=== PATIENT | female | born 1940 | race Caucasian/White ===

== ENCOUNTER 2018-04-19 17:09 | Inpatient (IN) ==
[2018-04-19] MEDS ORDERED: Bisacodyl 10 MG Supp RECTAL PRN (17:31)
[2018-04-19] MEDS ORDERED: Morphine Sulfate Inj 2 MG/ML Vial IV.PUSH PRN (17:31)
--- NOTE | 2018-04-19 17:39 | P.HPCC ---
History of Present Illness Service: Critical care medicine Primary Care Physician: Drew Sinclair III, MD Chief Complaint: Left lower extremity gangrene History of Present Illness: This is a 77-year-old female. Date of admission 04/19/2018. 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 Patient presents to [facility] as a direct transfer [facility] from [place] with the following history. Patient was originally seen at [facility] 04/16 at which time she underwent a left lower extremity Oanh José Miguel. This revealed superior femoral artery occlusion stent with jailing profunda. The anterior tibial and posterior tubular arteries were occluded. The plan was for left groin reconstruction with a femoral below the knee popliteal surgery on Friday 04/[address] Hansen. Patient was admitted to [facility] with confusion after going confusion post procedure. She is admitted with a diagnosis of acute cerebrovascular accident and underwent an MRI of the brain, carotid Dopplers. According to this was negative. Thought the acutely was secondary to sepsis source foot?. She subsequently transferred to [facility] for further evaluation treatment. 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 This includes certification that hospital inpatient services are reasonable and necessary and in the case of services not specified as inpatient-only under 42 CFR 419.22(n), that they are appropriately provided as inpatient services in accordance to with the 2-midnight benchmark under 43 CFR 412.3(e) Estimated Total Length of Stay (Days): 5 Plans for Post Hospital Care: Not yet determined Review of Systems Constitutional: Reports body ache(s), Reports weakness, Reports weight loss, Denies anorexia, Denies chills, Denies headache(s), Denies weight gain Eyes: Denies blind spots, Denies blurry vision Ears, Nose, Mouth, and Throat: Reports poor balance, Denies sinus pressure Cardiovascular: Denies chest pain, Denies shortness of breath, Denies shortness of breath with activity Respiratory: Denies cough, Denies pain on inspiration Gastrointestinal: Denies abdominal pain, Denies incontinent of stools Genitourinary: Reports urinary incontinence, Reports urinary urgency Musculoskeletal: Reports abnormal walking, Reports body aches, Denies back pain Skin/Breast: Reports dry skin, Reports skin ulcer Neurologic: Denies abnormal hearing, Denies abnormal movements, Denies restless legs, Denies sensory deficit Psychiatric: Reports anxiety, Reports confusion, Denies depression Endocrine: Denies cold intolerance, Denies excessive sweating Hematologic/Lymphatic: Denies easy bleeding, Denies easy bruising Allergic/Immunologic: Denies GI upset with certain foods PMFSH - History History Provided By: Patient - Medical History Medical History: Medical History (Last Updated 04/19/18 @ 17:49 by Sharath Tovar MD) Gangrene Hypercholesterolemia Obesity Peripheral arterial disease Unsteady gait Urinary incontinence COPD (chronic obstructive pulmonary disease) Carotid stenosis HTN (hypertension) PVD (peripheral vascular disease) - Surgical History Surgical History: Surgical History (Last Updated 04/19/18 @ 17:49 by Sharath Tovar MD) Amputated toe of left foot History of cholecystectomy History of total left knee replacement Status post arterial stent - Family History Family History: Family History (Last Updated 04/19/18 @ 17:50 by Sharath Tovar MD) Mother Family history of Alzheimer's disease Father Family history of OK (myocardial infarction) Other Family history of hypertension - Social History I have reviewed the patient's Social History: Yes - Tobacco History Second Hand Smoke Exposure: No Tobacco Use In Past 30 Days: No Smoking Status: Former smoker Tobacco Type: Cigarettes - Alcohol History How Often Do You Have a Drink Containing Alcohol: 2 to 3 times a week - Substance Use History Substance History: No History of Abuse - Travel History History of Recent Travel: No Recent Travel in the [place] Within the Last 8 Weeks: No Recent Travel Out of the Country Within the Last 8 Weeks: No Medications and Allergies Active Medications: Active Medications Acetaminophen (Tylenol) 650 mg PO Q6H PRN PRN Reason: Fever >101f Hydrocodone Bitart/Acetaminophen ([place] 5/325) 1 tab PO Q4H PRN PRN Reason: PAIN SCALE 1 TO 5 Al Hydroxide/Mg Hydroxide (Milk Of Magnesia Liq) 30 ml PO Q12H PRN PRN Reason: Mild Constipation Albuterol (Albuterol Neb (Tatiana)) 2.5 mg NEB Q2HR NEB PRN PRN Reason: SHORTNESS OF BREATH/WHEEZING Albuterol (Duoneb Neb (Prn)) 1 ampul NEB Q6HR NEB [facility] Atorvastatin Calcium (Lipitor) 40 mg PO DAILY [facility] Bisacodyl (Dulcolax Supp) 10 mg RECTAL DAILY PRN PRN Reason: SEVERE CONSITIPATION Chlorhexidine Gluconate (Chlorhexidine 2% Cloth) 3 pack TOPICAL DAILY@0400 TATIANA Stop: 04/25/18 03:59 Chlorhexidine Gluconate (Chlorhexidine 2% Cloth) 3 pack TOPICAL DAILY@0400 PRN PRN Reason: Extra cloth needed Stop: 04/25/18 03:59 Famotidine (Pepcid) 20 mg PO BID [facility] Fluticasone/Vilanterol (Breo Ellipta 200/25 Mcg Inh) puff INH DAILY [facility] Heparin Sodium (Porcine) (Heparin Inj) 5,000 units SQ Q12H [facility] Sodium Chloride (Ns Inj) 1,000 mls @ 84 mls/hr IV.CONT .[id number] [facility] Stop: 04/20/18 05:39 Lactulose (Lactulose Liq) 30 ml PO DAILY PRN PRN Reason: SEVERE CONSITIPATION Morphine Sulfate (Morphine Inj) 2 mg IV.PUSH Q2H PRN PRN Reason: PAIN SCALE 6 TO 10 Ondansetron HCl (Zofran Inj) 4 mg IV.PUSH Q6H PRN PRN Reason: NAUSEA OR VOMITING Oxybutynin Chloride (Ditropan) 5 mg PO TID [facility] Senna/Docusate Sodium (Airam-Colace) 1 tab PO BID [facility] Sennosides (Senokot) 17.2 mg PO Q12H PRN PRN Reason: Moderate Constipation Sodium Chloride (Ns Flush) 2 ml IV.FLUSH BID [facility] Sodium Chloride (Ns Flush) 2 ml IV.FLUSH PRN PRN PRN Reason: FLUSH AFTER USING IV ACCESS Allergies Allergy/AdvReac Type Severity Reaction Status Date / Time ciprofloxacin Allergy Rash Verified 04/16/18 07:47 levofloxacin Allergy Rash Verified 04/16/18 07:47 Sulfa (Sulfonamide Allergy Rash Verified 04/16/18 06:55 Antibiotics) tramadol AdvReac Hallucinati Verified 04/16/18 07:47 ons Home Medications Medication Instructions Recorded Confirmed Type albuterol sulfate [ProAir HFA] 1 puff INHALATION Q6H PRN 04/16/18 04/16/18 History atorvastatin 40 mg PO DAILY 04/16/18 04/16/18 History clopidogrel 300 mg PO DAILY 04/16/18 04/16/18 History fluticasone-vilanterol [Breo 1 inh INHALATION DAILY PRN 04/16/18 04/16/18 History Ellipta] oxybutynin chloride 5 mg PO TID 04/16/18 04/16/18 History Results - Labs CBC & Chem 7: 04/19/18 17:55 04/19/18 17:55 Exam Vital signs: Intake & Output 04/18/18 04/19/18 04/19/18 18:59 06:59 18:59 Weight 156 kg Other: Weight On Admission 156 kg - Constitutional no acute distress - Routine HEENT Exam Head: Present: normocephalic, atraumatic Eye: Present: EOMI, PERRL, normal accommodation ENT: Present: mucous membranes moist - Routine Neck Exam Present: supple, full ROM, carotid bruit. Absent: JVD - Routine Chest/Breast/Axilla Exam Chest wall: Absent: tenderness Breast: Absent: tenderness Axillae: Absent: lymphadenopathy - Routine Respiratory Exam Present: CTA bilaterally. Absent: accessory muscle use, wheezes - Routine Cardiovascular Exam Present: S1, S2, tachycardia. Absent: murmur - Routine Abdominal Exam Present: soft, normoactive bowel sounds - Routine Extremities Exam Present: amputation. Absent: cyanosis, clubbing - Routine Skin Exam Present: intact, gangrene Comments: Left lower extreme - Routine Neurological Exam Present: alert, oriented X3, CN II-XII intact. Absent: sensory deficit, motor deficit Septic Shock Reassessment Septic shock perfusion: reassessment completed Caprini VTE Risk Assessment Caprini VTE Risk Assessment: Moderate/High Risk (score >= 2) VTE Mechanical Exception: LE ischemia Caprini Risk Assessment Model: Point Value = 1 Point Value = 2 Point Value = 3 Point Value = 5 Age 41-60 Minor surgery BMI > 25 kg/m2 Swollen legs Varicose veins or History of unexplained or recurrent spontaneous Oral contraceptives or hormone replacement Sepsis (< 1 month) Serious lung disease, including pneumonia (< 1 month) Abnormal pulmonary function Acute myocardial infarction Congestive heart failure (< 1 month) History of inflammatory bowel disease Medical patient at bed rest Age 61-74 Arthroscopic surgery Major open surgery (> 45 min) Laparoscopic surgery (> 45 min) Malignancy Confined to bed (> 72 hours) Immobilizing plaster cast Central venous access Age >= 75 History of VTE Family history of VTE Factor V Leiden Prothrombin [id number] Lupus anticoagulant Anticardiolipin antibodies Elevated serum homocysteine Heparin-induced thrombocytopenia Other congenital or acquired thrombophilia Stroke (< 1 month) Elective arthroplasty Hip, pelvis, or leg fracture Acute spinal cord injury (< 1 month) Prophylaxis Regimen: Total Risk Factor Score Risk Level Prophylaxis Regimen 0-1 Low Early ambulation 2 Moderate Order ONE of the following: *Sequential Compression Device (SCD) *Heparin 5000 units SQ BID 3-4 Higher Order ONE of the following medications: *Heparin 5000 units SQ TID *Enoxaparin/Lovenox 40 mg SQ daily (WT < 150 kg, CrCl > 30 mL/min) *Enoxaparin/Lovenox 30 mg SQ daily (WT < 150 kg, CrCl > 10-29 mL/min) *Enoxaparin/Lovenox 30 mg SQ BID (WT < 150 kg, CrCl > 30 mL/min) AND/OR *Sequential Compression Device (SCD) 5 or more Highest Order ONE of the following medications: *Heparin 5000 units SQ TID (Preferred with Epidurals) *Enoxaparin/Lovenox 40 mg SQ daily (WT < 150 kg, CrCl > 30 mL/min) *Enoxaparin/Lovenox 30 mg SQ daily (WT < 150 kg, CrCl > 10-29 mL/min) *Enoxaparin/Lovenox 30 mg SQ BID (WT < 150 kg, CrCl > 30 mL/min) AND *Sequential Compression Device (SCD) 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 Code(s): I96 - Gangrene, not elsewhere classified; I70.202 - Unspecified atherosclerosis of [place] arteries of extremities, left leg Status: Acute (2) Urinary incontinence Code(s): R32 - Unspecified urinary incontinence Status: Chronic (3) COPD (chronic obstructive pulmonary disease) Code(s): J44.9 - Chronic obstructive pulmonary disease, unspecified Status: Chronic (4) Peripheral vascular disease Code(s): I73.9 - Peripheral vascular disease, unspecified Status: Suspected (5) Unstable gait Code(s): R26.81 - Unsteadiness on feet Status: Chronic (6) Obesity Code(s): E66.9 - Obesity, unspecified Status: Chronic (7) Hyperlipidemia Code(s): E78.5 - Hyperlipidemia, unspecified Status: Chronic (8) Essential hypertension Code(s): I10 - Essential (primary) hypertension Status: Chronic (9) Chronic pain Code(s): G89.29 - Other chronic pain Status: Chronic (10) Carotid artery stenosis Code(s): I65.29 - Occlusion and stenosis of unspecified carotid artery Status : Chronic (11) Superficial femoral artery occlusion Code(s): I70.209 - Unspecified atherosclerosis of [place] arteries of extremities , unspecified extremity Status: Acute (12) PAD (peripheral artery disease) Code(s): I73.9 - Peripheral vascular disease, unspecified Status: Chronic - Assessment and Plan Plan: Neuro/Psych: Gait and balance disorder NOS Chronic foot and low back pain Acetaminophen 650 mg p.o. every 6 hours as needed fever Hydrocodone/acetaminophen 5/325 1 tablet every 4 hours as needed pain 1 through 5. Patient has been seen she has been on this in the past Morphine sulfate 2 mg IV every 2 hours as needed pain 6 or 10 CV: Left lower extremity with SFA occlusion stent, AT/PT occluded Planned right groin reconstruction with femoral BK pop on Saturday Peripheral arterial disease Peripheral vascular disease Essential hypertension Hyperlipidemia Carotid artery disease History of left great and second toe amputation 04/16 -level 4 extremity runoff revealed occlusion of the SFA stent with jailing profunda, AT/PT occlusion. Continue clopidogrel 75 mg daily Continue atorvastatin 40 mg daily for hyperlipidemia Vascular surgery consultation As needed labetalol and hydralazine and Nitropaste for elevated blood pressure Check EKG, CPK, CRP and ESR Resp: COPD Nasal cannula to maintain saturations greater than equal to 92% Incentive spirometry while awake Continue fluticasone/Vilanterol 100/25 1 inhalation daily As needed albuterol aerosols every 2 hours as needed dyspnea Follow-up on chest x-ray GI: Advance diet as tolerated/cardiac diet Famotidine for GI prophylaxis Docusate sodium/senna 1 tablet twice daily for bowel regimen : History of urinary incontinence/spasm Continue home medication of oxybutynin 5 mg twice daily for bladder spasm Endo: Sliding scale insulin if indicated to maintain euglycemia Renal: Check BMP. No history of renal failure Heme: Ordered CBC and coags now. Type and screen ID: Blood cultures x2, UA ordered. Noted will initiate on on vancomycin, clindamycin and aztreonam FEN: Replace electrolytes as clinically indicated per ICU electrolyte protocol Currently on 0.9% NaCl at 84 cc an hour times 1 L MSK: PT evaluate and treat Access -Utilize peripheral IV. Central line if indicated Prophylaxis -GI -famotidine -DVT -SCD/heparin subcu Level 3 admission Code Status: Full code Discussed Condition With: . [facility] RN. CARE plan discussed and all questions answered. (2) Urinary incontinence Qualifiers: Urinary Incontinence type: unspecified incontinence Qualified Code(s): R32 - Unspecified urinary incontinence (3) COPD (chronic obstructive pulmonary disease) Qualifiers: COPD type: unspecified COPD Qualified Code(s): J44.9 - Chronic obstructive pulmonary disease, unspecified (6) Obesity Qualifiers: Obesity type: unspecified obesity type Obesity classification: unspecified obesity classification Serious obesity comorbidity presence: unspecified whether serious comorbidity present Qualified Code(s): E66.9 - Obesity, unspecified (7) Hyperlipidemia Qualifiers: Hyperlipidemia type: unspecified Qualified Code(s): E78.5 - Hyperlipidemia, unspecified (9) Chronic pain Qualifiers: Chronic pain type: other chronic pain Qualified Code(s): G89.29 - Other chronic pain
[2018-04-19] MEDS ORDERED: Sod Chloride 0.9% Inj 1,000 ML IV.CONT SCH (17:45)
[2018-04-19] MEDS ORDERED: Labetalol HCl Inj 100 MG/20 ML Vial IV.PUSH PRN (17:59)
[2018-04-19 18:03] LABS: Baso # (Auto) 0.1 th/mm3 (0.0-0.2); Baso % (Auto) 0.5 % (0.0-2.0); Eos # (Auto) 0.2 th/mm3 (0.0-0.4); Eos % (Auto) 1.6 % (0.0-4.0); Hematocrit 34.7 % (35.0-46.0); Hemoglobin 11.8 gm/dL (11.6-15.3); Lymph # (Auto) 1.4 th/mm3 (1.0-4.8); Lymph % (Auto) 13.3 % (9.0-44.0); Mean Corpuscular HGB Conc 34.1 % (32.0-36.0); Mean Corpuscular Hemoglobin 28.4 pg (27.0-34.0); Mean Corpuscular Volume 83.3 fL (80.0-100.0); Mean Platelet Volume 6.7 fL (7.0-11.0); Mono # (Auto) 1.3 th/mm3 (0.0-0.9); Mono % (Auto) 11.9 % (0.0-8.0); Neut # (Auto) 7.9 th/mm3 (1.8-7.7); Neut % (Auto) 72.7 % (16.0-70.0); Platelet Count 453 th/mm3 (150-450); Red Blood Count 4.17 mil/mm3 (4.00-5.30); Red Cell Distribution Width 15.5 % (11.6-17.2); White Blood Count 10.8 th/mm3 (4.0-11.0)
[2018-04-19] MEDS ORDERED: Vancomycin Consult Pharmacy OTHER PRN (18:04)
--- NOTE | 2018-04-19 18:06 | XR ---
EXAM DATE: 04/19/2018 6:02 PM EST AGE/SEX: 77 years / Female INDICATIONS: COPD. CLINICAL DATA: This is the patient's initial encounter. Patient reports that signs and symptoms have been present for 1 day and indicates a pain score of 0/10. MEDICAL/SURGICAL HISTORY: None. None. COMPARISON: No prior exams available for comparison. FINDINGS: A single AP view of the chest demonstrates the lungs to be symmetrically aerated without evidence of mass, infiltrate or effusion. The cardiomediastinal contours are unremarkable. Osseous structures a re intact. CONCLUSION: No acute cardiopulmonary disease Electronically signed by: Mason Varela MD Board Certified Radiologist 04/19/2018 6:05 PM EST
[2018-04-19 18:14] LABS: Activated Partial Thrombo Time 29.1 sec (23.4-31.7); Prothrombin Time 10.5 sec (9.8-11.6)
[2018-04-19] MEDS: Heparin - SQ 10,000 UNITS/ML Vial SQ SCH (18:19)
[2018-04-19 18:28] LABS: Calcium 8.7 mg/dL (8.5-10.1); Carbon Dioxide 29.7 meq/L (21.0-32.0); Potassium 3.9 meq/L (3.5-5.1)
[2018-04-19 18:50] LABS: CKMB Percent 1.8 % (0.0-4.0); Creatine Kinase MB 3.5 ng/mL (0.5-3.6)
[2018-04-19] MEDS: Aztreonam Inj 2 GM in Sodium Chloride 0.9% Inj 100 ML IV.SIG SCH (20:51)
[2018-04-19] MEDS ORDERED: Vancomycin Inj 1,500 MG in Sodium Chlor 0.9% Inj 500 ML IV.SIG ONE (21:00)
--- NOTE | 2018-04-19 21:29 | ECG ---
Date Performed: 04/19/2018 Time Performed: 18:09:29 PTAGE: 77 years EKG: Baseline artifact present Sinus rhythm INFERIOR MYOCARDIAL INFARCTION Abnormal R wave progression which may well be due to errors in lead p lacement. Clinical correlation suggested. ABNORMAL ECG NO PREVIOUS TRACING DOCTOR: Fer Daugherty Interpretating Date/Time 04/19/2018 21:28:14
[2018-04-19] MEDS: Famotidine 20 MG Tablet PO SCH (22:19)
[2018-04-19] MEDS: Senna/Docusate Sodium 8.6/50 MG Tablet PO SCH (22:19)
[2018-04-20] MEDS: Aztreonam Inj 2 GM in Sodium Chloride 0.9% Inj 100 ML IV.SIG SCH ×3 (03:25→20:21)
[2018-04-20 03:52] LABS: Baso # (Auto) 0.1 th/mm3 (0.0-0.2); Baso % (Auto) 0.5 % (0.0-2.0); Eos # (Auto) 0.2 th/mm3 (0.0-0.4); Eos % (Auto) 1.6 % (0.0-4.0); Hematocrit 33.3 % (35.0-46.0); Hemoglobin 10.9 gm/dL (11.6-15.3); Lymph # (Auto) 1.1 th/mm3 (1.0-4.8); Lymph % (Auto) 9.9 % (9.0-44.0); Mean Corpuscular HGB Conc 32.6 % (32.0-36.0); Mean Corpuscular Hemoglobin 27.8 pg (27.0-34.0); Mean Corpuscular Volume 85.1 fL (80.0-100.0); Mean Platelet Volume 6.6 fL (7.0-11.0); Mono # (Auto) 1.1 th/mm3 (0.0-0.9); Mono % (Auto) 10.1 % (0.0-8.0); Neut # (Auto) 8.6 th/mm3 (1.8-7.7); Neut % (Auto) 77.9 % (16.0-70.0); Platelet Count 460 th/mm3 (150-450); Red Blood Count 3.92 mil/mm3 (4.00-5.30); Red Cell Distribution Width 15.7 % (11.6-17.2)
[2018-04-20] MEDS ORDERED: Chlorhexidine Gluconate 2% 1 Pack (2 Cloths) TOPICAL PRN (04:00)
[2018-04-20 04:01] LABS: Activated Partial Thrombo Time 29.8 sec (23.4-31.7); INR 1.1 Ratio; Prothrombin Time 10.7 sec (9.8-11.6)
[2018-04-20 04:21] LABS: Alanine Aminotransferase 17 U/L (10-53); Albumin 2.6 g/dL (3.4-5.0); Anion Gap 7 meq/L (5-15); Aspartate Aminotransferase 21 U/L (15-37); Calcium 8.2 mg/dL (8.5-10.1); Carbon Dioxide 27.9 meq/L (21.0-32.0); Chloride 104 meq/L (98-107); Glomerular Filtration Rate 78 mL/min (>89); Glucose,Random 116 mg/dL (74-106); Magnesium 1.8 mg/dL (1.5-2.5); Potassium 3.8 meq/L (3.5-5.1); Sodium 139 meq/L (136-145)
[2018-04-20 04:23] LABS: Alkaline Phosphatase 140 U/L (45-117); Blood Urea Nitrogen 9 mg/dL (7-18); Total Protein 7.1 g/dL (6.4-8.2)
[2018-04-20] MEDS: Chlorhexidine Gluconate 2% 1 Pack (2 Cloths) TOPICAL SCH (05:32)
[2018-04-20] MEDS: Heparin - SQ 10,000 UNITS/ML Vial SQ SCH ×2 (05:33→17:07)
--- NOTE | 2018-04-20 08:55 | P.PNCC ---
Subjective Subjective Remarks/Hospital Course: This is a 77-year-old female. Date of admission 04/19/2018. 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 Patient presents to [facility] as a direct transfer from [facility] from [place] with the following history. Patient was originally seen at [facility] 04/16 at which time she underwent a left lower extremity Oanh José Miguel. This revealed superior femoral artery occlusion stent with jailing profunda. The anterior tibial and posterior tubular arteries were occluded. The plan was for left groin reconstruction with a femoral below the knee popliteal surgery on Friday 04/[address] Hansen. Patient was admitted to [facility] with confusion after going confusion post procedure. She is admitted with a diagnosis of acute cerebrovascular accident and underwent an MRI of the brain, carotid Dopplers. According to this was negative. Thought the acutely was secondary to sepsis source foot?. She subsequently transferred to [facility] for further evaluation treatment. Subjective 04/20: Resting comfortably in bed in no acute distress. Received hydrocodone/ acetaminophen overnight for pain relief. Laboratories essentially stable. Denies complaint of severe pain in her left leg. Objective Vital Signs / I&O: Vital Signs 04/19/18 18:00 04/19/18 20:00 04/19/18 22:00 Temperature 98 F 98 F Pulse Rate 100 H 102 H 93 H Respiratory Rate 17 23 Blood Pressure 188/83 H 167/70 H Pulse Oximetry 96 100 04/20/18 00:00 04/20/18 02:00 04/20/18 04:00 Temperature Pulse Rate 92 H 92 H 95 H Respiratory Rate Blood Pressure Pulse Oximetry 04/20/18 04:39 04/20/18 05:00 04/20/18 05:01 Temperature 98.0 F Pulse Rate 93 H 95 H 94 H Respiratory Rate 26 H 34 H 35 H Blood Pressure 132/82 146/65 H Pulse Oximetry 96 83 L 88 L 04/20/18 05:31 04/20/18 06:00 Temperature Pulse Rate 93 H 92 H Respiratory Rate 29 H 23 Blood Pressure 165/72 H 140/64 Pulse Oximetry 95 96 Intake & Output 04/19/18 04/20/18 04/20/18 18:59 06:59 18:59 Intake Total 708 / 708 815 / 815 Output Total 2500 / 2500 2500 / 2500 Balance -1792 / -1792 -1685 / -1685 Weight 70.9 kg 69 kg Intake: IV 408 / 408 515 / 515 Azactam Inj 2 GM In NS Inj 100 200 / 200 ML @ 200 mls/hr IV.SIG Q8H [place] Rx#:[id number] Cleocin Inj 600 MG In NS Inj 208 / 208 100 ML @ 208 mls/hr IV.SIG Q8H [place] Rx#:[id number] Vancomycin Inj 1,500 MG In NS 515 / 515 Inj 500 ML @ 250 mls/hr IV.SIG ONCE ONE Rx#:[id number] Oral 300 / 300 300 / 300 Output: Urine 2500 / 2500 2500 / 2500 Stool 0 / 0 0 / 0 Urine/Stool Mix 0 / 0 0 / 0 Other: # Voids 2 # Bowel Movements 0 0 # Incontinent Bowel Movements 0 0 Weight On Admission 156 kg Result Diagrams: 04/20/18 03:39 04/20/18 03:39 Imaging: Chest X-Ray 04/19/18 17:36 CONCLUSION: No acute cardiopulmonary disease Objective Remarks: GENERAL: 77-year-old female resting in bed in no acute distress SKIN: Warm and dry. HEAD: Atraumatic. Normocephalic. EYES: Pupils equal and round. No scleral icterus. No injection or drainage. ENT: No nasal bleeding or discharge. Mucous membranes pink and moist. NECK: Trachea midline. No JVD. CARDIOVASCULAR: Regular rate and rhythm. S1, S2. No S4. RESPIRATORY: No accessory muscle use. Clear to auscultation. Breath sounds equal bilaterally. GASTROINTESTINAL: Abdomen soft, non-tender, nondistended. Hepatic and splenic margins not palpable. MUSCULOSKELETAL: Left lower extremity with dry gangrene involving the fourth and fifth digits toes. Status post removal of first and second toes.. No palpable pulses posterior tibial/posterior tibialis. Right lower extremity intact NEUROLOGICAL: Awake and alert. No obvious cranial nerve deficits. Motor grossly within normal limits. Five out of 5 muscle strength in the arms and legs. Normal speech. PSYCHIATRIC: Appropriate mood and affect; insight and judgment normal. 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 Code(s): I96 - Gangrene, not elsewhere classified; I70.202 - Unspecified atherosclerosis of [place] arteries of extremities, left leg Status: Acute (2) Urinary incontinence Code(s): R32 - Unspecified urinary incontinence Status: Chronic (3) COPD (chronic obstructive pulmonary disease) Code(s): J44.9 - Chronic obstructive pulmonary disease, unspecified Status: Chronic (4) Peripheral vascular disease Code(s): I73.9 - Peripheral vascular disease, unspecified Status: Suspected (5) Unstable gait Code(s): R26.81 - Unsteadiness on feet Status: Chronic (6) Obesity Code(s): E66.9 - Obesity, unspecified Status: Chronic (7) Hyperlipidemia Code(s): E78.5 - Hyperlipidemia, unspecified Status: Chronic (8) Essential hypertension Code(s): I10 - Essential (primary) hypertension Status: Chronic (9) Chronic pain Code(s): G89.29 - Other chronic pain Status: Chronic (10) Carotid artery stenosis Code(s): I65.29 - Occlusion and stenosis of unspecified carotid artery Status : Chronic (11) Superficial femoral artery occlusion Code(s): I70.209 - Unspecified atherosclerosis of [place] arteries of extremities , unspecified extremity Status: Acute (12) PAD (peripheral artery disease) Code(s): I73.9 - Peripheral vascular disease, unspecified Status: Chronic - Assessment and Plan Plan: Neuro/Psych: Gait and balance disorder NOS Chronic foot and low back pain Acetaminophen 650 mg p.o. every 6 hours as needed fever Hydrocodone/acetaminophen 5/325 1 tablet every 4 hours as needed pain 1 through 5. Patient has been seen she has been on this in the past Morphine sulfate 2 mg IV every 2 hours as needed pain 6 or 10 CV: Left lower extremity with SFA occlusion stent, AT/PT occluded Planned right groin reconstruction with femoral BK pop on Saturday Peripheral arterial disease Peripheral vascular disease Essential hypertension Hyperlipidemia Carotid artery disease History of left great and second toe amputation 04/16 -level 4 extremity runoff revealed occlusion of the SFA stent with jailing profunda, AT/PT occlusion. Continue clopidogrel 75 mg daily Continue atorvastatin 40 mg daily for hyperlipidemia Vascular surgery consultation As needed labetalol and hydralazine and Nitropaste for elevated blood pressure EKG with abnormal placement of leads. Elevated CRP and ESR noted. Resp: COPD Nasal cannula to maintain saturations greater than equal to 92% Incentive spirometry while awake Continue fluticasone/Vilanterol 100/25 1 inhalation daily As needed albuterol aerosols every 2 hours as needed dyspnea Follow-up on chest x-ray GI: Hypoalbuminemia Elevated alkaline phosphatase Advance diet as tolerated/cardiac diet Famotidine for GI prophylaxis Docusate sodium/senna 1 tablet twice daily for bowel regimen : History of urinary incontinence/spasm Continue home medication of oxybutynin 5 mg twice daily for bladder spasm Endo: Sliding scale insulin if indicated to maintain euglycemia Renal: Accurate I's and O's Monitor urine output creatinine currently within normal limits Heme: Normocytic anemia Thrombocytosis Ordered CBC and coags now. Type and screen ID: Blood cultures x2, UA ordered. Noted will initiate on on vancomycin, clindamycin and aztreonam day #2 FEN: Replace electrolytes as clinically indicated per ICU electrolyte protocol Currently on 0.9% NaCl at 84 cc an hour times 1 L completed today 04/20 MSK: PT evaluate and treat Access -Utilize peripheral IV. Central line if indicated Prophylaxis -GI -famotidine -DVT -SCD/heparin subcu Level 2 follow-up (2) Urinary incontinence Qualifiers: Urinary Incontinence type: unspecified incontinence Qualified Code(s): R32 - Unspecified urinary incontinence (3) COPD (chronic obstructive pulmonary disease) Qualifiers: COPD type: unspecified COPD Qualified Code(s): J44.9 - Chronic obstructive pulmonary disease, unspecified (6) Obesity Qualifiers: Obesity type: unspecified obesity type Obesity classification: unspecified obesity classification Serious obesity comorbidity presence: unspecified whether serious comorbidity present Qualified Code(s): E66.9 - Obesity, unspecified (7) Hyperlipidemia Qualifiers: Hyperlipidemia type: unspecified Qualified Code(s): E78.5 - Hyperlipidemia, unspecified (9) Chronic pain Qualifiers: Chronic pain type: other chronic pain Qualified Code(s): G89.29 - Other chronic pain
[2018-04-20] MEDS ORDERED: Vancomycin Inj 750 MG in Sodium Chlor 0.9% Inj 250 ML IV.SIG SCH (09:00)
[2018-04-20] MEDS: Senna/Docusate Sodium 8.6/50 MG Tablet PO SCH ×2 (09:01→20:21)
[2018-04-20] MEDS: Famotidine 20 MG Tablet PO SCH ×2 (09:01→20:21)
--- NOTE | 2018-04-20 11:03 | P.CONVS ---
History of Present Illness Service: Vascular surgery Consult date: 04/20/18 Primary Care Provider: Drew Sinclair III, MD Chief Complaint: Left lower extremity gangrene History of Present Illness: 77-year-old female with a past medical history peripheral vascular disease status post diagnostic angiography that was done Saturday of last week. Patient developed new onset of mental status changes and he was admitted to an outlying facility for stroke workup. The patient was transferred to [facility] per family request. Medical record were not transferred to our hospital with the patient. According to the family, the MRI of the head was negative for acute stroke. He also has a carotid duplex that was normal. Currently, she returns to her baseline. She reports left foot pain. She denies any chest pain or shortness of breath. Review of Systems All other systems reviewed negative except as stated in HPI PMFSH - History History Provided By: Patient - Medical History Medical History: Medical History (Last Reviewed 04/20/18 @ 09:41 by Carlos Mckoy) Gangrene Hypercholesterolemia Obesity Peripheral arterial disease Unsteady gait Urinary incontinence COPD (chronic obstructive pulmonary disease) Carotid stenosis HTN (hypertension) PVD (peripheral vascular disease) - Surgical History Surgical History: Surgical History (Last Reviewed 04/20/18 @ 09:41 by Carlos Mckoy) Amputated toe of left foot History of cholecystectomy History of total left knee replacement Status post arterial stent - Family History Family History: Family History (Last Updated 04/19/18 @ 17:50 by Sharath Tovar MD) Mother Family history of Alzheimer's disease Father Family history of VA (myocardial infarction) Other Family history of hypertension - Tobacco History Second Hand Smoke Exposure: No Tobacco Use In Past 30 Days: No Smoking Status: Former smoker Tobacco Type: Cigarettes - Alcohol History How Often Do You Have a Drink Containing Alcohol: 2 to 3 times a week - Substance Use History Substance History: No History of Abuse - Travel History History of Recent Travel: No Recent Travel in the [place] Within the Last 8 Weeks: No Recent Travel Out of the Country Within the Last 8 Weeks: No - Immunization History Tetanus Immunization: <5 Years Tetanus Immunization Year if Known: 2017 Hx Influenza Vaccine This Season: Yes Medications and Allergies Active Medications: Active Medications Acetaminophen (Tylenol) 650 mg PO Q6H PRN PRN Reason: Fever >101f Hydrocodone Bitart/Acetaminophen ([place] 5/325) 1 tab PO Q4H PRN PRN Reason: PAIN SCALE 1 TO 5 Al Hydroxide/Mg Hydroxide (Milk Of [place] Liq) 30 ml PO Q12H PRN PRN Reason: Mild Constipation Albuterol (Albuterol Neb (Prn)) 2.5 mg NEB Q2HR NEB PRN PRN Reason: SHORTNESS OF BREATH/WHEEZING Atorvastatin Calcium (Lipitor) 40 mg PO DAILY [facility] Last Admin: 04/20/18 09:01 Dose: 40 mg Bisacodyl (Dulcolax Supp) 10 mg RECTAL DAILY PRN PRN Reason: SEVERE CONSITIPATION Chlorhexidine Gluconate (Chlorhexidine 2% Cloth) 3 pack TOPICAL DAILY@0400 [facility] Stop: 04/25/18 03:59 Last Admin: 04/20/18 05:32 Dose: 3 pack Chlorhexidine Gluconate (Chlorhexidine 2% Cloth) 3 pack TOPICAL DAILY@0400 PRN PRN Reason: Extra cloth needed Stop: 04/25/18 03:59 Clopidogrel Bisulfate (Plavix) 75 mg PO DAILY [facility] Last Admin: 04/20/18 09:01 Dose: 75 mg Famotidine (Pepcid) 20 mg PO BID [facility] Last Admin: 04/20/18 09:01 Dose: 20 mg Fluticasone/Vilanterol (Breo Ellipta 200/25 Mcg Inh) 1 puff INH DAILY [facility] Last Admin: 04/20/18 09:02 Dose: 1 puff Heparin Sodium (Porcine) (Heparin Inj) 5,000 units SQ Q12H [facility] Last Admin: 04/20/18 05:33 Dose: 5,000 units Hydralazine HCl (Apresoline Inj) 10 mg IV.PUSH Q1H PRN PRN Reason: SBP>160, DBP>90 Aztreonam 2 gm/ Sodium (Chloride) 100 mls @ 200 mls/hr IV.SIG Q8H [facility] Last Infusion: 04/20/18 04:05 Dose: Infused Clindamycin Phosphate 600 mg/ (Sodium Chloride) 104 mls @ 208 mls/hr IV.SIG Q8H [facility] Last Infusion: 04/20/18 05:33 Dose: Infused Vancomycin HCl 750 mg/ Sodium (Chloride) 257.5 mls @ 250 mls/hr IV.SIG Q12H [facility] Last Admin: 04/20/18 09:02 Dose: 250 mls/hr Labetalol HCl (Trandate Inj) 10 mg IV.PUSH Q1H PRN PRN Reason: SBP > 160 DBP > 90 HR > 65 Lactulose (Lactulose Liq) 30 ml PO DAILY PRN PRN Reason: SEVERE CONSITIPATION Miscellaneous Information ([facility] Ordered Lab Info) 1 each OTHER ONCE [facility] Morphine Sulfate (Morphine Inj) 2 mg IV.PUSH Q2H PRN PRN Reason: PAIN SCALE 6 TO 10 Nitroglycerin (Nitro-Bid 2% Oint) 2 inch TOPICAL Q6HR PRN PRN Reason: Sbp>165, Dbp>90 Ondansetron HCl (Zofran Inj) 4 mg IV.PUSH Q6H PRN PRN Reason: NAUSEA OR VOMITING Oxybutynin Chloride (Ditropan) 5 mg PO BID [facility] Last Admin: 04/20/18 09:02 Dose: 5 mg Pharmacy Profile Note (Vancomycin Consult Pharmacy) 1 each OTHER UNSCH PRN PRN Reason: Pharmacy to dose Senna/Docusate Sodium (Airam-Colace) 1 tab PO BID [facility] Last Admin: 04/20/18 09:01 Dose: 1 tab Sennosides (Senokot) 17.2 mg PO Q12H PRN PRN Reason: Moderate Constipation Sodium Chloride (Ns Flush) 2 ml IV.FLUSH BID [facility] Last Admin: 04/20/18 09:02 Dose: 2 ml Sodium Chloride (Ns Flush) 2 ml IV.FLUSH PRN PRN PRN Reason: FLUSH AFTER USING IV ACCESS Allergies Allergy/AdvReac Type Severity Reaction Status Date / Time ciprofloxacin Allergy Rash Verified 04/16/18 07:47 levofloxacin Allergy Rash Verified 04/16/18 07:47 Sulfa (Sulfonamide Allergy Rash Verified 04/16/18 06:55 Antibiotics) tramadol AdvReac Hallucinati Verified 04/16/18 07:47 ons Home Medications Medication Instructions Recorded Confirmed Type albuterol sulfate [ProAir HFA] 1 puff INHALATION Q6H PRN 04/16/18 04/16/18 History atorvastatin 40 mg PO DAILY 04/16/18 04/16/18 History clopidogrel 300 mg PO DAILY 04/16/18 04/16/18 History fluticasone-vilanterol [Breo 1 inh INHALATION DAILY PRN 02/13/19 02/13/19 History Ellipta] oxybutynin chloride 5 mg PO TID 04/16/18 04/16/18 History Physical Exam Vital Signs / I&O: Vital Signs 04/19/18 18:00 04/19/18 20:00 04/19/18 22:00 Temperature 98 F 98 F Pulse Rate 100 H 102 H 93 H Respiratory Rate 17 23 Blood Pressure 188/83 H 167/70 H Pulse Oximetry 96 100 04/20/18 00:00 04/20/18 02:00 04/20/18 04:00 Temperature Pulse Rate 92 H 92 H 95 H Respiratory Rate Blood Pressure Pulse Oximetry 04/20/18 04:39 04/20/18 05:00 04/20/18 05:01 Temperature 98.0 F Pulse Rate 93 H 95 H 94 H Respiratory Rate 26 H 34 H 35 H Blood Pressure 132/82 146/65 H Pulse Oximetry 96 83 L 88 L 04/20/18 05:31 04/20/18 06:00 04/20/18 06:30 Temperature Pulse Rate 93 H 92 H 94 H Respiratory Rate 29 H 23 31 H Blood Pressure 165/72 H 140/64 155/69 H Pulse Oximetry 95 96 95 04/20/18 07:00 04/20/18 07:31 04/20/18 08:00 Temperature Pulse Rate 92 H 99 H 97 H Respiratory Rate 24 31 H 21 Blood Pressure 150/65 H 170/70 H 173/72 H Pulse Oximetry 93 L 95 96 04/20/18 08:30 04/20/18 09:00 04/20/18 09:01 Temperature 98.6 F Pulse Rate 94 H 90 90 Respiratory Rate 25 H 23 26 H Blood Pressure 174/74 H 176/72 H Pulse Oximetry 95 96 97 04/20/18 09:31 Temperature Pulse Rate 94 H Respiratory Rate 25 H Blood Pressure 150/69 H Pulse Oximetry 96 Intake & Output 04/19/18 04/20/18 04/20/18 18:59 06:59 18:59 Intake Total 708 / 708 815 / 815 Output Total 2500 / 2500 2500 / 2500 Balance -1792 / -1792 -1685 / -1685 Weight 70.9 kg 69 kg Intake: IV 408 / 408 515 / 515 Azactam Inj 2 GM In NS Inj 100 200 / 200 ML @ 200 mls/hr IV.SIG Q8H [place] Rx#:[id number] Cleocin Inj 600 MG In NS Inj 208 / 208 100 ML @ 208 mls/hr IV.SIG Q8H [facility] Rx#:[id number] Vancomycin Inj 1,500 MG In NS 515 / 515 Inj 500 ML @ 250 mls/hr IV.SIG ONCE ONE Rx#:[id number] Oral 300 / 300 300 / 300 Output: Urine 2500 / 2500 2500 / 2500 Stool 0 / 0 0 / 0 Urine/Stool Mix 0 / 0 0 / 0 Other: # Voids 2 # Bowel Movements 0 0 # Incontinent Bowel Movements 0 0 Weight On Admission 156 kg Neuro: Alert awake oriented x2 HEENT: Normocephalic atraumatic Neck: Supple Heart: S1-S2 Lungs: Clear to auscultation bilateral Abdomen: Soft nontender nondistended Vascular: Palpable femoral pulse Left lower extremity is well perfused Left foot with dry gangrene, no evidence of purulent discharge Laboratory Results - last 24 hr 04/19/18 04/19/18 04/19/18 17:00 17:55 17:55 WBC 10.8 RBC 4.17 Hgb 11.8 Hct 34.7 L MCV 83.3 MCH 28.4 MCHC 34.1 RDW 15.5 Plt Count 453 H MPV 6.7 L Neut % (Auto) 72.7 H Lymph % (Auto) 13.3 Heard % (Auto) 11.9 H Eos % (Auto) 1.6 Baso % (Auto) 0.5 Neut # (Auto) 7.9 H Lymph # (Auto) 1.4 Heard # (Auto) 1.3 H Eos # (Auto) 0.2 Baso # (Auto) 0.1 WBC Differential . Differential Comment Auto diff final ESR PT INR APTT Sodium Potassium Chloride Carbon Dioxide Anion Gap BUN Creatinine Estimated GFR POC Glucose Random Glucose Lactic Acid Calcium Phosphorus Magnesium Total Bilirubin AST ALT Alkaline Phosphatase Ammonia 21 Total Creatine Kinase CK-MB (CK-2) CK-MB (CK-2) % C-Reactive Protein Total Protein Albumin Nasal Screen MRSA (PCR) Not detected 04/19/18 04/19/18 04/19/18 17:55 17:55 17:55 WBC RBC Hgb Hct MCV MCH MCHC RDW Plt Count MPV Neut % (Auto) Lymph % (Auto) Heard % (Auto) Eos % (Auto) Baso % (Auto) Neut # (Auto) Lymph # (Auto) Heard # (Auto) Eos # (Auto) Baso # (Auto) WBC Differential Differential Comment ESR 81 H PT 10.5 INR 1.0 APTT 29.1 Sodium 138 Potassium 3.9 Chloride 103 Carbon Dioxide 29.7 Anion Gap 5 BUN 10 Creatinine 0.68 Estimated GFR 84 L POC Glucose Random Glucose 106 Lactic Acid Calcium 8.7 Phosphorus Magnesium Total Bilirubin AST ALT Alkaline Phosphatase Ammonia Total Creatine Kinase 195 H CK-MB (CK-2) 3.5 CK-MB (CK-2) % 1.8 C-Reactive Protein Total Protein Albumin Nasal Screen MRSA (PCR) 04/19/18 04/20/18 04/20/18 17:55 03:39 03:39 WBC 11.0 RBC 3.92 L Hgb 10.9 L Hct 33.3 L MCV 85.1 MCH 27.8 MCHC 32.6 RDW 15.7 Plt Count 460 H MPV 6.6 L Neut % (Auto) 77.9 H Lymph % (Auto) 9.9 Heard % (Auto) 10.1 H Eos % (Auto) 1.6 Baso % (Auto) 0.5 Neut # (Auto) 8.6 H Lymph # (Auto) 1.1 Heard # (Auto) 1.1 H Eos # (Auto) 0.2 Baso # (Auto) 0.1 WBC Differential . Differential Comment Auto diff final ESR PT 10.7 INR 1.1 APTT 29.8 Sodium Potassium Chloride Carbon Dioxide Anion Gap BUN Creatinine Estimated GFR POC Glucose Random Glucose Lactic Acid Calcium Phosphorus Magnesium Total Bilirubin AST ALT Alkaline Phosphatase Ammonia Total Creatine Kinase CK-MB (CK-2) CK-MB (CK-2) % C-Reactive Protein 10.50 H Total Protein Albumin Nasal Screen MRSA (PCR) 04/20/18 04/20/18 04/20/18 03:39 03:39 06:31 WBC RBC Hgb Hct MCV MCH MCHC RDW Plt Count MPV Neut % (Auto) Lymph % (Auto) Heard % (Auto) Eos % (Auto) Baso % (Auto) Neut # (Auto) Lymph # (Auto) Heard # (Auto) Eos # (Auto) Baso # (Auto) WBC Differential Differential Comment ESR PT INR APTT Sodium 139 Potassium 3.8 Chloride 104 Carbon Dioxide 27.9 Anion Gap 7 BUN 9 Creatinine 0.73 Estimated GFR 78 L POC Glucose 158 H Random Glucose 116 H Lactic Acid 1.1 Calcium 8.2 L Phosphorus 3.0 Magnesium 1.8 Total Bilirubin 0.5 AST 21 ALT 17 Alkaline Phosphatase 140 H Ammonia Total Creatine Kinase CK-MB (CK-2) CK-MB (CK-2) % C-Reactive Protein Total Protein 7.1 Albumin 2.6 L Nasal Screen MRSA (PCR) Impressions Chest X-Ray 04/19/18 17:36 CONCLUSION: No acute cardiopulmonary disease Assessment and Plan - Plan Left lower extremity critical limb ischemia tissue loss Schedule for left groin reconstruction, left femoral to below-knee popliteal bypass. Acute mental status changes due to ?sepsis. She is clinically improved and returned to baseline. 1. Will obtain the records from the outlying facility to confirm the MRI findings. 2. Discussed with Dr. Tovar, she is cleared from critical care standpoint for surgery tomorrow. The case was discussed with the patient's who was present at the bedside. Magnus Siu MD [phone]
[2018-04-20 14:40] LABS: Bacteria,Urine Rare /hpf; Bilirubin,Urine Negative (Negative); Clarity,Urine Hazy (Clear); Color,Urine Yellow (Yellw/Straw); Glucose,Urine (UA) Negative (Negative); Leukocyte Esterase,Urine Negative (Negative); Mucus,Urine Few /lpf (Occasional); Nitrite,Urine Negative (Negative); Specific Gravity,Urine 1.015 (1.002-1.035); Squamous Epithelial Cell,Urine 4 /hpf (0-5)
[2018-04-20] MEDS: Vancomycin Inj 1,000 MG in Sodium Chlor 0.9% Inj 250 ML IV.SIG SCH (21:41)
[2018-04-21] MEDS: Aztreonam Inj 2 GM in Sodium Chloride 0.9% Inj 100 ML IV.SIG SCH ×4 (03:21→20:38)
[2018-04-21] MEDS: Chlorhexidine Gluconate 2% 1 Pack (2 Cloths) TOPICAL SCH (04:06)
[2018-04-21] MEDS: Heparin - SQ 10,000 UNITS/ML Vial SQ SCH ×2 (06:10→20:46)
[2018-04-21] MEDS ORDERED: Pharmacy Ordered Lab Info OTHER SCH (08:45)
[2018-04-21] MEDS: Famotidine 20 MG Tablet PO SCH ×2 (09:41→20:38)
[2018-04-21] MEDS: Senna/Docusate Sodium 8.6/50 MG Tablet PO SCH ×2 (09:41→20:39)
[2018-04-21] MEDS: Vancomycin Inj 1,000 MG in Sodium Chlor 0.9% Inj 250 ML IV.SIG SCH (09:46)
[2018-04-21] MEDS ORDERED: Heparin 10,000 UNITS/10 ML Vial (for IV use) ONE ×2 (10:26→10:42)
[2018-04-21] MEDS ORDERED: Heparin/NS PF Inj 500 ML ONE (10:26)
[2018-04-21] MEDS ORDERED: Thrombin Topical Soln 20,000 UNIT Vial TOPICAL ONE (10:26)
[2018-04-21] MEDS ORDERED: Protamine Sulfate Inj 50 MG/5 ML Vial ONE (10:26)
[2018-04-21] MEDS ORDERED: ceFAZolin 2 GM Premix Inj 0 GM/0 ML PIGGYBACK IV.SIG ONE (10:26)
[2018-04-21] MEDS ORDERED: Bupivacaine/Epinephrine 0.5% Inj 50 ML Vial ONE (10:43)
[2018-04-21] MEDS: hydrALAZINE HCl Inj 20 MG/ML Vial IV.PUSH PRN (11:07)
[2018-04-21] MEDS ORDERED: Normosol-R pH 7.4 Inj 1,000 ML IV.CONT ONE (12:04)
[2018-04-21] MEDS ORDERED: Lidocaine PF 1% Inj 5 ML Syringe OTHER ONE (12:04)
[2018-04-21] MEDS ORDERED: Glycopyrrolate Inj 1 MG/5 ML Syringe IV.PUSH ONE (12:04)
[2018-04-21] MEDS ORDERED: Phenylephrine/NS 1000 MCG/10ML Syringe IV.PUSH ONE (12:04)
[2018-04-21] MEDS ORDERED: Neostigmine Inj 5 MG/5 ML Syringe IV.PUSH ONE (12:04)
[2018-04-21] MEDS ORDERED: Bupivacaine 0.5% Inj 50 ML MDV Vial ONE (12:29)
--- NOTE | 2018-04-21 15:25 | P.OP ---
- Preoperative Diagnosis (1) PAD (peripheral artery disease) - Postoperative Diagnosis (1) PAD (peripheral artery disease) Date of procedure: 04/21/18 Procedure: 1. LEFT PFA TEA with patch angioplasty 2. L fem-BK pop (Cryo) Implants: 1. bovine pericardial patch in L [employer]ICAL DOCUMENTATION SPECIALIST 2. cryo vein Anesthesia: GETA Surgeon: Wesley Hansen MD Human Resources Compensation Analyst: Wesley Riddle Estimated blood loss (mL): 150 IV fluids (mL): 1,800 Urine output (mL): 150 Operation and Findings: 1. L PFA jailed, stent excised and endarterectomy/patch 2. very diseased infrapopliteal artery, not able to clamp 3. Peroneal signal at end of case
[2018-04-21] MEDS ORDERED: fentaNYL Citrate Inj 100 MCG/2 ML Ampul ONE (15:48)
--- NOTE | 2018-04-21 16:37 | MP ---
cc: Wesley Hansen MD DATE OF OPERATION: 04/21/2018 PREOPERATIVE DIAGNOSES: Left lower extremity dry gangrene, peripheral arterial occlusive disease. POSTOPERATIVE DIAGNOSES: Left lower extremity dry gangrene, peripheral arterial occlusive disease. PROCEDURE PERFORMED: 1. Left profunda endarterectomy with bovine pericardial patch angioplasty. 2. Left femoral to below-knee popliteal artery bypass with a cryopreserved vein. ATTENDING SURGEON: Wesley Hansen MD ANESTHESIA: General. INDICATIONS: Mrs. King is an elderly 77-year-old lady who has left lower extremity dry gangrene. She has failed endovascular therapy elsewhere and is taken to the operating room for surgical revascularization. Intraoperatively, it was confirmed that she had a jailing of her profunda with a stent and this was endarterectomized and treated with a patch angioplasty. DESCRIPTION OF PROCEDURE: Informed consent was obtained from the patient. She was taken to the operating room and placed supine on the operating table. An appropriate timeout was taken to ensure the patient's identity, operative site and planned procedure. Administration of vancomycin and aztreonam was initiated prior to OR date and will be continued postoperatively for ongoing therapy. Everyone in the room agreed with the timeout and we proceeded. She was prepped from her nipples to the toes. A vertical incision made in the patient's left groin and carried down through subcutaneous tissue with electrocautery. The common femoral artery was identified and dissected free, as well as both branches of the profunda and the SFA. A separate incision was made in the proximal medial calf and carried down through subcutaneous tissue with electrocautery. The below-knee popliteal artery was identified. It was noted to be intensely calcified, almost lead pipe like. There was one particular one modestly clampable spot proximally, but nothing distally. It was dissected down to the tibioperoneal trunk and the same calcific appearance was noted. A tunnel was then created between these two and a cryopreserved vein had been brought up onto the field, thawed, flushed and prepared in the standard fashion. It was distended and passed through the tunnel, taking caution not to twist it. The patient was systemically heparinized and throughout the remainder of the case, the ACT was kept greater than 250. Proximal control of the proximal common femoral artery and distal control of both profunda branches and the SFA were obtained profunda clamps and a longitudinal arteriotomy was made with an 11 blade, extended with Laura scissors down on the SFA at the proximal aspect of the stent, which was jailing. The profunda was endarterectomized as well. Reasonable back bleeding was encountered. Bovine pericardial patch was brought up on the field and sewn on as a running 5-0 Prolene patch. The longitudinal patchotomy was made with an 11 blade, extended with Gregory scissors. The cryopreserved graft was spatulated and sewn end-to-side to the fascia with running 5-0 Prolene suture. At completion, it was flushed and noted to be hemostatic. The Ildefonso Softjaw was placed on the graft and the below-knee popliteal artery was clamped with a profunda clamp. The longitudinal arteriotomy was made below blade, extended with Gregory scissors. A #3 Ildefonso embolectomy catheter was passed down the tibioperoneal trunk and inflated, providing intraluminal distal control. The vein graft was cut to an appropriate length, spatulated, and sewn end-to-side with running 6-0 Prolene suture. At the completion, it was flushed and noted to be hemostatic. The clamps were released. All the anastomoses were hemostatic. There was a Doppler signal in the peroneal artery distally, which was her dominant runoff. The heparin was reversed with protamine. The wounds were infiltrated with Marcaine and closed with 2-0 Polysorb, 3-0 Polysorb and 4-0 Monocryl. Sponge and needle counts were correct at the end of the case. I was present and scrubbed and performed the entire procedure. MD MEGAN Fontaine/es , 03:36 PM , 03:47 PM
--- NOTE | 2018-04-21 21:34 | P.PNIM ---
Subjective Interval history: Patient seen after surgery today around 5:30PM. Follow up for PAD. Post surgery, patient is still somewhat drowsy. at bedside. No acute concerns. He would like to get podiatry to see patient regarding her left foot gangrenous toes. Physical Exam Vital signs: Vital Signs 04/20/18 22:00 04/20/18 23:00 04/20/18 23:01 Temperature Pulse Rate 96 H 94 H 97 H Respiratory Rate 25 H 28 H 30 H Blood Pressure 161/72 H 162/69 H Pulse Oximetry 93 L 97 97 04/21/18 00:00 04/21/18 01:00 04/21/18 02:00 Temperature 98.3 F Pulse Rate 86 82 90 Respiratory Rate 19 21 31 H Blood Pressure 138/78 136/63 Pulse Oximetry 97 97 97 04/21/18 02:01 04/21/18 03:00 04/21/18 03:20 Temperature Pulse Rate 83 78 78 Respiratory Rate 21 17 17 Blood Pressure 141/86 H 163/70 H Pulse Oximetry 97 97 97 04/21/18 04:00 04/21/18 04:02 04/21/18 06:00 Temperature 98.4 F Pulse Rate 94 H 95 H 93 H Respiratory Rate 21 30 H Blood Pressure 143/90 H 124/76 Pulse Oximetry 92 L 92 L 04/21/18 08:00 04/21/18 08:01 04/21/18 08:21 Temperature 98.1 F Pulse Rate 98 H 98 H Respiratory Rate 24 24 Blood Pressure 203/80 H Pulse Oximetry 95 95 95 04/21/18 09:00 04/21/18 10:00 04/21/18 11:47 Temperature Pulse Rate 89 96 H Respiratory Rate 22 20 Blood Pressure 162/109 H Pulse Oximetry 96 04/21/18 15:59 04/21/18 16:22 04/21/18 16:51 Temperature 96.4 F L Pulse Rate 91 H Respiratory Rate 16 16 Blood Pressure 114/39 L Pulse Oximetry 95 99 04/21/18 17:39 04/21/18 21:11 Temperature Pulse Rate Respiratory Rate 16 Blood Pressure Pulse Oximetry 99 Intake & Output 04/21/18 04/21/18 04/22/18 06:59 18:59 06:59 Intake Total 604 / 604 2500 / 2500 Output Total 400 / 400 490 / 490 Balance 204 / 204 2009 Weight 68.3 kg Intake: IV 454 / 454 700 / 700 Heparin/NS PF Inj 500 ML @ 0 500 / 500 mls/hr .ROUTE .STK-MED ONE Rx#: [id number] Ofirmev Inj 1,000 mg In 100 ml 100 / 100 @ 0 mls/hr IV.SIG .STK-MED ONE Rx#:[id number] Azactam Inj 2 GM In NS Inj 100 100 / 100 100 / 100 ML @ 200 mls/hr IV.SIG Q8H [facility] Rx#:[id number] Cleocin Inj 600 MG In NS Inj 104 / 104 100 ML @ 208 mls/hr IV.SIG Q8H [facility] Rx#:[id number] Vancomycin Inj 1,000 MG In NS 250 / 250 Inj 250 ML @ 250 mls/hr IV.SIG Q12H [facility] Rx#:[id number] Oral 150 / 150 Anesthesia Amount 1800 / 1800 Output: Urine 400 / 400 Stool 0 / 0 Urine/Stool Mix 0 / 0 Estimated Blood Loss 150 / 150 Urine Amount (Catheter) 340 / 340 Indwelling Urethral Catheter 340 / 340 Other: Date of Last Bowel Movement 04/20/18 04/20/18 # Bowel Movements 0 # Incontinent Bowel Movements 0 Narrative: GENERAL: Sleeping post surgery, likely due to anesthesia. NAD. SKIN: Warm and dry. HEAD: Normocephalic. EYES: No scleral icterus. No injection or drainage. NECK: Supple, trachea midline. No JVD or lymphadenopathy. CARDIOVASCULAR: Regular rate and rhythm without murmurs, gallops, or rubs. RESPIRATORY: Breath sounds equal bilaterally. No accessory muscle use. GASTROINTESTINAL: Abdomen soft, non-tender, nondistended. MUSCULOSKELETAL: No cyanosis, or edema. Surgical changes noted on left lower ext , gangrenous toes noted on left side. BACK: Nontender without obvious deformity. No CVA tenderness. Urinary Catheter Management Indwelling Urethral Catheter: Cath placed during this visit: yes Reason for continuing: Hourly intake/output Insertion date: 04/21/18 Insertion time: 12:20 Results Labs CBC & Chem 7: 04/20/18 03:39 04/20/18 03:39 Labs: Microbiology 04/19/18 17:55 Blood - Peripheral Aerobic Blood Culture - Preliminary No growth in 2 days 04/19/18 17:55 Blood - Peripheral Anaerobic Blood Culture - Preliminary No growth in 2 days 04/19/18 17:50 Blood - Peripheral Aerobic Blood Culture - Preliminary No growth in 2 days 04/19/18 17:50 Blood - Peripheral Anaerobic Blood Culture - Preliminary No growth in 2 days 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: Code(s): I96 - Gangrene, not elsewhere classified; I70.202 - Unspecified atherosclerosis of [place] arteries of extremities, left leg Status: Acute (2) Urinary incontinence: Code(s): R32 - Unspecified urinary incontinence Status: Chronic (3) COPD (chronic obstructive pulmonary disease): Code(s): J44.9 - Chronic obstructive pulmonary disease, unspecified Status: Chronic (4) Peripheral vascular disease: Code(s): I73.9 - Peripheral vascular disease, unspecified Status: Suspected (5) Unstable gait: Code(s): R26.81 - Unsteadiness on feet Status: Chronic (6) Obesity: Code(s): E66.9 - Obesity, unspecified Status: Chronic (7) Hyperlipidemia: Code(s): E78.5 - Hyperlipidemia, unspecified Status: Chronic (8) Essential hypertension: Code(s): I10 - Essential (primary) hypertension Status: Chronic (9) Chronic pain: Code(s): G89.29 - Other chronic pain Status: Chronic (10) Carotid artery stenosis: Code(s): I65.29 - Occlusion and stenosis of unspecified carotid artery Status: Chronic (11) Superficial femoral artery occlusion: Code(s): I70.209 - Unspecified atherosclerosis of [place] arteries of extremities, unspecified extremity Status: Acute (12) PAD (peripheral artery disease): Code(s): I73.9 - Peripheral vascular disease, unspecified Status: Chronic Plan Ms. King is a 77 year old female with a history of peripheral vascular arterial disease, history of left great toe and second toe amputation who was admitted to [facility] on 04/19/2018 as a direct transfer from [facility] due to further vascular surgery intervention. Patient has additional history of COPD, HTN, HLD, CAD. Patient was evaluated by Vascular surgery on with an angiogram. The plan was to perform left groin reconstruction with a femoral below the knee popliteal surgery. Patient was admitted to [facility] due to suspected CVA. However, work up did not reveal any evidence of CVA. She was transferred to [facility] and patient underwent surgical interventions on 04/21/2018. Left lower extremity critical limb ischemia -Left profunda endarterectomy and left femoral to below-knee popliteal bypass () -Continue Lipitor and Plavix as well as Aspirin. -Patient is on Aztreonam, clindamycin and Vancomycin. Blood cx negative. No leukocytosis, No fever. -Very high risk for C. Diff colitis. Without any evidence of infectious etiology , we should probably de-escalate or discontinue soon. -Will ask ID for an evaluation. Left foot gangrenous toes -Podiatry consult pending. Probably will need amputation. COPD -Continue breathing treatments PRN. -Supplemental O2 as needed. Full code. Heparin SQ. Progress Note: Quality VTE Deep Vein Thrombosis/Pulmonary Embolism Present on Admission: No _ (1) Urinary incontinence Qualifiers: Urinary Incontinence type: unspecified incontinence Qualified Code(s): R32 - Unspecified urinary incontinence (2) COPD (chronic obstructive pulmonary disease) Qualifiers: COPD type: unspecified COPD Chronic bronchitis type: Emphysema type: Qualified Code(s): J44.9 - Chronic obstructive pulmonary disease, unspecified (3) Obesity Qualifiers: Obesity type: unspecified obesity type Obesity classification: unspecified obesity classification Serious obesity comorbidity presence: unspecified whether serious comorbidity present Body mass index: Qualified Code(s): E66.9 - Obesity, unspecified (4) Hyperlipidemia Qualifiers: Hyperlipidemia type: unspecified Qualified Code(s): E78.5 - Hyperlipidemia, unspecified (5) Chronic pain Qualifiers: Chronic pain type: other chronic pain Qualified Code(s): G89.29 - Other chronic pain (6) Carotid artery stenosis Qualifiers: Laterality:
[2018-04-22] MEDS: hydrALAZINE HCl Inj 20 MG/ML Vial IV.PUSH PRN (02:30)
[2018-04-22 04:51] LABS: Hematocrit 27.8 % (35.0-46.0); Hemoglobin 9.1 gm/dL (11.6-15.3); Mean Corpuscular HGB Conc 32.8 % (32.0-36.0); Mean Corpuscular Hemoglobin 27.9 pg (27.0-34.0); Mean Platelet Volume 6.9 fL (7.0-11.0); Platelet Count 372 th/mm3 (150-450); Red Blood Count 3.27 mil/mm3 (4.00-5.30); Red Cell Distribution Width 15.3 % (11.6-17.2); White Blood Count 13.3 th/mm3 (4.0-11.0)
[2018-04-22] MEDS: Labetalol HCl Inj 20 MG/4 ML Vial IV.PUSH PRN ×2 (05:07→13:31)
[2018-04-22] MEDS: Aztreonam Inj 2 GM in Sodium Chloride 0.9% Inj 100 ML IV.SIG SCH (05:08)
[2018-04-22] MEDS: Chlorhexidine Gluconate 2% 1 Pack (2 Cloths) TOPICAL SCH (05:08)
[2018-04-22 05:21] LABS: Anion Gap 7 meq/L (5-15); Blood Urea Nitrogen 15 mg/dL (7-18); Calcium 7.8 mg/dL (8.5-10.1); Chloride 108 meq/L (98-107); Glomerular Filtration Rate Greater Than 89 mL/min (>89); Glucose,Random 125 mg/dL (74-106); Potassium 4.5 meq/L (3.5-5.1); Sodium 139 meq/L (136-145)
[2018-04-22 05:23] LABS: Vancomycin,Random 23.3 Comment
[2018-04-22] MEDS: Heparin - SQ 10,000 UNITS/ML Vial SQ SCH ×2 (06:38→19:34)
--- NOTE | 2018-04-22 07:41 | P.PNVS ---
Subjective Post Op Day #: 1 Procedure: L groin reconstruction, fem-BK pop Subjective/Hospital Course: somnolent but responsive doesn't endorse much pain Objective Vital Signs / I&O: Vital Signs 04/21/18 08:00 04/21/18 08:01 04/21/18 08:21 Temperature 98.1 F Pulse Rate 98 H 98 H Respiratory Rate 24 24 Blood Pressure 203/80 H Pulse Oximetry 95 95 95 04/21/18 09:00 04/21/18 10:00 04/21/18 11:47 Temperature Pulse Rate 89 96 H Respiratory Rate 22 20 Blood Pressure 162/109 H Pulse Oximetry 96 04/21/18 15:59 04/21/18 16:22 04/21/18 16:51 Temperature 96.4 F L Pulse Rate 91 H Respiratory Rate 16 16 Blood Pressure 114/39 L Pulse Oximetry 95 99 04/21/18 17:39 04/21/18 19:00 04/21/18 20:00 Temperature 97.6 F Pulse Rate 78 78 Respiratory Rate 16 20 20 Blood Pressure 144/80 H Pulse Oximetry 100 04/21/18 21:11 04/22/18 00:00 04/22/18 03:00 Temperature 98 F 97.9 F Pulse Rate 67 84 Respiratory Rate 20 20 Blood Pressure 141/67 H 152/69 H Pulse Oximetry 99 100 100 04/22/18 04:00 Temperature Pulse Rate Respiratory Rate 20 Blood Pressure Pulse Oximetry Intake & Output 04/21/18 04/22/18 04/22/18 18:59 06:59 18:59 Intake Total 2500 / 2500 304 / 304 104 / 104 Output Total 490 / 490 365 / 365 Balance 2009 -61 / -61 104 / 104 Weight 69 kg Intake: IV 700 / 700 304 / 304 104 / 104 Heparin/NS PF Inj 500 ML @ 0 500 / 500 mls/hr .ROUTE .STK-[facility] ONE Rx#: [id number] Ofirmev Inj 1,000 mg In 100 ml 100 / 100 @ 0 mls/hr IV.SIG .STK-[facility] Rx#:[id number] Azactam Inj 2 GM In NS Inj 100 100 / 100 200 / 200 ML @ 200 mls/hr IV.SIG Q8H [facility] Rx#:[id number] Cleocin Inj 600 MG In NS Inj 104 / 104 104 / 104 100 ML @ 208 mls/hr IV.SIG Q8H [facility] Rx#:[id number] Anesthesia Amount 1800 / 1800 Output: Estimated Blood Loss 150 / 150 Urine Amount (Catheter) 340 / 340 365 / 365 Indwelling Urethral Catheter 340 / 340 365 / 365 Other: Date of Last Bowel Movement 04/20/18 Exam: resting in bed, + NRB L groin soft, L calf soft + DP/PT signals Laboratory Results - last 24 hr 04/21/18 04/21/18 04/22/18 10:03 18:34 04:20 WBC 13.3 H RBC 3.27 L Hgb 9.1 L Hct 27.8 L MCV 85.0 MCH 27.9 MCHC 32.8 RDW 15.3 Plt Count 372 MPV 6.9 L Sodium Potassium Chloride Carbon Dioxide Anion Gap BUN Creatinine Estimated GFR POC Glucose 108 Random Glucose Calcium Vancomycin Trough 24.7 H Random Vancomycin 04/22/18 04:20 WBC RBC Hgb Hct MCV MCH MCHC RDW Plt Count MPV Sodium 139 Potassium 4.5 Chloride 108 H Carbon Dioxide 24.0 Anion Gap 7 BUN 15 Creatinine 0.49 L Estimated GFR Greater than 89 POC Glucose Random Glucose 125 H Calcium 7.8 L Vancomycin Trough Random Vancomycin 23.3 Microbiology 04/19/18 17:55 Aerobic Blood Culture - Preliminary Blood - Peripheral No growth in 2 days Anaerobic Blood Culture - Preliminary No growth in 2 days 04/19/18 17:50 Aerobic Blood Culture - Preliminary Blood - Peripheral No growth in 2 days Anaerobic Blood Culture - Preliminary No growth in 2 days Assessment and Plan - Plan POD#1 s/p L groin reconstruction, fem-BK pop; bypass patent by exam 1. Toe amputations vs observation per podiatry; appreciate assistance 2. OOB TC and PT 3. Dixon out if alert enough 4. needs ASA, statin, plavix Discharge Planning: clear to transition to MICU from my standpoint likely 2-3 days from a vascular perspective and will need rehab
[2018-04-22] MEDS: Famotidine 20 MG Tablet PO SCH ×2 (09:00→20:52)
[2018-04-22] MEDS: Senna/Docusate Sodium 8.6/50 MG Tablet PO SCH ×2 (09:00→20:52)
[2018-04-22] MEDS: Aspirin 325 MG Tablet PO SCH (09:00)
--- NOTE | 2018-04-22 11:26 | MB ---
cc: Jose Mason MD DATE: 04/22/2018 REQUESTING PHYSICIAN: Dr. Aranda. REASON FOR CONSULTATION: Patient on aztreonam, clindamycin, and vancomycin. The patient underwent vascular surgery intervention due PAD. No lab or clinical evidence of infection. Can we discontinue antibiotics and observe, question; or de-escalate antibiotics, question. HISTORY OF PRESENT ILLNESS: This is a 77-year-old white female who has peripheral arterial disease. The patient was evaluated and she underwent surgery consisting of left profunda endarterectomy with bovine pericardial patch angioplasty and left femoral to [id number] popliteal artery bypass. The patient initially had amputation of the left great toe 18 months ago; and approximately 8 weeks ago, she had amputation of left 2nd toe. About a week or so of surgery, she started developing some erythema and then dry gangrenous changes involving the remaining toes of the left foot. The patient had a left lower extremity angiogram, which showed the femoral arterial occlusion on 04/16 and the plan was to admit her for surgery on 04/21. However, on 04/19, she developed confusion and she was transferred from [facility] to [facility] where the bypass surgical procedure was performed on her left leg. The patient has also mentioned that she received a course of amoxicillin, which she finished a couple weeks ago. Besides that, she had not been on other antibiotics. After admission at [place], she had been started on aztreonam, clindamycin, and vancomycin. The patient has had no fever. She is awake and alert. She notes that she desires to sleep, but she is awakened by her caregivers. She is in no acute distress. She notes pain in her left foot. Otherwise, she has no other complaints. Information is obtained from the patient and her , who is at bedside. PAST MEDICAL/SURGICAL HISTORY: COPD, hypertension, hypercholesteremia, peripheral arterial disease, peripheral vascular disease, urinary incontinence, carotid stenosis, history of left 1st and 2nd toe amputation, history of cholecystectomy, history of left knee total replacement. ALLERGIES: CIPROFLOXACIN, LEVAQUIN, SULFA, TRAMADOL. MEDICATIONS: Clindamycin, aztreonam, vancomycin, [place] 5, Lipitor, Breo Ellipta. SOCIAL HISTORY: The patient is . No tobacco use. She is a former smoker. Patient drinks alcohol approximately 2-3 times a week. No illicit drugs. FAMILY HISTORY: Noncontributory. REVIEW OF SYSTEMS: All systems have been reviewed and negative except for pain in the left foot. PHYSICAL EXAMINATION: GENERAL: She is a pleasant well-developed female who is in no acute distress. VITAL SIGNS: Temperature is 98 degrees, blood pressure is 112/47, heart rate 90, respirations 16. HEENT: Extraocular movements grossly intact. Pupils reactive to light. No icterus. Oropharynx with dry mucosa. No lesions. NECK: Supple without adenopathy. LUNGS: Clear breath sounds. HEART: Regular S1 and S2. No murmurs. No rubs. No gallops. ABDOMEN: Bowel sounds diminished, soft, no tenderness appreciated. RECTAL: Not performed. EXTREMITIES: The left foot is very minimal erythema at the plantar aspect beyond the base of the toes 3, 4, and 5. There is dry gangrene changes of the 3rd, 4th, and 5th toes. The patient has tenderness on palpation of the dorsum of the foot and plantar aspect of the foot on the left side. Pulses are palpable. The right lower extremity has no clubbing, cyanosis, or edema. There is ecchymotic changes of the hands. SKIN: No diffuse rash. NEUROLOGIC: Nonfocal. The patient is calm and cooperative. LABORATORY DATA: WBC 13.3, platelets 372, hemoglobin 9.1. Creatinine 0.49, BUN 16, sodium 139. Blood culture from 04/19 has no growth in 2 days. ASSESSMENT: 1. Dry gangrene of the left toes number 3, 4, and 5. 2. Status post femoral to popliteal artery bypass on the left. 3. There does not appear to be any clear evidence of infection involving the foot at this time. RECOMMENDATIONS: 1. Discontinue aztreonam. 2. Discontinue vancomycin. 3. Discontinue clindamycin. 4. Monitor the foot for development of infection. Given the appearance of the foot, it appears that the toes which are gangrenous should auto-amputate. Thank you for this consultation. Please call if further information or input is needed. MD BUCK Knight/leonel , 10:51 AM , 11:07 AM
--- NOTE | 2018-04-22 13:02 | P.PNIM ---
Subjective Interval history: Follow up for PAD s/p bypass surgery. Patient is more alert, pleasant today. No acute concerns. No fever, chills. Physical Exam Vital signs: Vital Signs 04/21/18 15:59 04/21/18 16:22 04/21/18 16:51 Temperature 96.4 F L Pulse Rate 91 H Respiratory Rate 16 16 Blood Pressure 114/39 L Pulse Oximetry 95 99 04/21/18 17:39 04/21/18 19:00 04/21/18 20:00 Temperature 97.6 F Pulse Rate 78 78 Respiratory Rate 16 20 20 Blood Pressure 144/80 H Pulse Oximetry 100 04/21/18 21:11 04/22/18 00:00 04/22/18 03:00 Temperature 98 F 97.9 F Pulse Rate 67 84 Respiratory Rate 20 20 Blood Pressure 141/67 H 152/69 H Pulse Oximetry 99 100 100 04/22/18 04:00 04/22/18 07:00 04/22/18 08:18 Temperature 98.0 F Pulse Rate 71 Respiratory Rate 20 Blood Pressure 152/70 H Pulse Oximetry 99 100 Intake & Output 04/21/18 04/22/18 04/22/18 18:59 06:59 18:59 Intake Total 2500 / 2500 304 / 304 104 / 104 Output Total 490 / 490 365 / 365 Balance 2009 -61 / -61 104 / 104 Weight 69 kg Intake: IV 700 / 700 304 / 304 104 / 104 Heparin/NS PF Inj 500 ML @ 0 500 / 500 mls/hr .ROUTE .STK-MED ONE Rx#: [id number] Ofirmev Inj 1,000 mg In 100 ml 100 / 100 @ 0 mls/hr IV.SIG .STK-MED ONE Rx#:[id number] Azactam Inj 2 GM In NS Inj 100 100 / 100 200 / 200 ML @ 200 mls/hr IV.SIG Q8H [facility] Rx#:[id number] Cleocin Inj 600 MG In NS Inj 104 / 104 104 / 104 100 ML @ 208 mls/hr IV.SIG Q8H [facility] Rx#:[id number] Anesthesia Amount 1800 / 1800 Output: Estimated Blood Loss 150 / 150 Urine Amount (Catheter) 340 / 340 365 / 365 Indwelling Urethral Catheter 340 / 340 365 / 365 Other: Date of Last Bowel Movement 04/20/18 Narrative: GENERAL: Alert, NAD. SKIN: Warm and dry. HEAD: Normocephalic. EYES: No scleral icterus. No injection or drainage. NECK: Supple, trachea midline. No JVD or lymphadenopathy. CARDIOVASCULAR: Regular rate and rhythm without murmurs, gallops, or rubs. RESPIRATORY: Breath sounds equal bilaterally. No accessory muscle use. GASTROINTESTINAL: Abdomen soft, non-tender, nondistended. MUSCULOSKELETAL: No cyanosis, or edema. Surgical changes noted on left lower ext , gangrenous toes noted on left side. BACK: Nontender without obvious deformity. No CVA tenderness. Urinary Catheter Management Indwelling Urethral Catheter: Cath placed during this visit: yes, but has since been removed by the nurse Reason for continuing: Decision to DC catheter Insertion date: 04/21/18 Insertion time: 12:20 Removal date: 04/22/18 Removal time: 06:00 Results Labs CBC & Chem 7: 04/22/18 04:20 04/22/18 04:20 Labs: Microbiology 04/19/18 17:55 Blood - Peripheral Aerobic Blood Culture - Preliminary No growth in 3 days 04/19/18 17:55 Blood - Peripheral Anaerobic Blood Culture - Preliminary No growth in 3 days 04/19/18 17:50 Blood - Peripheral Aerobic Blood Culture - Preliminary No growth in 3 days 04/19/18 17:50 Blood - Peripheral Anaerobic Blood Culture - Preliminary No growth in 3 days 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: Code(s): I96 - Gangrene, not elsewhere classified; I70.202 - Unspecified atherosclerosis of [place] arteries of extremities, left leg Status: Acute (2) Urinary incontinence: Code(s): R32 - Unspecified urinary incontinence Status: Chronic (3) COPD (chronic obstructive pulmonary disease): Code(s): J44.9 - Chronic obstructive pulmonary disease, unspecified Status: Chronic (4) Peripheral vascular disease: Code(s): I73.9 - Peripheral vascular disease, unspecified Status: Suspected (5) Unstable gait: Code(s): R26.81 - Unsteadiness on feet Status: Chronic (6) Obesity: Code(s): E66.9 - Obesity, unspecified Status: Chronic (7) Hyperlipidemia: Code(s): E78.5 - Hyperlipidemia, unspecified Status: Chronic (8) Essential hypertension: Code(s): I10 - Essential (primary) hypertension Status: Chronic (9) Chronic pain: Code(s): G89.29 - Other chronic pain Status: Chronic (10) Carotid artery stenosis: Code(s): I65.29 - Occlusion and stenosis of unspecified carotid artery Status: Chronic (11) Superficial femoral artery occlusion: Code(s): I70.209 - Unspecified atherosclerosis of [place] arteries of extremities, unspecified extremity Status: Acute (12) PAD (peripheral artery disease): Code(s): I73.9 - Peripheral vascular disease, unspecified Status: Chronic Plan Ms. 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 due to further vascular surgery intervention. Patient has additional history of COPD, HTN, HLD, CAD. Patient was evaluated by Vascular surgery on with an angiogram. The plan was to perform left groin reconstruction with a femoral below the knee popliteal surgery. Patient was admitted to [facility] due to suspected CVA. However, work up did not reveal any evidence of CVA. She was transferred to [place] and patient underwent surgical interventions on 04/21/2018. Left lower extremity critical limb ischemia -Left profunda endarterectomy and left femoral to below-knee popliteal bypass () -Continue aspirin, Plavix, Lipitor. -Patient was on Aztreonam, clindamycin and Vancomycin. Blood cx negative. No leukocytosis, No fever. -Appreciate ID input. ID recommended discontinuation of all abx. -consult PT, OT. Left foot gangrenous toes -Podiatry consulted - probably no surgical intervention. Probably will auto- amputate. COPD -Continue breathing treatments PRN. -Supplemental O2 as needed. Full code. Heparin SQ. Probable discharge in the next 2-3 days. Progress Note: Quality VTE Deep Vein Thrombosis/Pulmonary Embolism Present on Admission: No _ (1) Urinary incontinence Qualifiers: Urinary Incontinence type: unspecified incontinence Qualified Code(s): R32 - Unspecified urinary incontinence (2) COPD (chronic obstructive pulmonary disease) Qualifiers: COPD type: unspecified COPD Chronic bronchitis type: Emphysema type: Qualified Code(s): J44.9 - Chronic obstructive pulmonary disease, unspecified (3) Obesity Qualifiers: Obesity type: unspecified obesity type Obesity classification: unspecified obesity classification Serious obesity comorbidity presence: unspecified whether serious comorbidity present Body mass index: Qualified Code(s): E66.9 - Obesity, unspecified (4) Hyperlipidemia Qualifiers: Hyperlipidemia type: unspecified Qualified Code(s): E78.5 - Hyperlipidemia, unspecified (5) Chronic pain Qualifiers: Chronic pain type: other chronic pain Qualified Code(s): G89.29 - Other chronic pain (6) Carotid artery stenosis Qualifiers: Laterality:
--- NOTE | 2018-04-22 13:15 | P.CON ---
History of Present Illness Service: Podiatry/foot and ankle Consult date: 04/21/18 Reason for Consult: Left foot gangrene Primary Care Provider: Drew Sinclair III, MD Chief Complaint: Left lower extremity gangrene History of Present Illness: Delayed entry. 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 Patient's is bedside. Patient did not answer any questions. Review of Systems All other systems reviewed negative except as stated in HPI, unobtainable due to mental status PMFSH - History History Provided By: Patient - Medical History Medical History: Medical History (Last Reviewed 04/21/18 @ 09:01 by Yen Esparza) Gangrene Hypercholesterolemia Obesity Peripheral arterial disease Unsteady gait Urinary incontinence COPD (chronic obstructive pulmonary disease) Carotid stenosis HTN (hypertension) PVD (peripheral vascular disease) - Surgical History Surgical History: Surgical History (Last Reviewed 04/21/18 @ 09:01 by Yen Esparza) Amputated toe of left foot History of cholecystectomy History of total left knee replacement Status post arterial stent - Family History Family History: Family History (Last Updated 04/19/18 @ 17:50 by Sharath Tovar MD) Mother Family history of Alzheimer's disease Father Family history of ID (myocardial infarction) Other Family history of hypertension - Tobacco History Second Hand Smoke Exposure: No Tobacco Use In Past 30 Days: No Smoking Status: Former smoker Tobacco Type: Cigarettes - Alcohol History How Often Do You Have a Drink Containing Alcohol: 2 to 3 times a week - Substance Use History Substance History: No History of Abuse - Travel History History of Recent Travel: No Recent Travel in the [place] Within the Last 8 Weeks: No Recent Travel Out of the Country Within the Last 8 Weeks: No - Immunization History Tetanus Immunization: <5 Years Tetanus Immunization Year if Known: 2017 Hx Influenza Vaccine This Season: Yes Medications and Allergies Active Medications: Active Medications Acetaminophen (Tylenol) 650 mg PO Q6H PRN PRN Reason: Fever >101f Hydrocodone Bitart/Acetaminophen ([facility] 5/325) 1 tab PO Q4H PRN PRN Reason: PAIN SCALE 1 TO 5 Last Admin: 04/21/18 11:09 Dose: 1 tab Al Hydroxide/Mg Hydroxide (Milk Of Magnesia Liq) 30 ml PO Q12H PRN PRN Reason: Mild Constipation Albuterol (Albuterol Neb (Prn)) 2.5 mg NEB Q2HR NEB PRN PRN Reason: SHORTNESS OF BREATH/WHEEZING Aspirin (Aspirin) 325 mg PO DAILY [facility] Atorvastatin Calcium (Lipitor) 40 mg PO DAILY [facility] Last Admin: 04/21/18 09:42 Dose: 40 mg Bisacodyl (Dulcolax Supp) 10 mg RECTAL DAILY PRN PRN Reason: SEVERE CONSITIPATION Chlorhexidine Gluconate (Chlorhexidine 2% Cloth) 3 pack TOPICAL DAILY@0400 [facility] Stop: 04/25/18 03:59 Last Admin: 04/22/18 05:08 Dose: 3 pack Chlorhexidine Gluconate (Chlorhexidine 2% Cloth) 3 pack TOPICAL DAILY@0400 PRN PRN Reason: Extra cloth needed Stop: 04/25/18 03:59 Clopidogrel Bisulfate (Plavix) 75 mg PO DAILY [facility] Last Admin: 04/21/18 09:41 Dose: 75 mg Famotidine (Pepcid) 20 mg PO BID [facility] Last Admin: 04/21/18 20:38 Dose: Not Given Fluticasone/Vilanterol (Breo Ellipta 200/25 Mcg Inh) 1 puff INH DAILY [facility] Last Admin: 04/21/18 09:39 Dose: 1 puff Heparin Sodium (Porcine) (Heparin Inj) 5,000 units SQ Q12H [facility] Last Admin: 04/22/18 06:38 Dose: 5,000 units Hydralazine HCl (Apresoline Inj) 10 mg IV.PUSH Q1H PRN PRN Reason: SBP>160, DBP>90 Last Admin: 04/22/18 02:30 Dose: 10 mg Labetalol HCl (Trandate Inj) 10 mg IV.PUSH Q1H PRN PRN Reason: SBP > 160 DBP > 90 HR > 65 Last Admin: 04/22/18 05:07 Dose: 10 mg Lactulose (Lactulose Liq) 30 ml PO DAILY PRN PRN Reason: SEVERE CONSITIPATION Miscellaneous Information ([facility] Ordered Lab Info) 1 each OTHER ONCE [facility] Morphine Sulfate (Morphine Inj) 2 mg IV.PUSH Q2H PRN PRN Reason: PAIN SCALE 6 TO 10 Nitroglycerin (Nitro-Bid 2% Oint) 2 inch TOPICAL Q6HR PRN PRN Reason: Sbp>165, Dbp>90 Ondansetron HCl (Zofran Inj) 4 mg IV.PUSH Q6H PRN PRN Reason: NAUSEA OR VOMITING Oxybutynin Chloride (Ditropan) 5 mg PO BID [facility] Last Admin: 04/21/18 20:38 Dose: Not Given Senna/Docusate Sodium (Airam-Colace) 1 tab PO BID [facility] Last Admin: 04/21/18 20:39 Dose: Not Given Sennosides (Senokot) 17.2 mg PO Q12H PRN PRN Reason: Moderate Constipation Sodium Chloride (Ns Flush) 2 ml IV.FLUSH BID [facility] Last Admin: 04/21/18 20:39 Dose: 2 ml Sodium Chloride (Ns Flush) 2 ml IV.FLUSH PRN PRN PRN Reason: FLUSH AFTER USING IV ACCESS Allergies Allergy/AdvReac Type Severity Reaction Status Date / Time ciprofloxacin Allergy Rash Verified 04/16/18 07:47 levofloxacin Allergy Rash Verified 04/16/18 07:47 Sulfa (Sulfonamide Allergy Rash Verified 04/16/18 06:55 Antibiotics) tramadol AdvReac Hallucinati Verified 04/16/18 07:47 ons Home Medications Medication Instructions Recorded Confirmed Type albuterol sulfate [ProAir HFA] 1 puff INHALATION Q6H PRN 04/16/18 04/16/18 History atorvastatin 40 mg PO DAILY 04/16/18 04/16/18 History clopidogrel 300 mg PO DAILY 04/16/18 04/16/18 History fluticasone-vilanterol [Breo 1 inh INHALATION DAILY PRN 04/16/18 04/16/18 History Ellipta] oxybutynin chloride 5 mg PO TID 04/16/18 04/16/18 History Physical Exam Vital signs: Vital Signs 04/21/18 15:59 04/21/18 16:22 04/21/18 16:51 Temperature 96.4 F L Pulse Rate 91 H Respiratory Rate 16 16 Blood Pressure 114/39 L Pulse Oximetry 95 99 04/21/18 17:39 04/21/18 19:00 04/21/18 20:00 Temperature 97.6 F Pulse Rate 78 78 Respiratory Rate 16 20 20 Blood Pressure 144/80 H Pulse Oximetry 100 04/21/18 21:11 04/22/18 00:00 04/22/18 03:00 Temperature 98 F 97.9 F Pulse Rate 67 84 Respiratory Rate 20 20 Blood Pressure 141/67 H 152/69 H Pulse Oximetry 99 100 100 04/22/18 04:00 04/22/18 07:00 04/22/18 08:18 Temperature 98.0 F Pulse Rate 71 Respiratory Rate 20 Blood Pressure 152/70 H Pulse Oximetry 99 100 Intake & Output 04/21/18 04/22/18 04/22/18 18:59 06:59 18:59 Intake Total 2500 / 2500 304 / 304 104 / 104 Output Total 490 / 490 365 / 365 Balance 2009 -61 / -61 104 / 104 Weight 69 kg Intake: IV 700 / 700 304 / 304 104 / 104 Heparin/NS PF Inj 500 ML @ 0 500 / 500 mls/hr .ROUTE .STK-MED ONE Rx#: [id number] Ofirmev Inj 1,000 mg In 100 ml 100 / 100 @ 0 mls/hr IV.SIG .STK-MED ONE Rx#:[id number] Azactam Inj 2 GM In NS Inj 100 100 / 100 200 / 200 ML @ 200 mls/hr IV.SIG Q8H [facility] Rx#:[id number] Cleocin Inj 600 MG In NS Inj 104 / 104 104 / 104 100 ML @ 208 mls/hr IV.SIG Q8H [facility] Rx#:[id number] Anesthesia Amount 1800 / 1800 Output: Estimated Blood Loss 150 / 150 Urine Amount (Catheter) 340 / 340 365 / 365 Indwelling Urethral Catheter 340 / 340 365 / 365 Other: Date of Last Bowel Movement 04/20/18 Narrative: Lower extremity physical exam: Vascular: Dorsalis pedis nonpalpable, posterior tibial nonpalpable. Capillary refill time within normal limits to digits left foot digits 2, 3, 4,. Neuro: Pinpoint sensation unable to determine, however there is tenderness and sensitivity to gangrenous area. No hyperalgesia noted to bilateral lower extremity Dermatology: Hallux amputation noted, second digit amputation noted with gangrene to remaining digit. Gangrene/ischemia noted to digits 3 and 4. Ischemia extends into metatarsal phalangeal joints. There is an area of cyanosis noted plantar metatarsal phalangeal joint with questionable fluid collection, mild fluctuance noted appears to be ischemic in nature versus infectious will obtain MRI to differentiate. Musculoskeletal: Tender to palpation to left foot. - Urinary Catheter Management Indwelling Urethral Catheter Cath placed during this visit: yes, but has since been removed by the nurse Reason for continuing: Decision to DC catheter Insertion date: 04/21/18 Insertion time: 12:20 Removal date: 04/22/18 Removal time: 06:00 Results - Labs CBC & Chem 7: 04/22/18 04:20 04/22/18 04:20 Labs: Laboratory Results - last 24 hr 04/21/18 04/22/18 04/22/18 18:34 04:20 04:20 WBC 13.3 H RBC 3.27 L Hgb 9.1 L Hct 27.8 L MCV 85.0 MCH 27.9 MCHC 32.8 RDW 15.3 Plt Count 372 MPV 6.9 L Sodium 139 Potassium 4.5 Chloride 108 H Carbon Dioxide 24.0 Anion Gap 7 BUN 15 Creatinine 0.49 L Estimated GFR Greater than 89 POC Glucose 108 Random Glucose 125 H Calcium 7.8 L Random Vancomycin 23.3 04/22/18 12:26 WBC RBC Hgb Hct MCV MCH MCHC RDW Plt Count MPV Sodium Potassium Chloride Carbon Dioxide Anion Gap BUN Creatinine Estimated GFR POC Glucose 103 Random Glucose Calcium Random Vancomycin Assessment and Plan - Plan 77-year-old female with left foot gangrene noted status post vascular intervention Patient examined and evaluated all questions answered with present bedside Discussed with surgical intervention versus conservative care Ideally as patient is reperfused TMA is most viable option however if TMA fails unfortunately patient would potentially face below the knee amputation which has been says he does not want Will discuss with once again today We will order MRI to differentiate left foot plantar metatarsal ischemia/ cyanosis versus abscess/infectious Left foot does not appear to be acutely infected
[2018-04-22] MEDS ORDERED: Sod Chloride 0.9% Inj 1,000 ML IV.SIG SCH (17:00)
--- NOTE | 2018-04-22 17:29 | P.PNPOD ---
Subjective Interval history: Patient seen bedside with present. Physical Exam Vital signs: Vital Signs 04/21/18 17:39 04/21/18 19:00 04/21/18 20:00 Temperature 97.6 F Pulse Rate 78 78 Respiratory Rate 16 20 20 Blood Pressure 144/80 H Pulse Oximetry 100 04/21/18 21:11 04/22/18 00:00 04/22/18 03:00 Temperature 98 F 97.9 F Pulse Rate 67 84 Respiratory Rate 20 20 Blood Pressure 141/67 H 152/69 H Pulse Oximetry 99 100 100 04/22/18 04:00 04/22/18 07:00 04/22/18 08:18 Temperature 98.0 F Pulse Rate 71 Respiratory Rate 20 Blood Pressure 152/70 H Pulse Oximetry 99 100 04/22/18 11:00 Temperature 98.3 F Pulse Rate 90 Respiratory Rate Blood Pressure 138/69 Pulse Oximetry 99 Intake & Output 04/21/18 04/22/18 04/22/18 18:59 06:59 18:59 Intake Total 2500 / 2500 304 / 304 104 / 104 Output Total 490 / 490 365 / 365 Balance 2009 -61 / -61 104 / 104 Weight 69 kg Intake: IV 700 / 700 304 / 304 104 / 104 Heparin/NS PF Inj 500 ML @ 0 500 / 500 mls/hr .ROUTE .STK-MED ONE Rx#: [id number] Ofirmev Inj 1,000 mg In 100 ml 100 / 100 @ 0 mls/hr IV.SIG .STK-MED ONE Rx#:[id number] Azactam Inj 2 GM In NS Inj 100 100 / 100 200 / 200 ML @ 200 mls/hr IV.SIG Q8H [facility] Rx#:[id number] Cleocin Inj 600 MG In NS Inj 104 / 104 104 / 104 100 ML @ 208 mls/hr IV.SIG Q8H [facility] Rx#:[id number] Anesthesia Amount 1800 / 1800 Output: Estimated Blood Loss 150 / 150 Urine Amount (Catheter) 340 / 340 365 / 365 Indwelling Urethral Catheter 340 / 340 365 / 365 Other: Date of Last Bowel Movement 04/20/18 Narrative: No interval change to left foot exam, since last examined 04/21. Medications and Allergies Active Medications: Active Medications Acetaminophen (Tylenol) 650 mg PO Q6H PRN PRN Reason: Fever >101f Hydrocodone Bitart/Acetaminophen ([place] 5/325) 1 tab PO Q4H PRN PRN Reason: PAIN SCALE 1 TO 5 Last Admin: 04/22/18 16:33 Dose: 1 tab Al Hydroxide/Mg Hydroxide (Milk Of Jonathan Petersen) 30 ml PO Q12H PRN PRN Reason: Mild Constipation Albuterol (Albuterol Neb (Prn)) 2.5 mg NEB Q2HR NEB PRN PRN Reason: SHORTNESS OF BREATH/WHEEZING Aspirin (Aspirin) 325 mg PO DAILY [facility] Last Admin: 04/22/18 09:00 Dose: 325 mg Atorvastatin Calcium (Lipitor) 40 mg PO DAILY [facility] Last Admin: 04/22/18 09:00 Dose: 40 mg Bisacodyl (Dulcolax Supp) 10 mg RECTAL DAILY PRN PRN Reason: SEVERE CONSITIPATION Chlorhexidine Gluconate (Chlorhexidine 2% Cloth) 3 pack TOPICAL DAILY@0400 [facility] Stop: 04/25/18 03:59 Last Admin: 04/22/18 05:08 Dose: 3 pack Chlorhexidine Gluconate (Chlorhexidine 2% Cloth) 3 pack TOPICAL DAILY@0400 PRN PRN Reason: Extra cloth needed Stop: 04/25/18 03:59 Clopidogrel Bisulfate (Plavix) 75 mg PO DAILY [facility] Last Admin: 04/22/18 09:00 Dose: 75 mg Famotidine (Pepcid) 20 mg PO BID [facility] Last Admin: 04/22/18 09:00 Dose: 20 mg Fluticasone/Vilanterol (Breo Ellipta 200/25 Mcg Inh) 1 puff INH DAILY [facility] Last Admin: 04/22/18 09:00 Dose: 1 puff Heparin Sodium (Porcine) (Heparin Inj) 5,000 units SQ Q12H [facility] Last Admin: 04/22/18 06:38 Dose: 5,000 units Hydralazine HCl (Apresoline Inj) 10 mg IV.PUSH Q1H PRN PRN Reason: SBP>160, DBP>90 Last Admin: 04/22/18 02:30 Dose: 10 mg Sodium Chloride (Ns Inj) 1,000 mls @ 100 mls/hr IV.SIG .Q10H [facility] Stop: 04/23/18 02:59 Labetalol HCl (Trandate Inj) 10 mg IV.PUSH Q1H PRN PRN Reason: SBP > 160 DBP > 90 HR > 65 Last Admin: 04/22/18 13:31 Dose: 10 mg Lactulose (Lactulose Liq) 30 ml PO DAILY PRN PRN Reason: SEVERE CONSITIPATION Morphine Sulfate (Morphine Inj) 2 mg IV.PUSH Q2H PRN PRN Reason: PAIN SCALE 6 TO 10 Nitroglycerin (Nitro-Bid 2% Oint) 2 inch TOPICAL Q6HR PRN PRN Reason: Sbp>165, Dbp>90 Ondansetron HCl (Zofran Inj) 4 mg IV.PUSH Q6H PRN PRN Reason: NAUSEA OR VOMITING Oxybutynin Chloride (Ditropan) 5 mg PO BID [facility] Last Admin: 04/22/18 09:00 Dose: 5 mg Senna/Docusate Sodium (Airam-Colace) 1 tab PO BID [facility] Last Admin: 04/22/18 09:00 Dose: 1 tab Sennosides (Senokot) 17.2 mg PO Q12H PRN PRN Reason: Moderate Constipation Sodium Chloride (Ns Flush) 2 ml IV.FLUSH BID [facility] Last Admin: 04/22/18 09:00 Dose: 2 ml Sodium Chloride (Ns Flush) 2 ml IV.FLUSH PRN PRN PRN Reason: FLUSH AFTER USING IV ACCESS Allergies Allergy/AdvReac Type Severity Reaction Status Date / Time ciprofloxacin Allergy Rash Verified 04/16/18 07:47 levofloxacin Allergy Rash Verified 04/16/18 07:47 Sulfa (Sulfonamide Allergy Rash Verified 04/16/18 06:55 Antibiotics) tramadol AdvReac Hallucinati Verified 04/16/18 07:47 ons Home Medications Medication Instructions Recorded Confirmed Type albuterol sulfate [ProAir HFA] 1 puff INHALATION Q6H PRN 04/16/18 04/16/18 History atorvastatin 40 mg PO DAILY 04/16/18 04/16/18 History clopidogrel 300 mg PO DAILY 04/16/18 04/16/18 History fluticasone-vilanterol [Breo 1 inh INHALATION DAILY PRN 04/16/18 04/16/18 History Ellipta] oxybutynin chloride 5 mg PO TID 04/16/18 04/16/18 History Results - Labs CBC & Chem 7: 04/22/18 04:20 04/22/18 04:20 Laboratory Results - last 24 hr 04/21/18 04/22/18 04/22/18 18:34 04:20 04:20 WBC 13.3 H RBC 3.27 L Hgb 9.1 L Hct 27.8 L MCV 85.0 MCH 27.9 MCHC 32.8 RDW 15.3 Plt Count 372 MPV 6.9 L Sodium 139 Potassium 4.5 Chloride 108 H Carbon Dioxide 24.0 Anion Gap 7 BUN 15 Creatinine 0.49 L Estimated GFR Greater than 89 POC Glucose 108 Random Glucose 125 H Calcium 7.8 L Random Vancomycin 23.3 04/22/18 12:26 WBC RBC Hgb Hct MCV MCH MCHC RDW Plt Count MPV Sodium Potassium Chloride Carbon Dioxide Anion Gap BUN Creatinine Estimated GFR POC Glucose 103 Random Glucose Calcium Random Vancomycin Microbiology 04/19/18 17:55 Blood - Peripheral Aerobic Blood Culture - Preliminary No growth in 3 days 04/19/18 17:55 Blood - Peripheral Anaerobic Blood Culture - Preliminary No growth in 3 days 04/19/18 17:50 Blood - Peripheral Aerobic Blood Culture - Preliminary No growth in 3 days 04/19/18 17:50 Blood - Peripheral Anaerobic Blood Culture - Preliminary No growth in 3 days Assessment and Plan - Plan 77-year-old female with left foot gangrene Will await MRI prior to further discussing surgical intervention Patient is confused at this time Patient's states she is confused and fragile and he does not want plan of care discussed with patient Will discuss MRI with patient tomorrow and put together a plan of care Discussed surgical intervention with patient versus conservative Patient states she does not want to have her foot missing
[2018-04-22] MEDS ORDERED: Gadobutrol PF 7.5 MMOL/7.5 ML Vial (for RAD) IV.SIG ONE (17:46)
--- NOTE | 2018-04-22 19:08 | MR ---
EXAM DATE: 04/22/2018 6:06 PM EST AGE/SEX: 77 years / Female INDICATIONS: Abscess. Remaining toes on foot are black. CLINICAL DATA: This is the patient's subsequent encounter. Patient reports that signs and symptoms h ave been present for 1 week and indicates a pain score of 7/10. MEDICAL/SURGICAL HISTORY: Chronic obstructive pulmonary disease. Hypertension. Cardiovascular disease. . Toe amputations. Left groin reconstruction. Left fem-pop. COMPARISON: No prior exams available for comparison. TECHNIQUE: Multiplanar, multisequence MRI examination was performed without contrast and after th e intravenous administration of 7 ml Gadavist (gadobutrol) single exam dose. FINDINGS: Bones: The patient is status post amputation of the first and second digits. There is dorsal dislocat ion at the third MTP joint with the third proximal phalanx being displaced dorsally and proximally. T here is some increased signal seen at the distal medial aspect of first metatarsal head. This area ap pears grossly normal on the T1-weighted images. There is mild increased signal seen in the dome of th e talus and some minimal subchondral edema seen at the distal tibia. These changes are likely related to degenerative change. The signal within the bony structures otherwise appears normal. Tendons: The flexor tendons are intact. Soft Tissues: There is edema seen in the plantar aspect of the forefoot adjacent to the first metatar abdi head. A drainable fluid collection is not seen. Other: The plantar fascia is intact. No signal abnormalities are seen in the plantar musculature. Post Contrast: There is some enhancement seen at the distal medial aspect of first metatarsal head. H owever this area does appear normal on the precontrast T1-weighted images. There is also some enhance ment in the plantar soft tissues CONCLUSION: 1. Status post amputation at the first and second digits. 2. No areas of suspected osteomyelitis are seen. There some mild edema seen in the distal first meta tarsal. This area appears normal on the precontrast T1-weighted images. There does appear to be surro unding inflammatory change in the soft tissues around the first distal metatarsal without a focal flu id collection. 3. Suspected degenerative edema/granulation at the ankle at the distal tibia and proximal tibia. Electronically signed by: Shaun Ceron MD Board Certified Radiologist 04/22/2018 7:07 PM EST
[2018-04-22] MEDS: Acetaminophen 325 MG Tablet PO PRN (23:22)
[2018-04-23] MEDS: Acetaminophen 325 MG Tablet PO PRN (04:55)
[2018-04-23] MEDS: Heparin - SQ 10,000 UNITS/ML Vial SQ SCH ×2 (04:56→16:49)
[2018-04-23] MEDS: Chlorhexidine Gluconate 2% 1 Pack (2 Cloths) TOPICAL SCH (07:27)
--- NOTE | 2018-04-23 07:52 | P.PNVS ---
Subjective Post Op Day #: 2 Procedure: L groin reconstruction, fem-BK pop Subjective/Hospital Course: more alert, but remains confused doesn't endorse pain Objective Vital Signs / I&O: Vital Signs 04/22/18 08:18 04/22/18 11:00 04/22/18 15:00 Temperature 98.3 F 98.4 F Pulse Rate 90 105 H Respiratory Rate 18 Blood Pressure 138/69 Pulse Oximetry 100 99 94 L 04/22/18 19:00 04/22/18 20:53 04/22/18 23:00 Temperature 97.8 F 98.6 F Pulse Rate 92 H 100 H Respiratory Rate 18 18 Blood Pressure 148/68 H 134/62 Pulse Oximetry 99 98 99 04/23/18 03:00 04/23/18 07:00 Temperature 97.6 F 98.5 F Pulse Rate 98 H 92 H Respiratory Rate 18 16 Blood Pressure 134/62 119/62 Pulse Oximetry 99 95 Intake & Output 04/22/18 04/23/18 04/23/18 18:59 06:59 18:59 Intake Total 584 / 584 240 / 240 250 / 250 Output Total 700 / 700 Balance 584 / 584 -460 / -460 250 / 250 Weight 67 kg Intake: IV 104 / 104 250 / 250 Cleocin Inj 600 MG In NS Inj 104 / 104 100 ML @ 208 mls/hr IV.SIG Q8H [place] Rx#:[id number] Oral 480 / 480 240 / 240 Output: Urine 700 / 700 Other: # Voids 1 # Bowel Movements 0 0 Exam: no focal neuro deficits L groin soft, Prevena intact + DP/PT signals and strong peroneal signal L calf incision c/d/i Laboratory Results - last 24 hr 04/22/18 04/22/18 04/23/18 12:26 19:32 01:18 POC Glucose 103 120 H 108 04/23/18 06:36 POC Glucose 105 Microbiology 04/19/18 17:55 Aerobic Blood Culture - Preliminary Blood - Peripheral No growth in 3 days Anaerobic Blood Culture - Preliminary No growth in 3 days 04/19/18 17:50 Aerobic Blood Culture - Preliminary Blood - Peripheral No growth in 3 days Anaerobic Blood Culture - Preliminary No growth in 3 days Assessment and Plan - Plan POD#2 s/p L groin reconstruction, fem-BK pop; bypass patent by exam 1. Appreciate podiatry input; may get toe amputations 2. clear to transition from ICU from vascular surgery standpoint 3. Re-orient as necessary and limit narcotics 4. ok to d/c accuchecks Discharge Plannin-3 days
[2018-04-23] MEDS: Senna/Docusate Sodium 8.6/50 MG Tablet PO SCH ×2 (08:29→21:18)
[2018-04-23] MEDS: Aspirin 325 MG Tablet PO SCH (08:29)
[2018-04-23] MEDS: Famotidine 20 MG Tablet PO SCH ×2 (08:30→21:18)
--- NOTE | 2018-04-23 12:55 | P.PNIM ---
Subjective Interval history: Follow up for PAD s/p bypass surgery, gangrenous toes on the left foot. Patient is currently resting in bed. She appears to be alert and oriented to self, place, month. Denies any chest pain, shortness of breath, fever or chills. Physical Exam Vital signs: Vital Signs 04/22/18 15:00 04/22/18 19:00 04/22/18 20:53 Temperature 98.4 F 97.8 F Pulse Rate 105 H 92 H Respiratory Rate 18 18 Blood Pressure 148/68 H Pulse Oximetry 94 L 99 98 04/22/18 23:00 04/23/18 03:00 04/23/18 07:00 Temperature 98.6 F 97.6 F 98.5 F Pulse Rate 100 H 98 H 88 Respiratory Rate 18 18 16 Blood Pressure 134/62 134/62 119/62 Pulse Oximetry 99 99 95 04/23/18 07:56 04/23/18 10:25 04/23/18 10:41 Temperature Pulse Rate Respiratory Rate Blood Pressure Pulse Oximetry 95 97 97 Intake & Output 04/22/18 04/23/18 04/23/18 18:59 06:59 18:59 Intake Total 584 / 584 240 / 240 490 / 490 Output Total 700 / 700 800 / 800 Balance 584 / 584 -460 / -460 -310 / -310 Weight 67 kg Intake: IV 104 / 104 250 / 250 Cleocin Inj 600 MG In NS Inj 104 / 104 100 ML @ 208 mls/hr IV.SIG Q8H [place] Rx#:[id number] Oral 480 / 480 240 / 240 240 / 240 Output: Urine 700 / 700 800 / 800 Other: # Voids 1 # Bowel Movements 0 0 Narrative: GENERAL: Alert to self, place, month. Knows the name of the president. NAD. SKIN: Warm and dry. HEAD: Normocephalic. EYES: No scleral icterus. No injection or drainage. NECK: Supple, trachea midline. No JVD or lymphadenopathy. CARDIOVASCULAR: Regular rate and rhythm without murmurs, gallops, or rubs. RESPIRATORY: Breath sounds equal bilaterally. No accessory muscle use. GASTROINTESTINAL: Abdomen soft, non-tender, nondistended. MUSCULOSKELETAL: No cyanosis, or edema. Surgical changes noted on left lower ext , gangrenous toes noted on left side. BACK: Nontender without obvious deformity. No CVA tenderness. Urinary Catheter Management Indwelling Urethral Catheter: Cath placed during this visit: yes, but has since been removed by the nurse Reason for continuing: Not indwelling catheter Insertion date: 04/21/18 Insertion time: 12:20 Removal date: 04/22/18 Removal time: 06:00 Results Labs CBC & Chem 7: 04/22/18 04:20 04/22/18 04:20 Labs: Microbiology 04/19/18 17:55 Blood - Peripheral Aerobic Blood Culture - Preliminary No growth in 4 days 04/19/18 17:55 Blood - Peripheral Anaerobic Blood Culture - Preliminary No growth in 4 days 04/19/18 17:50 Blood - Peripheral Aerobic Blood Culture - Preliminary No growth in 4 days 04/19/18 17:50 Blood - Peripheral Anaerobic Blood Culture - Preliminary No growth in 4 days Imaging Imaging: Impressions Foot MRI 04/22/18 00:00 CONCLUSION: 1. Status post amputation at the first and second digits. 2. No areas of suspected osteomyelitis are seen. There some mild edema seen in the distal first metatarsal. This area appears normal on the precontrast T1- weighted images. There does appear to be surrounding inflammatory change in the soft tissues around the first distal metatarsal without a focal fluid collection. 3. Suspected degenerative edema/granulation at the ankle at the distal tibia and proximal tibia. 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: Code(s): I96 - Gangrene, not elsewhere classified; I70.202 - Unspecified atherosclerosis of [place] arteries of extremities, left leg Status: Acute (2) Urinary incontinence: Code(s): R32 - Unspecified urinary incontinence Status: Chronic (3) COPD (chronic obstructive pulmonary disease): Code(s): J44.9 - Chronic obstructive pulmonary disease, unspecified Status: Chronic (4) Peripheral vascular disease: Code(s): I73.9 - Peripheral vascular disease, unspecified Status: Suspected (5) Unstable gait: Code(s): R26.81 - Unsteadiness on feet Status: Chronic (6) Obesity: Code(s): E66.9 - Obesity, unspecified Status: Chronic (7) Hyperlipidemia: Code(s): E78.5 - Hyperlipidemia, unspecified Status: Chronic (8) Essential hypertension: Code(s): I10 - Essential (primary) hypertension Status: Chronic (9) Chronic pain: Code(s): G89.29 - Other chronic pain Status: Chronic (10) Carotid artery stenosis: Code(s): I65.29 - Occlusion and stenosis of unspecified carotid artery Status: Chronic (11) Superficial femoral artery occlusion: Code(s): I70.209 - Unspecified atherosclerosis of [place] arteries of extremities, unspecified extremity Status: Acute (12) PAD (peripheral artery disease): Code(s): I73.9 - Peripheral vascular disease, unspecified Status: Chronic Plan Ms. King is a 77 year old female with a history of peripheral vascular arterial disease, history of left great toe and second toe amputation who was admitted to [facility] on 04/19/2018 as a direct transfer from [facility] due to further vascular surgery intervention. Patient has additional history of COPD, HTN, HLD, CAD. Patient was evaluated by Vascular surgery on with an angiogram. The plan was to perform left groin reconstruction with a femoral below the knee popliteal surgery. Patient was admitted to [facility] due to suspected CVA. However, work up did not reveal any evidence of CVA. She was transferred to [facility] and patient underwent surgical interventions on 04/21/2018. Left lower extremity critical limb ischemia -Left profunda endarterectomy and left femoral to below-knee popliteal bypass () -Continue aspirin, Plavix, Lipitor. -Patient was on Aztreonam, clindamycin and Vancomycin. Blood cx negative. No leukocytosis, No fever. -Appreciate ID input. ID recommended discontinuation of all abx. -consult PT, OT. Left foot gangrenous toes -Podiatry consulted - probably no surgical intervention. MRI shows no osteomyelitis. COPD -Continue breathing treatments PRN. -Supplemental O2 as needed. Full code. Heparin SQ. Discharge plan: Discharge when okay with vascular surgery. PT recommends rehab. Progress Note: Quality VTE Deep Vein Thrombosis/Pulmonary Embolism Present on Admission: No _ (1) Carotid artery stenosis Qualifiers: Laterality: (2) Urinary incontinence Qualifiers: Urinary Incontinence type: unspecified incontinence Qualified Code(s): R32 - Unspecified urinary incontinence (3) Chronic pain Qualifiers: Chronic pain type: other chronic pain Qualified Code(s): G89.29 - Other chronic pain (4) Hyperlipidemia Qualifiers: Hyperlipidemia type: unspecified Qualified Code(s): E78.5 - Hyperlipidemia, unspecified (5) COPD (chronic obstructive pulmonary disease) Qualifiers: COPD type: unspecified COPD Chronic bronchitis type: Emphysema type: Qualified Code(s): J44.9 - Chronic obstructive pulmonary disease, unspecified (6) Obesity Qualifiers: Body mass index: Obesity classification: unspecified obesity classification Obesity type: unspecified obesity type Serious obesity comorbidity presence: unspecified whether serious comorbidity present Qualified Code(s): E66.9 - Obesity, unspecified
--- NOTE | 2018-04-23 20:51 | P.PNPOD ---
Subjective Interval history: Attempted to see patient however not present bedside to assist in decision making. Will review MRI with present bedside tomorrow. Physical Exam Vital signs: Vital Signs 04/22/18 20:53 04/22/18 23:00 04/23/18 03:00 Temperature 98.6 F 97.6 F Pulse Rate 100 H 98 H Respiratory Rate 18 18 Blood Pressure 134/62 134/62 Pulse Oximetry 98 99 99 04/23/18 07:00 04/23/18 07:56 04/23/18 10:25 Temperature 98.5 F Pulse Rate 88 Respiratory Rate 16 Blood Pressure 119/62 Pulse Oximetry 95 95 97 04/23/18 10:41 04/23/18 13:00 04/23/18 15:00 Temperature Pulse Rate 98 H 99 H Respiratory Rate Blood Pressure Pulse Oximetry 97 04/23/18 16:44 Temperature 97.9 F Pulse Rate 94 H Respiratory Rate 18 Blood Pressure 149/73 H Pulse Oximetry Intake & Output 04/23/18 04/23/18 04/24/18 06:59 18:59 06:59 Intake Total 240 / 240 950 / 950 Output Total 700 / 700 1350 / 1350 Balance -460 / -460 -400 / -400 Weight 67 kg Intake: IV 250 / 250 Oral 240 / 240 700 / 700 Output: Urine 700 / 700 1350 / 1350 Other: Date of Last Bowel Movement 04/20/18 # Bowel Movements 0 Medications and Allergies Active Medications: Active Medications Acetaminophen (Tylenol) 650 mg PO Q6H PRN PRN Reason: Fever >101f Last Admin: 04/23/18 04:55 Dose: 650 mg Hydrocodone Bitart/Acetaminophen ([place] 5/325) 1 tab PO Q4H PRN PRN Reason: PAIN SCALE 1 TO 5 Last Admin: 04/22/18 16:33 Dose: 1 tab Al Hydroxide/Mg Hydroxide (Milk Of Magnesia Liq) 30 ml PO Q12H PRN PRN Reason: Mild Constipation Albuterol (Albuterol Neb (Prn)) 2.5 mg NEB Q2HR NEB PRN PRN Reason: SHORTNESS OF BREATH/WHEEZING Aspirin (Aspirin) 325 mg PO DAILY [facility] Last Admin: 04/23/18 08:29 Dose: 325 mg Atorvastatin Calcium (Lipitor) 40 mg PO DAILY [facility] Last Admin: 04/23/18 08:29 Dose: 40 mg Bisacodyl (Dulcolax Supp) 10 mg RECTAL DAILY PRN PRN Reason: SEVERE CONSITIPATION Chlorhexidine Gluconate (Chlorhexidine 2% Cloth) 3 pack TOPICAL DAILY@0400 [facility] Stop: 04/25/18 03:59 Last Admin: 04/23/18 07:27 Dose: Not Given Chlorhexidine Gluconate (Chlorhexidine 2% Cloth) 3 pack TOPICAL DAILY@0400 PRN PRN Reason: Extra cloth needed Stop: 04/25/18 03:59 Clopidogrel Bisulfate (Plavix) 75 mg PO DAILY [facility] Last Admin: 04/23/18 08:30 Dose: 75 mg Famotidine (Pepcid) 20 mg PO BID [facility] Last Admin: 04/23/18 08:30 Dose: 20 mg Fluticasone/Vilanterol (Breo Ellipta 200/25 Mcg Inh) 1 puff INH DAILY [facility] Last Admin: 04/23/18 08:30 Dose: 1 puff Heparin Sodium (Porcine) (Heparin Inj) 5,000 units SQ Q12H [facility] Last Admin: 04/23/18 16:49 Dose: 5,000 units Hydralazine HCl (Apresoline Inj) 10 mg IV.PUSH Q1H PRN PRN Reason: SBP>160, DBP>90 Last Admin: 04/22/18 02:30 Dose: 10 mg Labetalol HCl (Trandate Inj) 10 mg IV.PUSH Q1H PRN PRN Reason: SBP > 160 DBP > 90 HR > 65 Last Admin: 04/22/18 13:31 Dose: 10 mg Lactulose (Lactulose Liq) 30 ml PO DAILY PRN PRN Reason: SEVERE CONSITIPATION Morphine Sulfate (Morphine Inj) 2 mg IV.PUSH Q2H PRN PRN Reason: PAIN SCALE 6 TO 10 Nitroglycerin (Nitro-Bid 2% Oint) 2 inch TOPICAL Q6HR PRN PRN Reason: Sbp>165, Dbp>90 Ondansetron HCl (Zofran Inj) 4 mg IV.PUSH Q6H PRN PRN Reason: NAUSEA OR VOMITING Oxybutynin Chloride (Ditropan) 5 mg PO BID [facility] Last Admin: 04/23/18 08:29 Dose: 5 mg Senna/Docusate Sodium (Airam-Colace) 1 tab PO BID [facility] Last Admin: 04/23/18 08:29 Dose: 1 tab Sennosides (Senokot) 17.2 mg PO Q12H PRN PRN Reason: Moderate Constipation Sodium Chloride (Ns Flush) 2 ml IV.FLUSH BID [place] Last Admin: 04/23/18 08:30 Dose: Not Given Sodium Chloride (Ns Flush) 2 ml IV.FLUSH PRN PRN PRN Reason: FLUSH AFTER USING IV ACCESS Allergies Allergy/AdvReac Type Severity Reaction Status Date / Time ciprofloxacin Allergy Rash Verified 04/16/18 07:47 levofloxacin Allergy Rash Verified 04/16/18 07:47 Sulfa (Sulfonamide Allergy Rash Verified 04/16/18 06:55 Antibiotics) tramadol AdvReac Hallucinati Verified 04/16/18 07:47 ons Home Medications Medication Instructions Recorded Confirmed Type albuterol sulfate [ProAir HFA] 1 puff INHALATION Q6H PRN 04/16/18 04/23/18 History atorvastatin 40 mg PO DAILY 04/16/18 04/23/18 History clopidogrel 300 mg PO DAILY 04/16/18 04/23/18 History fluticasone-vilanterol [Breo 1 inh INHALATION DAILY PRN 04/16/18 04/23/18 History Ellipta] oxybutynin chloride 5 mg PO TID 04/16/18 04/23/18 History Results - Labs CBC & Chem 7: 04/22/18 04:20 04/22/18 04:20 Laboratory Results - last 24 hr 04/23/18 04/23/18 01:18 06:36 POC Glucose 108 105 Microbiology 04/19/18 17:55 Blood - Peripheral Aerobic Blood Culture - Preliminary No growth in 4 days 04/19/18 17:55 Blood - Peripheral Anaerobic Blood Culture - Preliminary No growth in 4 days 04/19/18 17:50 Blood - Peripheral Aerobic Blood Culture - Preliminary No growth in 4 days 04/19/18 17:50 Blood - Peripheral Anaerobic Blood Culture - Preliminary No growth in 4 days
[2018-04-24] MEDS: Chlorhexidine Gluconate 2% 1 Pack (2 Cloths) TOPICAL SCH (03:28)
[2018-04-24] MEDS: Heparin - SQ 10,000 UNITS/ML Vial SQ SCH ×2 (04:57→16:57)
[2018-04-24] MEDS: Senna/Docusate Sodium 8.6/50 MG Tablet PO SCH ×2 (08:17→20:59)
[2018-04-24] MEDS: Aspirin 325 MG Tablet PO SCH (08:17)
[2018-04-24] MEDS: Famotidine 20 MG Tablet PO SCH ×2 (08:17→21:00)
--- NOTE | 2018-04-24 13:45 | P.PNIM ---
Subjective Interval history: Follow up for PAD s/p bypass surgery, gangrenous toes on the left foot. Patient appears to be somewhat more alert today. However, states that earlier today she was having visual hallucinations. Patient denies any chest pain, shortness of breath, fever or chills. Physical Exam Vital signs: Vital Signs 04/23/18 15:00 04/23/18 16:44 04/23/18 19:00 Temperature 97.9 F 98.9 F Pulse Rate 99 H 94 H 67 Respiratory Rate 18 18 Blood Pressure 149/73 H 129/66 Pulse Oximetry 93 L 04/23/18 20:00 04/23/18 21:00 04/23/18 21:30 Temperature Pulse Rate 106 H 106 H Respiratory Rate Blood Pressure Pulse Oximetry 95 04/23/18 22:00 04/23/18 23:00 04/24/18 00:00 Temperature 98.6 F Pulse Rate 102 H 100 H 88 Respiratory Rate 20 18 Blood Pressure 139/82 Pulse Oximetry 97 04/24/18 01:00 04/24/18 02:00 04/24/18 03:00 Temperature 98 F Pulse Rate 88 96 H 94 H Respiratory Rate 18 Blood Pressure 138/67 Pulse Oximetry 97 04/24/18 04:00 04/24/18 05:00 04/24/18 06:00 Temperature Pulse Rate 98 H 86 87 Respiratory Rate Blood Pressure Pulse Oximetry 04/24/18 07:00 04/24/18 08:00 04/24/18 09:00 Temperature 98.1 F Pulse Rate 89 66 64 Respiratory Rate 20 20 Blood Pressure 141/66 H Pulse Oximetry 98 98 04/24/18 10:00 04/24/18 11:00 04/24/18 11:11 Temperature 97.6 F Pulse Rate 64 90 Respiratory Rate 20 20 Blood Pressure 146/67 H Pulse Oximetry 97 04/24/18 12:00 04/24/18 13:00 Temperature Pulse Rate 93 H 78 Respiratory Rate Blood Pressure Pulse Oximetry Intake & Output 04/23/18 04/24/18 04/24/18 18:59 06:59 18:59 Intake Total 950 / 950 240 / 240 Output Total 1350 / 1350 550 / 550 Balance -400 / -400 -310 / -310 Intake: IV 250 / 250 Oral 700 / 700 240 / 240 Output: Urine 1350 / 1350 550 / 550 Other: Date of Last Bowel Movement 04/20/18 04/20/18 04/23/18 Narrative: GENERAL: Alert, NAD. SKIN: Warm and dry. HEAD: Normocephalic. EYES: No scleral icterus. No injection or drainage. NECK: Supple, trachea midline. No JVD or lymphadenopathy. CARDIOVASCULAR: Regular rate and rhythm without murmurs, gallops, or rubs. RESPIRATORY: Breath sounds equal bilaterally. No accessory muscle use. GASTROINTESTINAL: Abdomen soft, non-tender, nondistended. MUSCULOSKELETAL: No cyanosis, or edema. Surgical changes noted on left lower ext , gangrenous toes noted on left side. BACK: Nontender without obvious deformity. No CVA tenderness. Urinary Catheter Management Indwelling Urethral Catheter: Cath placed during this visit: yes, but has since been removed by the nurse Reason for continuing: Not indwelling catheter Insertion date: 04/21/18 Insertion time: 12:20 Removal date: 04/22/18 Removal time: 06:00 Results Labs CBC & Chem 7: 04/22/18 04:20 04/22/18 04:20 Labs: Microbiology 04/19/18 17:55 Blood - Peripheral Aerobic Blood Culture - Final No growth in 5 days 04/19/18 17:55 Blood - Peripheral Anaerobic Blood Culture - Final No growth in 5 days 04/19/18 17:50 Blood - Peripheral Aerobic Blood Culture - Final No growth in 5 days 04/19/18 17:50 Blood - Peripheral Anaerobic Blood Culture - Final No growth in 5 days 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: Code(s): I96 - Gangrene, not elsewhere classified; I70.202 - Unspecified atherosclerosis of [place] arteries of extremities, left leg Status: Acute (2) Urinary incontinence: Code(s): R32 - Unspecified urinary incontinence Status: Chronic (3) COPD (chronic obstructive pulmonary disease): Code(s): J44.9 - Chronic obstructive pulmonary disease, unspecified Status: Chronic (4) Peripheral vascular disease: Code(s): I73.9 - Peripheral vascular disease, unspecified Status: Suspected (5) Unstable gait: Code(s): R26.81 - Unsteadiness on feet Status: Chronic (6) Obesity: Code(s): E66.9 - Obesity, unspecified Status: Chronic (7) Hyperlipidemia: Code(s): E78.5 - Hyperlipidemia, unspecified Status: Chronic (8) Essential hypertension: Code(s): I10 - Essential (primary) hypertension Status: Chronic (9) Chronic pain: Code(s): G89.29 - Other chronic pain Status: Chronic (10) Carotid artery stenosis: Code(s): I65.29 - Occlusion and stenosis of unspecified carotid artery Status: Chronic (11) Superficial femoral artery occlusion: Code(s): I70.209 - Unspecified atherosclerosis of [place] arteries of extremities, unspecified extremity Status: Acute (12) PAD (peripheral artery disease): Code(s): I73.9 - Peripheral vascular disease, unspecified Status: Chronic Plan Ms. King is a 77 year old female with a history of peripheral vascular arterial disease, history of left great toe and second toe amputation who was admitted to [facility] on 04/19/2018 as a direct transfer from [facility] due to further vascular surgery intervention. Patient has additional history of COPD, HTN, HLD, CAD. Patient was evaluated by Vascular surgery on with an angiogram. The plan was to perform left groin reconstruction with a femoral below the knee popliteal surgery. Patient was admitted to [facility] due to suspected CVA. However, work up did not reveal any evidence of CVA. She was transferred to [facility] and patient underwent surgical interventions on 04/21/2018. Left lower extremity critical limb ischemia -Left profunda endarterectomy and left femoral to below-knee popliteal bypass () -Continue aspirin, Plavix, Lipitor. -Patient was on Aztreonam, clindamycin and Vancomycin. Blood cx negative. No leukocytosis, No fever. -Appreciate ID input. ID recommended discontinuation of all abx. -consult PT, OT ==> recommends rehab. I discussed with patient's who prefers an SNF in [place]. Case management is aware of this preference. Left foot gangrenous toes -Podiatry consulted - probably no surgical intervention. MRI shows no osteomyelitis. Discussed with vascular surgery as well as patient's . Per patient's 's request, he would like to take her to SNF and continue to observe her closely. If it becomes necessary to do toe amputation, he will work with Dr. Hansen. Dr. Hansen is okay with this plan as well. Acute delirium Patient is having visual hallucinations. This is likely due to acute illness as well as a component of ICU delirium. I believe patient would be better off in a different environment, ideally home environment. COPD -Continue breathing treatments PRN. -Supplemental O2 as needed. Full code. Heparin SQ. Discharge plan: CM will start working on SNF placement in [place]. Progress Note: Quality VTE Deep Vein Thrombosis/Pulmonary Embolism Present on Admission: No _ (1) Urinary incontinence Qualifiers: Urinary Incontinence type: unspecified incontinence Qualified Code(s): R32 - Unspecified urinary incontinence (2) COPD (chronic obstructive pulmonary disease) Qualifiers: COPD type: unspecified COPD Chronic bronchitis type: Emphysema type: Qualified Code(s): J44.9 - Chronic obstructive pulmonary disease, unspecified (3) Obesity Qualifiers: Obesity type: unspecified obesity type Obesity classification: unspecified obesity classification Serious obesity comorbidity presence: unspecified whether serious comorbidity present Body mass index: Qualified Code(s): E66.9 - Obesity, unspecified (4) Hyperlipidemia Qualifiers: Hyperlipidemia type: unspecified Qualified Code(s): E78.5 - Hyperlipidemia, unspecified (5) Chronic pain Qualifiers: Chronic pain type: other chronic pain Qualified Code(s): G89.29 - Other chronic pain (6) Carotid artery stenosis Qualifiers: Laterality:
--- NOTE | 2018-04-24 14:20 | P.PNVS ---
Subjective Post Op Day #: 3 Procedure: L groin reconstruction, fem-BK pop Subjective/Hospital Course: more alert, knows her and situation able to sit on side of bed getting PT Objective Vital Signs / I&O: Vital Signs 04/23/18 15:00 04/23/18 16:44 04/23/18 19:00 Temperature 97.9 F 98.9 F Pulse Rate 99 H 94 H 67 Respiratory Rate 18 18 Blood Pressure 149/73 H 129/66 Pulse Oximetry 93 L 04/23/18 20:00 04/23/18 21:00 04/23/18 21:30 Temperature Pulse Rate 106 H 106 H Respiratory Rate Blood Pressure Pulse Oximetry 95 04/23/18 22:00 04/23/18 23:00 04/24/18 00:00 Temperature 98.6 F Pulse Rate 102 H 100 H 88 Respiratory Rate 20 18 Blood Pressure 139/82 Pulse Oximetry 97 04/24/18 01:00 04/24/18 02:00 04/24/18 03:00 Temperature 98 F Pulse Rate 88 96 H 94 H Respiratory Rate 18 Blood Pressure 138/67 Pulse Oximetry 97 04/24/18 04:00 04/24/18 05:00 04/24/18 06:00 Temperature Pulse Rate 98 H 86 87 Respiratory Rate Blood Pressure Pulse Oximetry 04/24/18 07:00 04/24/18 08:00 04/24/18 09:00 Temperature 98.1 F Pulse Rate 89 66 64 Respiratory Rate 20 20 Blood Pressure 141/66 H Pulse Oximetry 98 98 04/24/18 10:00 04/24/18 11:00 04/24/18 11:11 Temperature 97.6 F Pulse Rate 64 90 Respiratory Rate 20 20 Blood Pressure 146/67 H Pulse Oximetry 97 04/24/18 12:00 04/24/18 13:00 Temperature Pulse Rate 93 H 78 Respiratory Rate Blood Pressure Pulse Oximetry Intake & Output 04/23/18 04/24/18 04/24/18 18:59 06:59 18:59 Intake Total 950 / 950 240 / 240 Output Total 1350 / 1350 550 / 550 Balance -400 / -400 -310 / -310 Intake: IV 250 / 250 Oral 700 / 700 240 / 240 Output: Urine 1350 / 1350 550 / 550 Other: Date of Last Bowel Movement 04/20/18 04/20/18 04/23/18 Exam: looks great L calf ok toes stable, no erythema Pulses: strong Doppler signals L foot Microbiology 04/19/18 17:55 Aerobic Blood Culture - Final Blood - Peripheral No growth in 5 days Anaerobic Blood Culture - Final No growth in 5 days 04/19/18 17:50 Aerobic Blood Culture - Final Blood - Peripheral No growth in 5 days Anaerobic Blood Culture - Final No growth in 5 days Assessment and Plan - Plan POD#3 s/p L groin reconstruction, fem-BK pop; bypass patent by exam 1. Appreciate podiatry input; may get toe amputations but as I discussed with , I think we can do this as outpatient plus, I think the patient would benefit from intensive rehab 2. aggressive PT 3. Re-orient as necessary and limit narcotics 4. ok to d/c to rehab anytime from a vascular standpoint agrees with plan. Discharge Plannin-3 days
--- NOTE | 2018-04-24 18:30 | P.PNPOD ---
Subjective Interval history: Patient seen bedside with present. Physical Exam Vital signs: Vital Signs 04/23/18 19:00 04/23/18 20:00 04/23/18 21:00 Temperature 98.9 F Pulse Rate 67 106 H 106 H Respiratory Rate 18 Blood Pressure 129/66 Pulse Oximetry 93 L 04/23/18 21:30 04/23/18 22:00 04/23/18 23:00 Temperature 98.6 F Pulse Rate 102 H 100 H Respiratory Rate 20 Blood Pressure 139/82 Pulse Oximetry 95 97 04/24/18 00:00 04/24/18 01:00 04/24/18 02:00 Temperature Pulse Rate 88 88 96 H Respiratory Rate 18 Blood Pressure Pulse Oximetry 04/24/18 03:00 04/24/18 04:00 04/24/18 05:00 Temperature 98 F Pulse Rate 94 H 98 H 86 Respiratory Rate 18 Blood Pressure 138/67 Pulse Oximetry 97 04/24/18 06:00 04/24/18 07:00 04/24/18 08:00 Temperature 98.1 F Pulse Rate 87 89 66 Respiratory Rate 20 20 Blood Pressure 141/66 H Pulse Oximetry 98 98 04/24/18 09:00 04/24/18 10:00 04/24/18 11:00 Temperature 97.6 F Pulse Rate 64 64 90 Respiratory Rate 20 Blood Pressure 146/67 H Pulse Oximetry 97 04/24/18 11:11 04/24/18 12:00 04/24/18 13:00 Temperature Pulse Rate 93 H 78 Respiratory Rate 20 Blood Pressure Pulse Oximetry 04/24/18 14:00 04/24/18 15:00 04/24/18 15:27 Temperature 98 F Pulse Rate 82 86 Respiratory Rate 20 20 Blood Pressure 137/79 Pulse Oximetry 96 04/24/18 16:00 04/24/18 17:00 04/24/18 18:00 Temperature Pulse Rate 92 H 92 H 96 H Respiratory Rate Blood Pressure Pulse Oximetry Intake & Output 04/23/18 04/24/18 04/24/18 18:59 06:59 18:59 Intake Total 950 / 950 240 / 240 480 / 480 Output Total 1350 / 1350 550 / 550 200 / 200 Balance -400 / -400 -310 / -310 280 / 280 Intake: IV 250 / 250 Oral 700 / 700 240 / 240 480 / 480 Output: Urine 1350 / 1350 550 / 550 Urine Amount (Catheter) 200 / 200 Female External 200 / 200 Other: Date of Last Bowel Movement 04/20/18 04/20/18 04/20/18 # Bowel Movements 0 Narrative: No interval change to left foot. Medications and Allergies Active Medications: Active Medications Acetaminophen (Tylenol) 650 mg PO Q6H PRN PRN Reason: Fever >101f Last Admin: 04/23/18 04:55 Dose: 650 mg Hydrocodone Bitart/Acetaminophen ([place] 5/325) 1 tab PO Q4H PRN PRN Reason: PAIN SCALE 1 TO 5 Last Admin: 04/24/18 16:57 Dose: 1 tab Al Hydroxide/Mg Hydroxide (Milk Of [place]) 30 ml PO Q12H PRN PRN Reason: Mild Constipation Albuterol (Albuterol Neb (Prn)) 2.5 mg NEB Q2HR NEB PRN PRN Reason: SHORTNESS OF BREATH/WHEEZING Aspirin (Aspirin) 325 mg PO DAILY [facility] Last Admin: 04/24/18 08:17 Dose: 325 mg Atorvastatin Calcium (Lipitor) 40 mg PO DAILY [facility] Last Admin: 04/24/18 08:17 Dose: 40 mg Bisacodyl (Dulcolax Supp) 10 mg RECTAL DAILY PRN PRN Reason: SEVERE CONSITIPATION Chlorhexidine Gluconate (Chlorhexidine 2% Cloth) 3 pack TOPICAL DAILY@0400 [facility] Stop: 04/25/18 03:59 Last Admin: 04/24/18 03:28 Dose: Not Given Chlorhexidine Gluconate (Chlorhexidine 2% Cloth) 3 pack TOPICAL DAILY@0400 PRN PRN Reason: Extra cloth needed Stop: 04/25/18 03:59 Clopidogrel Bisulfate (Plavix) 75 mg PO DAILY [facility] Last Admin: 04/24/18 08:17 Dose: 75 mg Famotidine (Pepcid) 20 mg PO BID [facility] Last Admin: 04/24/18 08:17 Dose: 20 mg Fluticasone/Vilanterol (Breo Ellipta 200/25 Mcg Inh) 1 puff INH DAILY [facility] Last Admin: 04/24/18 08:25 Dose: 1 puff Heparin Sodium (Porcine) (Heparin Inj) 5,000 units SQ Q12H [facility] Last Admin: 04/24/18 16:57 Dose: 5,000 units Hydralazine HCl (Apresoline Inj) 10 mg IV.PUSH Q1H PRN PRN Reason: SBP>160, DBP>90 Last Admin: 04/22/18 02:30 Dose: 10 mg Labetalol HCl (Trandate Inj) 10 mg IV.PUSH Q1H PRN PRN Reason: SBP > 160 DBP > 90 HR > 65 Last Admin: 04/22/18 13:31 Dose: 10 mg Lactulose (Lactulose Liq) 30 ml PO DAILY PRN PRN Reason: SEVERE CONSITIPATION Last Admin: 04/24/18 18:11 Dose: 30 ml Morphine Sulfate (Morphine Inj) 2 mg IV.PUSH Q2H PRN PRN Reason: PAIN SCALE 6 TO 10 Nitroglycerin (Nitro-Bid 2% Oint) 2 inch TOPICAL Q6HR PRN PRN Reason: Sbp>165, Dbp>90 Ondansetron HCl (Zofran Inj) 4 mg IV.PUSH Q6H PRN PRN Reason: NAUSEA OR VOMITING Oxybutynin Chloride (Ditropan) 5 mg PO BID [facility] Last Admin: 04/24/18 08:17 Dose: 5 mg Senna/Docusate Sodium (Airam-Colace) 1 tab PO BID [facility] Last Admin: 04/24/18 08:17 Dose: 1 tab Sennosides (Senokot) 17.2 mg PO Q12H PRN PRN Reason: Moderate Constipation Sodium Chloride (Ns Flush) 2 ml IV.FLUSH BID [facility] Last Admin: 04/24/18 08:18 Dose: 2 ml Sodium Chloride (Ns Flush) 2 ml IV.FLUSH PRN PRN PRN Reason: FLUSH AFTER USING IV ACCESS Allergies Allergy/AdvReac Type Severity Reaction Status Date / Time ciprofloxacin Allergy Rash Verified 04/16/18 07:47 levofloxacin Allergy Rash Verified 04/16/18 07:47 Sulfa (Sulfonamide Allergy Rash Verified 04/16/18 06:55 Antibiotics) tramadol AdvReac Hallucinati Verified 04/16/18 07:47 ons Home Medications Medication Instructions Recorded Confirmed Type albuterol sulfate [ProAir HFA] 1 puff INHALATION Q6H PRN 04/16/18 04/23/18 History atorvastatin 40 mg PO DAILY 04/16/18 04/23/18 History clopidogrel 300 mg PO DAILY 04/16/18 04/23/18 History fluticasone-vilanterol [Breo 1 inh INHALATION DAILY PRN 04/16/18 04/23/18 History Ellipta] oxybutynin chloride 5 mg PO TID 04/16/18 04/23/18 History Results - Labs CBC & Chem 7: 04/22/18 04:20 04/22/18 04:20 Microbiology 04/19/18 17:55 Blood - Peripheral Aerobic Blood Culture - Final No growth in 5 days 04/19/18 17:55 Blood - Peripheral Anaerobic Blood Culture - Final No growth in 5 days 04/19/18 17:50 Blood - Peripheral Aerobic Blood Culture - Final No growth in 5 days 04/19/18 17:50 Blood - Peripheral Anaerobic Blood Culture - Final No growth in 5 days Assessment and Plan - Plan 77-year-old female with left foot gangrene MRI reviewed with patient and Per patient Dr. Hansen to assume care of left foot gangrene Patient's does not want any physician from [facility] to operate on her foot Strongly encouraged follow-up with wound care center Strongly encouraged close follow-up with Dr. Hansen Please reconsult if needed
[2018-04-24] MEDS: hydrALAZINE HCl Inj 20 MG/ML Vial IV.PUSH PRN (21:00)
[2018-04-25] MEDS: Heparin - SQ 10,000 UNITS/ML Vial SQ SCH ×2 (04:59→17:21)
[2018-04-25] MEDS: Aspirin 325 MG Tablet PO SCH (08:43)
[2018-04-25] MEDS: Senna/Docusate Sodium 8.6/50 MG Tablet PO SCH ×2 (08:43→21:29)
[2018-04-25] MEDS: Famotidine 20 MG Tablet PO SCH ×2 (08:43→23:26)
--- NOTE | 2018-04-25 10:07 | P.PNIM ---
Subjective Interval history: Patient says she is feeling all right. Denies any chest pain or shortness of breath. Had a large bowel movement this morning. Denies abdominal pain. Has been eating today. Physical Exam Vital signs: Vital Signs 04/24/18 11:00 04/24/18 11:11 04/24/18 12:00 Temperature 97.6 F Pulse Rate 90 93 H Respiratory Rate 20 20 Blood Pressure 146/67 H Pulse Oximetry 97 04/24/18 13:00 04/24/18 14:00 04/24/18 15:00 Temperature 98 F Pulse Rate 78 82 86 Respiratory Rate 20 Blood Pressure 137/79 Pulse Oximetry 96 04/24/18 15:27 04/24/18 16:00 04/24/18 17:00 Temperature Pulse Rate 92 H 92 H Respiratory Rate 20 Blood Pressure Pulse Oximetry 04/24/18 18:00 04/24/18 19:00 04/24/18 20:00 Temperature 98 F Pulse Rate 96 H 86 84 Respiratory Rate 22 Blood Pressure 165/68 H Pulse Oximetry 96 96 04/24/18 21:00 04/24/18 21:27 04/24/18 22:00 Temperature Pulse Rate 92 H 94 H 104 H Respiratory Rate 17 Blood Pressure Pulse Oximetry 98 04/24/18 23:00 04/25/18 00:00 04/25/18 01:00 Temperature 98.1 F Pulse Rate 103 H 95 H 97 H Respiratory Rate 20 Blood Pressure 153/66 H Pulse Oximetry 96 04/25/18 02:00 04/25/18 03:00 04/25/18 04:00 Temperature 97.7 F Pulse Rate 97 H 100 H 101 H Respiratory Rate 18 Blood Pressure 149/60 H Pulse Oximetry 99 04/25/18 05:00 04/25/18 06:00 04/25/18 07:00 Temperature Pulse Rate 90 102 H 101 H Respiratory Rate Blood Pressure Pulse Oximetry 04/25/18 08:00 04/25/18 09:00 Temperature 98.8 F Pulse Rate 96 H 102 H Respiratory Rate 18 Blood Pressure 142/66 H Pulse Oximetry 96 97 Intake & Output 04/24/18 04/25/18 04/25/18 18:59 06:59 18:59 Intake Total 480 / 480 240 / 240 Output Total 200 / 200 350 / 350 Balance 280 / 280 -110 / -110 Intake: Oral 480 / 480 240 / 240 Output: Urine 350 / 350 Urine Amount (Catheter) 200 / 200 Female External 200 / 200 Other: Date of Last Bowel Movement 04/20/18 04/25/18 04/25/18 # Bowel Movements 0 # Incontinent Bowel Movements 2 Narrative: GENERAL: Alert, NAD. Sitting up in bed. Appears comfortable. SKIN: Warm and dry. HEAD: Normocephalic. EYES: No scleral icterus. No injection or drainage. NECK: Supple, trachea midline. No JVD. CARDIOVASCULAR: Regular rate and rhythm without murmurs, gallops, or rubs. RESPIRATORY: Breath sounds equal bilaterally. No accessory muscle use. GASTROINTESTINAL: Abdomen soft, non-tender, nondistended. MUSCULOSKELETAL: No cyanosis, or edema. Surgical changes noted on left lower ext , gangrenous toes noted on left side. BACK: Nontender without obvious deformity. No CVA tenderness. Urinary Catheter Management Indwelling Urethral Catheter: Cath placed during this visit: yes, but has since been removed by the nurse Reason for continuing: Not indwelling catheter Insertion date: 04/21/18 Insertion time: 12:20 Removal date: 04/22/18 Removal time: 06:00 Female External: Cath placed during this visit: no Results Labs CBC & Chem 7: 04/22/18 04:20 04/22/18 04:20 Labs: Microbiology 04/19/18 17:55 Blood - Peripheral Aerobic Blood Culture - Final No growth in 5 days 04/19/18 17:55 Blood - Peripheral Anaerobic Blood Culture - Final No growth in 5 days 04/19/18 17:50 Blood - Peripheral Aerobic Blood Culture - Final No growth in 5 days 04/19/18 17:50 Blood - Peripheral Anaerobic Blood Culture - Final No growth in 5 days 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: Code(s): I96 - Gangrene, not elsewhere classified; I70.202 - Unspecified atherosclerosis of [place] arteries of extremities, left leg Status: Acute (2) Urinary incontinence: Code(s): R32 - Unspecified urinary incontinence Status: Chronic (3) COPD (chronic obstructive pulmonary disease): Code(s): J44.9 - Chronic obstructive pulmonary disease, unspecified Status: Chronic (4) Peripheral vascular disease: Code(s): I73.9 - Peripheral vascular disease, unspecified Status: Suspected (5) Unstable gait: Code(s): R26.81 - Unsteadiness on feet Status: Chronic (6) Obesity: Code(s): E66.9 - Obesity, unspecified Status: Chronic (7) Hyperlipidemia: Code(s): E78.5 - Hyperlipidemia, unspecified Status: Chronic (8) Essential hypertension: Code(s): I10 - Essential (primary) hypertension Status: Chronic (9) Chronic pain: Code(s): G89.29 - Other chronic pain Status: Chronic (10) Carotid artery stenosis: Code(s): I65.29 - Occlusion and stenosis of unspecified carotid artery Status: Chronic (11) Superficial femoral artery occlusion: Code(s): I70.209 - Unspecified atherosclerosis of [place] arteries of extremities, unspecified extremity Status: Acute (12) PAD (peripheral artery disease): Code(s): I73.9 - Peripheral vascular disease, unspecified Status: Chronic Plan Ms. 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 Patient has additional history of COPD, HTN, HLD, CAD. Patient was evaluated by Vascular surgery on with an angiogram. The plan was to perform left groin reconstruction with a femoral below the knee popliteal surgery. Patient was admitted to [facility] due to suspected CVA. However, work up did not reveal any evidence of CVA. She was transferred to [facility] and patient underwent surgical interventions on 04/21/2018. Left lower extremity critical limb ischemia -Left profunda endarterectomy and left femoral to below-knee popliteal bypass () -Continue aspirin, Plavix, Lipitor. -Patient was on Aztreonam, clindamycin and Vancomycin. Blood cx negative. No leukocytosis, No fever. -Appreciate ID input. ID recommended discontinuation of all abx. -consult PT, OT ==> recommends rehab. I discussed with patient's who prefers an SNF in [place]. Case management is aware of this preference. = Discharge to [facility]. Left foot gangrenous toes -Podiatry consulted - probably no surgical intervention. MRI shows no osteomyelitis. Discussed with vascular surgery as well as patient's . Per patient's 's request, he would like to take her to SNF and continue to observe her closely. If it becomes necessary to do toe amputation, he will work with Dr. Hansen. Dr. Hansen is okay with this plan as well. = Discharge to SNF today. Follow-up with Dr. Hansen as outpatient. Acute delirium Patient is having visual hallucinations. This is likely due to acute illness as well as a component of ICU delirium. I believe patient would be better off in a different environment, ideally home environment. = Appears to be stable this morning. Agree that home would be ideal situation. Discharge to SNF. COPD -Continue breathing treatments PRN. -Supplemental O2 as needed. Full code. Heparin SQ. Discharge plan: CM will start working on SNF placement in [place]. Progress Note: Quality VTE Deep Vein Thrombosis/Pulmonary Embolism Present on Admission: No _ (1) Urinary incontinence Qualifiers: Urinary Incontinence type: unspecified incontinence Qualified Code(s): R32 - Unspecified urinary incontinence (2) COPD (chronic obstructive pulmonary disease) Qualifiers: COPD type: unspecified COPD Chronic bronchitis type: Emphysema type: Qualified Code(s): J44.9 - Chronic obstructive pulmonary disease, unspecified (3) Obesity Qualifiers: Obesity type: unspecified obesity type Obesity classification: unspecified obesity classification Serious obesity comorbidity presence: unspecified whether serious comorbidity present Body mass index: Qualified Code(s): E66.9 - Obesity, unspecified (4) Hyperlipidemia Qualifiers: Hyperlipidemia type: unspecified Qualified Code(s): E78.5 - Hyperlipidemia, unspecified (5) Chronic pain Qualifiers: Chronic pain type: other chronic pain Qualified Code(s): G89.29 - Other chronic pain (6) Carotid artery stenosis Qualifiers: Laterality:
--- NOTE | 2018-04-25 10:09 | P.DS ---
DS: Providers Date of admission: 04/19/18 17:09 Primary care physician: Drew Sinclair III, MD Consults: 04/19/18 17:39 Consult to Vascular Surgery Routine Consulting Provider: Magnus Siu Laundry Worker:: Wesley Hansen Patient known to:: Wesley Hansen Reason for Consultation: Patient accepted by Dr. Siu for Dr. Hansen. Plan left groin reconstruction with femoral below the knee pop on Saturday. Notified:: Physician Spoke with:: Dr Siu Date Notified:: 04/19/18 Time Notified:: 17:42 Ordering Provider: ARTURO 04/20/18 09:54 HUB Only Consult Order Routine Consulting Provider: Sandra Flores 04/20/18 17:14 Consult to Hospitalist Routine Consulting Provider: Edmar Cedillo Reason for Consultation: Mcdonald of care in a.m. 04/21. Admission with gangrene left foot. Dr. Hansen to the OR in a.m. 04/21 Notified:: Service Spoke with:: NATALIE Date Notified:: 04/20/18 Time Notified:: 17:22 Ordering Provider: ARTURO 04/21/18 15:30 Consult to Podiatry Routine Consulting Provider: Silke Suazo Reason for Consultation: dry gangrene L toes, now s/p L LE surgical revascularization Notified:: Office Spoke with:: Jagdish Date Notified:: 04/21/18 Time Notified:: 15:37 Ordering Provider: DUSTIN 04/21/18 21:48 Consult to Infectious Diseases Routine Consulting Provider: Jose Mason Reason for Consultation: Critical care started patient on Aztreonam, Clinda and Vancomycin. Patient underwent vascular surgery intervention due to PAD. No lab or clinical evidence of infection. Can we discontinue abx and observe? or at least de -escalate ? Thank you. Notified:: Service Spoke with:: NGUYEN Date Notified:: 04/21/18 Time Notified:: 22:42 Ordering Provider: DONN Brief History from admission: This is a 77-year-old female. Date of admission 04/19/2018. 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 Patient presents to [facility] as a direct transfer from [facility] from [place] with the following history. Patient was originally seen at [facility] 04/16 at which time she underwent a left lower extremity Oanh José Miguel. This revealed superior femoral artery occlusion stent with jailing profunda. The anterior tibial and posterior tubular arteries were occluded. The plan was for left groin reconstruction with a femoral below the knee popliteal surgery on Friday 04/[address] Hansen. Patient was admitted to [facility] with confusion after going confusion post procedure. She is admitted with a diagnosis of acute cerebrovascular accident and underwent an MRI of the brain, carotid Dopplers. According to this was negative. Thought the acutely was secondary to sepsis source foot?. She subsequently transferred to [facility] for further evaluation treatment. DS: Diagnosis Discharge Diagnosis (1) 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: Status: Acute (2) Urinary incontinence: Status: Chronic (3) COPD (chronic obstructive pulmonary disease): Status: Chronic (4) Peripheral vascular disease: Status: Suspected (5) Unstable gait: Status: Chronic (6) Obesity: Status: Chronic (7) Hyperlipidemia: Status: Chronic (8) Essential hypertension: Status: Chronic (9) Chronic pain: Status: Chronic (10) Carotid artery stenosis: Status: Chronic (11) Superficial femoral artery occlusion: Status: Acute (12) PAD (peripheral artery disease): Status: Chronic DS: Summary Ms. 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 Patient has additional history of COPD, HTN, HLD, CAD. Patient was evaluated by Vascular surgery on with an angiogram. The plan was to perform left groin reconstruction with a femoral below the knee popliteal surgery. Patient was admitted to [facility] due to suspected CVA. However, work up did not reveal any evidence of CVA. She was transferred to [place] and patient underwent surgical interventions on 04/21/2018. Left lower extremity critical limb ischemia -Left profunda endarterectomy and left femoral to below-knee popliteal bypass () -Continue aspirin, Plavix, Lipitor. -Patient was on Aztreonam, clindamycin and Vancomycin. Blood cx negative. No leukocytosis, No fever. -Appreciate ID input. ID recommended discontinuation of all abx. -consult PT, OT ==> recommends rehab. I discussed with patient's who prefers an SNF in [place]. Case management is aware of this preference. = Discharge to SNF. Left foot gangrenous toes -Podiatry consulted - probably no surgical intervention. MRI shows no osteomyelitis. Discussed with vascular surgery as well as patient's . Per patient's 's request, he would like to take her to SNF and continue to observe her closely. If it becomes necessary to do toe amputation, he will work with Dr. Hansen. Dr. Hansen is okay with this plan as well. = Discharge to SNF today. Follow-up with Dr. Hansen as outpatient. Acute delirium Patient is having visual hallucinations. This is likely due to acute illness as well as a component of ICU delirium. I believe patient would be better off in a different environment, ideally home environment. = Appears to be stable this morning. Agree that home would be ideal situation. Discharge to SNF. COPD -Continue breathing treatments PRN. -Supplemental O2 as needed. Full code. Heparin SQ. Discharge plan: CM will start working on SNF placement in [place]. Time Spent with Patient Total time spent providing and/or coordinating discharge services: Greater than 30 minutes Quality: VTE Deep Vein Thrombosis/Pulmonary Embolism Present on Admission: No Results Impressions ITS Impressions Chest X-Ray 04/19/18 17:36 CONCLUSION: No acute cardiopulmonary disease Foot MRI 04/22/18 00:00 CONCLUSION: 1. Status post amputation at the first and second digits. 2. No areas of suspected osteomyelitis are seen. There some mild edema seen in the distal first metatarsal. This area appears normal on the precontrast T1- weighted images. There does appear to be surrounding inflammatory change in the soft tissues around the first distal metatarsal without a focal fluid collection. 3. Suspected degenerative edema/granulation at the ankle at the distal tibia and proximal tibia. Discharge Plan Discharge Disposition Patient Disposition: 03 Discharge to SNF Discharge Condition Condition: Good Discharge Order Discharge Orders: Discharge Order (Routine); Ordered 04/25/18 Ordered By: Nestor Lazo Vascular Surgery Clear for Discharge (Routine); Ordered 04/24/18 Ordered By: Wesley Hansen Discharge Details Anticipated Discharge Date: 04/25/18 Physicians Team Primary Care Provider: Drew Sinclair III Attending Provider: Nestor Lazo Other Providers: Magnus Siu ; Sandra Flores ; Silke Suazo ; Jose Mason Rxs /Orders / Referrals /Forms Prescriptions: New hydrocodone-acetaminophen 5-325 mg Tablet 1 tab PO Q4H PRN (Reason: Acute Pain Exception) Qty: 18 RF: 0 clopidogrel [Plavix] 75 mg Tablet 75 mg PO DAILY Qty: 30 RF: 0 aspirin 325 mg Tablet 325 mg PO DAILY 30 Days Qty: 30 RF: 0 Continue atorvastatin 40 mg Tablet 40 mg PO DAILY RF: 0 albuterol sulfate [ProAir HFA] 90 mcg/actuation Hfa Aerosol Inhaler 1 puff INHALATION Q6H PRN (Reason: Shortness Of Breath Or Wheezing) RF: 0 fluticasone-vilanterol [Breo Ellipta] 200-25 mcg/dose Blister With Device 1 inh INHALATION DAILY PRN (Reason: Shortness Of Breath) RF: 0 Discontinued oxybutynin chloride 5 mg Tablet 5 mg PO TID RF: 0 clopidogrel 300 mg Tablet 300 mg PO DAILY RF: 0 Referrals: Wesley Hansen MD [Physician] - See Instructions (Your wound vac removal is scheduled on SATURDAY (post op day 7) 04/28/18 at 1:15) Drew Sinclair III, MD [Primary Care Provider] - See Instructions
[2018-04-25] MEDS: hydrALAZINE HCl Inj 20 MG/ML Vial IV.PUSH PRN (16:11)
[2018-04-26] MEDS: Heparin - SQ 10,000 UNITS/ML Vial SQ SCH ×2 (05:57→17:15)
--- NOTE | 2018-04-26 08:54 | P.PNVS ---
Subjective Subjective/Hospital Course: laying comfortable in bed no complaints Objective Vital Signs / I&O: Vital Signs 04/25/18 09:00 04/25/18 10:00 04/25/18 11:00 Temperature Pulse Rate 102 H 98 H 93 H Respiratory Rate Blood Pressure Pulse Oximetry 97 04/25/18 12:00 04/25/18 13:00 04/25/18 14:00 Temperature 98.7 F Pulse Rate 91 H 88 92 H Respiratory Rate 18 Blood Pressure 153/70 H Pulse Oximetry 97 04/25/18 15:00 04/25/18 16:00 04/25/18 16:57 Temperature 98.1 F Pulse Rate 91 H 90 Respiratory Rate 16 Blood Pressure 192/82 H 153/70 H Pulse Oximetry 94 L 04/25/18 17:00 04/25/18 18:00 04/25/18 19:00 Temperature 98.2 F Pulse Rate 94 H 96 H 88 Respiratory Rate 20 Blood Pressure 131/61 Pulse Oximetry 94 L 04/25/18 20:00 04/25/18 21:00 04/25/18 22:00 Temperature Pulse Rate 68 64 62 Respiratory Rate Blood Pressure Pulse Oximetry 94 L 04/25/18 23:00 04/26/18 00:00 04/26/18 01:00 Temperature Pulse Rate 95 H 86 76 Respiratory Rate 18 Blood Pressure 114/57 L Pulse Oximetry 98 04/26/18 02:00 04/26/18 03:00 04/26/18 04:00 Temperature Pulse Rate 78 100 H 86 Respiratory Rate 18 Blood Pressure 140/67 Pulse Oximetry 97 04/26/18 05:00 04/26/18 06:00 04/26/18 07:00 Temperature Pulse Rate 92 H 102 H 90 Respiratory Rate Blood Pressure Pulse Oximetry Intake & Output 04/25/18 04/26/18 04/26/18 18:59 06:59 18:59 Intake Total 150 / 150 Output Total 450 / 450 Balance -300 / -300 Intake: Oral 150 / 150 Output: Urine Amount (Catheter) 450 / 450 Female External 450 / 450 Other: Date of Last Bowel Movement 04/25/18 04/25/18 Physical Exam: Biphasic left DP signal. Left foot wound stable with no signs of infection Assessment and Plan - Plan POD#4 s/p L groin reconstruction, fem-BK pop; bypass patent by exam 1. Awaiting transfer to rehab 2. Stable for discharge from vascular surgery standpoint This plan was discussed with the patient's who was present at the bedside Magnus Siu MD [phone] Discharge Plannin-3 days
[2018-04-26] MEDS: Famotidine 20 MG Tablet PO SCH ×2 (09:10→20:56)
[2018-04-26] MEDS: Aspirin 325 MG Tablet PO SCH (09:11)
[2018-04-26] MEDS: Senna/Docusate Sodium 8.6/50 MG Tablet PO SCH ×2 (09:34→20:56)
--- NOTE | 2018-04-26 15:28 | P.PNIM ---
Subjective Interval history: In bed appears in not acute distress. at bedside. Patient would like to do more physical therapy. Case management is working for discharge plan to rehab. Patient has no pain at this time. No nausea or vomiting she is eating well. No chest pain or palpitations. Physical Exam Vital signs: Vital Signs 04/25/18 16:00 04/25/18 16:57 04/25/18 17:00 Temperature 98.1 F Pulse Rate 90 94 H Respiratory Rate 16 Blood Pressure 192/82 H 153/70 H Pulse Oximetry 94 L 04/25/18 18:00 04/25/18 19:00 04/25/18 20:00 Temperature 98.2 F Pulse Rate 96 H 88 68 Respiratory Rate 20 Blood Pressure 131/61 Pulse Oximetry 94 L 94 L 04/25/18 21:00 04/25/18 22:00 04/25/18 23:00 Temperature Pulse Rate 64 62 95 H Respiratory Rate 18 Blood Pressure 114/57 L Pulse Oximetry 98 04/26/18 00:00 04/26/18 01:00 04/26/18 02:00 Temperature Pulse Rate 86 76 78 Respiratory Rate Blood Pressure Pulse Oximetry 04/26/18 03:00 04/26/18 04:00 04/26/18 05:00 Temperature Pulse Rate 100 H 86 92 H Respiratory Rate 18 Blood Pressure 140/67 Pulse Oximetry 97 04/26/18 06:00 04/26/18 07:00 04/26/18 08:00 Temperature 97.5 F L Pulse Rate 102 H 97 H 102 H Respiratory Rate 16 Blood Pressure 142/65 H Pulse Oximetry 97 97 04/26/18 09:00 04/26/18 10:00 04/26/18 11:00 Temperature 98.1 F Pulse Rate 90 98 H 94 H Respiratory Rate 16 Blood Pressure 130/56 L Pulse Oximetry 97 04/26/18 12:00 04/26/18 13:00 04/26/18 14:00 Temperature Pulse Rate 98 H 100 H 92 H Respiratory Rate Blood Pressure Pulse Oximetry 04/26/18 15:00 Temperature 98.1 F Pulse Rate 91 H Respiratory Rate 16 Blood Pressure 126/62 Pulse Oximetry 98 Intake & Output 04/25/18 04/26/18 04/26/18 18:59 06:59 18:59 Intake Total 150 / 150 Output Total 450 / 450 Balance -300 / -300 Intake: Oral 150 / 150 Output: Urine Amount (Catheter) 450 / 450 Female External 450 / 450 Other: Date of Last Bowel Movement 04/25/18 04/25/18 04/25/18 Narrative: GENERAL: Pleasant elderly female, in bed, well-nourished well- developed appears in not acute distress. CARDIOVASCULAR: Regular rate and rhythm without murmurs, gallops, or rubs. RESPIRATORY: Breath sounds equal bilaterally. No accessory muscle use. GASTROINTESTINAL: Abdomen soft, non-tender, nondistended. MUSCULOSKELETAL: No cyanosis, or edema. Surgical wound healing well left lower ext, gangrenous toes noted on left side. BACK: Nontender without obvious deformity. No CVA tenderness. 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: Code(s): I96 - Gangrene, not elsewhere classified; I70.202 - Unspecified atherosclerosis of [place] arteries of extremities, left leg Status: Acute (2) Urinary incontinence: Code(s): R32 - Unspecified urinary incontinence Status: Chronic (3) COPD (chronic obstructive pulmonary disease): Code(s): J44.9 - Chronic obstructive pulmonary disease, unspecified Status: Chronic (4) Peripheral vascular disease: Code(s): I73.9 - Peripheral vascular disease, unspecified Status: Suspected (5) Unstable gait: Code(s): R26.81 - Unsteadiness on feet Status: Chronic (6) Obesity: Code(s): E66.9 - Obesity, unspecified Status: Chronic (7) Hyperlipidemia: Code(s): E78.5 - Hyperlipidemia, unspecified Status: Chronic (8) Essential hypertension: Code(s): I10 - Essential (primary) hypertension Status: Chronic (9) Chronic pain: Code(s): G89.29 - Other chronic pain Status: Chronic (10) Carotid artery stenosis: Code(s): I65.29 - Occlusion and stenosis of unspecified carotid artery Status: Chronic (11) Superficial femoral artery occlusion: Code(s): I70.209 - Unspecified atherosclerosis of [place] arteries of extremities, unspecified extremity Status: Acute (12) PAD (peripheral artery disease): Code(s): I73.9 - Peripheral vascular disease, unspecified Status: Chronic Plan Ms. 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 Patient has additional history of COPD, HTN, HLD, CAD. Patient was evaluated by Vascular surgery on with an angiogram. The plan was to perform left groin reconstruction with a femoral below the knee popliteal surgery. Patient was admitted to [facility] due to suspected CVA. However, work up did not reveal any evidence of CVA. She was transferred to [place] and patient underwent surgical interventions on 04/21/2018. Left lower extremity critical limb ischemia -Left profunda endarterectomy and left femoral to below-knee popliteal bypass () -Continue aspirin, Plavix, Lipitor. -Patient was on Aztreonam, clindamycin and Vancomycin. Blood cx negative. No leukocytosis, No fever. -Appreciate ID input. ID recommended discontinuation of all abx. -consult PT, OT ==> recommends rehab. I discussed with patient's who prefers an SNF in [place]. Case management is aware of this preference. = Discharge to SNF. Left foot gangrenous toes -Podiatry consulted - probably no surgical intervention. MRI shows no osteomyelitis. Discussed with vascular surgery as well as patient's . Per patient's 's request, he would like to take her to SNF and continue to observe her closely. If it becomes necessary to do toe amputation, he will work with Dr. Hansen. Dr. Hansen is okay with this plan as well. = Discharge to SNF today. Follow-up with Dr. Hansen as outpatient. Acute delirium Patient is having visual hallucinations. This is likely due to acute illness as well as a component of ICU delirium. I believe patient would be better off in a different environment, ideally home environment. = Appears to be stable this morning. Agree that home would be ideal situation. Discharge to SNF. COPD -Continue breathing treatments PRN. -Supplemental O2 as needed. Full code. Heparin SQ. Discharge plan: CM is ff, working on SNF placement in [place]. Progress Note: Quality VTE Deep Vein Thrombosis/Pulmonary Embolism Present on Admission: No _ (1) Urinary incontinence Qualifiers: Urinary Incontinence type: unspecified incontinence Qualified Code(s): R32 - Unspecified urinary incontinence (2) COPD (chronic obstructive pulmonary disease) Qualifiers: COPD type: unspecified COPD Chronic bronchitis type: Emphysema type: Qualified Code(s): J44.9 - Chronic obstructive pulmonary disease, unspecified (3) Obesity Qualifiers: Obesity type: unspecified obesity type Obesity classification: unspecified obesity classification Serious obesity comorbidity presence: unspecified whether serious comorbidity present Body mass index: Qualified Code(s): E66.9 - Obesity, unspecified (4) Hyperlipidemia Qualifiers: Hyperlipidemia type: unspecified Qualified Code(s): E78.5 - Hyperlipidemia, unspecified (5) Chronic pain Qualifiers: Chronic pain type: other chronic pain Qualified Code(s): G89.29 - Other chronic pain (6) Carotid artery stenosis Qualifiers: Laterality:
[2018-04-27] MEDS: Heparin - SQ 10,000 UNITS/ML Vial SQ SCH ×2 (05:46→17:56)
[2018-04-27] MEDS: Famotidine 20 MG Tablet PO SCH ×2 (09:05→21:13)
[2018-04-27] MEDS: Senna/Docusate Sodium 8.6/50 MG Tablet PO SCH ×2 (09:06→21:14)
[2018-04-27] MEDS: Aspirin 325 MG Tablet PO SCH (09:07)
--- NOTE | 2018-04-27 13:26 | P.PNIM ---
Subjective Interval history: In nad. No fever or chills./ No nausea, vomiting. Had some pain in her leg at the surgical site after PT today. No fever or chills. Physical Exam Vital signs: Vital Signs 04/26/18 14:00 04/26/18 15:00 04/26/18 15:36 Temperature 98.1 F Pulse Rate 92 H 91 H Respiratory Rate 16 Blood Pressure 126/62 Pulse Oximetry 98 96 04/26/18 16:00 04/26/18 17:00 04/26/18 18:00 Temperature Pulse Rate 94 H 100 H 94 H Respiratory Rate Blood Pressure Pulse Oximetry 04/26/18 19:00 04/26/18 20:00 04/26/18 21:00 Temperature 98.3 F Pulse Rate 100 H 90 92 H Respiratory Rate 16 Blood Pressure 150/75 H Pulse Oximetry 95 95 04/26/18 22:00 04/26/18 23:00 04/27/18 00:00 Temperature Pulse Rate 92 H 93 H 92 H Respiratory Rate 18 Blood Pressure 151/80 H Pulse Oximetry 98 04/27/18 01:00 04/27/18 02:00 04/27/18 03:00 Temperature Pulse Rate 88 92 H 96 H Respiratory Rate 20 Blood Pressure 149/76 H Pulse Oximetry 98 04/27/18 04:00 04/27/18 05:00 04/27/18 06:00 Temperature Pulse Rate 92 H 96 H 90 Respiratory Rate Blood Pressure Pulse Oximetry 04/27/18 07:00 04/27/18 08:00 04/27/18 09:00 Temperature 98.1 F Pulse Rate 88 96 H 114 H Respiratory Rate 18 Blood Pressure 151/72 H Pulse Oximetry 99 04/27/18 09:50 04/27/18 10:00 04/27/18 10:55 Temperature Pulse Rate 96 H Respiratory Rate 18 18 Blood Pressure Pulse Oximetry 04/27/18 11:00 04/27/18 12:00 Temperature 98.1 F Pulse Rate 99 H 96 H Respiratory Rate 18 Blood Pressure 132/69 Pulse Oximetry 97 Intake & Output 04/26/18 04/27/18 04/27/18 18:59 06:59 18:59 Intake Total 720 / 720 100 / 100 Output Total 700 / 700 300 / 300 Balance -200 / -200 Intake: Oral 720 / 720 100 / 100 Output: Urine Amount (Catheter) 700 / 700 300 / 300 Female External 700 / 700 300 / 300 Other: Date of Last Bowel Movement 04/25/18 04/25/18 04/25/18 Narrative: GENERAL: Pleasant elderly female, in bed, well-nourished well- developed appears in not acute distress. CARDIOVASCULAR: Regular rate and rhythm without murmurs, gallops, or rubs. RESPIRATORY: Breath sounds equal bilaterally. No accessory muscle use. GASTROINTESTINAL: Abdomen soft, non-tender, nondistended. MUSCULOSKELETAL: No cyanosis, or edema. Surgical wound healing well left lower ext, gangrenous toes noted on left side. BACK: Nontender without obvious deformity. No CVA tenderness. 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: Code(s): I96 - Gangrene, not elsewhere classified; I70.202 - Unspecified atherosclerosis of [place] arteries of extremities, left leg Status: Acute (2) Urinary incontinence: Code(s): R32 - Unspecified urinary incontinence Status: Chronic (3) COPD (chronic obstructive pulmonary disease): Code(s): J44.9 - Chronic obstructive pulmonary disease, unspecified Status: Chronic (4) Peripheral vascular disease: Code(s): I73.9 - Peripheral vascular disease, unspecified Status: Suspected (5) Unstable gait: Code(s): R26.81 - Unsteadiness on feet Status: Chronic (6) Obesity: Code(s): E66.9 - Obesity, unspecified Status: Chronic (7) Hyperlipidemia: Code(s): E78.5 - Hyperlipidemia, unspecified Status: Chronic (8) Essential hypertension: Code(s): I10 - Essential (primary) hypertension Status: Chronic (9) Chronic pain: Code(s): G89.29 - Other chronic pain Status: Chronic (10) Carotid artery stenosis: Code(s): I65.29 - Occlusion and stenosis of unspecified carotid artery Status: Chronic (11) Superficial femoral artery occlusion: Code(s): I70.209 - Unspecified atherosclerosis of [place] arteries of extremities, unspecified extremity Status: Acute (12) PAD (peripheral artery disease): Code(s): I73.9 - Peripheral vascular disease, unspecified Status: Chronic Plan Ms. 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 Patient has additional history of COPD, HTN, HLD, CAD. Patient was evaluated by Vascular surgery on with an angiogram. The plan was to perform left groin reconstruction with a femoral below the knee popliteal surgery. Patient was admitted to [facility] due to suspected CVA. However, work up did not reveal any evidence of CVA. She was transferred to [place] and patient underwent surgical interventions on 04/21/2018. Left lower extremity critical limb ischemia -Left profunda endarterectomy and left femoral to below-knee popliteal bypass () -Continue aspirin, Plavix, Lipitor. -Patient was on Aztreonam, clindamycin and Vancomycin. Blood cx negative. No leukocytosis, No fever. -Appreciate ID input. ID recommended discontinuation of all abx. -consult PT, OT ==> recommends rehab. I discussed with patient's who prefers an SNF in [place]. Case management is aware of this preference. = Discharge to SNF. Left foot gangrenous toes -Podiatry consulted - probably no surgical intervention. MRI shows no osteomyelitis. Discussed with vascular surgery as well as patient's . Per patient's 's request, he would like to take her to SNF and continue to observe her closely. If it becomes necessary to do toe amputation, he will work with Dr. Hansen. Dr. Hansen is okay with this plan as well. = Discharge to SNF today. Follow-up with Dr. Hansen as outpatient. Acute delirium Patient is having visual hallucinations. This is likely due to acute illness as well as a component of ICU delirium. I believe patient would be better off in a different environment, ideally home environment. = Appears to be stable this morning. Agree that home would be ideal situation. Discharge to SNF. COPD -Continue breathing treatments PRN. -Supplemental O2 as needed. Full code. Heparin SQ. Discharge plan: CM is ff, working on SNF placement in [place]. Progress Note: Quality VTE Deep Vein Thrombosis/Pulmonary Embolism Present on Admission: No _ (1) Carotid artery stenosis Qualifiers: Laterality: (2) Urinary incontinence Qualifiers: Urinary Incontinence type: unspecified incontinence Qualified Code(s): R32 - Unspecified urinary incontinence (3) Chronic pain Qualifiers: Chronic pain type: other chronic pain Qualified Code(s): G89.29 - Other chronic pain (4) Hyperlipidemia Qualifiers: Hyperlipidemia type: unspecified Qualified Code(s): E78.5 - Hyperlipidemia, unspecified (5) COPD (chronic obstructive pulmonary disease) Qualifiers: COPD type: unspecified COPD Chronic bronchitis type: Emphysema type: Qualified Code(s): J44.9 - Chronic obstructive pulmonary disease, unspecified (6) Obesity Qualifiers: Body mass index: Obesity classification: unspecified obesity classification Obesity type: unspecified obesity type Serious obesity comorbidity presence: unspecified whether serious comorbidity present Qualified Code(s): E66.9 - Obesity, unspecified
[2018-04-27] MEDS ORDERED: Morphine Sulfate Inj 2 MG/ML Vial IV.PUSH PRN (17:08)
[2018-04-27] MEDS: hydrALAZINE HCl Inj 20 MG/ML Vial IV.PUSH PRN (20:48)
[2018-04-28] MEDS ORDERED: Acetaminophen 650 MG Supp RECTAL ONE (01:53)
[2018-04-28 02:41] LABS: Baso # (Auto) 0.1 th/mm3 (0.0-0.2); Baso % (Auto) 0.4 % (0.0-2.0); Eos # (Auto) 0.2 th/mm3 (0.0-0.4); Eos % (Auto) 1.8 % (0.0-4.0); Hematocrit 26.8 % (35.0-46.0); Hemoglobin 8.9 gm/dL (11.6-15.3); Lymph # (Auto) 1.7 th/mm3 (1.0-4.8); Lymph % (Auto) 13.2 % (9.0-44.0); Mean Corpuscular HGB Conc 33.3 % (32.0-36.0); Mean Corpuscular Hemoglobin 27.3 pg (27.0-34.0); Mean Platelet Volume 6.5 fL (7.0-11.0); Mono # (Auto) 1.3 th/mm3 (0.0-0.9); Mono % (Auto) 10.3 % (0.0-8.0); Neut # (Auto) 9.4 th/mm3 (1.8-7.7); Neut % (Auto) 74.3 % (16.0-70.0); Platelet Count 553 th/mm3 (150-450); Red Blood Count 3.27 mil/mm3 (4.00-5.30); Red Cell Distribution Width 15.7 % (11.6-17.2); White Blood Count 12.6 th/mm3 (4.0-11.0)
[2018-04-28 02:56] LABS: Albumin 2.2 g/dL (3.4-5.0); Anion Gap 8 meq/L (5-15); Aspartate Aminotransferase 26 U/L (15-37); Blood Urea Nitrogen 11 mg/dL (7-18); Calcium 8.3 mg/dL (8.5-10.1); Carbon Dioxide 26.4 meq/L (21.0-32.0); Chloride 106 meq/L (98-107); Glucose,Random 113 mg/dL (74-106); Potassium 3.9 meq/L (3.5-5.1); Sodium 140 meq/L (136-145)
[2018-04-28 03:00] LABS: Alanine Aminotransferase 25 U/L (10-53); Alkaline Phosphatase 174 U/L (45-117); Glomerular Filtration Rate 84 mL/min (>89); Total Protein 6.5 g/dL (6.4-8.2)
--- NOTE | 2018-04-28 07:03 | P.PNVS ---
Subjective Post Op Day #: 7 Procedure: L groin reconstruction, fem-BK pop Subjective/Hospital Course: somnolent which the attributes to morphine responsive and answers questions doesn't endorse pain at present Objective Vital Signs / I&O: Vital Signs 04/27/18 08:00 04/27/18 09:00 04/27/18 09:50 Temperature 98.1 F Pulse Rate 96 H 114 H Respiratory Rate 18 18 Blood Pressure 151/72 H Pulse Oximetry 99 04/27/18 10:00 04/27/18 10:55 04/27/18 11:00 Temperature Pulse Rate 96 H 99 H Respiratory Rate 18 Blood Pressure Pulse Oximetry 04/27/18 12:00 04/27/18 13:00 04/27/18 14:00 Temperature 98.1 F Pulse Rate 96 H 102 H 94 H Respiratory Rate 18 Blood Pressure 132/69 Pulse Oximetry 97 04/27/18 15:00 04/27/18 16:00 04/27/18 17:00 Temperature 99.1 F Pulse Rate 92 H 90 100 H Respiratory Rate 18 Blood Pressure 147/84 H Pulse Oximetry 94 L 04/27/18 18:00 04/27/18 19:00 04/27/18 20:00 Temperature 98.6 F Pulse Rate 104 H 112 H 110 H Respiratory Rate 20 Blood Pressure 188/84 H Pulse Oximetry 94 L 04/27/18 21:00 04/27/18 22:00 04/27/18 23:00 Temperature Pulse Rate 112 H 110 H 112 H Respiratory Rate 20 Blood Pressure 154/70 H Pulse Oximetry 94 L 04/28/18 00:00 04/28/18 01:00 04/28/18 01:35 Temperature 100.5 F H Pulse Rate 120 H 120 H 115 H Respiratory Rate Blood Pressure Pulse Oximetry 04/28/18 02:00 04/28/18 03:00 04/28/18 04:00 Temperature 99.2 F Pulse Rate 110 H 114 H 98 H Respiratory Rate 20 Blood Pressure 150/66 H Pulse Oximetry 95 04/28/18 05:00 04/28/18 06:00 Temperature Pulse Rate 98 H 104 H Respiratory Rate Blood Pressure Pulse Oximetry Intake & Output 04/27/18 04/28/18 04/28/18 18:59 06:59 18:59 Intake Total 240 / 240 100 / 100 Output Total 200 / 200 300 / 300 Balance 40 / 40 -200 / -200 Intake: Oral 240 / 240 100 / 100 Output: Urine 200 / 200 Urine Amount (Catheter) 300 / 300 Female External 300 / 300 Other: # Incontinent Voids 1 Date of Last Bowel Movement 04/25/18 04/25/18 Exam: L groin Prevena removed - mild ecchymosis around incision caudally but otherwise looks great L BK incision c/d/i foot warm toe dry gangrene demarcating Laboratory Results - last 24 hr 04/27/18 04/28/18 04/28/18 16:32 02:30 02:30 WBC 12.6 H RBC 3.27 L Hgb 8.9 L Hct 26.8 L MCV 82.0 MCH 27.3 MCHC 33.3 RDW 15.7 Plt Count 553 H D MPV 6.5 L Neut % (Auto) 74.3 H Lymph % (Auto) 13.2 [place] % (Auto) 10.3 H Eos % (Auto) 1.8 Baso % (Auto) 0.4 Neut # (Auto) 9.4 H Lymph # (Auto) 1.7 [place] # (Auto) 1.3 H Eos # (Auto) 0.2 Baso # (Auto) 0.1 WBC Differential . Differential Comment Auto diff final Sodium 140 Potassium 3.9 Chloride 106 Carbon Dioxide 26.4 Anion Gap 8 BUN 11 Creatinine 0.68 Estimated GFR 84 L POC Glucose 111 H Random Glucose 113 H Calcium 8.3 L Total Bilirubin 0.4 AST 26 ALT 25 Alkaline Phosphatase 174 H Total Protein 6.5 Albumin 2.2 L Assessment and Plan - Plan POD#7 s/p L groin reconstruction, fem-BK pop; bypass patent by exam 1. Awaiting transfer to rehab 2. Stable for discharge from vascular surgery standpoint 3. RTC Tuesday 05/02 with ABIs 4. will need toe amputations at some point when stronger - dry gangrene at present Discharge Planning: today to rehab
[2018-04-28] MEDS: Aspirin 325 MG Tablet PO SCH (08:01)
[2018-04-28] MEDS: Famotidine 20 MG Tablet PO SCH ×2 (08:01→20:30)
[2018-04-28] MEDS: Senna/Docusate Sodium 8.6/50 MG Tablet PO SCH ×2 (08:02→20:30)
[2018-04-28] MEDS: Acetaminophen 325 MG Tablet PO PRN ×2 (08:02→19:22)
[2018-04-28] MEDS: Heparin - SQ 10,000 UNITS/ML Vial SQ SCH ×2 (08:08→18:37)
--- NOTE | 2018-04-28 12:28 | P.PNIM ---
Subjective Interval history: The patient is in bed she appears chronically ill and tired. She received [place] in the morning for pain in her her legs to the surgical site. Patient has received yesterday morphine and did not tolerate well. No fever or chills. No nausea or vomiting. Physical Exam Vital signs: Vital Signs 04/27/18 13:00 04/27/18 14:00 04/27/18 15:00 Temperature Pulse Rate 102 H 94 H 92 H Respiratory Rate Blood Pressure Pulse Oximetry 04/27/18 16:00 04/27/18 17:00 04/27/18 18:00 Temperature 99.1 F Pulse Rate 90 100 H 104 H Respiratory Rate 18 Blood Pressure 147/84 H Pulse Oximetry 94 L 04/27/18 19:00 04/27/18 20:00 04/27/18 21:00 Temperature 98.6 F Pulse Rate 112 H 110 H 112 H Respiratory Rate 20 Blood Pressure 188/84 H Pulse Oximetry 94 L 04/27/18 22:00 04/27/18 23:00 04/28/18 00:00 Temperature Pulse Rate 110 H 112 H 120 H Respiratory Rate 20 Blood Pressure 154/70 H Pulse Oximetry 94 L 04/28/18 01:00 04/28/18 01:35 04/28/18 02:00 Temperature 100.5 F H Pulse Rate 120 H 115 H 110 H Respiratory Rate Blood Pressure Pulse Oximetry 04/28/18 03:00 04/28/18 04:00 04/28/18 05:00 Temperature 99.2 F Pulse Rate 114 H 98 H 98 H Respiratory Rate 20 Blood Pressure 150/66 H Pulse Oximetry 95 04/28/18 06:00 04/28/18 07:00 04/28/18 08:00 Temperature 97.6 F Pulse Rate 104 H 93 H 98 H Respiratory Rate 18 Blood Pressure 133/62 Pulse Oximetry 93 L 04/28/18 09:00 04/28/18 10:00 04/28/18 11:00 Temperature 97.8 F Pulse Rate 90 96 H 100 H Respiratory Rate 18 Blood Pressure 160/81 H Pulse Oximetry 94 L 04/28/18 12:00 Temperature Pulse Rate 75 Respiratory Rate Blood Pressure Pulse Oximetry Intake & Output 04/27/18 04/28/18 04/28/18 18:59 06:59 18:59 Intake Total 240 / 240 100 / 100 Output Total 200 / 200 300 / 300 Balance 40 / 40 -200 / -200 Intake: Oral 240 / 240 100 / 100 Output: Urine 200 / 200 Urine Amount (Catheter) 300 / 300 Female External 300 / 300 Other: # Incontinent Voids 1 Date of Last Bowel Movement 04/25/18 04/25/18 04/25/18 Narrative: GENERAL: Pleasant elderly female, in bed, well-nourished well- developed appears in not acute distress. CARDIOVASCULAR: Regular rate and rhythm without murmurs, gallops, or rubs. RESPIRATORY: Breath sounds equal bilaterally. No accessory muscle use. GASTROINTESTINAL: Abdomen soft, non-tender, nondistended. MUSCULOSKELETAL: No cyanosis, or edema. Surgical wound healing well left lower ext, gangrenous toes noted on left side. BACK: Nontender without obvious deformity. No CVA tenderness. Urinary Catheter Management Indwelling Urethral Catheter: Cath placed during this visit: yes, but has since been removed by the nurse Reason for continuing: Not indwelling catheter Insertion date: 04/21/18 Insertion time: 12:20 Removal date: 04/22/18 Removal time: 06:00 Female External: Cath placed during this visit: no Results Labs CBC & Chem 7: 04/28/18 02:30 04/28/18 02:30 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: Code(s): I96 - Gangrene, not elsewhere classified; I70.202 - Unspecified atherosclerosis of [place] arteries of extremities, left leg Status: Acute (2) Urinary incontinence: Code(s): R32 - Unspecified urinary incontinence Status: Chronic (3) COPD (chronic obstructive pulmonary disease): Code(s): J44.9 - Chronic obstructive pulmonary disease, unspecified Status: Chronic (4) Peripheral vascular disease: Code(s): I73.9 - Peripheral vascular disease, unspecified Status: Suspected (5) Unstable gait: Code(s): R26.81 - Unsteadiness on feet Status: Chronic (6) Obesity: Code(s): E66.9 - Obesity, unspecified Status: Chronic (7) Hyperlipidemia: Code(s): E78.5 - Hyperlipidemia, unspecified Status: Chronic (8) Essential hypertension: Code(s): I10 - Essential (primary) hypertension Status: Chronic (9) Chronic pain: Code(s): G89.29 - Other chronic pain Status: Chronic (10) Carotid artery stenosis: Code(s): I65.29 - Occlusion and stenosis of unspecified carotid artery Status: Chronic (11) Superficial femoral artery occlusion: Code(s): I70.209 - Unspecified atherosclerosis of [place] arteries of extremities, unspecified extremity Status: Acute (12) PAD (peripheral artery disease): Code(s): I73.9 - Peripheral vascular disease, unspecified Status: Chronic Plan Ms. 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 Patient has additional history of COPD, HTN, HLD, CAD. Patient was evaluated by Vascular surgery on with an angiogram. The plan was to perform left groin reconstruction with a femoral below the knee popliteal surgery. Patient was admitted to [facility] due to suspected CVA. However, work up did not reveal any evidence of CVA. She was transferred to [place] and patient underwent surgical interventions on 04/21/2018. Left lower extremity critical limb ischemia -Left profunda endarterectomy and left femoral to below-knee popliteal bypass () -Continue aspirin, Plavix, Lipitor. -Patient was on Aztreonam, clindamycin and Vancomycin. Blood cx negative. No leukocytosis, No fever. -Appreciate ID input. ID recommended discontinuation of all abx. -consult PT, OT ==> recommends rehab. I discussed with patient's who prefers an SNF in [place]. Case management is aware of this preference. = Discharge to SNF. Left foot gangrenous toes -Podiatry consulted - probably no surgical intervention. MRI shows no osteomyelitis. Discussed with vascular surgery as well as patient's . Per patient's 's request, he would like to take her to SNF and continue to observe her closely. If it becomes necessary to do toe amputation, he will work with Dr. Hansen. Dr. Hansen is okay with this plan as well. = Discharge to SNF today. Follow-up with Dr. Hansen as outpatient. Acute delirium Patient is having visual hallucinations. This is likely due to acute illness as well as a component of ICU delirium. I believe patient would be better off in a different environment, ideally home environment. = Appears to be stable this morning. Agree that home would be ideal situation. Discharge to SNF. COPD -Continue breathing treatments PRN. -Supplemental O2 as needed. Full code. Heparin SQ. Discharge plan: CM is ff, working on SNF placement in [place]. Pending [employer] approval Progress Note: Quality VTE Deep Vein Thrombosis/Pulmonary Embolism Present on Admission: No _ (1) Carotid artery stenosis Qualifiers: Laterality: (2) Urinary incontinence Qualifiers: Urinary Incontinence type: unspecified incontinence Qualified Code(s): R32 - Unspecified urinary incontinence (3) Chronic pain Qualifiers: Chronic pain type: other chronic pain Qualified Code(s): G89.29 - Other chronic pain (4) Hyperlipidemia Qualifiers: Hyperlipidemia type: unspecified Qualified Code(s): E78.5 - Hyperlipidemia, unspecified (5) COPD (chronic obstructive pulmonary disease) Qualifiers: COPD type: unspecified COPD Chronic bronchitis type: Emphysema type: Qualified Code(s): J44.9 - Chronic obstructive pulmonary disease, unspecified (6) Obesity Qualifiers: Body mass index: Obesity classification: unspecified obesity classification Obesity type: unspecified obesity type Serious obesity comorbidity presence: unspecified whether serious comorbidity present Qualified Code(s): E66.9 - Obesity, unspecified
[2018-04-28] MEDS: hydrALAZINE HCl Inj 20 MG/ML Vial IV.PUSH PRN ×2 (19:41→20:31)
--- NOTE | 2018-04-29 01:17 | XR ---
EXAM DATE: 04/29/2018 1:05 AM EST AGE/SEX: 77 years / Female INDICATIONS: Short of breath. CLINICAL DATA: This is the patient's subsequent encounter. Patient reports that signs and symptoms h ave been present for 1 week and indicates a pain score of 0/10. MEDICAL/SURGICAL HISTORY: Non-responsive. Non-responsive. [place] [facility] [place]. . FINDINGS: A single AP view of the chest demonstrates left retrocardiac density. Right lung clear. Heart normal in size The cardiomediastinal contours are unremarkable. Osseous structures are intact. CONCLUSION: Left basilar infiltrate. Electronically signed by: Mason Varela MD Board Certified Radiologist 04/29/2018 1:16 AM EST
[2018-04-29] MEDS: Heparin - SQ 10,000 UNITS/ML Vial SQ SCH ×2 (04:54→17:59)
[2018-04-29] MEDS: Aspirin 325 MG Tablet PO SCH (10:26)
[2018-04-29] MEDS: Famotidine 20 MG Tablet PO SCH ×2 (10:26→20:35)
[2018-04-29] MEDS: Senna/Docusate Sodium 8.6/50 MG Tablet PO SCH ×2 (10:27→20:35)
--- NOTE | 2018-04-29 14:28 | P.PNIM ---
Subjective Interval history: The patient is noted more lethargic today after PT and she is not speaking. VS reassuring . BS in 130s. Sattign well 96% on 2L NC. The patient is not responding she is not following commands, she is not able to talk. Family at bedside. Stroke alert called. Discussed with neurology arch cushion press operator Dr Ruffin. Stat CT, CTA neck and brain ordered. also EEG and abg Physical Exam Vital signs: Vital Signs 04/28/18 15:00 04/28/18 16:00 04/28/18 17:00 Temperature 98.9 F Pulse Rate 94 H 91 H 107 H Respiratory Rate 18 Blood Pressure 161/46 H Pulse Oximetry 99 04/28/18 18:00 04/28/18 19:00 04/28/18 20:00 Temperature 99.5 F Pulse Rate 102 H 97 H 118 H Respiratory Rate 18 18 Blood Pressure 198/89 H 186/80 H Pulse Oximetry 99 99 04/28/18 21:00 04/28/18 22:00 04/28/18 23:00 Temperature 100.5 F H Pulse Rate 116 H 106 H 111 H Respiratory Rate 18 18 Blood Pressure 170/80 H 152/59 H Pulse Oximetry 99 99 04/29/18 00:00 04/29/18 01:00 04/29/18 02:00 Temperature Pulse Rate 110 H 121 H 110 H Respiratory Rate 18 Blood Pressure Pulse Oximetry 04/29/18 02:26 04/29/18 03:00 04/29/18 03:17 Temperature 100 F H 100 F H Pulse Rate 110 H 113 H 110 H Respiratory Rate 18 18 Blood Pressure 150/58 H 138/58 L Pulse Oximetry 98 98 04/29/18 04:00 04/29/18 05:00 04/29/18 05:34 Temperature Pulse Rate 111 H 101 H 100 H Respiratory Rate Blood Pressure Pulse Oximetry 04/29/18 07:00 04/29/18 08:00 04/29/18 09:00 Temperature 100.1 F H Pulse Rate 107 H 107 H 102 H Respiratory Rate 18 Blood Pressure 117/50 L Pulse Oximetry 97 04/29/18 10:00 04/29/18 11:00 04/29/18 12:00 Temperature 98.1 F Pulse Rate 109 H 90 95 H Respiratory Rate 18 Blood Pressure 148/72 H Pulse Oximetry 98 04/29/18 12:53 04/29/18 13:00 Temperature Pulse Rate 87 102 H Respiratory Rate Blood Pressure Pulse Oximetry Intake & Output 04/28/18 04/29/18 04/29/18 18:59 06:59 18:59 Intake Total 240 / 240 80 / 80 Output Total 900 / 900 1000 / 1000 Balance -660 / -660 -920 / -920 Intake: Oral 240 / 240 80 / 80 Output: Urine Amount (Catheter) 900 / 900 1000 / 1000 Female External 900 / 900 1000 / 1000 Other: # Incontinent Voids 2 2 Date of Last Bowel Movement 04/25/18 04/25/18 04/25/18 Narrative: GENERAL: Elderly female, in bed, well-nourished well-developed lethargic, not following commands. NECK: no carotid bruit. HEAD: AT/NC HEENT: Moving eyes , however doesn't follow commands. CARDIOVASCULAR: Tachycardic. Regular rate and rhythm without murmurs, gallops, or rubs. RESPIRATORY: Breath sounds equal bilaterally. No accessory muscle use. GASTROINTESTINAL: Abdomen soft, obese, non-tender, nondistended. MUSCULOSKELETAL: No cyanosis, or edema. Surgical wound healing well left lower ext, gangrenous toes noted on left side. Amputated toes left foot. NEURO: Lethargic, not following commands. Moving right arm spontaneously. SKIN: warm and dry. Surgical wound, nia in place left lower extremity, gangrene toes left leg PSYCH: Lethargic, flat affect. Confused. Urinary Catheter Management Indwelling Urethral Catheter: Cath placed during this visit: yes, but has since been removed by the nurse Reason for continuing: Not indwelling catheter Insertion date: 04/21/18 Insertion time: 12:20 Removal date: 04/22/18 Removal time: 06:00 Female External: Cath placed during this visit: no Results Labs CBC & Chem 7: 04/30/18 02:53 04/30/18 02:53 Imaging Imaging: Impressions Chest X-Ray 04/29/18 00:46 CONCLUSION: Left basilar infiltrate. 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: Code(s): I96 - Gangrene, not elsewhere classified; I70.202 - Unspecified atherosclerosis of [place] arteries of extremities, left leg Status: Acute (2) Urinary incontinence: Code(s): R32 - Unspecified urinary incontinence Status: Chronic (3) COPD (chronic obstructive pulmonary disease): Code(s): J44.9 - Chronic obstructive pulmonary disease, unspecified Status: Chronic (4) Peripheral vascular disease: Code(s): I73.9 - Peripheral vascular disease, unspecified Status: Suspected (5) Unstable gait: Code(s): R26.81 - Unsteadiness on feet Status: Chronic (6) Obesity: Code(s): E66.9 - Obesity, unspecified Status: Chronic (7) Hyperlipidemia: Code(s): E78.5 - Hyperlipidemia, unspecified Status: Chronic (8) Essential hypertension: Code(s): I10 - Essential (primary) hypertension Status: Chronic (9) Chronic pain: Code(s): G89.29 - Other chronic pain Status: Chronic (10) Carotid artery stenosis: Code(s): I65.29 - Occlusion and stenosis of unspecified carotid artery Status: Chronic (11) Superficial femoral artery occlusion: Code(s): I70.209 - Unspecified atherosclerosis of [place] arteries of extremities, unspecified extremity Status: Acute (12) PAD (peripheral artery disease): Code(s): I73.9 - Peripheral vascular disease, unspecified Status: Chronic Plan Ms. King is a 77 year old female with a history of peripheral vascular arterial disease, history of left great toe and second toe amputation who was admitted to [place] on 04/19/2018 as a direct transfer [facility] due to further vascular surgery intervention. Patient has additional history of COPD, HTN, HLD, CAD. Patient was evaluated by Vascular surgery on with an angiogram. The plan was to perform left groin reconstruction with a femoral below the knee popliteal surgery. Patient was admitted to [facility] due to suspected CVA. However, work up did not reveal any evidence of CVA. She was transferred to [place] and patient underwent surgical interventions on 04/21/2018. With acute encephalopathy Stroke alert 04/[address] head, CTA head and neck , consult neuro, allow permissive HTN. Neurocheck, OT.PT /ST Also Work up in progress for sepsis Start vanco and zosyn IV consult ID CXR , UA LA per sepsis protocol Left lower extremity critical limb ischemia -Left profunda endarterectomy and left femoral to below-knee popliteal bypass () -Continue aspirin, Plavix, Lipitor. -Patient was on Aztreonam, clindamycin and Vancomycin. Blood cx negative. No leukocytosis, No fever. -Appreciate ID input. ID recommended discontinuation of all abx. -consult PT, OT ==> recommends rehab. I discussed with patient's who prefers an SNF in [place]. Case management is aware of this preference. = Discharge to SNF. [employer] insurance however denied, CM is ff. Left foot gangrenous toes -Podiatry consulted - probably no surgical intervention. MRI shows no osteomyelitis. Discussed with vascular surgery as well as patient's . Per patient's 's request, he would like to take her to SNF and continue to observe her closely. If it becomes necessary to do toe amputation, he will work with Dr. Hansen. Dr. Hansen is okay with this plan as well. = Discharge to SNF when imprpves . Follow-up with Dr. Hansen as outpatient. Acute delirium Patient is having visual hallucinations. This is likely due to acute illness as well as a component of ICU delirium. I believe patient would be better off in a different environment, ideally home environment. = Appears to be stable this morning. Agree that home would be ideal situation. Discharge to SNF. COPD -Continue breathing treatments PRN. -Supplemental O2 as needed. Full code. Heparin SQ. Discharge plan: CM is ff, working on SNF placement in [place]. [employer] denied approval and CM resend request. Pending [employer] approval. Patient however with acute mental status change stroke alert called on 04/29. Also sepsis work up , started on iv abx and ID also consulted. Patient is however with mentation on/off, delirium on/off Hold DC Progress Note: Quality VTE Deep Vein Thrombosis/Pulmonary Embolism Present on Admission: No _ (1) Carotid artery stenosis Qualifiers: Laterality: (2) Urinary incontinence Qualifiers: Urinary Incontinence type: unspecified incontinence Qualified Code(s): R32 - Unspecified urinary incontinence (3) Chronic pain Qualifiers: Chronic pain type: other chronic pain Qualified Code(s): G89.29 - Other chronic pain (4) Hyperlipidemia Qualifiers: Hyperlipidemia type: unspecified Qualified Code(s): E78.5 - Hyperlipidemia, unspecified (5) COPD (chronic obstructive pulmonary disease) Qualifiers: COPD type: unspecified COPD Chronic bronchitis type: Emphysema type: Qualified Code(s): J44.9 - Chronic obstructive pulmonary disease, unspecified (6) Obesity Qualifiers: Body mass index: Obesity classification: unspecified obesity classification Obesity type: unspecified obesity type Serious obesity comorbidity presence: unspecified whether serious comorbidity present Qualified Code(s): E66.9 - Obesity, unspecified
--- NOTE | 2018-04-29 14:41 | CT ---
EXAM DATE: 04/29/2018 2:29 PM EST AGE/SEX: 77 years / Female INDICATIONS: Stroke alert. Change in mental status. CLINICAL DATA: This is the patient's initial encounter. Patient reports that signs and symptoms have been present for 1 day and indicates a pain score of Nonresponsive. MEDICAL/SURGICAL HISTORY: Chronic obstructive pulmonary disease. Hypertension. Peripheral vascula r disease. None. RADIATION DOSE: 37.38 CTDI (mGy) COMPARISON: No prior exams available for comparison. TECHNIQUE: CT of the head without contrast. Using automated exposure control and adjustment of the mA and/or kV according to patient size, radiation dose was kept as low as reasonably achievable to ob tain optimal diagnostic quality images. DICOM format image data is available electronically for revi ew and comparison. FINDINGS: Cerebrum: Moderate diffuse cerebral atrophy. Small right thalamic lacunar infarct. The ventricles ar e normal for degree of atrophy. No evidence of midline shift, mass lesion, hemorrhage or acute infarc tion. No extraaxial fluid collections are seen. Posterior Fossa: The cerebellum and brainstem are intact. The 4th ventricle is midline. The cerebe llopontine angle is unremarkable. Extracranial: The visualized portion of the orbits is intact. Skull: The calvaria is intact. No evidence of skull fracture. CONCLUSION: 1. No acute intracranial abnormality Report was called by Dr. Bruno to Dr. Candace hicks at 1438 PM. Electronically signed by: Sarbjit Larson MD Board Certified Radiologist 04/29/2018 2:40 PM EST
[2018-04-29 14:58] LABS: Baso # (Auto) 0.1 th/mm3 (0.0-0.2); Baso % (Auto) 0.8 % (0.0-2.0); Eos # (Auto) 0.2 th/mm3 (0.0-0.4); Eos % (Auto) 1.1 % (0.0-4.0); Hematocrit 30.6 % (35.0-46.0); Hemoglobin 9.9 gm/dL (11.6-15.3); Lymph # (Auto) 1.7 th/mm3 (1.0-4.8); Lymph % (Auto) 10.3 % (9.0-44.0); Mean Corpuscular HGB Conc 32.4 % (32.0-36.0); Mean Corpuscular Hemoglobin 27.2 pg (27.0-34.0); Mean Corpuscular Volume 84.1 fL (80.0-100.0); Mean Platelet Volume 6.6 fL (7.0-11.0); Mono # (Auto) 1.6 th/mm3 (0.0-0.9); Mono % (Auto) 9.9 % (0.0-8.0); Neut # (Auto) 12.8 th/mm3 (1.8-7.7); Neut % (Auto) 77.9 % (16.0-70.0); Platelet Count 621 th/mm3 (150-450); Red Blood Count 3.64 mil/mm3 (4.00-5.30); Red Cell Distribution Width 16.2 % (11.6-17.2); White Blood Count 16.5 th/mm3 (4.0-11.0)
--- NOTE | 2018-04-29 15:00 | XR ---
EXAM DATE: 04/29/2018 2:55 PM EST AGE/SEX: 77 years / Female INDICATIONS: Short of breath. CLINICAL DATA: This is the patient's subsequent encounter. Patient reports that signs and symptoms h ave been present for 1 day and indicates a pain score of Nonresponsive. MEDICAL/SURGICAL HISTORY: . gangrene foot Non-responsive. [place] [facility] [place]. . FINDINGS: A single AP view of the chest demonstrates the lungs to be symmetrically aerated without evidence of mass, infiltrate or effusion. The cardiomediastinal contours are unremarkable. Osseous structures a re intact. CONCLUSION: The lungs are clear. Electronically signed by: Jay Jay Burden MD Board Certified Radiologist 04/29/2018 2:59 PM EST
[2018-04-29 15:13] LABS: Activated Partial Thrombo Time 25.8 sec (23.4-31.7); INR 1.1 Ratio; Prothrombin Time 10.7 sec (9.8-11.6)
[2018-04-29 15:14] LABS: Anion Gap 9 meq/L (5-15); Blood Urea Nitrogen 14 mg/dL (7-18); Calcium 8.7 mg/dL (8.5-10.1); Carbon Dioxide 26.8 meq/L (21.0-32.0); Chloride 100 meq/L (98-107); Glomerular Filtration Rate 68 mL/min (>89); Glucose,Random 112 mg/dL (74-106); Potassium 4.1 meq/L (3.5-5.1); Sodium 136 meq/L (136-145)
[2018-04-29] MEDS: Sod Chloride 0.9% Inj 1,000 ML IV.CONT SCH (15:16)
[2018-04-29 15:17] LABS: Creatine Kinase 137 U/L (26-192)
--- NOTE | 2018-04-29 16:15 | P.CONNEU ---
History of Present Illness Service: Neurology Primary Care Provider: Drew Sinclair III, MD Chief Complaint: Left lower extremity gangrene History of Present Illness: 77-year-old female status post lower extremity revascularization for peripheral vascular disease. 04/16/18 patient underwent angiogram lower extremity found to have significant peripheral vascular disease. She is then tentatively scheduled for procedure on 04/21/18. Was discharged from the hospital. She became confused and went to her local hospital [place] apparently had MRI brain scan performed for stroke which was negative according to records reports not available and she was transferred back to this hospital for further evaluation on 04/19/2018. She did undergo revascularization procedure. Also seen by podiatry for dry gangrene of her toes. Infectious disease also in the patient She noted be confused postop including visual hallucinations. Believed to be secondary narcotics however symptoms persisted and she is call stroke alert today. She is out of the IV TPA window. Neurovascular imaging was CTAs difficult to obtain due to poor venous access per nursing despite multiple attempts. As she has nia from recent surgery she is not a candidate for an MRI scan. She is on aspirin and Plavix. Review of Systems unobtainable due to mental status PMFSH - History History Provided By: Patient - Medical History Medical History: Medical History (Last Reviewed 04/30/18 @ 07:48 by Carmen Rios) Gangrene Hypercholesterolemia Obesity Peripheral arterial disease Unsteady gait Urinary incontinence COPD (chronic obstructive pulmonary disease) Carotid stenosis HTN (hypertension) PVD (peripheral vascular disease) - Surgical History Surgical History: Surgical History (Last Reviewed 04/30/18 @ 07:48 by Carmen Rios) Amputated toe of left foot History of cholecystectomy History of total left knee replacement Status post arterial stent - Family History Family History: Family History (Last Reviewed 04/22/18 @ 16:09 by Yen Esparza) Mother Family history of Alzheimer's disease Father Family history of [place] (myocardial infarction) Other Family history of hypertension - Tobacco History Second Hand Smoke Exposure: No Tobacco Use In Past 30 Days: No Smoking Status: Former smoker Tobacco Type: Cigarettes - Alcohol History How Often Do You Have a Drink Containing Alcohol: 2 to 3 times a week - Substance Use History Substance History: No History of Abuse - Travel History History of Recent Travel: No Recent Travel in the [place] Within the Last 8 Weeks: No Recent Travel Out of the Country Within the Last 8 Weeks: No - Immunization History Tetanus Immunization: <5 Years Tetanus Immunization Year if Known: 2017 Hx Influenza Vaccine This Season: Yes Medications and Allergies Active Medications: Active Medications Acetaminophen (Tylenol) 650 mg PO Q6H PRN PRN Reason: Fever >101f Last Admin: 04/28/18 19:22 Dose: 650 mg Hydrocodone Bitart/Acetaminophen ([place] 5/325) 1 tab PO Q4H PRN PRN Reason: PAIN SCALE 1 TO 5 Last Admin: 04/28/18 09:51 Dose: 1 tab Al Hydroxide/Mg Hydroxide (Milk Of Jonathan Petersen) 30 ml PO Q12H PRN PRN Reason: Mild Constipation Albuterol (Albuterol Neb (Prn)) 2.5 mg NEB Q2HR NEB PRN PRN Reason: SHORTNESS OF BREATH/WHEEZING Last Admin: 04/28/18 23:58 Dose: 2.5 mg Aspirin (Aspirin) 325 mg PO DAILY [facility] Last Admin: 04/29/18 10:26 Dose: 325 mg Atorvastatin Calcium (Lipitor) 40 mg PO DAILY [facility] Last Admin: 04/29/18 10:27 Dose: 40 mg Bisacodyl (Dulcolax Supp) 10 mg RECTAL DAILY PRN PRN Reason: SEVERE CONSITIPATION Clopidogrel Bisulfate (Plavix) 75 mg PO DAILY [facility] Last Admin: 04/29/18 08:40 Dose: 75 mg Famotidine (Pepcid) 20 mg PO BID [facility] Last Admin: 04/29/18 10:26 Dose: 20 mg Fluticasone/Vilanterol (Breo Ellipta 200/25 Mcg Inh) 1 puff INH DAILY [facility] Last Admin: 04/29/18 10:31 Dose: 1 puff Heparin Sodium (Porcine) (Heparin Inj) 5,000 units SQ Q12H [facility] Last Admin: 04/29/18 04:54 Dose: 5,000 units Hydralazine HCl (Apresoline Inj) 10 mg IV.PUSH Q1H PRN PRN Reason: SBP>160, DBP>90 Last Admin: 04/28/18 20:31 Dose: 10 mg Sodium Chloride (Ns Inj) 1,000 mls @ 70 mls/hr IV.CONT .[id number] [facility] Last Admin: 04/29/18 15:16 Dose: 70 mls/hr Labetalol HCl (Trandate Inj) 10 mg IV.PUSH Q1H PRN PRN Reason: SBP > 160 DBP > 90 HR > 65 Last Admin: 04/22/18 13:31 Dose: 10 mg Lactulose (Lactulose Liq) 30 ml PO DAILY PRN PRN Reason: SEVERE CONSITIPATION Last Admin: 04/24/18 18:11 Dose: 30 ml Nitroglycerin (Nitro-Bid 2% Oint) 2 inch TOPICAL Q6HR PRN PRN Reason: Sbp>165, Dbp>90 Ondansetron HCl (Zofran Inj) 4 mg IV.PUSH Q6H PRN PRN Reason: NAUSEA OR VOMITING Oxybutynin Chloride (Ditropan) 5 mg PO BID [facility] Last Admin: 04/29/18 10:32 Dose: Not Given Senna/Docusate Sodium (Airam-Colace) 1 tab PO BID [facility] Last Admin: 04/29/18 10:27 Dose: 1 tab Sennosides (Senokot) 17.2 mg PO Q12H PRN PRN Reason: Moderate Constipation Sodium Chloride (Ns Flush) 2 ml IV.FLUSH BID [facility] Last Admin: 04/29/18 08:45 Dose: 2 ml Sodium Chloride (Ns Flush) 2 ml IV.FLUSH PRN PRN PRN Reason: FLUSH AFTER USING IV ACCESS Allergies Allergy/AdvReac Type Severity Reaction Status Date / Time ciprofloxacin Allergy Rash Verified 04/16/18 07:47 levofloxacin Allergy Rash Verified 04/16/18 07:47 Sulfa (Sulfonamide Allergy Rash Verified 04/16/18 06:55 Antibiotics) tramadol AdvReac Hallucinati Verified 04/16/18 07:47 ons Home Medications Medication Instructions Recorded Confirmed Type albuterol sulfate [ProAir HFA] 1 puff INHALATION Q6H PRN 04/16/18 04/23/18 History atorvastatin 40 mg PO DAILY 04/16/18 04/23/18 History clopidogrel 300 mg PO DAILY 04/16/18 04/23/18 History fluticasone-vilanterol [Breo 1 inh INHALATION DAILY PRN 04/16/18 04/23/18 History Ellipta] oxybutynin chloride 5 mg PO TID 04/16/18 04/23/18 History Exam Vital signs: Vital Signs 04/28/18 17:00 04/28/18 18:00 04/28/18 19:00 Temperature 99.5 F Pulse Rate 107 H 102 H 97 H Respiratory Rate 18 Blood Pressure 198/89 H Pulse Oximetry 99 04/28/18 20:00 04/28/18 21:00 04/28/18 22:00 Temperature Pulse Rate 118 H 116 H 106 H Respiratory Rate 18 18 Blood Pressure 186/80 H 170/80 H Pulse Oximetry 99 99 04/28/18 23:00 04/29/18 00:00 04/29/18 01:00 Temperature 100.5 F H Pulse Rate 111 H 110 H 121 H Respiratory Rate 18 18 Blood Pressure 152/59 H Pulse Oximetry 99 04/29/18 02:00 04/29/18 02:26 04/29/18 03:00 Temperature 100 F H Pulse Rate 110 H 110 H 113 H Respiratory Rate 18 Blood Pressure 150/58 H Pulse Oximetry 98 04/29/18 03:17 04/29/18 04:00 04/29/18 05:00 Temperature 100 F H Pulse Rate 110 H 111 H 101 H Respiratory Rate 18 Blood Pressure 138/58 L Pulse Oximetry 98 04/29/18 05:34 04/29/18 07:00 04/29/18 08:00 Temperature 100.1 F H Pulse Rate 100 H 107 H 107 H Respiratory Rate 18 Blood Pressure 117/50 L Pulse Oximetry 97 04/29/18 09:00 04/29/18 10:00 04/29/18 11:00 Temperature 98.1 F Pulse Rate 102 H 109 H 90 Respiratory Rate 18 Blood Pressure 148/72 H Pulse Oximetry 98 04/29/18 12:00 04/29/18 12:53 04/29/18 13:00 Temperature Pulse Rate 95 H 87 102 H Respiratory Rate Blood Pressure Pulse Oximetry 04/29/18 14:00 04/29/18 15:00 Temperature Pulse Rate 104 H 99 H Respiratory Rate Blood Pressure Pulse Oximetry Intake & Output 04/28/18 04/29/18 04/29/18 18:59 06:59 18:59 Intake Total 240 / 240 80 / 80 Output Total 900 / 900 1000 / 1000 Balance -660 / -660 -920 / -920 Intake: Oral 240 / 240 80 / 80 Output: Urine Amount (Catheter) 900 / 900 1000 / 1000 Female External 900 / 900 1000 / 1000 Other: # Incontinent Voids 2 2 Date of Last Bowel Movement 04/25/18 04/25/18 04/25/18 Narrative: GENERAL: in NAD, SKIN: Warm and dry. HEAD: Atraumatic. Normocephalic. ENT: No nasal bleeding or discharge. NECK: Trachea midline. No JVD. CARDIOVASCULAR: Regular rate and rhythm. RESPIRATORY: No accessory muscle use. GASTROINTESTINAL: Abdomen soft, non-tender, nondistended. MUSCULOSKELETAL: Dry gangrenous distal toe NEUROLOGICAL: Somnolent minimally arousable moans, pain localized all 4 extremity resist pupillary exam reflex depressed left distal toe amputation PSYCHIATRIC: Confused - Constitutional no acute distress Results - Labs CBC & Chem 7: 04/30/18 02:53 04/30/18 02:53 Labs: Laboratory Results - last 24 hr 04/29/18 04/29/18 04/29/18 14:09 14:42 14:42 WBC 16.5 H RBC 3.64 L Hgb 9.9 L POC Hgb (Calc) Hct 30.6 L POC Hct MCV 84.1 MCH 27.2 MCHC 32.4 RDW 16.2 Plt Count 621 H MPV 6.6 L Neut % (Auto) 77.9 H Lymph % (Auto) 10.3 Rice % (Auto) 9.9 H Eos % (Auto) 1.1 Baso % (Auto) 0.8 Neut # (Auto) 12.8 H Lymph # (Auto) 1.7 Rice # (Auto) 1.6 H Eos # (Auto) 0.2 Baso # (Auto) 0.1 WBC Differential . Differential Comment Auto diff final PT 10.7 INR 1.1 APTT 25.8 Fibrinogen 675 H POC Sodium Sodium POC Potassium Potassium POC Chloride Chloride Carbon Dioxide Anion Gap POC BUN BUN Creatinine POC Creatinine Estimated GFR POC Glucose 133 H Random Glucose Calcium Total Creatine Kinase Troponin I Blood Type Antibody Screen 04/29/18 04/29/18 14:42 14:42 WBC RBC Hgb POC Hgb (Calc) 10.5 L Hct POC Hct 31.0 L MCV MCH MCHC RDW Plt Count MPV Neut % (Auto) Lymph % (Auto) Rice % (Auto) Eos % (Auto) Baso % (Auto) Neut # (Auto) Lymph # (Auto) Rice # (Auto) Eos # (Auto) Baso # (Auto) WBC Differential Differential Comment PT INR APTT Fibrinogen POC Sodium 136 L Sodium 136 POC Potassium 4.1 Potassium 4.1 POC Chloride 99 L Chloride 100 Carbon Dioxide 26.8 Anion Gap 9 POC BUN 12 BUN 14 Creatinine 0.82 POC Creatinine 0.8 Estimated GFR 68 L POC Glucose 114 H Random Glucose 112 H Calcium 8.7 Total Creatine Kinase 137 Troponin I Less than 0.02 L Blood Type A Positive Antibody Screen Negative - Imaging Impressions Chest X-Ray 04/29/18 00:00 CONCLUSION: The lungs are clear. Head CT 04/29/18 00:00 CONCLUSION: 1. No acute intracranial abnormality Report was called by Dr. Bruno to Dr. Candace hicks at 1438 PM. Chest X-Ray 04/29/18 00:46 CONCLUSION: Left basilar infiltrate. Review/Management - Diagnosis (1) Metabolic encephalopathy Code(s): G93.41 - Metabolic encephalopathy Status: Acute Current Visit: Yes (2) PAD (peripheral artery disease) Code(s): I73.9 - Peripheral vascular disease, unspecified Status: Chronic Current Visit: No (3) 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 Code(s): I96 - Gangrene, not elsewhere classified; I70.202 - Unspecified atherosclerosis of [place] arteries of extremities, left leg Status: Acute Current Visit: Yes (4) COPD (chronic obstructive pulmonary disease) Code(s): J44.9 - Chronic obstructive pulmonary disease, unspecified Status: Chronic Current Visit: Yes (5) Peripheral vascular disease Code(s): I73.9 - Peripheral vascular disease, unspecified Status: Suspected Current Visit: Yes (6) Unstable gait Code(s): R26.81 - Unsteadiness on feet Status: Chronic Current Visit: Yes (7) Hyperlipidemia Code(s): E78.5 - Hyperlipidemia, unspecified Status: Chronic Current Visit: Yes (8) Essential hypertension Code(s): I10 - Essential (primary) hypertension Status: Chronic Current Visit: Yes (9) Carotid artery stenosis Code(s): I65.29 - Occlusion and stenosis of unspecified carotid artery Status : Chronic Current Visit: Yes (10) Superficial femoral artery occlusion Code(s): I70.209 - Unspecified atherosclerosis of [place] arteries of extremities , unspecified extremity Status: Acute Current Visit: Yes (11) Septic encephalopathy Code(s): G93.41 - Metabolic encephalopathy Status: Acute Current Visit: Yes - Review/Management Plan: Opiate induced versus poor p.o. intake, emerging aspiration pneumonia/septic encephalopathy Recommendation EEG ESR, CRP ABG Follow-up chest x-ray Nutritional support Follow exam (4) COPD (chronic obstructive pulmonary disease) Qualifiers: COPD type: unspecified COPD Qualified Code(s): J44.9 - Chronic obstructive pulmonary disease, unspecified (7) Hyperlipidemia Qualifiers: Hyperlipidemia type: unspecified Qualified Code(s): E78.5 - Hyperlipidemia, unspecified
--- NOTE | 2018-04-29 16:42 | P.CONPAL ---
Consult Service: Palliative Care Requesting Physician: Cha Jack Reason for Consult: a. To assist with evaluation and management of symptoms including: pain, debility, confusion b. To assist medical decision maker(s) with: better understanding of current medical conditions; weighing benefits/burdens of medical treatment options; making medical treatment decisions. Primary Care Provider: Drew Sinclair III, MD History of Present Illness History of Present Illness: This is a 77-year-old female with history COPD, PAD, gangrenous toes, who presented to [place] from [facility] for altered mental status on 04/19. She had an angiogram 04/16 at [place] and went home. Subsequently she developed confusion and was admitted to [facility]. She had some workup for CVA and reportedly this was negative. 04/21 she had femoropopliteal bypass with Dr. Hansen. She was noted to have persistent lethargy however was participating in PT although needed increasing amounts of assistance and has become more lethargic. Originally she was thought to have reaction to morphine however symptoms have persisted and stroke alert was called. Neurology on case , suspect septic etiology. Chest x-ray was negative, initial CT negative. Of note reports she has had intermittent "TIAs" over the last 4-5 years with the most recent being about a year ago. She was previously ambulatory with cane and in the last few months needed walker and then in the last 2 weeks she has needed wheelchair. reports fall a few months ago, he is not sure exactly when, and that pt has been less energetic since then. Has been also reports she has pressure sores on her back only in the week. Patient seen in room, at bedside. She has right side gaze preference and her right pupil appears to be smaller than the left. Her left upper extremity is bent and she is not moving it. She does squeeze my hand with her right hand. Eyes are open and looking around but she does not make eye contact and she is nonverbal. Making occasional grunts and groans. Has wet sounding cough. Function/Cognitive Trajectory: Patient has declined over the last few months. About a year ago she lost her left great toe and since then has needed assistance walking. In the last few months she has needed a cane and subsequently walker and in the last 2 weeks she has been in WC. denies cognitive deficits. Had fall few months ago. Review of Systems unobtainable due to mental status PMFSH - History History Provided By: Patient - Medical History Medical History: Medical History (Last Reviewed 04/28/18 @ 10:38 by Hina Moralez) Gangrene Hypercholesterolemia Obesity Peripheral arterial disease Unsteady gait Urinary incontinence COPD (chronic obstructive pulmonary disease) Carotid stenosis HTN (hypertension) PVD (peripheral vascular disease) - Surgical History Surgical History: Surgical History (Last Reviewed 04/28/18 @ 10:38 by Hina Moralez) Amputated toe of left foot History of cholecystectomy History of total left knee replacement Status post arterial stent - Family History Family History: Family History (Last Reviewed 04/22/18 @ 16:09 by Yen Esparza) Mother Family history of Alzheimer's disease Father Family history of [place] (myocardial infarction) Other Family history of hypertension - Tobacco History Second Hand Smoke Exposure: No Tobacco Use In Past 30 Days: No Smoking Status: Former smoker Tobacco Type: Cigarettes - Alcohol History How Often Do You Have a Drink Containing Alcohol: 2 to 3 times a week - Substance Use History Substance History: No History of Abuse - Travel History History of Recent Travel: No Recent Travel in the [place] Within the Last 8 Weeks: No Recent Travel Out of the Country Within the Last 8 Weeks: No - Immunization History Tetanus Immunization: <5 Years Tetanus Immunization Year if Known: 2017 Hx Influenza Vaccine This Season: Yes Medications and Allergies Active Medications: Active Medications Acetaminophen (Tylenol) 650 mg PO Q6H PRN PRN Reason: Fever >101f Last Admin: 04/28/18 19:22 Dose: 650 mg Hydrocodone Bitart/Acetaminophen ([place] 5/325) 1 tab PO Q4H PRN PRN Reason: PAIN SCALE 1 TO 5 Last Admin: 04/28/18 09:51 Dose: 1 tab Al Hydroxide/Mg Hydroxide (Milk Of Jonathan Lidaina) 30 ml PO Q12H PRN PRN Reason: Mild Constipation Albuterol (Albuterol Neb (Prn)) 2.5 mg NEB Q2HR NEB PRN PRN Reason: SHORTNESS OF BREATH/WHEEZING Last Admin: 04/28/18 23:58 Dose: 2.5 mg Aspirin (Aspirin) 325 mg PO DAILY [place] Last Admin: 04/29/18 10:26 Dose: 325 mg Atorvastatin Calcium (Lipitor) 40 mg PO DAILY [facility] Last Admin: 04/29/18 10:27 Dose: 40 mg Bisacodyl (Dulcolax Supp) 10 mg RECTAL DAILY PRN PRN Reason: SEVERE CONSITIPATION Clopidogrel Bisulfate (Plavix) 75 mg PO DAILY [facility] Last Admin: 04/29/18 08:40 Dose: 75 mg Famotidine (Pepcid) 20 mg PO BID [facility] Last Admin: 04/29/18 10:26 Dose: 20 mg Fluticasone/Vilanterol (Breo Ellipta 200/25 Mcg Inh) 1 puff INH DAILY [facility] Last Admin: 04/29/18 10:31 Dose: 1 puff Heparin Sodium (Porcine) (Heparin Inj) 5,000 units SQ Q12H [facility] Last Admin: 04/29/18 04:54 Dose: 5,000 units Hydralazine HCl (Apresoline Inj) 10 mg IV.PUSH Q1H PRN PRN Reason: SBP>160, DBP>90 Last Admin: 04/28/18 20:31 Dose: 10 mg Sodium Chloride (Ns Inj) 1,000 mls @ 70 mls/hr IV.CONT .[id number] [facility] Last Admin: 04/29/18 15:16 Dose: 70 mls/hr Labetalol HCl (Trandate Inj) 10 mg IV.PUSH Q1H PRN PRN Reason: SBP > 160 DBP > 90 HR > 65 Last Admin: 04/22/18 13:31 Dose: 10 mg Lactulose (Lactulose Liq) 30 ml PO DAILY PRN PRN Reason: SEVERE CONSITIPATION Last Admin: 04/24/18 18:11 Dose: 30 ml Nitroglycerin (Nitro-Bid 2% Oint) 2 inch TOPICAL Q6HR PRN PRN Reason: Sbp>165, Dbp>90 Ondansetron HCl (Zofran Inj) 4 mg IV.PUSH Q6H PRN PRN Reason: NAUSEA OR VOMITING Oxybutynin Chloride (Ditropan) 5 mg PO BID [facility] Last Admin: 04/29/18 10:32 Dose: Not Given Senna/Docusate Sodium (Airam-Colace) 1 tab PO BID [facility] Last Admin: 04/29/18 10:27 Dose: 1 tab Sennosides (Senokot) 17.2 mg PO Q12H PRN PRN Reason: Moderate Constipation Sodium Chloride (Ns Flush) 2 ml IV.FLUSH BID [place] Last Admin: 04/29/18 08:45 Dose: 2 ml Sodium Chloride (Ns Flush) 2 ml IV.FLUSH PRN PRN PRN Reason: FLUSH AFTER USING IV ACCESS Allergies Allergy/AdvReac Type Severity Reaction Status Date / Time ciprofloxacin Allergy Rash Verified 04/16/18 07:47 levofloxacin Allergy Rash Verified 04/16/18 07:47 Sulfa (Sulfonamide Allergy Rash Verified 04/16/18 06:55 Antibiotics) tramadol AdvReac Hallucinati Verified 04/16/18 07:47 ons Home Medications Medication Instructions Recorded Confirmed Type albuterol sulfate [ProAir HFA] 1 puff INHALATION Q6H PRN 04/16/18 04/23/18 History atorvastatin 40 mg PO DAILY 04/16/18 04/23/18 History clopidogrel 300 mg PO DAILY 04/16/18 04/23/18 History fluticasone-vilanterol [Breo 1 inh INHALATION DAILY PRN 04/16/18 04/23/18 History Ellipta] oxybutynin chloride 5 mg PO TID 04/16/18 04/23/18 History Advance Directives Power of Finish Patcher: Yes Family/friends goals: Aggressive. Ethical and Legal Issues: Patient is not capacitated to make medical decisions and it is unclear if she will regain that capacity. In the absence of a designated healthcare surrogate , per [place] statute proxy medical decision making falls to her . Physical Exam Vital Signs: Vital Signs - 24 hr 04/28/18 17:00 04/28/18 18:00 04/28/18 19:00 Temperature 99.5 F Pulse Rate 107 H 102 H 97 H Respiratory Rate 18 Blood Pressure 198/89 H Pulse Oximetry 99 04/28/18 20:00 04/28/18 21:00 04/28/18 22:00 Temperature Pulse Rate 118 H 116 H 106 H Respiratory Rate 18 18 Blood Pressure 186/80 H 170/80 H Pulse Oximetry 99 99 04/28/18 23:00 04/29/18 00:00 04/29/18 01:00 Temperature 100.5 F H Pulse Rate 111 H 110 H 121 H Respiratory Rate 18 18 Blood Pressure 152/59 H Pulse Oximetry 99 04/29/18 02:00 04/29/18 02:26 04/29/18 03:00 Temperature 100 F H Pulse Rate 110 H 110 H 113 H Respiratory Rate 18 Blood Pressure 150/58 H Pulse Oximetry 98 04/29/18 03:17 04/29/18 04:00 04/29/18 05:00 Temperature 100 F H Pulse Rate 110 H 111 H 101 H Respiratory Rate 18 Blood Pressure 138/58 L Pulse Oximetry 98 04/29/18 05:34 04/29/18 07:00 04/29/18 08:00 Temperature 100.1 F H Pulse Rate 100 H 107 H 107 H Respiratory Rate 18 Blood Pressure 117/50 L Pulse Oximetry 97 04/29/18 09:00 04/29/18 10:00 04/29/18 11:00 Temperature 98.1 F Pulse Rate 102 H 109 H 90 Respiratory Rate 18 Blood Pressure 148/72 H Pulse Oximetry 98 04/29/18 12:00 04/29/18 12:53 04/29/18 13:00 Temperature Pulse Rate 95 H 87 102 H Respiratory Rate Blood Pressure Pulse Oximetry 04/29/18 14:00 04/29/18 15:00 Temperature 98.4 F Pulse Rate 104 H 102 H Respiratory Rate 18 Blood Pressure 165/77 H Pulse Oximetry 100 I&O: Intake & Output 04/27/18 04/28/18 04/29/18 04/30/18 06:59 06:59 06:59 06:59 Intake Total 820 / 820 340 / 340 320 / 320 Output Total 1000 / 1000 500 / 500 1900 / 1900 Balance -180 / -180 -160 / -160 -1580 / -1580 Physical Exam: CONSTITUTIONAL/GENERAL: This is an adequately nourished patient, appears confused and mildly distressed TUBES/LINES/DRAINS: NC SKIN: No jaundice, rashes, or lesions. +Ecchymoses on upper extremities. No wounds seen anteriorly. Skin temperature appropriate. Not diaphoretic. HEAD: Atraumatic. Normocephalic. EYES: +anisocoria right pupil < left pupil, right side gaze preference. Extraocular motions intact. No scleral icterus. No injection or drainage. Fundi not examined. ENT: Hearing grossly normal. Nose without bleeding or purulent drainage. NECK: Trachea midline. Supple, nontender. CARDIOVASCULAR: RRR without murmurs, gallops, or rubs. No JVD. Peripheral pulses symmetric. RESPIRATORY/CHEST: Symmetric, unlabored respirations. +wet sounding cough. Breath sounds diminished, some rhonchi. GASTROINTESTINAL: Abdomen soft, non-tender, nondistended. No hepato-splenomegaly , or palpable masses. No guarding. Bowel sounds present. GENITOURINARY: Without palpable bladder distension. Dixon catheter in place. MUSCULOSKELETAL: Extremities without clubbing, cyanosis, or edema. absent left great toe & 2nd toe, 3rd & 4th toe necrotic NEUROLOGICAL: Awake, not oriented, groaning, not making eye contact, LUE weakness PSYCHIATRIC: appears anxious Diagnostic Tests Laboratory: Laboratory Results - last 72 hr 04/27/18 04/28/18 04/28/18 16:32 02:30 02:30 WBC 12.6 H RBC 3.27 L Hgb 8.9 L POC Hgb (Calc) Hct 26.8 L POC Hct MCV 82.0 MCH 27.3 MCHC 33.3 RDW 15.7 Plt Count 553 H D MPV 6.5 L Neut % (Auto) 74.3 H Lymph % (Auto) 13.2 [place] % (Auto) 10.3 H Eos % (Auto) 1.8 Baso % (Auto) 0.4 Neut # (Auto) 9.4 H Lymph # (Auto) 1.7 Millard # (Auto) 1.3 H Eos # (Auto) 0.2 Baso # (Auto) 0.1 WBC Differential . Differential Comment Auto diff final PT INR APTT Fibrinogen POC Sodium Sodium 140 POC Potassium Potassium 3.9 POC Chloride Chloride 106 Carbon Dioxide 26.4 Anion Gap 8 POC BUN BUN 11 Creatinine 0.68 POC Creatinine Estimated GFR 84 L POC Glucose 111 H Random Glucose 113 H Calcium 8.3 L Total Bilirubin 0.4 AST 26 ALT 25 Alkaline Phosphatase 174 H Total Creatine Kinase Troponin I Total Protein 6.5 Albumin 2.2 L Blood Type Antibody Screen 04/29/18 04/29/18 04/29/18 14:09 14:42 14:42 WBC 16.5 H RBC 3.64 L Hgb 9.9 L POC Hgb (Calc) Hct 30.6 L POC Hct MCV 84.1 MCH 27.2 MCHC 32.4 RDW 16.2 Plt Count 621 H MPV 6.6 L Neut % (Auto) 77.9 H Lymph % (Auto) 10.3 Mill[place] % (Auto) 9.9 H Eos % (Auto) 1.1 Baso % (Auto) 0.8 Neut # (Auto) 12.8 H Lymph # (Auto) 1.7 Millard # (Auto) 1.6 H Eos # (Auto) 0.2 Baso # (Auto) 0.1 WBC Differential . Differential Comment Auto diff final PT 10.7 INR 1.1 APTT 25.8 Fibrinogen 675 H POC Sodium Sodium POC Potassium Potassium POC Chloride Chloride Carbon Dioxide Anion Gap POC BUN BUN Creatinine POC Creatinine Estimated GFR POC Glucose 133 H Random Glucose Calcium Total Bilirubin AST ALT Alkaline Phosphatase Total Creatine Kinase Troponin I Total Protein Albumin Blood Type Antibody Screen 04/29/18 04/29/18 14:42 14:42 WBC RBC Hgb POC Hgb (Calc) 10.5 L Hct POC Hct 31.0 L MCV MCH MCHC RDW Plt Count MPV Neut % (Auto) Lymph % (Auto) Mill[place] % (Auto) Eos % (Auto) Baso % (Auto) Neut # (Auto) Lymph # (Auto) Mill[place] # (Auto) Eos # (Auto) Baso # (Auto) WBC Differential Differential Comment PT INR APTT Fibrinogen POC Sodium 136 L Sodium 136 POC Potassium 4.1 Potassium 4.1 POC Chloride 99 L Chloride 100 Carbon Dioxide 26.8 Anion Gap 9 POC BUN 12 BUN 14 Creatinine 0.82 POC Creatinine 0.8 Estimated GFR 68 L POC Glucose 114 H Random Glucose 112 H Calcium 8.7 Total Bilirubin AST ALT Alkaline Phosphatase Total Creatine Kinase 137 Troponin I Less than 0.02 L Total Protein Albumin Blood Type A Positive Antibody Screen Negative Result Diagrams: 04/29/18 14:42 04/29/18 14:42 Imaging: ITS Impressions Foot MRI 04/22/18 00:00 CONCLUSION: 1. Status post amputation at the first and second digits. 2. No areas of suspected osteomyelitis are seen. There some mild edema seen in the distal first metatarsal. This area appears normal on the precontrast T1- weighted images. There does appear to be surrounding inflammatory change in the soft tissues around the first distal metatarsal without a focal fluid collection. 3. Suspected degenerative edema/granulation at the ankle at the distal tibia and proximal tibia. Head CT 04/29/18 00:00 CONCLUSION: 1. No acute intracranial abnormality Report was called by Dr. Bruno to Dr. Candace hicks at 1438 PM. Chest X-Ray 04/29/18 00:46 CONCLUSION: Left basilar infiltrate. Procedures: 04/21 fem pop bypass Patient/Family Conference Present at Family Conference: Family Conference Time: 42 Family Conference Location: Bedside Issues Discussed: * Palliative care role, purpose, approach * Additional medical, psychosocial, and spiritual history * Patients general health, functional status, and cognitive changes in the months leading up to the current hospitalization * family understanding of the current medical problems * family understanding of prognosis * Current medical treatment options and benefits/burdens of those options * Likely scenarios comparing ongoing aggressive care with a transition to comfort measures only * Questions answered to the best of my ability * Palliative care contact information provided Goals aggressive. 's stated goal is to get pt into rehab in [place]. Discussed that any plans to discharge her or place her may be on hold due to recent acute event and work up. He believes "the people are trying to keep her here." He feels her symptoms are 2/2 morphine. Gently tried to discuss this with him but he was dismissive of any other etiology. He denies pt having had decline in past months however events he described indicate she has declined. Briefly reviewed code status, he was not open to further discussion. He is agreeable to continued palliative follow up. 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 She and her moved to [place] in 1978. They have no children. 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 Spiritual: pastoral care avail Legal: Patient is not capacitated to make medical decisions and it is unclear if she will regain that capacity. In the absence of a designated healthcare surrogate, per [place] statute proxy medical decision making falls to her . Ethical issues impacting care:none Important Contacts: cell [phone], home [phone] Prognosis: 77 y/o pt with PAD, COPD who presented 04/19 for further work up AMS after angiogram. Had fem pop bypass 04/21 and again had worsening lethargy and confusion, originally attributed to morphine admin and then stroke alert was called. Work up in progress, prognostication pending hospital course. Code Status: Full Code Plan: - LEGAL DECISION MAKER - Patient is not capacitated to make medical decisions and it is unclear if she will regain that capacity. In the absence of a designated healthcare surrogate , per [place] statute proxy medical decision making falls to her . - CODE STATUS- full code - GOALS - Goals aggressive. 's stated goal is to get pt into rehab in [place]. Discussed that any plans to discharge her or place her may be on hold due to recent acute event and work up. He believes "the people are trying to keep her here." He feels her symptoms are 2/2 morphine. Gently tried to discuss this with him but he was dismissive of any other etiology. He denies pt having had decline in past months however events he described indicate she has declined. Briefly reviewed code status, he was not open to further discussion. He is agreeable to continued palliative follow up. - SYMPTOMS - == pain - sites include left groin, left foot, back. == debility - multifactorial, 2/2 absent toes left foot. also with recent onset weakness and confusion. w/u in progress, CVA vs sepsis vs other == confusion - multifactorial, as above - d/w RN, Dr. Jack - Palliative care will continue to follow during hospital course as condition evolves, to assist patient/decision-maker with understanding of medical conditions, weighing benefits/burdens of treatment options, for clarification of goals of treatment. Additionally will assist with any symptoms of palliative concern Appreciation Thank you for the opportunity to participate in the care of Krupa King.
[2018-04-29] MEDS ORDERED: Vancomycin Consult Pharmacy OTHER PRN (18:19)
--- NOTE | 2018-04-29 18:22 | MG ---
cc: Rafal Man MD EEG NUMBER: [id number] Hyperventilation not performed. Stroke alert. Lethargic. Plavix, heparin. A lot of muscle artifact over the left central and temporal head region. Some theta slowing is seen down to about 4 Hz. Even some 2 Hz slowing is noted. Occasional slightly sharply contoured waves were seen such as at epoch 67, what appears to be over the midline head region. The patient is noted to be snoring in her sleep. When she relaxes, there is a slight attenuation I would say over the right hemisphere compared to the left. Photic stimulation is performed without significant posterior driving. Hyperventilation not performed. IMPRESSION: There is a slight attenuation of the background all the way from the right hemisphere to the left, so there is some hemisphere asymmetry, but no seizure activity was noted per se. MD ARASELI Novak/isak , 06:02 PM , 06:07 PM
[2018-04-29] MEDS ORDERED: Vancomycin Inj 1,250 MG in Sodium Chlor 0.9% Inj 250 ML IV.SIG ONE (18:45)
[2018-04-29 19:06] LABS: Bacteria,Urine Moderate /hpf; Bilirubin,Urine Negative (Negative); Clarity,Urine Hazy (Clear); Color,Urine Yellow (Yellw/Straw); Glucose,Urine (UA) Negative (Negative); Leukocyte Esterase,Urine Small (Negative); Nitrite,Urine Positive (Negative); Specific Gravity,Urine 1.012 (1.002-1.035); Squamous Epithelial Cell,Urine 6 /hpf (0-5)
[2018-04-29] MEDS: Piperacil/Tazo 4.5 GM Premix 4.5 GM/100 ML BAG IV.SIG SCH (20:33)
[2018-04-30] MEDS: Piperacil/Tazo 4.5 GM Premix 4.5 GM/100 ML BAG IV.SIG SCH ×3 (03:04→22:08)
[2018-04-30] MEDS: hydrALAZINE HCl Inj 20 MG/ML Vial IV.PUSH PRN (03:05)
[2018-04-30 03:36] LABS: Baso # (Auto) 0.1 th/mm3 (0.0-0.2); Baso % (Auto) 0.6 % (0.0-2.0); Eos # (Auto) 0.6 th/mm3 (0.0-0.4); Eos % (Auto) 4.4 % (0.0-4.0); Hematocrit 26.9 % (35.0-46.0); Hemoglobin 8.8 gm/dL (11.6-15.3); Lymph # (Auto) 1.4 th/mm3 (1.0-4.8); Lymph % (Auto) 10.8 % (9.0-44.0); Mean Corpuscular HGB Conc 32.6 % (32.0-36.0); Mean Corpuscular Hemoglobin 27.3 pg (27.0-34.0); Mean Corpuscular Volume 83.6 fL (80.0-100.0); Mean Platelet Volume 6.5 fL (7.0-11.0); Mono # (Auto) 1.3 th/mm3 (0.0-0.9); Mono % (Auto) 10.5 % (0.0-8.0); Neut # (Auto) 9.4 th/mm3 (1.8-7.7); Neut % (Auto) 73.7 % (16.0-70.0); Platelet Count 557 th/mm3 (150-450); Red Blood Count 3.21 mil/mm3 (4.00-5.30); White Blood Count 12.7 th/mm3 (4.0-11.0)
[2018-04-30] MEDS: Sod Chloride 0.9% Inj 1,000 ML IV.CONT SCH ×2 (03:48→22:11)
[2018-04-30 03:59] LABS: Calcium 8.4 mg/dL (8.5-10.1); Carbon Dioxide 27.5 meq/L (21.0-32.0); Potassium 4.1 meq/L (3.5-5.1)
[2018-04-30] MEDS: Heparin - SQ 10,000 UNITS/ML Vial SQ SCH ×2 (05:26→17:19)
--- NOTE | 2018-04-30 07:38 | P.PNNEU ---
Subjective Subjective Comments: No acute events Active Medications: Active Medications Acetaminophen (Tylenol) 650 mg PO Q6H PRN PRN Reason: Fever >101f Last Admin: 04/28/18 19:22 Dose: 650 mg Hydrocodone Bitart/Acetaminophen ([place] 5/325) 1 tab PO Q4H PRN PRN Reason: PAIN SCALE 1 TO 5 Last Admin: 04/28/18 09:51 Dose: 1 tab Al Hydroxide/Mg Hydroxide (Milk Of [place] Liq) 30 ml PO Q12H PRN PRN Reason: Mild Constipation Albuterol (Albuterol Neb (Prn)) 2.5 mg NEB Q2HR NEB PRN PRN Reason: SHORTNESS OF BREATH/WHEEZING Last Admin: 04/28/18 23:58 Dose: 2.5 mg Aspirin (Aspirin) 325 mg PO DAILY [facility] Last Admin: 04/29/18 10:26 Dose: 325 mg Atorvastatin Calcium (Lipitor) 40 mg PO DAILY [facility] Last Admin: 04/29/18 10:27 Dose: 40 mg Bisacodyl (Dulcolax Supp) 10 mg RECTAL DAILY PRN PRN Reason: SEVERE CONSITIPATION Clopidogrel Bisulfate (Plavix) 75 mg PO DAILY [facility] Last Admin: 04/29/18 08:40 Dose: 75 mg Famotidine (Pepcid) 20 mg PO BID [facility] Last Admin: 04/29/18 20:35 Dose: Not Given Fluticasone/Vilanterol (Breo Ellipta 200/25 Mcg Inh) 1 puff INH DAILY [facility] Last Admin: 04/29/18 10:31 Dose: 1 puff Heparin Sodium (Porcine) (Heparin Inj) 5,000 units SQ Q12H [facility] Last Admin: 04/30/18 05:26 Dose: 5,000 units Hydralazine HCl (Apresoline Inj) 10 mg IV.PUSH Q1H PRN PRN Reason: SBP>160, DBP>90 Last Admin: 04/30/18 03:05 Dose: 10 mg Sodium Chloride (Ns Inj) 1,000 mls @ 70 mls/hr IV.CONT .[id number] [facility] Last Admin: 04/30/18 03:48 Dose: 70 mls/hr Piperacillin/Tazobactam/Dextrose (Zosyn 4.5 Gm Premix) 4.5 gm in 100 mls @ 12.5 mls/hr IV.SIG Q8H [facility] Last Infusion: 04/30/18 03:45 Dose: Infused Vancomycin HCl 1,000 mg/ (Sodium Chloride) 250 mls @ 250 mls/hr IV.SIG Q18H [facility] Labetalol HCl (Trandate Inj) 10 mg IV.PUSH Q1H PRN PRN Reason: SBP > 160 DBP > 90 HR > 65 Last Admin: 04/22/18 13:31 Dose: 10 mg Lactulose (Lactulose Liq) 30 ml PO DAILY PRN PRN Reason: SEVERE CONSITIPATION Last Admin: 04/24/18 18:11 Dose: 30 ml Miscellaneous Information ([facility] Ordered Lab Info) 0 each OTHER ONCE ONE Stop: 05/01/18 23:46 Nitroglycerin (Nitro-Bid 2% Oint) 2 inch TOPICAL Q6HR PRN PRN Reason: Sbp>165, Dbp>90 Ondansetron HCl (Zofran Inj) 4 mg IV.PUSH Q6H PRN PRN Reason: NAUSEA OR VOMITING Oxybutynin Chloride (Ditropan) 5 mg PO BID [facility] Last Admin: 04/29/18 20:34 Dose: Not Given Pharmacy Profile Note (Vancomycin Consult Pharmacy) 1 each OTHER UNSCH PRN PRN Reason: Pharmacy to dose Senna/Docusate Sodium (Airam-Colace) 1 tab PO BID [facility] Last Admin: 04/29/18 20:35 Dose: Not Given Sennosides (Senokot) 17.2 mg PO Q12H PRN PRN Reason: Moderate Constipation Sodium Chloride (Ns Flush) 2 ml IV.FLUSH BID [facility] Last Admin: 04/29/18 20:35 Dose: 2 ml Sodium Chloride (Ns Flush) 2 ml IV.FLUSH PRN PRN PRN Reason: FLUSH AFTER USING IV ACCESS Allergies/Adverse Reactions: Allergies Allergy/AdvReac Type Severity Reaction Status Date / Time ciprofloxacin Allergy Rash Verified 04/16/18 07:47 levofloxacin Allergy Rash Verified 04/16/18 07:47 Sulfa (Sulfonamide Allergy Rash Verified 04/16/18 06:55 Antibiotics) tramadol AdvReac Hallucinati Verified 04/16/18 07:47 ons Review of Systems All other systems reviewed negative except as stated in HPI Physical Exam Vital signs: Vital Signs 04/29/18 08:00 04/29/18 09:00 04/29/18 10:00 Temperature Pulse Rate 107 H 102 H 109 H Respiratory Rate Blood Pressure Pulse Oximetry 04/29/18 11:00 04/29/18 12:00 04/29/18 12:53 Temperature 98.1 F Pulse Rate 90 95 H 87 Respiratory Rate 18 Blood Pressure 148/72 H Pulse Oximetry 98 04/29/18 13:00 04/29/18 14:00 04/29/18 15:00 Temperature 98.4 F Pulse Rate 102 H 104 H 102 H Respiratory Rate 18 Blood Pressure 165/77 H Pulse Oximetry 100 04/29/18 16:00 04/29/18 17:00 04/29/18 18:00 Temperature Pulse Rate 102 H 90 107 H Respiratory Rate 18 Blood Pressure Pulse Oximetry 04/29/18 19:00 04/29/18 20:00 04/29/18 21:00 Temperature 99.5 F Pulse Rate 97 H 90 85 Respiratory Rate 18 18 Blood Pressure 162/76 H Pulse Oximetry 98 95 04/29/18 21:54 04/29/18 23:00 04/30/18 00:00 Temperature 99.2 F Pulse Rate 86 86 91 H Respiratory Rate 18 18 Blood Pressure 158/66 H Pulse Oximetry 98 04/30/18 01:00 04/30/18 02:00 04/30/18 03:00 Temperature 99.5 F Pulse Rate 80 92 H 88 Respiratory Rate 18 Blood Pressure 161/65 H Pulse Oximetry 98 04/30/18 03:11 04/30/18 03:21 04/30/18 04:00 Temperature 99 F Pulse Rate 88 76 Respiratory Rate 18 18 Blood Pressure 148/63 H Pulse Oximetry 98 04/30/18 05:00 04/30/18 05:41 Temperature Pulse Rate 91 H 85 Respiratory Rate Blood Pressure Pulse Oximetry Intake & Output 04/29/18 04/30/18 04/30/18 18:59 06:59 18:59 Intake Total 30 / 30 1492.5 / 1492.5 Output Total 400 / 400 100 / 100 Balance -370 / -370 1392.5 / 1392.5 Intake: IV 1462.5 / 1462.5 NS Inj 1,000 ML @ 70 mls/hr IV. 1000 / 1000 CONT .[id number] [facility] Rx#:[id number] Zosyn 4.5 GM Premix 4.5 gm In 200 / 200 100 ml @ 12.5 mls/hr IV.SIG Q8H [place] Rx#:[id number] Vancomycin Inj 1,250 MG In NS 262.5 / 262.5 Inj 250 ML @ 250 mls/hr IV.SIG ONCE ONE Rx#:[id number] Oral 30 / 30 30 / 30 Output: Urine Amount (Catheter) 400 / 400 100 / 100 Female External 400 / 400 100 / 100 Other: Date of Last Bowel Movement 04/25/18 Narrative: GENERAL: in NAD, SKIN: Warm and dry. HEAD: Atraumatic. Normocephalic. ENT: No nasal bleeding or discharge. NECK: Trachea midline. No JVD. CARDIOVASCULAR: Regular rate and rhythm. RESPIRATORY: No accessory muscle use. GASTROINTESTINAL: Abdomen soft, non-tender, nondistended. MUSCULOSKELETAL: Dry gangrenous distal toe NEUROLOGICAL: Awake moaning mumbles, positive blink to threat resist pupillary exam no facial asymmetry open mouth breathing while gargling, moving all 4 extremity to gravity left distal foot amputation PSYCHIATRIC: Confused - Constitutional no acute distress - Routine HEENT Exam Head: Present: normocephalic - Urinary Catheter Management Indwelling Urethral Catheter Cath placed during this visit: yes, but has since been removed by the nurse Reason for continuing: Not indwelling catheter Insertion date: 04/21/18 Insertion time: 12:20 Removal date: 04/22/18 Removal time: 06:00 Female External Cath placed during this visit: no Objective Laboratory Results - last 24 hr 04/29/18 04/29/18 04/29/18 14:09 14:42 14:42 WBC 16.5 H RBC 3.64 L Hgb 9.9 L POC Hgb (Calc) Hct 30.6 L POC Hct MCV 84.1 MCH 27.2 MCHC 32.4 RDW 16.2 Plt Count 621 H MPV 6.6 L Neut % (Auto) 77.9 H Lymph % (Auto) 10.3 [place] % (Auto) 9.9 H Eos % (Auto) 1.1 Baso % (Auto) 0.8 Neut # (Auto) 12.8 H Lymph # (Auto) 1.7 [place] # (Auto) 1.6 H Eos # (Auto) 0.2 Baso # (Auto) 0.1 WBC Differential . Differential Comment Auto diff final PT 10.7 INR 1.1 APTT 25.8 Fibrinogen 675 H POC Sodium Sodium POC Potassium Potassium POC Chloride Chloride Carbon Dioxide Anion Gap POC BUN BUN Creatinine POC Creatinine Estimated GFR POC Glucose 133 H Random Glucose Lactic Acid Calcium Total Creatine Kinase Troponin I Urine Color Urine Clarity Urine pH Ur Specific [place] Urine Protein Urine Glucose (UA) Urine Ketones Urine Occult Blood Urine Nitrate Urine Bilirubin Urine Urobilinogen Ur Leukocyte Esterase Urine RBC Urine WBC Ur Squamous Epith Cells Urine Bacteria Urine Yeast Micro UA Comment Ur Microscopic Review Urine Culture Comments Blood Type Antibody Screen 04/29/18 04/29/18 04/29/18 14:42 14:42 18:30 WBC RBC Hgb POC Hgb (Calc) 10.5 L Hct POC Hct 31.0 L MCV MCH MCHC RDW Plt Count MPV Neut % (Auto) Lymph % (Auto) [place] % (Auto) Eos % (Auto) Baso % (Auto) Neut # (Auto) Lymph # (Auto) [place] # (Auto) Eos # (Auto) Baso # (Auto) WBC Differential Differential Comment PT INR APTT Fibrinogen POC Sodium 136 L Sodium 136 POC Potassium 4.1 Potassium 4.1 POC Chloride 99 L Chloride 100 Carbon Dioxide 26.8 Anion Gap 9 POC BUN 12 BUN 14 Creatinine 0.82 POC Creatinine 0.8 Estimated GFR 68 L POC Glucose 114 H Random Glucose 112 H Lactic Acid Calcium 8.7 Total Creatine Kinase 137 Troponin I Less than 0.02 L Urine Color Yellow Urine Clarity Hazy H Urine pH 6.0 Ur Specific [place] 1.012 Urine Protein Negative Urine Glucose (UA) Negative Urine Ketones Negative Urine Occult Blood Moderate H Urine Nitrate Positive H Urine Bilirubin Negative Urine Urobilinogen Less than 2 Ur Leukocyte Esterase Small H Urine RBC 11 H Urine WBC 8 H Ur Squamous Epith Cells 6 Urine Bacteria Moderate H Urine Yeast Moderate H Micro UA Comment Culture indicated Ur Microscopic Review Not Reportable Urine Culture Comments Culture indicated Blood Type A Positive Antibody Screen Negative 04/29/18 04/30/18 04/30/18 23:59 02:53 02:53 WBC 12.7 H RBC 3.21 L Hgb 8.8 L POC Hgb (Calc) Hct 26.9 L POC Hct MCV 83.6 MCH 27.3 MCHC 32.6 RDW 16.0 Plt Count 557 H MPV 6.5 L Neut % (Auto) 73.7 H Lymph % (Auto) 10.8 [place] % (Auto) 10.5 H Eos % (Auto) 4.4 H Baso % (Auto) 0.6 Neut # (Auto) 9.4 H Lymph # (Auto) 1.4 [place] # (Auto) 1.3 H Eos # (Auto) 0.6 H Baso # (Auto) 0.1 WBC Differential . Differential Comment Auto diff final PT INR APTT Fibrinogen POC Sodium Sodium 138 POC Potassium Potassium 4.1 POC Chloride Chloride 102 Carbon Dioxide 27.5 Anion Gap 9 POC BUN BUN 15 Creatinine 0.83 POC Creatinine Estimated GFR 67 L POC Glucose Random Glucose 100 Lactic Acid 1.0 Calcium 8.4 L Total Creatine Kinase Troponin I Urine Color Urine Clarity Urine pH Ur Specific [place] Urine Protein Urine Glucose (UA) Urine Ketones Urine Occult Blood Urine Nitrate Urine Bilirubin Urine Urobilinogen Ur Leukocyte Esterase Urine RBC Urine WBC Ur Squamous Epith Cells Urine Bacteria Urine Yeast Micro UA Comment Ur Microscopic Review Urine Culture Comments Blood Type Antibody Screen Review/Management - Diagnosis (1) Metabolic encephalopathy Code(s): G93.41 - Metabolic encephalopathy Status: Acute Current Visit: Yes (2) PAD (peripheral artery disease) Code(s): I73.9 - Peripheral vascular disease, unspecified Status: Chronic Current Visit: No (3) 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 Code(s): I96 - Gangrene, not elsewhere classified; I70.202 - Unspecified atherosclerosis of [place] arteries of extremities, left leg Status: Acute Current Visit: Yes (4) COPD (chronic obstructive pulmonary disease) Code(s): J44.9 - Chronic obstructive pulmonary disease, unspecified Status: Chronic Current Visit: Yes (5) Peripheral vascular disease Code(s): I73.9 - Peripheral vascular disease, unspecified Status: Suspected Current Visit: Yes (6) Unstable gait Code(s): R26.81 - Unsteadiness on feet Status: Chronic Current Visit: Yes (7) Hyperlipidemia Code(s): E78.5 - Hyperlipidemia, unspecified Status: Chronic Current Visit: Yes (8) Essential hypertension Code(s): I10 - Essential (primary) hypertension Status: Chronic Current Visit: Yes (9) Carotid artery stenosis Code(s): I65.29 - Occlusion and stenosis of unspecified carotid artery Status : Chronic Current Visit: Yes (10) Superficial femoral artery occlusion Code(s): I70.209 - Unspecified atherosclerosis of [place] arteries of extremities , unspecified extremity Status: Acute Current Visit: Yes (11) Septic encephalopathy Code(s): G93.41 - Metabolic encephalopathy Status: Acute Current Visit: Yes - Review/Management Plan: Opiate induced versus poor p.o. intake versus emerging septic encephalopathy/ aspiration pneumonia 04/29 chest x-ray showing left basilar infiltrate Recommendation EEG-mild slowing Follow-up ABG Aggressive suctioning Nutritional support, hydration ESR, CRP Follow exam (4) COPD (chronic obstructive pulmonary disease) Qualifiers: COPD type: unspecified COPD Qualified Code(s): J44.9 - Chronic obstructive pulmonary disease, unspecified (7) Hyperlipidemia Qualifiers: Hyperlipidemia type: unspecified Qualified Code(s): E78.5 - Hyperlipidemia, unspecified
[2018-04-30] MEDS: Aspirin 325 MG Tablet PO SCH (08:50)
--- NOTE | 2018-04-30 10:59 | P.PNVS ---
Subjective Post Op Day #: 9 Procedure: L groin reconstruction, fem-BK pop Subjective/Hospital Course: very somnolent but responds doesn't endorse pain Neurology following and CT head negative, EEG diffuse slowing Objective Vital Signs / I&O: Vital Signs 04/29/18 11:00 04/29/18 12:00 04/29/18 12:53 Temperature 98.1 F Pulse Rate 90 95 H 87 Respiratory Rate 18 Blood Pressure 148/72 H Pulse Oximetry 98 04/29/18 13:00 04/29/18 14:00 04/29/18 15:00 Temperature 98.4 F Pulse Rate 102 H 104 H 102 H Respiratory Rate 18 Blood Pressure 165/77 H Pulse Oximetry 100 04/29/18 16:00 04/29/18 17:00 04/29/18 18:00 Temperature Pulse Rate 102 H 90 107 H Respiratory Rate 18 Blood Pressure Pulse Oximetry 04/29/18 19:00 04/29/18 20:00 04/29/18 21:00 Temperature 99.5 F Pulse Rate 97 H 90 85 Respiratory Rate 18 18 Blood Pressure 162/76 H Pulse Oximetry 98 95 04/29/18 21:54 04/29/18 23:00 04/30/18 00:00 Temperature 99.2 F Pulse Rate 86 86 91 H Respiratory Rate 18 18 Blood Pressure 158/66 H Pulse Oximetry 98 04/30/18 01:00 04/30/18 02:00 04/30/18 03:00 Temperature 99.5 F Pulse Rate 80 92 H 88 Respiratory Rate 18 Blood Pressure 161/65 H Pulse Oximetry 98 04/30/18 03:11 04/30/18 03:21 04/30/18 04:00 Temperature 99 F Pulse Rate 88 76 Respiratory Rate 18 18 Blood Pressure 148/63 H Pulse Oximetry 98 04/30/18 05:00 04/30/18 05:41 04/30/18 07:00 Temperature 99 F Pulse Rate 91 H 85 76 Respiratory Rate 16 Blood Pressure 150/88 H Pulse Oximetry 96 04/30/18 08:00 04/30/18 09:00 04/30/18 10:00 Temperature Pulse Rate 76 81 77 Respiratory Rate 16 Blood Pressure Pulse Oximetry 96 04/30/18 10:46 Temperature Pulse Rate Respiratory Rate Blood Pressure Pulse Oximetry 97 Intake & Output 04/29/18 04/30/18 04/30/18 18:59 06:59 18:59 Intake Total 1492.5 / 1492.5 Output Total 400 / 400 100 / 100 Balance -370 / -370 1392.5 / 1392.5 Intake: IV 1462.5 / 1462.5 NS Inj 1,000 ML @ 70 mls/hr IV. 1000 / 1000 CONT .[id number] [facility] Rx#:[id number] Zosyn 4.5 GM Premix 4.5 gm In 200 / 200 100 ml @ 12.5 mls/hr IV.SIG Q8H [facility] Rx#:[id number] Vancomycin Inj 1,250 MG In NS 262.5 / 262.5 Inj 250 ML @ 250 mls/hr IV.SIG ONCE ONE Rx#:[id number] Oral Output: Urine Amount (Catheter) 400 / 400 100 / 100 Female External 400 / 400 100 / 100 Other: Date of Last Bowel Movement 04/25/18 04/29/18 Exam: L groin intact L BK pop incision ok foot demarcating without streaking erythema, no odor, no drainage Laboratory Results - last 24 hr 04/29/18 04/29/18 04/29/18 14:09 14:42 14:42 WBC 16.5 H RBC 3.64 L Hgb 9.9 L POC Hgb (Calc) Hct 30.6 L POC Hct MCV 84.1 MCH 27.2 MCHC 32.4 RDW 16.2 Plt Count 621 H MPV 6.6 L Neut % (Auto) 77.9 H Lymph % (Auto) 10.3 [place] % (Auto) 9.9 H Eos % (Auto) 1.1 Baso % (Auto) 0.8 Neut # (Auto) 12.8 H Lymph # (Auto) 1.7 [place] # (Auto) 1.6 H Eos # (Auto) 0.2 Baso # (Auto) 0.1 WBC Differential . Differential Comment Auto diff final ESR PT 10.7 INR 1.1 APTT 25.8 Fibrinogen 675 H POC Sodium Sodium POC Potassium Potassium POC Chloride Chloride Carbon Dioxide Anion Gap POC BUN BUN Creatinine POC Creatinine Estimated GFR POC Glucose 133 H Random Glucose Lactic Acid Calcium Total Creatine Kinase Troponin I Urine Color Urine Clarity Urine pH Ur Specific [place] Urine Protein Urine Glucose (UA) Urine Ketones Urine Occult Blood Urine Nitrate Urine Bilirubin Urine Urobilinogen Ur Leukocyte Esterase Urine RBC Urine WBC Ur Squamous Epith Cells Urine Bacteria Urine Yeast Micro UA Comment Ur Microscopic Review Urine Culture Comments Blood Type Antibody Screen 04/29/18 04/29/18 04/29/18 14:42 14:42 18:30 WBC RBC Hgb POC Hgb (Calc) 10.5 L Hct POC Hct 31.0 L MCV MCH MCHC RDW Plt Count MPV Neut % (Auto) Lymph % (Auto) [place] % (Auto) Eos % (Auto) Baso % (Auto) Neut # (Auto) Lymph # (Auto) [place] # (Auto) Eos # (Auto) Baso # (Auto) WBC Differential Differential Comment ESR PT INR APTT Fibrinogen POC Sodium 136 L Sodium 136 POC Potassium 4.1 Potassium 4.1 POC Chloride 99 L Chloride 100 Carbon Dioxide 26.8 Anion Gap 9 POC BUN 12 BUN 14 Creatinine 0.82 POC Creatinine 0.8 Estimated GFR 68 L POC Glucose 114 H Random Glucose 112 H Lactic Acid Calcium 8.7 Total Creatine Kinase 137 Troponin I Less than 0.02 L Urine Color Yellow Urine Clarity Hazy H Urine pH 6.0 Ur Specific [place] 1.012 Urine Protein Negative Urine Glucose (UA) Negative Urine Ketones Negative Urine Occult Blood Moderate H Urine Nitrate Positive H Urine Bilirubin Negative Urine Urobilinogen Less than 2 Ur Leukocyte Esterase Small H Urine RBC 11 H Urine WBC 8 H Ur Squamous Epith Cells 6 Urine Bacteria Moderate H Urine Yeast Moderate H Micro UA Comment Culture indicated Ur Microscopic Review Not Reportable Urine Culture Comments Culture indicated Blood Type A Positive Antibody Screen Negative 04/29/18 04/30/18 04/30/18 23:59 02:53 02:53 WBC 12.7 H RBC 3.21 L Hgb 8.8 L POC Hgb (Calc) Hct 26.9 L POC Hct MCV 83.6 MCH 27.3 MCHC 32.6 RDW 16.0 Plt Count 557 H MPV 6.5 L Neut % (Auto) 73.7 H Lymph % (Auto) 10.8 [place] % (Auto) 10.5 H Eos % (Auto) 4.4 H Baso % (Auto) 0.6 Neut # (Auto) 9.4 H Lymph # (Auto) 1.4 [place] # (Auto) 1.3 H Eos # (Auto) 0.6 H Baso # (Auto) 0.1 WBC Differential . Differential Comment Auto diff final ESR PT INR APTT Fibrinogen POC Sodium Sodium 138 POC Potassium Potassium 4.1 POC Chloride Chloride 102 Carbon Dioxide 27.5 Anion Gap 9 POC BUN BUN 15 Creatinine 0.83 POC Creatinine Estimated GFR 67 L POC Glucose Random Glucose 100 Lactic Acid 1.0 Calcium 8.4 L Total Creatine Kinase Troponin I Urine Color Urine Clarity Urine pH Ur Specific [place] Urine Protein Urine Glucose (UA) Urine Ketones Urine Occult Blood Urine Nitrate Urine Bilirubin Urine Urobilinogen Ur Leukocyte Esterase Urine RBC Urine WBC Ur Squamous Epith Cells Urine Bacteria Urine Yeast Micro UA Comment Ur Microscopic Review Urine Culture Comments Blood Type Antibody Screen 04/30/18 02:53 WBC RBC Hgb POC Hgb (Calc) Hct POC Hct MCV MCH MCHC RDW Plt Count MPV Neut % (Auto) Lymph % (Auto) [place] % (Auto) Eos % (Auto) Baso % (Auto) Neut # (Auto) Lymph # (Auto) [place] # (Auto) Eos # (Auto) Baso # (Auto) WBC Differential Differential Comment ESR 99 H PT INR APTT Fibrinogen POC Sodium Sodium POC Potassium Potassium POC Chloride Chloride Carbon Dioxide Anion Gap POC BUN BUN Creatinine POC Creatinine Estimated GFR POC Glucose Random Glucose Lactic Acid Calcium Total Creatine Kinase Troponin I Urine Color Urine Clarity Urine pH Ur Specific [place] Urine Protein Urine Glucose (UA) Urine Ketones Urine Occult Blood Urine Nitrate Urine Bilirubin Urine Urobilinogen Ur Leukocyte Esterase Urine RBC Urine WBC Ur Squamous Epith Cells Urine Bacteria Urine Yeast Micro UA Comment Ur Microscopic Review Urine Culture Comments Blood Type Antibody Screen Assessment and Plan - Plan POD#9 s/p L groin reconstruction, fem-BK pop; bypass patent by exam mental status changes likely metabolic. I don't think the foot dry gangrene is contributing at all 1. Possible MRI brain - defer to neurology 2. Discussed with possible Dobhoff tube for enteral nutrition 3. Would d/c all narcotics 4. continue PT/ROM Discharge Planning: today to rehab
--- NOTE | 2018-04-30 12:27 | P.PNPAL ---
Reason for Visit Reason for visit: a. To assist with evaluation and management of symptoms including: pain, debility, confusion b. To assist medical decision maker(s) with: better understanding of current medical conditions; weighing benefits/burdens of medical treatment options; making medical treatment decisions. Subjective Subjective/Interval History: Mrs. 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 Patient underwent fem-pop bypass with Dr. Hansen on 04/21. Clinical course complicated by progressive debility, altered mental status and lethargy. Stroke workup negative on 04/29. Patient remains at a very high risk for further complications, continued decline and . Palliative care follow-up for further clarifications of goals of care, family support. Patient seen in her room. She was resting patient noted obtunded, briefly opening eyes to verbal stimuli but not following any commands or attempting to communicate. Patient was seen with very poor truncal support, leaning towards the left side of the bed. Patient with persistent leukocytosis 12.7, Hgb 8.8, platelet count 557. UA 04/29+ for nitrates and leukocytes. Speech therapy following, patient n.p.o. given severe dysphagia/lethargy. PT/OT following, recommending rehab. Met with patient's Wesley. He tells me that he has noted an acute change in patient's clinical condition since Thursday 04/27 after she received a dose of morphine. Reviewed that patient is currently be treated for UTI, reviewed that acute infection can cause encephalopathy in addition to patient's multiple other chronic ongoing comorbidities. tells me that he feels that this is a result of the morphine and not any other etiology. endorsing concerns of patient's nutritional status, she failed her swallow eval today secondary to dysphagia/altered mental status. requesting artificial nutrition via NG tube. requesting transfer to [facility] for continuation of medical management. verbalizing frustration with patient's clinical condition. Attending Dr. Jack and piano case maker notified. Case discussed with bedside RN. Advance Directives Living Will: Never completed Health Care Surrogate: Never completed Durable Power of Ip Paralegal: Never completed Objective Vital Signs: Vital Signs 04/29/18 12:53 04/29/18 13:00 04/29/18 14:00 Temperature Pulse Rate 87 102 H 104 H Respiratory Rate Blood Pressure Pulse Oximetry 04/29/18 15:00 04/29/18 16:00 04/29/18 17:00 Temperature 98.4 F Pulse Rate 102 H 102 H 90 Respiratory Rate 18 18 Blood Pressure 165/77 H Pulse Oximetry 100 04/29/18 18:00 04/29/18 19:00 04/29/18 20:00 Temperature 99.5 F Pulse Rate 107 H 97 H 90 Respiratory Rate 18 18 Blood Pressure 162/76 H Pulse Oximetry 98 95 04/29/18 21:00 04/29/18 21:54 04/29/18 23:00 Temperature 99.2 F Pulse Rate 85 86 86 Respiratory Rate 18 Blood Pressure 158/66 H Pulse Oximetry 98 04/30/18 00:00 04/30/18 01:00 04/30/18 02:00 Temperature Pulse Rate 91 H 80 92 H Respiratory Rate 18 Blood Pressure Pulse Oximetry 04/30/18 03:00 04/30/18 03:11 04/30/18 03:21 Temperature 99.5 F 99 F Pulse Rate 88 88 Respiratory Rate 18 18 18 Blood Pressure 161/65 H 148/63 H Pulse Oximetry 98 98 04/30/18 04:00 04/30/18 05:00 04/30/18 05:41 Temperature Pulse Rate 76 91 H 85 Respiratory Rate Blood Pressure Pulse Oximetry 04/30/18 07:00 04/30/18 08:00 04/30/18 09:00 Temperature 99 F Pulse Rate 76 76 81 Respiratory Rate 16 16 Blood Pressure 150/88 H Pulse Oximetry 96 96 04/30/18 10:00 04/30/18 10:46 Temperature Pulse Rate 77 Respiratory Rate Blood Pressure Pulse Oximetry 97 Intake & Output 04/29/18 04/30/18 04/30/18 18:59 06:59 18:59 Intake Total 30 / 30 1492.5 / 1492.5 Output Total 400 / 400 100 / 100 Balance -370 / -370 1392.5 / 1392.5 Intake: IV 1462.5 / 1462.5 NS Inj 1,000 ML @ 70 mls/hr IV. 1000 / 1000 CONT .[id number] [place] Rx#:[id number] Zosyn 4.5 GM Premix 4.5 gm In 200 / 200 100 ml @ 12.5 mls/hr IV.SIG Q8H [facility] Rx#:[id number] Vancomycin Inj 1,250 MG In NS 262.5 / 262.5 Inj 250 ML @ 250 mls/hr IV.SIG ONCE ONE Rx#:[id number] Oral 30 / 30 30 / 30 Output: Urine Amount (Catheter) 400 / 400 100 / 100 Female External 400 / 400 100 / 100 Other: Date of Last Bowel Movement 04/25/18 04/29/18 Physical Exam: CONSTITUTIONAL/GENERAL: Ill-looking, elderly woman resting in bed in no acute distress. Poor truncal support, leaning towards left side of bed. TUBES/LINES/DRAINS: NC, PIV. SKIN: No jaundice, rashes, or lesions. +Ecchymoses on upper extremities. Surgical incision to left anterior leg, large areas of ecchymosis to left leg. Necrotic toes to left. HEAD: Atraumatic. Normocephalic. EYES: +anisocoria right pupil < left pupil, right side gaze preference. Extraocular motions intact. No scleral icterus. Fundi not examined. ENT: Hearing grossly normal. Nose without bleeding or purulent drainage. NECK: Trachea midline. Supple, nontender. CARDIOVASCULAR: RRR without murmurs, gallops, or rubs. No JVD. Peripheral pulses symmetric. RESPIRATORY/CHEST: Symmetric, unlabored respirations. +wet sounding cough. Breath sounds diminished, some rhonchi. GASTROINTESTINAL: Abdomen soft, non-tender, nondistended. No guarding. Bowel sounds present. GENITOURINARY: Without palpable bladder distension. MUSCULOSKELETAL: Extremities without clubbing, cyanosis, or edema. absent left great toe & 2nd toe, 3rd & 4th toe necrotic. NEUROLOGICAL: Obtunded. Briefly opening eyes to verbal stimuli. Not following commands during my visit. PSYCHIATRIC: Calm Diagnostic Tests Laboratory: Laboratory Results - last 72 hr 04/27/18 04/28/18 04/28/18 16:32 02:30 02:30 WBC 12.6 H RBC 3.27 L Hgb 8.9 L POC Hgb (Calc) Hct 26.8 L POC Hct MCV 82.0 MCH 27.3 MCHC 33.3 RDW 15.7 Plt Count 553 H D MPV 6.5 L Neut % (Auto) 74.3 H Lymph % (Auto) 13.2 Charles % (Auto) 10.3 H Eos % (Auto) 1.8 Baso % (Auto) 0.4 Neut # (Auto) 9.4 H Lymph # (Auto) 1.7 Charles # (Auto) 1.3 H Eos # (Auto) 0.2 Baso # (Auto) 0.1 WBC Differential . Differential Comment Auto diff final ESR PT INR APTT Fibrinogen POC Sodium Sodium 140 POC Potassium Potassium 3.9 POC Chloride Chloride 106 Carbon Dioxide 26.4 Anion Gap 8 POC BUN BUN 11 Creatinine 0.68 POC Creatinine Estimated GFR 84 L POC Glucose 111 H Random Glucose 113 H Lactic Acid Calcium 8.3 L Total Bilirubin 0.4 AST 26 ALT 25 Alkaline Phosphatase 174 H Total Creatine Kinase Troponin I C-Reactive Protein Total Protein 6.5 Albumin 2.2 L Urine Color Urine Clarity Urine pH Ur Specific [place] Urine Protein Urine Glucose (UA) Urine Ketones Urine Occult Blood Urine Nitrate Urine Bilirubin Urine Urobilinogen Ur Leukocyte Esterase Urine RBC Urine WBC Ur Squamous Epith Cells Urine Bacteria Urine Yeast Micro UA Comment Ur Microscopic Review Urine Culture Comments Blood Type Antibody Screen 04/29/18 04/29/18 04/29/18 14:09 14:42 14:42 WBC 16.5 H RBC 3.64 L Hgb 9.9 L POC Hgb (Calc) Hct 30.6 L POC Hct MCV 84.1 MCH 27.2 MCHC 32.4 RDW 16.2 Plt Count 621 H MPV 6.6 L Neut % (Auto) 77.9 H Lymph % (Auto) 10.3 Charles % (Auto) 9.9 H Eos % (Auto) 1.1 Baso % (Auto) 0.8 Neut # (Auto) 12.8 H Lymph # (Auto) 1.7 Charles # (Auto) 1.6 H Eos # (Auto) 0.2 Baso # (Auto) 0.1 WBC Differential . Differential Comment Auto diff final ESR PT 10.7 INR 1.1 APTT 25.8 Fibrinogen 675 H POC Sodium Sodium POC Potassium Potassium POC Chloride Chloride Carbon Dioxide Anion Gap POC BUN BUN Creatinine POC Creatinine Estimated GFR POC Glucose 133 H Random Glucose Lactic Acid Calcium Total Bilirubin AST ALT Alkaline Phosphatase Total Creatine Kinase Troponin I C-Reactive Protein Total Protein Albumin Urine Color Urine Clarity Urine pH Ur Specific [place] Urine Protein Urine Glucose (UA) Urine Ketones Urine Occult Blood Urine Nitrate Urine Bilirubin Urine Urobilinogen Ur Leukocyte Esterase Urine RBC Urine WBC Ur Squamous Epith Cells Urine Bacteria Urine Yeast Micro UA Comment Ur Microscopic Review Urine Culture Comments Blood Type Antibody Screen 04/29/18 04/29/18 04/29/18 14:42 14:42 18:30 WBC RBC Hgb POC Hgb (Calc) 10.5 L Hct POC Hct 31.0 L MCV MCH MCHC RDW Plt Count MPV Neut % (Auto) Lymph % (Auto) Charles % (Auto) Eos % (Auto) Baso % (Auto) Neut # (Auto) Lymph # (Auto) Charles # (Auto) Eos # (Auto) Baso # (Auto) WBC Differential Differential Comment ESR PT INR APTT Fibrinogen POC Sodium 136 L Sodium 136 POC Potassium 4.1 Potassium 4.1 POC Chloride 99 L Chloride 100 Carbon Dioxide 26.8 Anion Gap 9 POC BUN 12 BUN 14 Creatinine 0.82 POC Creatinine 0.8 Estimated GFR 68 L POC Glucose 114 H Random Glucose 112 H Lactic Acid Calcium 8.7 Total Bilirubin AST ALT Alkaline Phosphatase Total Creatine Kinase 137 Troponin I Less than 0.02 L C-Reactive Protein Total Protein Albumin Urine Color Yellow Urine Clarity Hazy H Urine pH 6.0 Ur Specific [place] 1.012 Urine Protein Negative Urine Glucose (UA) Negative Urine Ketones Negative Urine Occult Blood Moderate H Urine Nitrate Positive H Urine Bilirubin Negative Urine Urobilinogen Less than 2 Ur Leukocyte Esterase Small H Urine RBC 11 H Urine WBC 8 H Ur Squamous Epith Cells 6 Urine Bacteria Moderate H Urine Yeast Moderate H Micro UA Comment Culture indicated Ur Microscopic Review Not Reportable Urine Culture Comments Culture indicated Blood Type A Positive Antibody Screen Negative 04/29/18 04/30/18 04/30/18 23:59 02:53 02:53 WBC 12.7 H RBC 3.21 L Hgb 8.8 L POC Hgb (Calc) Hct 26.9 L POC Hct MCV 83.6 MCH 27.3 MCHC 32.6 RDW 16.0 Plt Count 557 H MPV 6.5 L Neut % (Auto) 73.7 H Lymph % (Auto) 10.8 Charles % (Auto) 10.5 H Eos % (Auto) 4.4 H Baso % (Auto) 0.6 Neut # (Auto) 9.4 H Lymph # (Auto) 1.4 Charles # (Auto) 1.3 H Eos # (Auto) 0.6 H Baso # (Auto) 0.1 WBC Differential . Differential Comment Auto diff final ESR PT INR APTT Fibrinogen POC Sodium Sodium 138 POC Potassium Potassium 4.1 POC Chloride Chloride 102 Carbon Dioxide 27.5 Anion Gap 9 POC BUN BUN 15 Creatinine 0.83 POC Creatinine Estimated GFR 67 L POC Glucose Random Glucose 100 Lactic Acid 1.0 Calcium 8.4 L Total Bilirubin AST ALT Alkaline Phosphatase Total Creatine Kinase Troponin I C-Reactive Protein Total Protein Albumin Urine Color Urine Clarity Urine pH Ur Specific [place] Urine Protein Urine Glucose (UA) Urine Ketones Urine Occult Blood Urine Nitrate Urine Bilirubin Urine Urobilinogen Ur Leukocyte Esterase Urine RBC Urine WBC Ur Squamous Epith Cells Urine Bacteria Urine Yeast Micro UA Comment Ur Microscopic Review Urine Culture Comments Blood Type Antibody Screen 04/30/18 04/30/18 02:53 02:53 WBC RBC Hgb POC Hgb (Calc) Hct POC Hct MCV MCH MCHC RDW Plt Count MPV Neut % (Auto) Lymph % (Auto) Charles % (Auto) Eos % (Auto) Baso % (Auto) Neut # (Auto) Lymph # (Auto) Charles # (Auto) Eos # (Auto) Baso # (Auto) WBC Differential Differential Comment ESR 99 H PT INR APTT Fibrinogen POC Sodium Sodium POC Potassium Potassium POC Chloride Chloride Carbon Dioxide Anion Gap POC BUN BUN Creatinine POC Creatinine Estimated GFR POC Glucose Random Glucose Lactic Acid Calcium Total Bilirubin AST ALT Alkaline Phosphatase Total Creatine Kinase Troponin I C-Reactive Protein 5.70 H Total Protein Albumin Urine Color Urine Clarity Urine pH Ur Specific [place] Urine Protein Urine Glucose (UA) Urine Ketones Urine Occult Blood Urine Nitrate Urine Bilirubin Urine Urobilinogen Ur Leukocyte Esterase Urine RBC Urine WBC Ur Squamous Epith Cells Urine Bacteria Urine Yeast Micro UA Comment Ur Microscopic Review Urine Culture Comments Blood Type Antibody Screen Result Diagrams: 04/30/18 02:53 04/30/18 02:53 Microbiology: Microbiology 04/29/18 18:30 Urine Culture - Preliminary Clean Catch Urine Immature growth - reincubate Procedures: 04/21 fem pop bypass Assessment and Plan - Disease Oriented Problem List (1) PAD (peripheral artery disease) (2) 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 She and her moved to [place] in 1978. They have no children. 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 Spiritual: pastoral care avail Legal: Patient is not capacitated to make medical decisions and it is unclear if she will regain that capacity. In the absence of a designated healthcare surrogate, per [facility] proxy medical decision making falls to her . Ethical issues impacting care:none Important Contacts: Wesley alvarez [phone], home [phone] Prognosis: Mrs. 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 Patient underwent fem-pop bypass with Dr. Hansen on 04/21. Clinical course complicated by progressive debility, altered mental status and lethargy. Stroke workup negative on 04/29. Patient remains at a very high risk for further complications, continued decline and . Code Status: Full Code Plan: - LEGAL DECISION MAKER - Patient is not capacitated to make medical decisions given encephalopathy, unclear if she will regain that capacity. In the absence of a designated healthcare surrogate, per [facility] proxy medical decision making falls to her Wesley King. - CODE STATUS- full code - GOALS - Goals aggressive. requesting patient transfer to [facility] for continuation of medical management. feels that patient's current clinical condition is secondary to morphine/opioid administration 3 days ago and not because of acute infection/multiple other comorbidities. demand manager and attending Dr. Jack made aware of request. - SYMPTOMS - == Pain - sites include left groin, left foot, back secondary to recent surgical intervention, gangrene, prolonged hospitalization. [place] 5/325 available as needed, last dose 04/28. == Debility - multifactorial, 2/2 absent toes left foot. also with recent onset weakness and confusion. Negative stroke workup, currently being treated for acute infection/UTI. PT/OT following, PT at rehab recommended. == Confusion - multifactorial, as above. Neurology following. EEG 04/29 negative for seizure activity. - d/w RN, Dr. Jack and case management. - Palliative care will continue to follow during hospital course as condition evolves, to assist patient/decision-maker with understanding of medical conditions, weighing benefits/burdens of treatment options, for clarification of goals of treatment. Additionally will assist with any symptoms of palliative concern Time Spent Total Floor Time (mins): 40 (Total time to include review of medical records, physical exam, goals of care conversation with patient's , case discussion with attending, piano case maker and bedside RN.) >50% Time in Counseling or Coordination of Care: Yes (Total visit time = 40 minutes; > 50% spent counseling/coordinating care) Attestation Attestation: To help prompt me to consider important information that might be impacting today's encounter and assessment, information from prior notes written by myself or my colleagues may have been "brought forward" into today's note. My signature on this note, however, is an attestation that I personally performed the exam, history, and/or decision-making noted today, and, unless otherwise indicated, the interactions with patient, family, and staff as well as the review of records all occurred today. I also attest that the listed assessment and stated plan reflect my best clinical judgment today based on the combination of historical information, prior notes, and today's exam/ interactions. When time spent is documented, it refers only to time spent today by the signer, or if indicated, combined time spent today by collaborating physician/nurse practitioner.
--- NOTE | 2018-04-30 14:04 | P.DIET ---
Nutritional Evaluation Type of nutrition evaluation: initial Nutrition consult regarding: Tube Feeding Nutrition screening: [facility] Subjective Subjective Comments: reports that he is waiting for his to become more alert to discuss the option of a TF. Explained to him that she will need TF in order to adequately meet her nutritional needs. Objective - Diagnosis gangrene foot - Objective Body Mass Index: 26 [place] body weight: 52 kg (115lb) % IBW: 128 Body Weight Used for Calculations: IBW (52kg) Energy Needs - Lower Range (kCal/kg): 25 Energy Needs - Upper Range (kCal/kg): 30 Lower Limit kCal/kg (kCals): 1,300 Upper Limit kCal/kg (kCals): 1,560 Lower Limit Protein Factor (Grams per Kg): 1.5 (g/kg IBW) Upper Limit Protein Factor (Grams per Kg): 1.8 (g/kg IBW) Lower Protein Needs (Protein): 78 Upper Protein Needs (Protein): 94 Dietitian Reviewed in Medical Record: Current diet, Curent medications, Intake & Output, Labs, Medical history Diet Order: Regular Oral Diet Intake Amount: Poor <50% Objective Comments: PMH; COPD, peripheral vascular disease, left great toe and second toe amputation , HTN, HLD, CAD Labs; nutritionally unremarkable Medications; lactulose Assessment Assessment: [facility] TF; Pt presents to ED for further evaluation of confusion and is currently at nutritional risk r/t need for TF. Per in the room pt has not eaten anything since Saturday, reviewed ST note from today ordering for pt to be NPO 2/ 2 severe dysphagia. Once feeding route is established TF recs are as follows; Jevity 1.5 running @ 40ml/hour plus Beneprotein packet TID to provide 1515kcal, 79g protein and 730ml free water to best meet pt's assessed nutritional needs. Labs and medications reviewed, will continue to monitor tolerance to TF and clinical course. Recommendations: 1. Jevity 1.5 running @ 40ml/hour plus Beneprotein packet TID Dietitian to Monitor: Lab values, Intake & Output, Tube feeding tolerance, Swallow recommendations, Medical course
--- NOTE | 2018-04-30 16:52 | P.CONID ---
History of Present Illness Service: ID Consult date: 04/30/18 Requesting Physician: Jorge Alberto Aranda Reason for Consult: antibitics recommendations fever, leukocytosis Primary Care Provider: Drew Sinclair III, MD Chief Complaint: Left lower extremity gangrene History of Present Illness: pt is 77 yo female, she is very lethargic nearly obtunded and unable to provide history History was obtained from the chart and at b/s Pt has a history significant for severe PAD with gangrene of his toes, COPD, hypertension, hyperlipidemia, coronary artery disease, carotid artery disease, and obesity who presented to [facility] as a direct transfer from [facility] for vascular surgery. Patient underwent fem-pop bypass with Dr. Hansen on 04/21. Patient with persistent leukocytosis 12.7, and she has low grade fever yday 100-101 Blood clx were obtained yday, UA with mild poyuria and excess of sq epis CXR with L basilar infiltrate Her abx include Piperacillin/Tazobactam +Vancomycin Clinical course complicated by progressive debility, altered mental status and lethargy which is thought o be 2/2 medications Stroke workup negative on 04/29. Review of Systems unobtainable due to mental status PMFSH - History History Provided By: Patient - Medical History Medical History: Medical History (Last Reviewed 04/30/18 @ 16:46 by Tamara Schilling MD) Gangrene Hypercholesterolemia Obesity Peripheral arterial disease Unsteady gait Urinary incontinence COPD (chronic obstructive pulmonary disease) Carotid stenosis HTN (hypertension) PVD (peripheral vascular disease) - Surgical History Surgical History: Surgical History (Last Reviewed 04/30/18 @ 16:46 by Tamara Schilling MD) Amputated toe of left foot History of cholecystectomy History of total left knee replacement Status post arterial stent - Family History Family History: Family History (Last Reviewed 04/30/18 @ 16:46 by Tamara Schilling MD) Mother Family history of Alzheimer's disease Father Family history of [place] (myocardial infarction) Other Family history of hypertension - Social History I have reviewed the patient's Social History: Yes - Tobacco History Second Hand Smoke Exposure: No Tobacco Use In Past 30 Days: No Smoking Status: Former smoker Tobacco Type: Cigarettes - Alcohol History How Often Do You Have a Drink Containing Alcohol: 2 to 3 times a week - Substance Use History Substance History: No History of Abuse - Travel History History of Recent Travel: No Recent Travel in the [place] Within the Last 8 Weeks: No Recent Travel Out of the Country Within the Last 8 Weeks: No - Immunization History Tetanus Immunization: <5 Years Tetanus Immunization Year if Known: 2017 Hx Influenza Vaccine This Season: Yes Medications and Allergies Active Medications: Active Medications Acetaminophen (Tylenol) 650 mg PO Q6H PRN PRN Reason: Fever >101f Last Admin: 04/28/18 19:22 Dose: 650 mg Al Hydroxide/Mg Hydroxide (Milk Of Jonathan Lidaina) 30 ml PO Q12H PRN PRN Reason: Mild Constipation Albuterol (Albuterol Neb (Prn)) 2.5 mg NEB Q2HR NEB PRN PRN Reason: SHORTNESS OF BREATH/WHEEZING Last Admin: 04/28/18 23:58 Dose: 2.5 mg Aspirin (Aspirin) 325 mg PO DAILY [facility] Last Admin: 04/29/18 10:26 Dose: 325 mg Atorvastatin Calcium (Lipitor) 40 mg PO DAILY [facility] Last Admin: 04/29/18 10:27 Dose: 40 mg Bisacodyl (Dulcolax Supp) 10 mg RECTAL DAILY PRN PRN Reason: SEVERE CONSITIPATION Clopidogrel Bisulfate (Plavix) 75 mg PO DAILY [facility] Last Admin: 04/29/18 08:40 Dose: 75 mg Famotidine (Pepcid) 20 mg PO BID [facility] Last Admin: 04/29/18 20:35 Dose: Not Given Fluticasone/Vilanterol (Breo Ellipta 200/25 Mcg Inh) 1 puff INH DAILY [facility] Last Admin: 04/29/18 10:31 Dose: 1 puff Heparin Sodium (Porcine) (Heparin Inj) 5,000 units SQ Q12H [facility] Last Admin: 04/30/18 05:26 Dose: 5,000 units Hydralazine HCl (Apresoline Inj) 10 mg IV.PUSH Q1H PRN PRN Reason: SBP>160, DBP>90 Last Admin: 04/30/18 03:05 Dose: 10 mg Sodium Chloride (Ns Inj) 1,000 mls @ 70 mls/hr IV.CONT .[id number] [facility] Last Admin: 04/30/18 03:48 Dose: 70 mls/hr Piperacillin/Tazobactam/Dextrose (Zosyn 4.5 Gm Premix) 4.5 gm in 100 mls @ 12.5 mls/hr IV.SIG Q8H [facility] Last Infusion: 04/30/18 03:45 Dose: Infused Vancomycin HCl 1,000 mg/ (Sodium Chloride) 250 mls @ 250 mls/hr IV.SIG Q18H [facility] Labetalol HCl (Trandate Inj) 10 mg IV.PUSH Q1H PRN PRN Reason: SBP > 160 DBP > 90 HR > 65 Last Admin: 04/22/18 13:31 Dose: 10 mg Lactulose (Lactulose Liq) 30 ml PO DAILY PRN PRN Reason: SEVERE CONSITIPATION Last Admin: 04/24/18 18:11 Dose: 30 ml Miscellaneous Information ([facility] Ordered Lab Info) 0 each OTHER ONCE ONE Stop: 05/01/18 23:46 Nitroglycerin (Nitro-Bid 2% Oint) 2 inch TOPICAL Q6HR PRN PRN Reason: Sbp>165, Dbp>90 Ondansetron HCl (Zofran Inj) 4 mg IV.PUSH Q6H PRN PRN Reason: NAUSEA OR VOMITING Oxybutynin Chloride (Ditropan) 5 mg PO BID [facility] Last Admin: 04/29/18 20:34 Dose: Not Given Pharmacy Profile Note (Vancomycin Consult Pharmacy) 1 each OTHER UNSCH PRN PRN Reason: Pharmacy to dose Senna/Docusate Sodium (Airam-Colace) 1 tab PO BID [facility] Last Admin: 04/29/18 20:35 Dose: Not Given Sennosides (Senokot) 17.2 mg PO Q12H PRN PRN Reason: Moderate Constipation Sodium Chloride (Ns Flush) 2 ml IV.FLUSH BID [facility] Last Admin: 04/29/18 20:35 Dose: 2 ml Sodium Chloride (Ns Flush) 2 ml IV.FLUSH PRN PRN PRN Reason: FLUSH AFTER USING IV ACCESS Allergies Allergy/AdvReac Type Severity Reaction Status Date / Time ciprofloxacin Allergy Rash Verified 04/16/18 07:47 levofloxacin Allergy Rash Verified 04/16/18 07:47 Sulfa (Sulfonamide Allergy Rash Verified 04/16/18 06:55 Antibiotics) tramadol AdvReac Hallucinati Verified 04/16/18 07:47 ons Home Medications Medication Instructions Recorded Confirmed Type albuterol sulfate [ProAir HFA] 1 puff INHALATION Q6H PRN 04/16/18 04/23/18 History atorvastatin 40 mg PO DAILY 04/16/18 04/23/18 History clopidogrel 300 mg PO DAILY 04/16/18 04/23/18 History fluticasone-vilanterol [Breo 1 inh INHALATION DAILY PRN 04/16/18 04/23/18 History Ellipta] oxybutynin chloride 5 mg PO TID 04/16/18 04/23/18 History Exam Vital signs: Vital Signs 04/29/18 17:00 04/29/18 18:00 04/29/18 19:00 Temperature 99.5 F Pulse Rate 90 107 H 97 H Respiratory Rate 18 Blood Pressure 162/76 H Pulse Oximetry 98 04/29/18 20:00 04/29/18 21:00 04/29/18 21:54 Temperature Pulse Rate 90 85 86 Respiratory Rate 18 Blood Pressure Pulse Oximetry 95 04/29/18 23:00 04/30/18 00:00 04/30/18 01:00 Temperature 99.2 F Pulse Rate 86 91 H 80 Respiratory Rate 18 18 Blood Pressure 158/66 H Pulse Oximetry 98 04/30/18 02:00 04/30/18 03:00 04/30/18 03:11 Temperature 99.5 F 99 F Pulse Rate 92 H 88 88 Respiratory Rate 18 18 Blood Pressure 161/65 H 148/63 H Pulse Oximetry 98 98 04/30/18 03:21 04/30/18 04:00 04/30/18 05:00 Temperature Pulse Rate 76 91 H Respiratory Rate 18 Blood Pressure Pulse Oximetry 04/30/18 05:41 04/30/18 07:00 04/30/18 08:00 Temperature 99 F Pulse Rate 85 76 76 Respiratory Rate 16 16 Blood Pressure 150/88 H Pulse Oximetry 96 96 04/30/18 09:00 04/30/18 10:00 04/30/18 10:46 Temperature Pulse Rate 81 77 Respiratory Rate Blood Pressure Pulse Oximetry 97 04/30/18 11:00 04/30/18 12:00 04/30/18 13:00 Temperature Pulse Rate 82 88 78 Respiratory Rate Blood Pressure Pulse Oximetry Intake & Output 04/29/18 04/30/18 04/30/18 18:59 06:59 18:59 Intake Total 30 / 30 1492.5 / 1492.5 Output Total 400 / 400 100 / 100 Balance -370 / -370 1392.5 / 1392.5 Intake: IV 1462.5 / 1462.5 NS Inj 1,000 ML @ 70 mls/hr IV. 1000 / 1000 CONT .[id number] [facility] Rx#:[id number] Zosyn 4.5 GM Premix 4.5 gm In 200 / 200 100 ml @ 12.5 mls/hr IV.SIG Q8H [facility] Rx#:[id number] Vancomycin Inj 1,250 MG In NS 262.5 / 262.5 Inj 250 ML @ 250 mls/hr IV.SIG ONCE ONE Rx#:[id number] Oral 30 / 30 30 / 30 Output: Urine Amount (Catheter) 400 / 400 100 / 100 Female External 400 / 400 100 / 100 Other: Date of Last Bowel Movement 04/25/18 04/29/18 - Constitutional no acute distress, average body habitus, chronically ill appearing - Routine HEENT Exam Head: Present: normocephalic, atraumatic Eye: Present: EOMI, PERRL ENT: Present: mucous membranes dry. Absent: dentition normal (poor) - Routine Neck Exam Present: supple. Absent: JVD, lymphadenopathy - Routine Chest/Breast/Axilla Exam Axillae: Absent: lymphadenopathy - Routine Respiratory Exam Present: decreased breath sounds, CTA bilaterally, distant breath sounds. Absent: accessory muscle use - Routine Cardiovascular Exam Present: RRR, S1, S2. Absent: murmur, gallop, rubs - Routine Abdominal Exam Present: soft, normoactive bowel sounds. Absent: tenderness, distended, organomegaly, mass - Routine Extremities Exam Present: cyanosis, amputation (L foot). Absent: clubbing, edema Comments: gangrene L toes, dry L LE incision dry, clean well approximated with some eccymotic changes - Routine Skin Exam Present: dry. Absent: jaundice, rash - Routine Neurological Exam obtunded, opens eyes to loud voice, not making eye contact not follows commnads - Routine Psychiatric Exam Present: unable to assess Results - Labs CBC & Chem 7: 04/30/18 02:53 04/30/18 02:53 Labs: Laboratory Results - last 24 hr 04/29/18 04/29/18 04/30/18 18:30 23:59 02:53 WBC 12.7 H RBC 3.21 L Hgb 8.8 L Hct 26.9 L MCV 83.6 MCH 27.3 MCHC 32.6 RDW 16.0 Plt Count 557 H MPV 6.5 L Neut % (Auto) 73.7 H Lymph % (Auto) 10.8 [place] % (Auto) 10.5 H Eos % (Auto) 4.4 H Baso % (Auto) 0.6 Neut # (Auto) 9.4 H Lymph # (Auto) 1.4 [place] # (Auto) 1.3 H Eos # (Auto) 0.6 H Baso # (Auto) 0.1 WBC Differential . Differential Comment Auto diff final ESR Sodium Potassium Chloride Carbon Dioxide Anion Gap BUN Creatinine Estimated GFR Random Glucose Lactic Acid 1.0 Calcium C-Reactive Protein Urine Color Yellow Urine Clarity Hazy H Urine pH 6.0 Ur Specific [place] 1.012 Urine Protein Negative Urine Glucose (UA) Negative Urine Ketones Negative Urine Occult Blood Moderate H Urine Nitrate Positive H Urine Bilirubin Negative Urine Urobilinogen Less than 2 Ur Leukocyte Esterase Small H Urine RBC 11 H Urine WBC 8 H Ur Squamous Epith Cells 6 Urine Bacteria Moderate H Urine Yeast Moderate H Micro UA Comment Culture indicated Ur Microscopic Review Not Reportable Urine Culture Comments Culture indicated 04/30/18 04/30/18 04/30/18 02:53 02:53 02:53 WBC RBC Hgb Hct MCV MCH MCHC RDW Plt Count MPV Neut % (Auto) Lymph % (Auto) [place] % (Auto) Eos % (Auto) Baso % (Auto) Neut # (Auto) Lymph # (Auto) [place] # (Auto) Eos # (Auto) Baso # (Auto) WBC Differential Differential Comment ESR 99 H Sodium 138 Potassium 4.1 Chloride 102 Carbon Dioxide 27.5 Anion Gap 9 BUN 15 Creatinine 0.83 Estimated GFR 67 L Random Glucose 100 Lactic Acid Calcium 8.4 L C-Reactive Protein 5.70 H Urine Color Urine Clarity Urine pH Ur Specific [place] Urine Protein Urine Glucose (UA) Urine Ketones Urine Occult Blood Urine Nitrate Urine Bilirubin Urine Urobilinogen Ur Leukocyte Esterase Urine RBC Urine WBC Ur Squamous Epith Cells Urine Bacteria Urine Yeast Micro UA Comment Ur Microscopic Review Urine Culture Comments Assessment and Plan - Plan PAD sp periferal bypass Multiple med problems Fever, leukocytosis, MS change On empiric abx lida cont current abx for now fu blood clx further rec's to follow erica ernandez @ b/s
[2018-04-30] MEDS: Famotidine 20 MG Tablet PO SCH ×2 (17:16→22:10)
[2018-04-30] MEDS: Senna/Docusate Sodium 8.6/50 MG Tablet PO SCH ×2 (17:17→22:09)
[2018-04-30] MEDS: Vancomycin Inj 1,000 MG in Sodium Chlor 0.9% Inj 250 ML IV.SIG SCH (17:18)
--- NOTE | 2018-04-30 18:09 | P.PNIM ---
Subjective Interval history: The patient is more awake and alert, speech is clear, feels weak. She is on and off with mentation. With generalized weakness.Follows some commands. Patient is chronically ill with physical deconditioned with delirium on off due to comorbidities and s/p surgery. The patient failed swallow eval. Patient and at bedside approved for starting tube feedings and placement of dubhoff Physical Exam Vital signs: Vital Signs 04/29/18 19:00 04/29/18 20:00 04/29/18 21:00 Temperature 99.5 F Pulse Rate 97 H 90 85 Respiratory Rate 18 18 Blood Pressure 162/76 H Pulse Oximetry 98 95 04/29/18 21:54 04/29/18 23:00 04/30/18 00:00 Temperature 99.2 F Pulse Rate 86 86 91 H Respiratory Rate 18 18 Blood Pressure 158/66 H Pulse Oximetry 98 04/30/18 01:00 04/30/18 02:00 04/30/18 03:00 Temperature 99.5 F Pulse Rate 80 92 H 88 Respiratory Rate 18 Blood Pressure 161/65 H Pulse Oximetry 98 04/30/18 03:11 04/30/18 03:21 04/30/18 04:00 Temperature 99 F Pulse Rate 88 76 Respiratory Rate 18 18 Blood Pressure 148/63 H Pulse Oximetry 98 04/30/18 05:00 04/30/18 05:41 04/30/18 07:00 Temperature 99 F Pulse Rate 91 H 85 76 Respiratory Rate 16 Blood Pressure 150/88 H Pulse Oximetry 96 04/30/18 08:00 04/30/18 09:00 04/30/18 10:00 Temperature Pulse Rate 76 81 77 Respiratory Rate 16 Blood Pressure Pulse Oximetry 96 04/30/18 10:46 04/30/18 11:00 04/30/18 12:00 Temperature Pulse Rate 82 88 Respiratory Rate Blood Pressure Pulse Oximetry 97 04/30/18 13:00 Temperature Pulse Rate 78 Respiratory Rate Blood Pressure Pulse Oximetry Intake & Output 04/29/18 04/30/18 04/30/18 18:59 06:59 18:59 Intake Total 30 / 30 1492.5 / 1492.5 Output Total 400 / 400 100 / 100 Balance -370 / -370 1392.5 / 1392.5 Intake: IV 1462.5 / 1462.5 NS Inj 1,000 ML @ 70 mls/hr IV. 1000 / 1000 CONT .[id number] [facility] Rx#:[id number] Zosyn 4.5 GM Premix 4.5 gm In 200 / 200 100 ml @ 12.5 mls/hr IV.SIG Q8H [facility] Rx#:[id number] Vancomycin Inj 1,250 MG In NS 262.5 / 262.5 Inj 250 ML @ 250 mls/hr IV.SIG ONCE ONE Rx#:[id number] Oral 30 / 30 30 / 30 Output: Urine Amount (Catheter) 400 / 400 100 / 100 Female External 400 / 400 100 / 100 Other: Date of Last Bowel Movement 04/25/18 04/29/18 Narrative: GENERAL: Elderly female, in bed, well-nourished well-developed, more awake and alert, however the patient is on/off lethargic , on./off with delirium. Patient appears chronically ill. NECK: no carotid bruit. HEAD: AT/NC HEENT: Moving eyes , however doesn't follow commands. CARDIOVASCULAR: Tachycardic. Regular rate and rhythm without murmurs, gallops, or rubs. RESPIRATORY: Breath sounds equal bilaterally. No accessory muscle use. GASTROINTESTINAL: Abdomen soft, obese, non-tender, nondistended. MUSCULOSKELETAL: No cyanosis, or edema. Surgical wound healing well left lower ext, gangrenous toes noted on left side. Amputated toes left foot. NEURO: More awake and alert, however mentation on/off, following some commands. Moving extremities. SKIN: Warm and dry. Surgical wound, nia in place left lower extremity, gangrene toes left leg. PSYCH: Flat affect. Confused. Delirium on/off. Urinary Catheter Management Indwelling Urethral Catheter: Cath placed during this visit: yes, but has since been removed by the nurse Reason for continuing: Not indwelling catheter Insertion date: 04/21/18 Insertion time: 12:20 Removal date: 04/22/18 Removal time: 06:00 Female External: Cath placed during this visit: no Results Labs CBC & Chem 7: 04/30/18 02:53 04/30/18 02:53 Labs: Microbiology 04/29/18 18:30 Clean Catch Urine Urine Culture - Preliminary Immature growth - reincubate 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: Code(s): I96 - Gangrene, not elsewhere classified; I70.202 - Unspecified atherosclerosis of [place] arteries of extremities, left leg Status: Acute (2) Urinary incontinence: Code(s): R32 - Unspecified urinary incontinence Status: Chronic (3) COPD (chronic obstructive pulmonary disease): Code(s): J44.9 - Chronic obstructive pulmonary disease, unspecified Status: Chronic (4) Peripheral vascular disease: Code(s): I73.9 - Peripheral vascular disease, unspecified Status: Suspected (5) Unstable gait: Code(s): R26.81 - Unsteadiness on feet Status: Chronic (6) Obesity: Code(s): E66.9 - Obesity, unspecified Status: Chronic (7) Hyperlipidemia: Code(s): E78.5 - Hyperlipidemia, unspecified Status: Chronic (8) Essential hypertension: Code(s): I10 - Essential (primary) hypertension Status: Chronic (9) Chronic pain: Code(s): G89.29 - Other chronic pain Status: Chronic (10) Carotid artery stenosis: Code(s): I65.29 - Occlusion and stenosis of unspecified carotid artery Status: Chronic (11) Superficial femoral artery occlusion: Code(s): I70.209 - Unspecified atherosclerosis of [place] arteries of extremities, unspecified extremity Status: Acute (12) PAD (peripheral artery disease): Code(s): I73.9 - Peripheral vascular disease, unspecified Status: Chronic Plan Ms. King is a 77 year old female with a history of peripheral vascular arterial disease, history of left great toe and second toe amputation who was admitted to [place] on 04/19/2018 as a direct transfer from [facility] due to further vascular surgery intervention. Patient has additional history of COPD, HTN, HLD, CAD. Patient was evaluated by Vascular surgery on with an angiogram. The plan was to perform left groin reconstruction with a femoral below the knee popliteal surgery. Patient was admitted to [facility] due to suspected CVA. However, work up did not reveal any evidence of CVA. She was transferred to [place] and patient underwent surgical interventions on 04/21/2018. With acute encephalopathy Stroke alert 04/[address] head, CTA head and neck , consult neuro, allow permissive HTN. Neurocheck, OT.PT /ST Also Work up in progress for sepsis Started vanco and zosyn IV consult ID, ff continue abx CXR poss PNA , UA rev LA per sepsis protocol Failed swallow eval . place dubhoff and start feedings per diatician recs. Patient / agrees to plan / Note patient might need restraints as might pull off dubhoff, discussed with pt and IS Tucker Left lower extremity critical limb ischemia -Left profunda endarterectomy and left femoral to below-knee popliteal bypass () -Continue aspirin, Plavix, Lipitor. -Patient was on Aztreonam, clindamycin and Vancomycin. Blood cx negative. No leukocytosis, No fever. -Appreciate ID input. ID recommended discontinuation of all abx. -consult PT, OT ==> recommends rehab. I discussed with patient's who prefers an SNF in [place]. Case management is aware of this preference, ptient insurance [employer] denies for SNF however , CM is working on DC plan. Also poss transfer to [facility] per /pt request = Discharge to SNF. Left foot gangrenous toes -Podiatry consulted - probably no surgical intervention. MRI shows no osteomyelitis. Discussed with vascular surgery as well as patient's . Per patient's 's request, he would like to take her to SNF and continue to observe her closely. If it becomes necessary to do toe amputation, he will work with Dr. Hansen. Dr. Hansen is okay with this plan as well. = Discharge to SNF when improves or to [facility] . Follow-up with Dr. Hansen as outpatient. Acute delirium Patient is having visual hallucinations. This is likely due to acute illness as well as a component of ICU/ CIC delirium. I believe patient would be better off in a different environment, ideally home environment. wants to transfer patient in the Hospital in [place] close to home so friends can also visit her and patient have familiar faces Discharge to SNF. COPD -Continue breathing treatments PRN. -Supplemental O2 as needed. Full code. Heparin SQ. Discharge plan: CM is ff, working on SNF placement in [place]. Pending [employer] approval Patient however with acute mental status change stroke alert called Also sepsis work up , started on iv abx and ID also consulted, continue abx Hold DC at this time, plan to transfer to [facility] per family request / patient wants patient to go back to in [facility] and says he is talking with the physicians in [place]. Discussed with Case management , following Progress Note: Quality VTE Deep Vein Thrombosis/Pulmonary Embolism Present on Admission: No _ (1) Carotid artery stenosis Qualifiers: Laterality: (2) Urinary incontinence Qualifiers: Urinary Incontinence type: unspecified incontinence Qualified Code(s): R32 - Unspecified urinary incontinence (3) Chronic pain Qualifiers: Chronic pain type: other chronic pain Qualified Code(s): G89.29 - Other chronic pain (4) Hyperlipidemia Qualifiers: Hyperlipidemia type: unspecified Qualified Code(s): E78.5 - Hyperlipidemia, unspecified (5) COPD (chronic obstructive pulmonary disease) Qualifiers: COPD type: unspecified COPD Chronic bronchitis type: Emphysema type: Qualified Code(s): J44.9 - Chronic obstructive pulmonary disease, unspecified (6) Obesity Qualifiers: Body mass index: Obesity classification: unspecified obesity classification Obesity type: unspecified obesity type Serious obesity comorbidity presence: unspecified whether serious comorbidity present Qualified Code(s): E66.9 - Obesity, unspecified
[2018-04-30] MEDS: Beneprotein Powder Packet G-TUBE SCH (22:10)
[2018-05-01] MEDS: Piperacil/Tazo 4.5 GM Premix 4.5 GM/100 ML BAG IV.SIG SCH ×3 (04:21→20:16)
[2018-05-01] MEDS: Vancomycin Inj 1,000 MG in Sodium Chlor 0.9% Inj 250 ML IV.SIG SCH (06:19)
[2018-05-01] MEDS: Heparin - SQ 10,000 UNITS/ML Vial SQ SCH ×2 (06:19→17:28)
[2018-05-01 09:31] LABS: Baso # (Auto) 0.1 th/mm3 (0.0-0.2); Baso % (Auto) 0.5 % (0.0-2.0); Eos # (Auto) 0.3 th/mm3 (0.0-0.4); Eos % (Auto) 2.9 % (0.0-4.0); Hematocrit 25.5 % (35.0-46.0); Hemoglobin 8.5 gm/dL (11.6-15.3); Lymph % (Auto) 9.5 % (9.0-44.0); Mean Corpuscular HGB Conc 33.2 % (32.0-36.0); Mean Corpuscular Hemoglobin 27.8 pg (27.0-34.0); Mean Corpuscular Volume 83.8 fL (80.0-100.0); Mean Platelet Volume 6.5 fL (7.0-11.0); Mono # (Auto) 0.9 th/mm3 (0.0-0.9); Mono % (Auto) 8.1 % (0.0-8.0); Neut # (Auto) 8.5 th/mm3 (1.8-7.7); Platelet Count 483 th/mm3 (150-450); Red Blood Count 3.04 mil/mm3 (4.00-5.30); Red Cell Distribution Width 16.3 % (11.6-17.2); White Blood Count 10.8 th/mm3 (4.0-11.0)
[2018-05-01 09:59] LABS: Calcium 8.2 mg/dL (8.5-10.1); Carbon Dioxide 22.6 meq/L (21.0-32.0); Potassium 3.8 meq/L (3.5-5.1)
[2018-05-01] MEDS: Beneprotein Powder Packet G-TUBE SCH ×3 (10:24→17:29)
[2018-05-01] MEDS: Senna/Docusate Sodium 8.6/50 MG Tablet PO SCH ×2 (10:26→20:19)
[2018-05-01] MEDS: Aspirin 325 MG Tablet PO SCH (10:26)
[2018-05-01] MEDS: Famotidine 20 MG Tablet PO SCH ×2 (10:27→20:19)
--- NOTE | 2018-05-01 11:16 | P.PNPAL ---
Palliative care continues to follow along with Mrs. King for ongoing emotional and social support. Palliative care met with patient's , Dr. Martinez present for portion of meeting. Mr. King is very focused on getting Mrs. King transferred out of [facility]. His primary request is for patient to discharge to [facility]. Case management actively working on [employer] verification, although in review of notes [employer] has denied request a few times. 's second preference is for Mrs. King to be transferred back to [facility]. Mr. King reports patient's PCP, Dr. Sinclair, has privileges at hospital and would be willing to accept transfer. Spoke with PCPs office @ [phone] Jack's # with her permission for peer to peer review for possible transfer. Also requested palliative care be contacted after for decision to be able to communicate this to . Telephone call to patient's to provide updated information above. He again states he wants patient to be discharged to rehab if possible instead of transfer. Inquired about what would hold up discharge to rehab. Gently educated him on Mrs. King needing to participate in therapy and intake of nutrition. Reviewed with him most recent PT,OT, speech notes indicating patient needs therapy at rehab. This information will be again provided to sridhar to submit for insurance authorization for discharge to rehab. Patient's thankful for update. Palliative care will continue to follow throughout hospitalization.
--- NOTE | 2018-05-01 11:36 | P.PNPAL ---
Reason for Visit Reason for visit: a. To assist with evaluation and management of symptoms including: pain, debility, confusion b. To assist medical decision maker(s) with: better understanding of current medical conditions; weighing benefits/burdens of medical treatment options; making medical treatment decisions. Subjective Subjective/Interval History: Mrs. 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 Patient underwent fem-pop bypass with Dr. Hansen on 04/21. Clinical course complicated by progressive debility, altered mental status and lethargy. Stroke workup negative on 04/29. Patient remains at a very high risk for further complications, continued decline and . Palliative care follow-up for further clarifications of goals of care, family support. Patient seen in her room. She was resting in bed in no acute distress. OT therapist and RN at bedside, patient was being cleaned secondary to vomiting. Patient awake and alert to self, appears confused as to place and situation. Denies pain, shortness of breath or abdominal discomfort. Endorsing nausea but unable to elaborate further. Multiple attempts at Dobbhoff placement overnight. Patient has been seen by speech therapy, currently on pured diet and honey consistency thickened liquids. Urine culture 04/29 positive for gram- negative rods, currently on vancomycin IV. Laboratory workup today revealing WBC 10.8, Hgb 8.5. Patient afebrile, stable hemodynamically. Tolerating room air with oxygen saturation in the mid 90s. Dual visit with palliative care licensed clinical social worker Daphnie Manzo. Met with patient's Wesley, psychiatrist Dr. Martinez present during part of meeting. verbalizing frustration with patient's clinical condition. Reviewed that patient has been found to lack medical decision-making capacity in the setting of delirium. Reviewed that current delirium is likely secondary to recent surgical intervention, multiple chronic ongoing comorbidities, UTI, multiple medications and prolonged hospitalizations. referring patient' s clinical decline to dose of opioid given on Saturday. Reviewed with that clinical condition is likely secondary to multiple factors. requesting for patient to be transferred to [facility] rehab or to [facility] as soon as possible. Case was discussed in great detail with watch case polisher, charge nurse, Dr. Rios, Dr. Martinez. Please see licensed clinical social worker progress note. Advance Directives Living Will: Never completed Health Care Surrogate: Never completed Durable Power of Donor Center Technician: Never completed Objective Vital Signs: Vital Signs 04/30/18 12:00 04/30/18 12:15 04/30/18 13:00 Temperature 99.7 F H Pulse Rate 88 82 78 Respiratory Rate 18 Blood Pressure 155/71 H Pulse Oximetry 95 04/30/18 16:20 04/30/18 19:00 04/30/18 20:00 Temperature 99.2 F Pulse Rate 83 86 71 Respiratory Rate 18 20 20 Blood Pressure 154/68 H Pulse Oximetry 98 99 04/30/18 21:00 04/30/18 21:40 04/30/18 22:00 Temperature Pulse Rate 70 74 Respiratory Rate Blood Pressure Pulse Oximetry 97 04/30/18 23:00 05/01/18 00:00 05/01/18 01:00 Temperature Pulse Rate 70 83 70 Respiratory Rate 18 Blood Pressure Pulse Oximetry 92 L 05/01/18 02:00 05/01/18 03:00 05/01/18 04:00 Temperature Pulse Rate 70 70 77 Respiratory Rate 18 Blood Pressure 144/63 H Pulse Oximetry 100 05/01/18 05:00 05/01/18 06:00 05/01/18 09:47 Temperature Pulse Rate 74 74 Respiratory Rate Blood Pressure Pulse Oximetry 96 Intake & Output 04/30/18 05/01/18 05/01/18 18:59 06:59 18:59 Intake Total 1000 / 1000 100 / 100 350 / 350 Output Total 325 / 325 Balance 1000 / 1000 -225 / -225 350 / 350 Intake: IV 1000 / 1000 100 / 100 350 / 350 NS Inj 1,000 ML @ 70 mls/hr IV. 1000 / 1000 CONT .[id number] [place] Rx#:[id number] Zosyn 4.5 GM Premix 4.5 gm In 100 / 100 100 / 100 100 ml @ 12.5 mls/hr IV.SIG Q8H [place] Rx#:[id number] Vancomycin Inj 1,000 MG In NS 250 / 250 Inj 250 ML @ 250 mls/hr IV.SIG Q18H [place] Rx#:[id number] Output: Urine 325 / 325 Other: Date of Last Bowel Movement 04/29/18 04/29/18 Physical Exam: CONSTITUTIONAL/GENERAL: Ill-looking, elderly woman resting in bed in no acute distress. TUBES/LINES/DRAINS: PIV. SKIN: No jaundice, rashes, or lesions. +Ecchymoses on upper extremities. Surgical incision to left anterior leg, large areas of ecchymosis to left leg. Necrotic toes to left. HEAD: Atraumatic. Normocephalic. EYES: +anisocoria right pupil < left pupil, right side gaze preference. Extraocular motions intact. No scleral icterus. Fundi not examined. ENT: Hearing grossly normal. Nose without bleeding or purulent drainage. NECK: Trachea midline. Supple, nontender. CARDIOVASCULAR: RRR without murmurs, gallops, or rubs. No JVD. Peripheral pulses symmetric. RESPIRATORY/CHEST: Symmetric, unlabored respirations. +wet sounding cough. Breath sounds diminished, some rhonchi. GASTROINTESTINAL: Abdomen soft, non-tender, nondistended. No guarding. Bowel sounds present. GENITOURINARY: Without palpable bladder distension. MUSCULOSKELETAL: Extremities without clubbing, cyanosis, or edema. absent left great toe & 2nd toe, 3rd & 4th toe necrotic. NEUROLOGICAL: Alert to self, confused as to place and situation. Following some simple commands. PSYCHIATRIC: Calm Diagnostic Tests Laboratory: Laboratory Results - last 72 hr 04/29/18 04/29/18 04/29/18 14:09 14:42 14:42 WBC 16.5 H RBC 3.64 L Hgb 9.9 L POC Hgb (Calc) Hct 30.6 L POC Hct MCV 84.1 MCH 27.2 MCHC 32.4 RDW 16.2 Plt Count 621 H MPV 6.6 L Neut % (Auto) 77.9 H Lymph % (Auto) 10.3 [place] % (Auto) 9.9 H Eos % (Auto) 1.1 Baso % (Auto) 0.8 Neut # (Auto) 12.8 H Lymph # (Auto) 1.7 [place] # (Auto) 1.6 H Eos # (Auto) 0.2 Baso # (Auto) 0.1 WBC Differential . Differential Comment Auto diff final ESR PT 10.7 INR 1.1 APTT 25.8 Fibrinogen 675 H POC Sodium Sodium POC Potassium Potassium POC Chloride Chloride Carbon Dioxide Anion Gap POC BUN BUN Creatinine POC Creatinine Estimated GFR POC Glucose 133 H Random Glucose Lactic Acid Calcium Ammonia Total Creatine Kinase Troponin I C-Reactive Protein Urine Color Urine Clarity Urine pH Ur Specific [place] Urine Protein Urine Glucose (UA) Urine Ketones Urine Occult Blood Urine Nitrate Urine Bilirubin Urine Urobilinogen Ur Leukocyte Esterase Urine RBC Urine WBC Ur Squamous Epith Cells Urine Bacteria Urine Yeast Micro UA Comment Ur Microscopic Review Urine Culture Comments Blood Type Antibody Screen 04/29/18 04/29/18 04/29/18 14:42 14:42 18:30 WBC RBC Hgb POC Hgb (Calc) 10.5 L Hct POC Hct 31.0 L MCV MCH MCHC RDW Plt Count MPV Neut % (Auto) Lymph % (Auto) [place] % (Auto) Eos % (Auto) Baso % (Auto) Neut # (Auto) Lymph # (Auto) [place] # (Auto) Eos # (Auto) Baso # (Auto) WBC Differential Differential Comment ESR PT INR APTT Fibrinogen POC Sodium 136 L Sodium 136 POC Potassium 4.1 Potassium 4.1 POC Chloride 99 L Chloride 100 Carbon Dioxide 26.8 Anion Gap 9 POC BUN 12 BUN 14 Creatinine 0.82 POC Creatinine 0.8 Estimated GFR 68 L POC Glucose 114 H Random Glucose 112 H Lactic Acid Calcium 8.7 Ammonia Total Creatine Kinase 137 Troponin I Less than 0.02 L C-Reactive Protein Urine Color Yellow Urine Clarity Hazy H Urine pH 6.0 Ur Specific [place] 1.012 Urine Protein Negative Urine Glucose (UA) Negative Urine Ketones Negative Urine Occult Blood Moderate H Urine Nitrate Positive H Urine Bilirubin Negative Urine Urobilinogen Less than 2 Ur Leukocyte Esterase Small H Urine RBC 11 H Urine WBC 8 H Ur Squamous Epith Cells 6 Urine Bacteria Moderate H Urine Yeast Moderate H Micro UA Comment Culture indicated Ur Microscopic Review Not Reportable Urine Culture Comments Culture indicated Blood Type A Positive Antibody Screen Negative 04/29/18 04/30/18 04/30/18 23:59 02:53 02:53 WBC 12.7 H RBC 3.21 L Hgb 8.8 L POC Hgb (Calc) Hct 26.9 L POC Hct MCV 83.6 MCH 27.3 MCHC 32.6 RDW 16.0 Plt Count 557 H MPV 6.5 L Neut % (Auto) 73.7 H Lymph % (Auto) 10.8 [place] % (Auto) 10.5 H Eos % (Auto) 4.4 H Baso % (Auto) 0.6 Neut # (Auto) 9.4 H Lymph # (Auto) 1.4 [place] # (Auto) 1.3 H Eos # (Auto) 0.6 H Baso # (Auto) 0.1 WBC Differential . Differential Comment Auto diff final ESR PT INR APTT Fibrinogen POC Sodium Sodium 138 POC Potassium Potassium 4.1 POC Chloride Chloride 102 Carbon Dioxide 27.5 Anion Gap 9 POC BUN BUN 15 Creatinine 0.83 POC Creatinine Estimated GFR 67 L POC Glucose Random Glucose 100 Lactic Acid 1.0 Calcium 8.4 L Ammonia Total Creatine Kinase Troponin I C-Reactive Protein Urine Color Urine Clarity Urine pH Ur Specific [place] Urine Protein Urine Glucose (UA) Urine Ketones Urine Occult Blood Urine Nitrate Urine Bilirubin Urine Urobilinogen Ur Leukocyte Esterase Urine RBC Urine WBC Ur Squamous Epith Cells Urine Bacteria Urine Yeast Micro UA Comment Ur Microscopic Review Urine Culture Comments Blood Type Antibody Screen 04/30/18 04/30/18 04/30/18 02:53 02:53 19:07 WBC RBC Hgb POC Hgb (Calc) Hct POC Hct MCV MCH MCHC RDW Plt Count MPV Neut % (Auto) Lymph % (Auto) [place] % (Auto) Eos % (Auto) Baso % (Auto) Neut # (Auto) Lymph # (Auto) [place] # (Auto) Eos # (Auto) Baso # (Auto) WBC Differential Differential Comment ESR 99 H PT INR APTT Fibrinogen POC Sodium Sodium POC Potassium Potassium POC Chloride Chloride Carbon Dioxide Anion Gap POC BUN BUN Creatinine POC Creatinine Estimated GFR POC Glucose Random Glucose Lactic Acid Calcium Ammonia 22 Total Creatine Kinase Troponin I C-Reactive Protein 5.70 H Urine Color Urine Clarity Urine pH Ur Specific [place] Urine Protein Urine Glucose (UA) Urine Ketones Urine Occult Blood Urine Nitrate Urine Bilirubin Urine Urobilinogen Ur Leukocyte Esterase Urine RBC Urine WBC Ur Squamous Epith Cells Urine Bacteria Urine Yeast Micro UA Comment Ur Microscopic Review Urine Culture Comments Blood Type Antibody Screen 05/01/18 05/01/18 09:07 09:07 WBC 10.8 RBC 3.04 L Hgb 8.5 L POC Hgb (Calc) Hct 25.5 L POC Hct MCV 83.8 MCH 27.8 MCHC 33.2 RDW 16.3 Plt Count 483 H MPV 6.5 L Neut % (Auto) 79.0 H Lymph % (Auto) 9.5 [place] % (Auto) 8.1 H Eos % (Auto) 2.9 Baso % (Auto) 0.5 Neut # (Auto) 8.5 H Lymph # (Auto) 1.0 [place] # (Auto) 0.9 Eos # (Auto) 0.3 Baso # (Auto) 0.1 WBC Differential . Differential Comment Auto diff final ESR PT INR APTT Fibrinogen POC Sodium Sodium 141 POC Potassium Potassium 3.8 POC Chloride Chloride 108 H Carbon Dioxide 22.6 Anion Gap 10 POC BUN BUN 15 Creatinine 0.72 POC Creatinine Estimated GFR 79 L POC Glucose Random Glucose 81 Lactic Acid Calcium 8.2 L Ammonia Total Creatine Kinase Troponin I C-Reactive Protein Urine Color Urine Clarity Urine pH Ur Specific [place] Urine Protein Urine Glucose (UA) Urine Ketones Urine Occult Blood Urine Nitrate Urine Bilirubin Urine Urobilinogen Ur Leukocyte Esterase Urine RBC Urine WBC Ur Squamous Epith Cells Urine Bacteria Urine Yeast Micro UA Comment Ur Microscopic Review Urine Culture Comments Blood Type Antibody Screen Result Diagrams: 05/01/18 09:07 05/01/18 09:07 Microbiology: Microbiology 04/30/18 02:53 Aerobic Blood Culture - Preliminary Blood - Peripheral No growth in 1 day Anaerobic Blood Culture - Preliminary No growth in 1 day 04/29/18 23:59 Aerobic Blood Culture - Preliminary Blood - Peripheral No growth in 1 day Anaerobic Blood Culture - Preliminary No growth in 1 day 04/29/18 18:30 Urine Culture - Preliminary Clean Catch Urine gram negative rods Procedures: 04/21 fem pop bypass Assessment and Plan - Disease Oriented Problem List (1) PAD (peripheral artery disease) (2) 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 She and her moved to [place] in 1978. They have no children. She used to work for a [employer] and then subsequently worked for an [employer] company. Spiritual: pastoral care avail Legal: Patient is not capacitated to make medical decisions and it is unclear if she will regain that capacity. In the absence of a designated healthcare surrogate, per [place] statute proxy medical decision making falls to her . Ethical issues impacting care:none Important Contacts: Wesley alvarez [phone], home [phone] Prognosis: Mrs. 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 Patient underwent fem-pop bypass with Dr. Hansen on 04/21. Clinical course complicated by progressive debility, altered mental status and lethargy. Stroke workup negative on 04/29. Patient remains at a very high risk for further complications, continued decline and . Code Status: Full Code Plan: - LEGAL DECISION MAKER - As per psychiatry, patient is not capacitated to make medical decisions given delirium. Unclear if she will regain that capacity. In the absence of a designated healthcare surrogate, per [place] statute proxy medical decision making falls to her Wesley King. - CODE STATUS- full code - GOALS - Goals aggressive. requesting patient transfer close to home in [place]. His primary request is for patient to discharge to [facility]. Case management actively working on [employer] verification, although in review of notes [employer] has denied rehab request a few times. 's second preference is for Mrs. King to be transferred back to [facility]. Case has been discussed in great detail with attending Dr. Jack and case management. - SYMPTOMS - == Pain - sites include left groin, left foot, back secondary to recent surgical intervention, gangrene, prolonged hospitalization. Opioids has been discontinued as per 's request. Last opioid dose 04/28. Tylenol available as needed. == Debility - multifactorial, 2/2 absent toes left foot. also with recent onset weakness and confusion. Negative stroke workup, currently being treated for acute infection/UTI. PT/OT following, PT at rehab recommended. == Confusion - multifactorial, as above. Neurology following. EEG 04/29 negative for seizure activity. Psychiatry consulted today, patient was found delirious. - d/w RN, Dr. Jack, Dr. Martinez and case management. - Palliative care will continue to follow during hospital course as condition evolves, to assist patient/decision-maker with understanding of medical conditions, weighing benefits/burdens of treatment options, for clarification of goals of treatment. Additionally will assist with any symptoms of palliative concern. Time Spent Total Floor Time (mins): 45 (Total time to include review of medical records, physical exam, goals of care conversation with , case discussion with attending, licensed clinical social worker, watch case polisher and charge nurse.) >50% Time in Counseling or Coordination of Care: Yes (Total visit time = 45 minutes; > 50% spent counseling/coordinating care) Attestation Attestation: To help prompt me to consider important information that might be impacting today's encounter and assessment, information from prior notes written by myself or my colleagues may have been "brought forward" into today's note. My signature on this note, however, is an attestation that I personally performed the exam, history, and/or decision-making noted today, and, unless otherwise indicated, the interactions with patient, family, and staff as well as the review of records all occurred today. I also attest that the listed assessment and stated plan reflect my best clinical judgment today based on the combination of historical information, prior notes, and today's exam/ interactions. When time spent is documented, it refers only to time spent today by the signer, or if indicated, combined time spent today by collaborating physician/nurse practitioner.
[2018-05-01] MEDS: Sod Chloride 0.9% Inj 1,000 ML IV.CONT SCH (12:57)
--- NOTE | 2018-05-01 14:00 | P.CONPSY ---
Provisional Diagnosis Admission Date: April 19, 2018 17:09 [place] I.: Delirium due to underlying medical conditions, psychological factors affecting on the left medical condition History of Present Illness Service: medicne Primary Care Provider: Drew Sinclair III, MD Chief Complaint: Left lower extremity gangrene History of Present Illness: The patient is a is a 77 year-old woman, domiciled with her , no previous psychiatric history, no previous psychiatric hospitalizations, no previous suicide attempts, with a medical history of peripheral vascular arterial disease, history of left great toe and second toe amputation who was admitted to [facility] on 04/19/2018 as a direct transfer from [facility] due to further vascular surgery intervention. Patient has additional history of COPD, HTN, HLD, CAD. Patient was evaluated by Vascular surgery on with an angiogram. The plan was to perform left groin reconstruction with a femoral below the knee popliteal surgery. Patient was admitted to [facility] due to suspected CVA. However, work up did not reveal any evidence of CVA. She was transferred to [facility] and patient underwent surgical interventions on 04/21/2018. The patient has been presenting metabolic encephalopathy with significant altered mental status, she has been consulted to psychiatry to address her decision-making capacity to refuse treatment and to participate in discharge planning. From a psychiatric evaluation today the patient is alert, she is awake, but minimally cooperative. Patient does not engage in a conversation, she is quite disorganized, responding all my questions through confabulatory statements. The patient is disoriented in time and place at the moment. Unable to tell me the reason for her hospitalization. Unable to tell me or to elaborate about discharge plan. She does deny suicidal and homicidal ideation, denies visual and auditory hallucinations. There is no agitation, no aggressiveness present. When I asked her who will be the person taking decisions for her if she cannot take decisions, she pointed at her who is present during the evaluation. I have communicated with palliative care team about goals of cares and also current mental status of the patient. They agree with me that the patient does not have decision-making capacity at this moment. PMFSH - History History Provided By: Patient - Medical History Medical History: Medical History (Last Reviewed 04/30/18 @ 16:46 by Tamara Schilling MD) Gangrene Hypercholesterolemia Obesity Peripheral arterial disease Unsteady gait Urinary incontinence COPD (chronic obstructive pulmonary disease) Carotid stenosis HTN (hypertension) PVD (peripheral vascular disease) - Surgical History Surgical History: Surgical History (Last Reviewed 05/01/18 @ 08:45 by Aspen Johnson) Amputated toe of left foot History of cholecystectomy History of total left knee replacement Status post arterial stent - Family History Family History: Family History (Last Reviewed 05/01/18 @ 08:45 by Aspen Johnson) Mother Family history of Alzheimer's disease Father Family history of [place] (myocardial infarction) Other Family history of hypertension - Tobacco History Second Hand Smoke Exposure: No Tobacco Use In Past 30 Days: No Smoking Status: Former smoker Tobacco Type: Cigarettes - Alcohol History How Often Do You Have a Drink Containing Alcohol: 2 to 3 times a week - Substance Use History Substance History: No History of Abuse - Travel History History of Recent Travel: No Recent Travel in the [place] Within the Last 8 Weeks: No Recent Travel Out of the Country Within the Last 8 Weeks: No - Immunization History Tetanus Immunization: <5 Years Tetanus Immunization Year if Known: 2017 Hx Influenza Vaccine This Season: Yes Medications and Allergies Active Medications: Active Medications Acetaminophen (Tylenol) 650 mg PO Q6H PRN PRN Reason: Fever >101f Last Admin: 04/28/18 19:22 Dose: 650 mg Al Hydroxide/Mg Hydroxide (Milk Of Jonathan Petersen) 30 ml PO Q12H PRN PRN Reason: Mild Constipation Albuterol (Albuterol Neb (Prn)) 2.5 mg NEB Q2HR NEB PRN PRN Reason: SHORTNESS OF BREATH/WHEEZING Last Admin: 04/28/18 23:58 Dose: 2.5 mg Aspirin (Aspirin) 325 mg PO DAILY [facility] Last Admin: 05/01/18 10:26 Dose: 325 mg Atorvastatin Calcium (Lipitor) 40 mg PO DAILY [facility] Last Admin: 05/01/18 10:26 Dose: 40 mg Bisacodyl (Dulcolax Supp) 10 mg RECTAL DAILY PRN PRN Reason: SEVERE CONSITIPATION Clopidogrel Bisulfate (Plavix) 75 mg PO DAILY [facility] Last Admin: 05/01/18 10:26 Dose: 75 mg Famotidine (Pepcid) 20 mg PO BID [facility] Last Admin: 05/01/18 10:27 Dose: 20 mg Fluticasone/Vilanterol (Breo Ellipta 200/25 Mcg Inh) 1 puff INH DAILY [facility] Last Admin: 05/01/18 10:28 Dose: Not Given Heparin Sodium (Porcine) (Heparin Inj) 5,000 units SQ Q12H [facility] Last Admin: 05/01/18 06:19 Dose: 5,000 units Hydralazine HCl (Apresoline Inj) 10 mg IV.PUSH Q1H PRN PRN Reason: SBP>160, DBP>90 Last Admin: 04/30/18 03:05 Dose: 10 mg Sodium Chloride (Ns Inj) 1,000 mls @ 70 mls/hr IV.CONT .[id number] [facility] Last Admin: 05/01/18 12:57 Dose: Not Given Piperacillin/Tazobactam/Dextrose (Zosyn 4.5 Gm Premix) 4.5 gm in 100 mls @ 12.5 mls/hr IV.SIG Q8H [facility] Last Admin: 05/01/18 13:05 Dose: 12.5 mls/hr Vancomycin HCl 1,000 mg/ (Sodium Chloride) 250 mls @ 250 mls/hr IV.SIG Q18H [facility] Last Infusion: 05/01/18 10:25 Dose: Infused Labetalol HCl (Trandate Inj) 10 mg IV.PUSH Q1H PRN PRN Reason: SBP > 160 DBP > 90 HR > 65 Last Admin: 04/22/18 13:31 Dose: 10 mg Lactulose (Lactulose Liq) 30 ml PO DAILY PRN PRN Reason: SEVERE CONSITIPATION Last Admin: 04/24/18 18:11 Dose: 30 ml Miscellaneous Information ([facility] Ordered Lab Info) 0 each OTHER ONCE ONE Stop: 05/03/18 11:46 Nitroglycerin (Nitro-Bid 2% Oint) 2 inch TOPICAL Q6HR PRN PRN Reason: Sbp>165, Dbp>90 Ondansetron HCl (Zofran Inj) 4 mg IV.PUSH Q6H PRN PRN Reason: NAUSEA OR VOMITING Oxybutynin Chloride (Ditropan) 5 mg PO BID [facility] Last Admin: 05/01/18 10:27 Dose: 5 mg Pharmacy Profile Note (Vancomycin Consult Pharmacy) 1 each OTHER UNSCH PRN PRN Reason: Pharmacy to dose Senna/Docusate Sodium (Airam-Colace) 1 tab PO BID [facility] Last Admin: 05/01/18 10:26 Dose: 1 tab Sennosides (Senokot) 17.2 mg PO Q12H PRN PRN Reason: Moderate Constipation Sodium Chloride (Ns Flush) 2 ml IV.FLUSH BID [facility] Last Admin: 05/01/18 10:27 Dose: 2 ml Sodium Chloride (Ns Flush) 2 ml IV.FLUSH PRN PRN PRN Reason: FLUSH AFTER USING IV ACCESS Whey (Beneprotein Powder) 1 packet G-TUBE TID [facility] Last Admin: 05/01/18 12:57 Dose: Not Given Allergies Allergy/AdvReac Type Severity Reaction Status Date / Time ciprofloxacin Allergy Rash Verified 04/16/18 07:47 levofloxacin Allergy Rash Verified 04/16/18 07:47 Sulfa (Sulfonamide Allergy Rash Verified 04/16/18 06:55 Antibiotics) tramadol AdvReac Hallucinati Verified 04/16/18 07:47 ons Home Medications Medication Instructions Recorded Confirmed Type albuterol sulfate [ProAir HFA] 1 puff INHALATION Q6H PRN 04/16/18 04/23/18 History atorvastatin 40 mg PO DAILY 04/16/18 04/23/18 History clopidogrel 300 mg PO DAILY 04/16/18 04/23/18 History fluticasone-vilanterol [Breo 1 inh INHALATION DAILY PRN 04/16/18 04/23/18 History Ellipta] oxybutynin chloride 5 mg PO TID 04/16/18 04/23/18 History Exam Vital signs: Vital Signs 04/30/18 16:20 04/30/18 19:00 04/30/18 20:00 Temperature 99.2 F Pulse Rate 83 86 71 Respiratory Rate 18 20 20 Blood Pressure 154/68 H Pulse Oximetry 98 99 04/30/18 21:00 04/30/18 21:40 04/30/18 22:00 Temperature Pulse Rate 70 74 Respiratory Rate Blood Pressure Pulse Oximetry 97 04/30/18 23:00 05/01/18 00:00 05/01/18 01:00 Temperature Pulse Rate 70 83 70 Respiratory Rate 18 Blood Pressure Pulse Oximetry 92 L 05/01/18 02:00 05/01/18 03:00 05/01/18 04:00 Temperature Pulse Rate 70 70 77 Respiratory Rate 18 Blood Pressure 144/63 H Pulse Oximetry 100 05/01/18 05:00 05/01/18 06:00 05/01/18 09:47 Temperature Pulse Rate 74 74 Respiratory Rate Blood Pressure Pulse Oximetry 96 Intake & Output 04/30/18 05/01/18 05/01/18 18:59 06:59 18:59 Intake Total 1000 / 1000 100 / 100 350 / 350 Output Total 325 / 325 Balance 1000 / 1000 -225 / -225 350 / 350 Intake: IV 1000 / 1000 100 / 100 350 / 350 NS Inj 1,000 ML @ 70 mls/hr IV. 1000 / 1000 CONT .[id number] [place] Rx#:[id number] Zosyn 4.5 GM Premix 4.5 gm In 100 / 100 100 / 100 100 ml @ 12.5 mls/hr IV.SIG Q8H [place] Rx#:[id number] Vancomycin Inj 1,000 MG In NS 250 / 250 Inj 250 ML @ 250 mls/hr IV.SIG Q18H [place] Rx#:[id number] Output: Urine 325 / 325 Other: Date of Last Bowel Movement 04/29/18 04/29/18 Mental Status Examination Appearance: Appropriate Consciousness: Alert Orientation: Person Motor Activity: Normal gait Speech: Incoherent Language: Adequate Fund of Knowledge: Poor Memory: Impaired Mood: Appropriate Affect: Appropriate Thought Content: Bizarre thinking Hallucination Type: None Delusion Type: Bizarre Suicidal Ideation: No Suicidal Plan: No Suicidal Intention: No Homicidal Ideation: No Homicidal Plan: No Homicidal Intention: No Insight: Poor Judgment: Poor Assessment and Plan - Assessment (1) Psychological factors affecting medical condition Code(s): F54 - Psychological and behavioral factors associated with disorders or diseases classified elsewhere Status: Acute (2) Delirium Code(s): R41.0 - Disorientation, unspecified Status: Acute - Plan Plan: On psychiatric evaluation , but disoriented in situation, time and place. Patient unable to verbalize the reason of her hospitalization. Unable to express understanding and appreciation of current medical situation. Unable to even expressed a rational choice at this moment due to her level of delirium. It is clear that the patient does not have decision-making capacity to participate in treatment plan on medical decisions at this moment. Palliative care working in goals of care and appointed decision-maker. is healthcare proxy, he also says that he has a power of orthopedic podiatrist. Justification for Continued Inpatient Stay: No admission in psychiatry indicated
--- NOTE | 2018-05-01 15:17 | P.DS ---
DS: Providers Date of admission: 04/19/18 17:09 Primary care physician: Drew Sinclair III, MD Consults: 04/19/18 17:39 Consult to Vascular Surgery Routine Consulting Provider: Magnus Siu Invoice Coder:: Wesley Hansen Patient known to:: Wesley Hansen Reason for Consultation: Patient accepted by Dr. Siu for Dr. Hansen. Plan left groin reconstruction with femoral below the knee pop on Saturday. Notified:: Physician Spoke with:: Dr Siu Date Notified:: 04/19/18 Time Notified:: 17:42 Ordering Provider: ARTURO 04/20/18 09:54 HUB Only Consult Order Routine Consulting Provider: Sandra Flores 04/20/18 17:14 Consult to Hospitalist Routine Consulting Provider: Edmar Cedillo Reason for Consultation: Henry of care in a.m. 04/21. Admission with gangrene left foot. Dr. Hansen to the OR in a.m. 04/21 Notified:: Service Spoke with:: MONSERRAT Date Notified:: 04/20/18 Time Notified:: 17:22 Ordering Provider: ARTURO 04/21/18 15:30 Consult to Podiatry Routine Consulting Provider: Silke Suazo Reason for Consultation: dry gangrene L toes, now s/p L LE surgical revascularization Notified:: Office Spoke with:: Jagdish Date Notified:: 04/21/18 Time Notified:: 15:37 Ordering Provider: DUSTIN 04/21/18 21:48 Consult to Infectious Diseases Routine Consulting Provider: Tamara Schilling Reason for Consultation: Critical care started patient on Aztreonam, Clinda and Vancomycin. Patient underwent vascular surgery intervention due to PAD. No lab or clinical evidence of infection. Can we discontinue abx and observe? or at least de -escalate ? Thank you. Notified:: Service Spoke with:: NGUYEN Date Notified:: 04/21/18 Time Notified:: 22:42 Ordering Provider: DONN 04/29/18 13:58 Consult to Neurology Routine Consulting Provider: Brian Guerra Reason for Consultation: altered mental status , multiple comorbidities Notified:: Office Spoke with:: Brian Date Notified:: 04/29/18 Time Notified:: 14:13 Ordering Provider: JUDY 04/29/18 14:18 Consult to Neurology Stat Consulting Provider: Brian Guerra For STAT consult, spoke directly to:: Laly Reason for Consultation: Brain Attack Notified:: Office Spoke with:: nayana Date Notified:: 04/29/18 Time Notified:: 14:48 Ordering Provider: JUDY 04/29/18 14:21 Consult to Palliative Care Routine Consulting Provider: Mandi Ramon Reason for Consultation: goals of care Notified:: Service Spoke with:: Monserrat Date Notified:: 04/29/18 Time Notified:: 14:49 Ordering Provider: JUDY 04/29/18 18:21 Consult to Infectious Diseases Routine Consulting Provider: Tamara Schilling Reason for Consultation: sepsis Notified:: Service Spoke with:: JAIRON Date Notified:: 04/29/18 Time Notified:: 18:34 Ordering Provider: JUDY 04/30/18 14:55 Consult to Psychiatry Routine Consulting Provider: Yefri Martinez Reason for Consultation: delirium, assess capability to make decisions Notified:: Office Spoke with:: Bambi Date Notified:: 04/30/18 Time Notified:: 15:07 Ordering Provider: JUDY Brief History from admission: This is a 77-year-old female. Date of admission 04/19/2018. 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 Patient presents to [facility] as a direct transfer from [facility] from [place] with the following history. Patient was originally seen at [facility] 04/16 at which time she underwent a left lower extremity Oanh José Miguel. This revealed superior femoral artery occlusion stent with jailing profunda. The anterior tibial and posterior tubular arteries were occluded. The plan was for left groin reconstruction with a femoral below the knee popliteal surgery on Friday 04/[address] Hansen. Patient was admitted to [facility] with confusion after going confusion post procedure. She is admitted with a diagnosis of acute cerebrovascular accident and underwent an MRI of the brain, carotid Dopplers. According to this was negative. Thought the acutely was secondary to sepsis source foot?. She subsequently transferred to [facility] for further evaluation treatment. DS: Diagnosis Discharge Diagnosis (1) Psychological factors affecting medical condition: Status: Acute (2) Delirium: Status: Acute DS: Summary Ms. King is a 77 year old female with a history of peripheral vascular arterial disease, history of left great toe and second toe amputation who was admitted to [facility] on 04/19/2018 as a direct transfer from [facility] due to further vascular surgery intervention. Patient has additional history of COPD, HTN, HLD, CAD. Patient was evaluated by Vascular surgery on with an angiogram. The plan was to perform left groin reconstruction with a femoral below the knee popliteal surgery. Patient was admitted to [facility] due to suspected CVA. However, work up did not reveal any evidence of CVA. She was transferred to [place] [facility] and patient underwent surgical interventions on 04/21/2018. With acute encephalopathy Stroke alert 04/[address] head, CTA head and neck , consult neuro, allow permissive HTN. Neurocheck, OT.PT /ST Also Work up in progress for sepsis Start vanco and zosyn IV consult ID CXR , UA LA per sepsis protocol Left lower extremity critical limb ischemia -Left profunda endarterectomy and left femoral to below-knee popliteal bypass () -Continue aspirin, Plavix, Lipitor. -Patient was on Aztreonam, clindamycin and Vancomycin. Blood cx negative. No leukocytosis, No fever. -Appreciate ID input. ID recommended discontinuation of all abx. -consult PT, OT ==> recommends rehab. I discussed with patient's who prefers an SNF in [place]. Case management is aware of this preference. = Discharge to SNF. [employer] insurance however denied, initially CM is ff. Left foot gangrenous toes -Podiatry consulted - probably no surgical intervention. MRI shows no osteomyelitis. Discussed with vascular surgery as well as patient's . Per patient's 's request, he would like to take her to SNF and continue to observe her closely. If it becomes necessary to do toe amputation, he will work with Dr. Hansen. Dr. Hansen is okay with this plan as well. = Discharge to SNF . Follow-up with Dr. Hansen as outpatient. Acute delirium Patient is having visual hallucinations. This is likely due to acute illness as well as a component of ICU/CIC delirium. I believe patient would be better off in a different environment, ideally home environment however the patient needs rehab. Plan to discharge to SNF closer to home in [place] where family and friends can visit her, is very supportive and at bedside. COPD -Continue breathing treatments PRN. -Supplemental O2 as needed. Full code. Heparin SQ. Discharge plan: CM is ff, working on SNF placement in [place]. [employer] denied approval and CM resend request. Pending [employer] approval. Patient however with acute mental status change stroke alert called on 04/29. Also sepsis work up , started on iv abx and ID also consulted, blood cx NTD change to ceftin PO at DC . Patient is however with mentation on/off, delirium on/off , psych consulted patient is not able to make decisions in her own. is POA Patient passed swallow eval 05/01 on puree and honey thick liquids. 05/02 patient is more awake and alert was eating better, still confused on/off. More motivated for rehab. at bedside. DC to SNF as pt insurance [employer] approved for DC. Patient is DC to SNF in failry stable condition to follow up as OP with PCP and consultants. Time Spent with Patient Total time spent providing and/or coordinating discharge services: > 30 min Quality: Stroke Last date observed well: 04/29/18 Last time observed well: 13:45 Quality: VTE Deep Vein Thrombosis/Pulmonary Embolism Present on Admission: No Exam Narrative Exam Narrative: GENERAL: Elderly female, chronically ill, in bed, well- nourished well-developed more awake and alert, following some commands. Tired. Mentation is still on amd off. CARDIOVASCULAR: Tachycardic. Regular rate and rhythm without murmurs, gallops, or rubs. RESPIRATORY: Breath sounds equal bilaterally. No accessory muscle use. GASTROINTESTINAL: Abdomen soft, obese, non-tender, nondistended. MUSCULOSKELETAL: No cyanosis, or edema. Surgical wound healing well left lower ext, gangrenous toes noted on left side. Amputated toes left foot. NEURO: More alert and awake, following some commands. Moving arms and legs. Knows her full name, , hospital, disoriented to time says is Apr 2000 SKIN: warm and dry. Surgical wound, nia in place left lower extremity, gangrene toes left leg. PSYCH: on off mentation. Results Labs on day of discharge: Labs from last 24 hours 05/01/18 05/01/18 04/30/18 09:07 09:07 19:07 WBC 10.8 RBC 3.04 L Hgb 8.5 L Hct 25.5 L MCV 83.8 MCH 27.8 MCHC 33.2 RDW 16.3 Plt Count 483 H MPV 6.5 L Neut % (Auto) 79.0 H Lymph % (Auto) 9.5 [place] % (Auto) 8.1 H Eos % (Auto) 2.9 Baso % (Auto) 0.5 Neut # (Auto) 8.5 H Lymph # (Auto) 1.0 [place] # (Auto) 0.9 Eos # (Auto) 0.3 Baso # (Auto) 0.1 WBC Differential . Differential Comment Auto diff final Sodium 141 Potassium 3.8 Chloride 108 H Carbon Dioxide 22.6 Anion Gap 10 BUN 15 Creatinine 0.72 Estimated GFR 79 L Random Glucose 81 Calcium 8.2 L Ammonia 22 Urine Color Urine Clarity Urine pH Ur Specific [place] Urine Protein Urine Glucose (UA) Urine Ketones Urine Occult Blood Urine Nitrate Urine Bilirubin Urine Urobilinogen Ur Leukocyte Esterase Urine RBC Urine WBC Ur Squamous Epith Cells Urine Bacteria Urine Yeast Micro UA Comment Urine Culture Comments 04/29/18 18:30 WBC RBC Hgb Hct MCV MCH MCHC RDW Plt Count MPV Neut % (Auto) Lymph % (Auto) [place] % (Auto) Eos % (Auto) Baso % (Auto) Neut # (Auto) Lymph # (Auto) [place] # (Auto) Eos # (Auto) Baso # (Auto) WBC Differential Differential Comment Sodium Potassium Chloride Carbon Dioxide Anion Gap BUN Creatinine Estimated GFR Random Glucose Calcium Ammonia Urine Color Yellow Urine Clarity Hazy H Urine pH 6.0 Ur Specific [place] 1.012 Urine Protein Negative Urine Glucose (UA) Negative Urine Ketones Negative Urine Occult Blood Moderate H Urine Nitrate Positive H Urine Bilirubin Negative Urine Urobilinogen Less than 2 Ur Leukocyte Esterase Small H Urine RBC 11 H Urine WBC 8 H Ur Squamous Epith Cells 6 Urine Bacteria Moderate H Urine Yeast Moderate H Micro UA Comment Culture indicated Urine Culture Comments Culture indicated Preliminary micro results at discharge 04/30/18 02:53 Aerobic Blood Culture - Preliminary Blood - Peripheral No growth in 1 day Anaerobic Blood Culture - Preliminary No growth in 1 day 04/29/18 23:59 Aerobic Blood Culture - Preliminary Blood - Peripheral No growth in 1 day Anaerobic Blood Culture - Preliminary No growth in 1 day 04/29/18 18:30 Urine Culture - Preliminary Clean Catch Urine gram negative rods Impressions ITS Impressions Foot MRI 04/22/18 00:00 CONCLUSION: 1. Status post amputation at the first and second digits. 2. No areas of suspected osteomyelitis are seen. There some mild edema seen in the distal first metatarsal. This area appears normal on the precontrast T1- weighted images. There does appear to be surrounding inflammatory change in the soft tissues around the first distal metatarsal without a focal fluid collection. 3. Suspected degenerative edema/granulation at the ankle at the distal tibia and proximal tibia. Head CT 04/29/18 00:00 CONCLUSION: 1. No acute intracranial abnormality Report was called by Dr. Bruno to Dr. Candace hicks at 1438 PM. Chest X-Ray 04/29/18 00:46 CONCLUSION: Left basilar infiltrate. Discharge Plan Discharge Disposition Patient Disposition: 03 Discharge to SNF Discharge Condition Condition: Fair Discharge Order Discharge Orders: Discharge Order (Routine); Ordered 05/01/18 Ordered By: Cha Jack Vascular Surgery Clear for Discharge (Routine); Ordered 04/24/18 Ordered By: Wesley Hansen Discharge Details Anticipated Discharge Date: 04/25/18 Discharge Comment: Dc when arrangements are done Physicians Team Primary Care Provider: Drew Sinclair III Attending Provider: Cha Jack Other Providers: Magnus Siu ; Sandra Flores ; Silke Suazo ; Brian Guerra ; Mandi Ramon ; Tamara Schilling ; Yefri Martinez Rxs /Orders / Referrals /Forms Prescriptions: New aspirin 325 mg Tablet 325 mg PO DAILY 30 Days Qty: 30 RF: 0 clopidogrel [Plavix] 75 mg Tablet 75 mg PO DAILY Qty: 30 RF: 0 acetaminophen 325 mg Tablet 650 mg PO Q6H PRN (Reason: fever/ pain) Qty: 30 RF: 0 cefuroxime axetil 500 mg tablet 500 mg PO BID 7 Days Qty: 14 RF: 0 Lactobacillus acidoph-L.bulgar [Lactinex] 1 million cell tablet,chewable 1 tab PO DAILY Qty: 30 RF: 0 Continue atorvastatin 40 mg Tablet 40 mg PO DAILY RF: 0 albuterol sulfate [ProAir HFA] 90 mcg/actuation Hfa Aerosol Inhaler 1 puff INHALATION Q6H PRN (Reason: Shortness Of Breath Or Wheezing) RF: 0 fluticasone-vilanterol [Breo Ellipta] 200-25 mcg/dose Blister With Device 1 inh INHALATION DAILY PRN (Reason: Shortness Of Breath) RF: 0 Discontinued oxybutynin chloride 5 mg Tablet 5 mg PO TID RF: 0 clopidogrel 300 mg Tablet 300 mg PO DAILY RF: 0 Referrals: [facility], [Non-Staff] - See Instructions Wesley Hansen MD [Physician] - See Instructions (Your post op follow up with a surveillance MIKE is scheduled on 05/02/18 MIKE: 05/09/18 at 10:30a Follow Up: 05/09/18 at 11:00a) Drew Sinclair III, MD [Primary Care Provider] - See Instructions Discharge Instructions Patient Printed Instructions: Cefuroxime (By mouth), Acetaminophen (By mouth), Aspirin (By mouth), Clopidogrel (By mouth), Probiotic (By mouth) Additional Instructions: BE AWARE: Any signs of symptoms of infection: Increased pain, swelling, redness, irritation. Call your physicians office or return to our emergency department. Discharge Information Discharge Date/Time: 05/02/18 12:55
--- NOTE | 2018-05-01 18:15 | P.PNIM ---
Subjective Interval history: More awake and alert in the morning knows her name and knows she is at [facility]. She is however on and off with her mentation. Passed swallow evaluation on pured diet with thickened liquids. Patient is however not willing to eat. No fever or chills. No nausea or vomiting. Sattign well on room air. No chest pain, so sob, no cough. Encouraged IS, PO intake, and PT/ OT. Physical Exam Vital signs: Vital Signs 04/30/18 19:00 04/30/18 20:00 04/30/18 21:00 Temperature Pulse Rate 86 71 70 Respiratory Rate 20 20 Blood Pressure Pulse Oximetry 99 04/30/18 21:40 04/30/18 22:00 04/30/18 23:00 Temperature Pulse Rate 74 70 Respiratory Rate 18 Blood Pressure Pulse Oximetry 97 92 L 05/01/18 00:00 05/01/18 01:00 05/01/18 02:00 Temperature Pulse Rate 83 70 70 Respiratory Rate Blood Pressure Pulse Oximetry 05/01/18 03:00 05/01/18 04:00 05/01/18 05:00 Temperature Pulse Rate 70 77 74 Respiratory Rate 18 Blood Pressure 144/63 H Pulse Oximetry 100 05/01/18 06:00 05/01/18 07:00 05/01/18 08:00 Temperature 98.1 F Pulse Rate 74 77 74 Respiratory Rate 20 Blood Pressure 131/64 Pulse Oximetry 97 05/01/18 09:00 05/01/18 09:47 05/01/18 10:00 Temperature Pulse Rate 78 80 Respiratory Rate Blood Pressure Pulse Oximetry 96 05/01/18 11:00 05/01/18 12:00 05/01/18 13:00 Temperature 98.4 F Pulse Rate 82 80 82 Respiratory Rate 20 Blood Pressure 143/64 H Pulse Oximetry 93 L 05/01/18 14:00 05/01/18 15:00 05/01/18 16:00 Temperature 98 F Pulse Rate 80 86 82 Respiratory Rate 20 Blood Pressure 131/66 Pulse Oximetry 94 L 05/01/18 17:00 05/01/18 18:00 Temperature Pulse Rate 112 H 106 H Respiratory Rate Blood Pressure Pulse Oximetry Intake & Output 04/30/18 05/01/18 05/01/18 18:59 06:59 18:59 Intake Total 1000 / 1000 100 / 100 350 / 350 Output Total 325 / 325 Balance 1000 / 1000 -225 / -225 350 / 350 Intake: IV 1000 / 1000 100 / 100 350 / 350 NS Inj 1,000 ML @ 70 mls/hr IV. 1000 / 1000 CONT .[id number] [place] Rx#:[id number] Zosyn 4.5 GM Premix 4.5 gm In 100 / 100 100 / 100 100 ml @ 12.5 mls/hr IV.SIG Q8H [place] Rx#:[id number] Vancomycin Inj 1,000 MG In NS 250 / 250 Inj 250 ML @ 250 mls/hr IV.SIG Q18H [place] Rx#:[id number] Output: Urine 325 / 325 Other: Date of Last Bowel Movement 04/29/18 04/29/18 04/29/18 Narrative: GENERAL: Elderly female, chronically ill, in bed, well-nourished well -developed more awake and alert, following some commands. Tired. NECK: no carotid bruit. HEAD: AT/NC HEENT: Moving eyes , however doesn't follow commands. CARDIOVASCULAR: Tachycardic. Regular rate and rhythm without murmurs, gallops, or rubs. RESPIRATORY: Breath sounds equal bilaterally. No accessory muscle use. GASTROINTESTINAL: Abdomen soft, obese, non-tender, nondistended. MUSCULOSKELETAL: No cyanosis, or edema. Surgical wound healing well left lower ext, gangrenous toes noted on left side. Amputated toes left foot. NEURO: More alert and awake, following some commands. Moving arms and legs. SKIN: warm and dry. Surgical wound, nia in place left lower extremity, gangrene toes left leg. PSYCH: Appears confused, on off mentation. Urinary Catheter Management Indwelling Urethral Catheter: Cath placed during this visit: yes, but has since been removed by the nurse Reason for continuing: Not indwelling catheter Insertion date: 04/21/18 Insertion time: 12:20 Removal date: 04/22/18 Removal time: 06:00 Female External: Cath placed during this visit: no Results Labs CBC & Chem 7: 05/01/18 09:07 05/01/18 09:07 Labs: Microbiology 04/30/18 02:53 Blood - Peripheral Aerobic Blood Culture - Preliminary No growth in 1 day 04/30/18 02:53 Blood - Peripheral Anaerobic Blood Culture - Preliminary No growth in 1 day 04/29/18 23:59 Blood - Peripheral Aerobic Blood Culture - Preliminary No growth in 1 day 04/29/18 23:59 Blood - Peripheral Anaerobic Blood Culture - Preliminary No growth in 1 day 04/29/18 18:30 Clean Catch Urine Urine Culture - Preliminary gram negative rods Assessment and Plan (1) Psychological factors affecting medical condition: Code(s): F54 - Psychological and behavioral factors associated with disorders or diseases classified elsewhere Status: Acute (2) Delirium: Code(s): R41.0 - Disorientation, unspecified Status: Acute Plan Ms. 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 Patient has additional history of COPD, HTN, HLD, CAD. Patient was evaluated by Vascular surgery on with an angiogram. The plan was to perform left groin reconstruction with a femoral below the knee popliteal surgery. Patient was admitted to [facility] due to suspected CVA. However, work up did not reveal any evidence of CVA. She was transferred to [facility] and patient underwent surgical interventions on 04/21/2018. With acute encephalopathy Stroke alert 04/[address] head, CTA head and neck , consult neuro, allow permissive HTN. Neurocheck, OT.PT /ST Also Work up in progress for sepsis Start vanco and zosyn IV consult ID CXR , UA LA per sepsis protocol Left lower extremity critical limb ischemia -Left profunda endarterectomy and left femoral to below-knee popliteal bypass () -Continue aspirin, Plavix, Lipitor. -Patient was on Aztreonam, clindamycin and Vancomycin. Blood cx negative. No leukocytosis, No fever. -Appreciate ID input. ID recommended discontinuation of all abx. -consult PT, OT ==> recommends rehab. I discussed with patient's who prefers an SNF in [place]. Case management is aware of this preference. = Discharge to SNF. [employer] insurance however denied, CM is ff. Left foot gangrenous toes -Podiatry consulted - probably no surgical intervention. MRI shows no osteomyelitis. Discussed with vascular surgery as well as patient's . Per patient's 's request, he would like to take her to SNF and continue to observe her closely. If it becomes necessary to do toe amputation, he will work with Dr. Hansen. Dr. Hansen is okay with this plan as well. = Discharge to SNF . Follow-up with Dr. Hansen as outpatient. Acute delirium Patient is having visual hallucinations. This is likely due to acute illness as well as a component of ICU/CIC delirium. I believe patient would be better off in a different environment, ideally home environment however the patient needs rehab. Plan to discharge to SNF closer to home in [place] where family and frends can visit her, is very supportive and at bedside. COPD -Continue breathing treatments PRN. -Supplemental O2 as needed. Full code. Heparin SQ. Discharge plan: CM is ff, working on SNF placement in [place]. [employer] denied approval and CM resend request. Pending [employer] approval. Patient however with acute mental status change stroke alert called on 04/29. Also sepsis work up , started on iv abx and ID also consulted, blood cx NTD change to ceftin PO at DC . Patient is however with mentation on/off, delirium on/off , psych consulted patient is not able to make decisions in her own. is POA Patient passed swallow eval 05/01 on puree and honey thick liquids. Plan to DC to SNF Progress Note: Quality VTE Deep Vein Thrombosis/Pulmonary Embolism Present on Admission: No
--- NOTE | 2018-05-01 18:18 | P.PNNEU ---
Subjective Subjective Comments: No cp, no dyspnea, no calvillo, no focal weakness, no vision loss. Tolerating p.o. Active Medications: Active Medications Acetaminophen (Tylenol) 650 mg PO Q6H PRN PRN Reason: Fever >101f Last Admin: 04/28/18 19:22 Dose: 650 mg Al Hydroxide/Mg Hydroxide (Milk Of Jonathan Petersen) 30 ml PO Q12H PRN PRN Reason: Mild Constipation Albuterol (Albuterol Neb (Prn)) 2.5 mg NEB Q2HR NEB PRN PRN Reason: SHORTNESS OF BREATH/WHEEZING Last Admin: 04/28/18 23:58 Dose: 2.5 mg Aspirin (Aspirin) 325 mg PO DAILY [facility] Last Admin: 05/01/18 10:26 Dose: 325 mg Atorvastatin Calcium (Lipitor) 40 mg PO DAILY [facility] Last Admin: 05/01/18 10:26 Dose: 40 mg Bisacodyl (Dulcolax Supp) 10 mg RECTAL DAILY PRN PRN Reason: SEVERE CONSITIPATION Clopidogrel Bisulfate (Plavix) 75 mg PO DAILY [facility] Last Admin: 05/01/18 10:26 Dose: 75 mg Famotidine (Pepcid) 20 mg PO BID [facility] Last Admin: 05/01/18 10:27 Dose: 20 mg Fluticasone/Vilanterol (Breo Ellipta 200/25 Mcg Inh) 1 puff INH DAILY [facility] Last Admin: 05/01/18 10:28 Dose: Not Given Heparin Sodium (Porcine) (Heparin Inj) 5,000 units SQ Q12H [facility] Last Admin: 05/01/18 17:28 Dose: 5,000 units Hydralazine HCl (Apresoline Inj) 10 mg IV.PUSH Q1H PRN PRN Reason: SBP>160, DBP>90 Last Admin: 04/30/18 03:05 Dose: 10 mg Sodium Chloride (Ns Inj) 1,000 mls @ 70 mls/hr IV.CONT .[id number] [facility] Last Admin: 05/01/18 12:57 Dose: Not Given Piperacillin/Tazobactam/Dextrose (Zosyn 4.5 Gm Premix) 4.5 gm in 100 mls @ 12.5 mls/hr IV.SIG Q8H [facility] Last Admin: 05/01/18 13:05 Dose: 12.5 mls/hr Vancomycin HCl 1,000 mg/ (Sodium Chloride) 250 mls @ 250 mls/hr IV.SIG Q18H [facility] Last Infusion: 05/01/18 10:25 Dose: Infused Labetalol HCl (Trandate Inj) 10 mg IV.PUSH Q1H PRN PRN Reason: SBP > 160 DBP > 90 HR > 65 Last Admin: 04/22/18 13:31 Dose: 10 mg Lactulose (Lactulose Liq) 30 ml PO DAILY PRN PRN Reason: SEVERE CONSITIPATION Last Admin: 04/24/18 18:11 Dose: 30 ml Miscellaneous Information ([facility] [place] Info) 0 each OTHER ONCE ONE Stop: 05/03/18 11:46 Nitroglycerin (Nitro-Bid 2% Oint) 2 inch TOPICAL Q6HR PRN PRN Reason: Sbp>165, Dbp>90 Ondansetron HCl (Zofran Inj) 4 mg IV.PUSH Q6H PRN PRN Reason: NAUSEA OR VOMITING Oxybutynin Chloride (Ditropan) 5 mg PO BID [facility] Last Admin: 05/01/18 10:27 Dose: 5 mg Pharmacy Profile Note (Vancomycin Consult Pharmacy) 1 each OTHER UNSCH PRN PRN Reason: Pharmacy to dose Senna/Docusate Sodium (Airam-Colace) 1 tab PO BID [facility] Last Admin: 05/01/18 10:26 Dose: 1 tab Sennosides (Senokot) 17.2 mg PO Q12H PRN PRN Reason: Moderate Constipation Sodium Chloride (Ns Flush) 2 ml IV.FLUSH BID [facility] Last Admin: 05/01/18 10:27 Dose: 2 ml Sodium Chloride (Ns Flush) 2 ml IV.FLUSH PRN PRN PRN Reason: FLUSH AFTER USING IV ACCESS Whey (Beneprotein Powder) 1 packet G-TUBE TID [facility] Last Admin: 05/01/18 17:29 Dose: Not Given Allergies/Adverse Reactions: Allergies Allergy/AdvReac Type Severity Reaction Status Date / Time ciprofloxacin Allergy Rash Verified 04/16/18 07:47 levofloxacin Allergy Rash Verified 04/16/18 07:47 Sulfa (Sulfonamide Allergy Rash Verified 04/16/18 06:55 Antibiotics) tramadol AdvReac Hallucinati Verified 04/16/18 07:47 ons Review of Systems All other systems reviewed negative except as stated in HPI Physical Exam Vital signs: Vital Signs 04/30/18 19:00 04/30/18 20:00 04/30/18 21:00 Temperature Pulse Rate 86 71 70 Respiratory Rate 20 20 Blood Pressure Pulse Oximetry 99 04/30/18 21:40 04/30/18 22:00 04/30/18 23:00 Temperature Pulse Rate 74 70 Respiratory Rate 18 Blood Pressure Pulse Oximetry 97 92 L 05/01/18 00:00 05/01/18 01:00 05/01/18 02:00 Temperature Pulse Rate 83 70 70 Respiratory Rate Blood Pressure Pulse Oximetry 05/01/18 03:00 05/01/18 04:00 05/01/18 05:00 Temperature Pulse Rate 70 77 74 Respiratory Rate 18 Blood Pressure 144/63 H Pulse Oximetry 100 05/01/18 06:00 05/01/18 07:00 05/01/18 08:00 Temperature 98.1 F Pulse Rate 74 77 74 Respiratory Rate 20 Blood Pressure 131/64 Pulse Oximetry 97 05/01/18 09:00 05/01/18 09:47 05/01/18 10:00 Temperature Pulse Rate 78 80 Respiratory Rate Blood Pressure Pulse Oximetry 96 05/01/18 11:00 05/01/18 12:00 05/01/18 13:00 Temperature 98.4 F Pulse Rate 82 80 82 Respiratory Rate 20 Blood Pressure 143/64 H Pulse Oximetry 93 L 05/01/18 14:00 05/01/18 15:00 05/01/18 16:00 Temperature 98 F Pulse Rate 80 86 82 Respiratory Rate 20 Blood Pressure 131/66 Pulse Oximetry 94 L 05/01/18 17:00 05/01/18 18:00 Temperature Pulse Rate 112 H 106 H Respiratory Rate Blood Pressure Pulse Oximetry Intake & Output 04/30/18 05/01/18 05/01/18 18:59 06:59 18:59 Intake Total 1000 / 1000 100 / 100 350 / 350 Output Total 325 / 325 Balance 1000 / 1000 -225 / -225 350 / 350 Intake: IV 1000 / 1000 100 / 100 350 / 350 NS Inj 1,000 ML @ 70 mls/hr IV. 1000 / 1000 CONT .[id number] [facility] Rx#:[id number] Zosyn 4.5 GM Premix 4.5 gm In 100 / 100 100 / 100 100 ml @ 12.5 mls/hr IV.SIG Q8H [place] Rx#:[id number] Vancomycin Inj 1,000 MG In NS 250 / 250 Inj 250 ML @ 250 mls/hr IV.SIG Q18H [place] Rx#:[id number] Output: Urine 325 / 325 Other: Date of Last Bowel Movement 04/29/18 04/29/18 04/29/18 Narrative: GENERAL: in NAD, SKIN: Warm and dry. HEAD: Atraumatic. Normocephalic. ENT: No nasal bleeding or discharge. NECK: Trachea midline. No JVD. CARDIOVASCULAR: Regular rate and rhythm. RESPIRATORY: No accessory muscle use. GASTROINTESTINAL: Abdomen soft, non-tender, nondistended. MUSCULOSKELETAL: Dry gangrenous distal toe NEUROLOGICAL: Awake alert [place] 1-2. Recognizes spells. Follows one-step motor crossing request. Visual block grossly full no facial asymmetry able to raise all 4 extremity gravity however mild generalized weakness PSYCHIATRIC: Calm, pleasant - Constitutional no acute distress - Routine HEENT Exam Head: Present: normocephalic - Urinary Catheter Management Indwelling Urethral Catheter Cath placed during this visit: yes, but has since been removed by the nurse Reason for continuing: Not indwelling catheter Insertion date: 04/21/18 Insertion time: 12:20 Removal date: 04/22/18 Removal time: 06:00 Female External Cath placed during this visit: no Objective Laboratory Results - last 24 hr 04/29/18 04/30/18 05/01/18 18:30 19:07 09:07 WBC 10.8 RBC 3.04 L Hgb 8.5 L Hct 25.5 L MCV 83.8 MCH 27.8 MCHC 33.2 RDW 16.3 Plt Count 483 H MPV 6.5 L Neut % (Auto) 79.0 H Lymph % (Auto) 9.5 [place] % (Auto) 8.1 H Eos % (Auto) 2.9 Baso % (Auto) 0.5 Neut # (Auto) 8.5 H Lymph # (Auto) 1.0 [place] # (Auto) 0.9 Eos # (Auto) 0.3 Baso # (Auto) 0.1 WBC Differential . Differential Comment Auto diff final Sodium Potassium Chloride Carbon Dioxide Anion Gap BUN Creatinine Estimated GFR Random Glucose Calcium Ammonia 22 Urine Color Yellow Urine Clarity Hazy H Urine pH 6.0 Ur Specific [place] 1.012 Urine Protein Negative Urine Glucose (UA) Negative Urine Ketones Negative Urine Occult Blood Moderate H Urine Nitrate Positive H Urine Bilirubin Negative Urine Urobilinogen Less than 2 Ur Leukocyte Esterase Small H Urine RBC 11 H Urine WBC 8 H Ur Squamous Epith Cells 6 Urine Bacteria Moderate H Urine Yeast Moderate H Micro UA Comment Culture indicated Urine Culture Comments Culture indicated 05/01/18 09:07 WBC RBC Hgb Hct MCV MCH MCHC RDW Plt Count MPV Neut % (Auto) Lymph % (Auto) [place] % (Auto) Eos % (Auto) Baso % (Auto) Neut # (Auto) Lymph # (Auto) [place] # (Auto) Eos # (Auto) Baso # (Auto) WBC Differential Differential Comment Sodium 141 Potassium 3.8 Chloride 108 H Carbon Dioxide 22.6 Anion Gap 10 BUN 15 Creatinine 0.72 Estimated GFR 79 L Random Glucose 81 Calcium 8.2 L Ammonia Urine Color Urine Clarity Urine pH Ur Specific [place] Urine Protein Urine Glucose (UA) Urine Ketones Urine Occult Blood Urine Nitrate Urine Bilirubin Urine Urobilinogen Ur Leukocyte Esterase Urine RBC Urine WBC Ur Squamous Epith Cells Urine Bacteria Urine Yeast Micro UA Comment Urine Culture Comments Microbiology 04/30/18 02:53 Aerobic Blood Culture - Preliminary Blood - Peripheral No growth in 1 day Anaerobic Blood Culture - Preliminary No growth in 1 day 04/29/18 23:59 Aerobic Blood Culture - Preliminary Blood - Peripheral No growth in 1 day Anaerobic Blood Culture - Preliminary No growth in 1 day 04/29/18 18:30 Urine Culture - Preliminary Clean Catch Urine gram negative rods Review/Management - Diagnosis (1) Metabolic encephalopathy Code(s): G93.41 - Metabolic encephalopathy Status: Acute Current Visit: Yes (2) PAD (peripheral artery disease) Code(s): I73.9 - Peripheral vascular disease, unspecified Status: Chronic Current Visit: No (3) 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 Code(s): I96 - Gangrene, not elsewhere classified; I70.202 - Unspecified atherosclerosis of [place] arteries of extremities, left leg Status: Acute Current Visit: Yes (4) COPD (chronic obstructive pulmonary disease) Code(s): J44.9 - Chronic obstructive pulmonary disease, unspecified Status: Chronic Current Visit: Yes (5) Peripheral vascular disease Code(s): I73.9 - Peripheral vascular disease, unspecified Status: Suspected Current Visit: Yes (6) Unstable gait Code(s): R26.81 - Unsteadiness on feet Status: Chronic Current Visit: Yes (7) Hyperlipidemia Code(s): E78.5 - Hyperlipidemia, unspecified Status: Chronic Current Visit: Yes (8) Essential hypertension Code(s): I10 - Essential (primary) hypertension Status: Chronic Current Visit: Yes (9) Carotid artery stenosis Code(s): I65.29 - Occlusion and stenosis of unspecified carotid artery Status : Chronic Current Visit: Yes (10) Superficial femoral artery occlusion Code(s): I70.209 - Unspecified atherosclerosis of [place] arteries of extremities , unspecified extremity Status: Acute Current Visit: Yes (11) Septic encephalopathy Code(s): G93.41 - Metabolic encephalopathy Status: Acute Current Visit: Yes - Review/Management Plan: Opiate induced versus poor p.o. intake, emerging aspiration pneumonia/septic encephalopathy Recommendation Mental status significantly improved more alert Nutritional support Therapy Plans for rehab Discussed with patient and spouse (4) COPD (chronic obstructive pulmonary disease) Qualifiers: COPD type: unspecified COPD Qualified Code(s): J44.9 - Chronic obstructive pulmonary disease, unspecified (7) Hyperlipidemia Qualifiers: Hyperlipidemia type: unspecified Qualified Code(s): E78.5 - Hyperlipidemia, unspecified
[2018-05-02] MEDS: Vancomycin Inj 1,000 MG in Sodium Chlor 0.9% Inj 250 ML IV.SIG SCH (01:34)
[2018-05-02] MEDS: Sod Chloride 0.9% Inj 1,000 ML IV.CONT SCH (01:36)
[2018-05-02] MEDS: Piperacil/Tazo 4.5 GM Premix 4.5 GM/100 ML BAG IV.SIG SCH ×2 (03:42→12:59)
[2018-05-02] MEDS: Heparin - SQ 10,000 UNITS/ML Vial SQ SCH (05:16)
[2018-05-02 06:05] LABS: Baso # (Auto) 0.1 th/mm3 (0.0-0.2); Baso % (Auto) 0.8 % (0.0-2.0); Eos # (Auto) 0.3 th/mm3 (0.0-0.4); Eos % (Auto) 3.3 % (0.0-4.0); Hematocrit 26.9 % (35.0-46.0); Hemoglobin 8.7 gm/dL (11.6-15.3); Lymph # (Auto) 1.1 th/mm3 (1.0-4.8); Lymph % (Auto) 10.9 % (9.0-44.0); Mean Corpuscular HGB Conc 32.4 % (32.0-36.0); Mean Corpuscular Hemoglobin 27.5 pg (27.0-34.0); Mean Corpuscular Volume 84.8 fL (80.0-100.0); Mean Platelet Volume 6.4 fL (7.0-11.0); Mono # (Auto) 0.9 th/mm3 (0.0-0.9); Mono % (Auto) 8.4 % (0.0-8.0); Neut # (Auto) 7.8 th/mm3 (1.8-7.7); Neut % (Auto) 76.6 % (16.0-70.0); Platelet Count 501 th/mm3 (150-450); Red Blood Count 3.17 mil/mm3 (4.00-5.30); White Blood Count 10.2 th/mm3 (4.0-11.0)
[2018-05-02 06:35] LABS: Calcium 7.9 mg/dL (8.5-10.1); Carbon Dioxide 25.3 meq/L (21.0-32.0); Potassium 3.6 meq/L (3.5-5.1)
--- NOTE | 2018-05-02 07:44 | P.PNVS ---
Subjective Post Op Day #: 11 Procedure: L groin reconstruction, fem-BK pop Subjective/Hospital Course: much more alert today doesn't endorse leg pain becky mech soft diet set for rehab today Objective Vital Signs / I&O: Vital Signs 05/01/18 08:00 05/01/18 09:00 05/01/18 09:47 Temperature Pulse Rate 74 78 Respiratory Rate Blood Pressure Pulse Oximetry 96 05/01/18 10:00 05/01/18 11:00 05/01/18 12:00 Temperature 98.4 F Pulse Rate 80 82 80 Respiratory Rate 20 Blood Pressure 143/64 H Pulse Oximetry 93 L 05/01/18 13:00 05/01/18 14:00 05/01/18 15:00 Temperature 98 F Pulse Rate 82 80 86 Respiratory Rate 20 Blood Pressure 131/66 Pulse Oximetry 94 L 05/01/18 16:00 05/01/18 17:00 05/01/18 18:00 Temperature Pulse Rate 82 112 H 106 H Respiratory Rate Blood Pressure Pulse Oximetry 05/01/18 19:00 05/01/18 20:00 05/01/18 21:00 Temperature 97.6 F Pulse Rate 88 89 92 H Respiratory Rate 18 Blood Pressure 147/65 H Pulse Oximetry 94 L 94 L 05/01/18 22:00 05/01/18 22:54 05/01/18 23:00 Temperature 99.2 F Pulse Rate 91 H 90 93 H Respiratory Rate 18 Blood Pressure 133/57 L Pulse Oximetry 94 L 05/02/18 00:00 05/02/18 01:00 05/02/18 02:00 Temperature Pulse Rate 92 H 84 76 Respiratory Rate Blood Pressure Pulse Oximetry 05/02/18 03:00 05/02/18 04:00 05/02/18 05:00 Temperature 97.9 F Pulse Rate 88 76 74 Respiratory Rate 16 Blood Pressure 135/60 Pulse Oximetry 96 05/02/18 06:00 Temperature Pulse Rate 86 Respiratory Rate Blood Pressure Pulse Oximetry Intake & Output 05/01/18 05/02/18 05/02/18 18:59 06:59 18:59 Intake Total 830 / 830 1780 / 1780 Output Total 300 / 300 300 / 300 Balance 530 / 530 1480 / 1480 Intake: IV 350 / 350 1450 / 1450 NS Inj 1,000 ML @ 70 mls/hr IV. 1000 / 1000 CONT .[id number] [facility] Rx#:[id number] Zosyn 4.5 GM Premix 4.5 gm In 100 / 100 200 / 200 100 ml @ 12.5 mls/hr IV.SIG Q8H [place] Rx#:[id number] Vancomycin Inj 1,000 MG In NS 250 / 250 250 / 250 Inj 250 ML @ 250 mls/hr IV.SIG Q18H [place] Rx#:[id number] Oral 480 / 480 330 / 330 Output: Urine 300 / 300 Urine Amount (Catheter) 300 / 300 Female External 300 / 300 Other: Date of Last Bowel Movement 04/29/18 04/29/18 # Bowel Movements 0 Exam: L groin ecchymotic, intact L calf incision intact foot warm toes dry gangrene, no surrounding erythema Laboratory Results - last 24 hr 04/29/18 05/01/18 05/01/18 18:30 09:07 09:07 WBC 10.8 RBC 3.04 L Hgb 8.5 L Hct 25.5 L MCV 83.8 MCH 27.8 MCHC 33.2 RDW 16.3 Plt Count 483 H MPV 6.5 L Neut % (Auto) 79.0 H Lymph % (Auto) 9.5 [place] % (Auto) 8.1 H Eos % (Auto) 2.9 Baso % (Auto) 0.5 Neut # (Auto) 8.5 H Lymph # (Auto) 1.0 [place] # (Auto) 0.9 Eos # (Auto) 0.3 Baso # (Auto) 0.1 WBC Differential . Differential Comment Auto diff final Sodium 141 Potassium 3.8 Chloride 108 H Carbon Dioxide 22.6 Anion Gap 10 BUN 15 Creatinine 0.72 Estimated GFR 79 L Random Glucose 81 Calcium 8.2 L Urine Color Yellow Urine Clarity Hazy H Urine pH 6.0 Ur Specific [place] 1.012 Urine Protein Negative Urine Glucose (UA) Negative Urine Ketones Negative Urine Occult Blood Moderate H Urine Nitrate Positive H Urine Bilirubin Negative Urine Urobilinogen Less than 2 Ur Leukocyte Esterase Small H Urine RBC 11 H Urine WBC 8 H Ur Squamous Epith Cells 6 Urine Bacteria Moderate H Urine Yeast Moderate H Micro UA Comment Culture indicated Urine Culture Comments Culture indicated 05/02/18 05/02/18 05:48 05:48 WBC 10.2 RBC 3.17 L Hgb 8.7 L Hct 26.9 L MCV 84.8 MCH 27.5 MCHC 32.4 RDW 16.0 Plt Count 501 H MPV 6.4 L Neut % (Auto) 76.6 H Lymph % (Auto) 10.9 [place] % (Auto) 8.4 H Eos % (Auto) 3.3 Baso % (Auto) 0.8 Neut # (Auto) 7.8 H Lymph # (Auto) 1.1 [place] # (Auto) 0.9 Eos # (Auto) 0.3 Baso # (Auto) 0.1 WBC Differential . Differential Comment Auto diff final Sodium 143 Potassium 3.6 Chloride 110 H Carbon Dioxide 25.3 Anion Gap 8 BUN 16 Creatinine 0.77 Estimated GFR 73 L Random Glucose 108 H Calcium 7.9 L Urine Color Urine Clarity Urine pH Ur Specific [place] Urine Protein Urine Glucose (UA) Urine Ketones Urine Occult Blood Urine Nitrate Urine Bilirubin Urine Urobilinogen Ur Leukocyte Esterase Urine RBC Urine WBC Ur Squamous Epith Cells Urine Bacteria Urine Yeast Micro UA Comment Urine Culture Comments Microbiology 04/30/18 02:53 Aerobic Blood Culture - Preliminary Blood - Peripheral No growth in 1 day Anaerobic Blood Culture - Preliminary No growth in 1 day 04/29/18 23:59 Aerobic Blood Culture - Preliminary Blood - Peripheral No growth in 1 day Anaerobic Blood Culture - Preliminary No growth in 1 day 04/29/18 18:30 Urine Culture - Preliminary Clean Catch Urine gram negative rods Assessment and Plan - Plan POD#11 s/p L groin reconstruction, fem-BK pop; bypass patent by exam mental status changes significantly better 1. to rehab today 2. f/u next TUESDAY 05/09 in my clinic. We will reach out to with times. He is aware and agrees with plan 3. Will likely need amputation of toes once stronger. As it is dry gangrene, there is no urgency to this Discharge Planning: today to rehab
--- NOTE | 2018-05-02 09:08 | P.PNNEU ---
Subjective Subjective Comments: no acute events, no cp, no cal[place] Active Medications: Active Medications Acetaminophen (Tylenol) 650 mg PO Q6H PRN PRN Reason: Fever >101f Last Admin: 04/28/18 19:22 Dose: 650 mg Al Hydroxide/Mg Hydroxide (Milk Of Jonathan Liq) 30 ml PO Q12H PRN PRN Reason: Mild Constipation Albuterol (Albuterol Neb (Prn)) 2.5 mg NEB Q2HR NEB PRN PRN Reason: SHORTNESS OF BREATH/WHEEZING Last Admin: 04/28/18 23:58 Dose: 2.5 mg Aspirin (Aspirin) 325 mg PO DAILY [facility] Last Admin: 05/01/18 10:26 Dose: 325 mg Atorvastatin Calcium (Lipitor) 40 mg PO DAILY [facility] Last Admin: 05/01/18 10:26 Dose: 40 mg Bisacodyl (Dulcolax Supp) 10 mg RECTAL DAILY PRN PRN Reason: SEVERE CONSITIPATION Clopidogrel Bisulfate (Plavix) 75 mg PO DAILY [facility] Last Admin: 05/01/18 10:26 Dose: 75 mg Famotidine (Pepcid) 20 mg PO BID [facility] Last Admin: 05/01/18 20:19 Dose: 20 mg Fluticasone/Vilanterol (Breo Ellipta 200/25 Mcg Inh) 1 puff INH DAILY [facility] Last Admin: 05/01/18 10:28 Dose: Not Given Heparin Sodium (Porcine) (Heparin Inj) 5,000 units SQ Q12H [facility] Last Admin: 05/02/18 05:16 Dose: 5,000 units Hydralazine HCl (Apresoline Inj) 10 mg IV.PUSH Q1H PRN PRN Reason: SBP>160, DBP>90 Last Admin: 04/30/18 03:05 Dose: 10 mg Sodium Chloride (Ns Inj) 1,000 mls @ 70 mls/hr IV.CONT .[id number] [facility] Last Admin: 05/02/18 01:36 Dose: 70 mls/hr Piperacillin/Tazobactam/Dextrose (Zosyn 4.5 Gm Premix) 4.5 gm in 100 mls @ 12.5 mls/hr IV.SIG Q8H [facility] Last Admin: 05/02/18 03:42 Dose: 12.5 mls/hr Vancomycin HCl 1,000 mg/ (Sodium Chloride) 250 mls @ 250 mls/hr IV.SIG Q18H [facility] Last Infusion: 05/02/18 03:48 Dose: Infused Labetalol HCl (Trandate Inj) 10 mg IV.PUSH Q1H PRN PRN Reason: SBP > 160 DBP > 90 HR > 65 Last Admin: 04/22/18 13:31 Dose: 10 mg Lactulose (Lactulose Liq) 30 ml PO DAILY PRN PRN Reason: SEVERE CONSITIPATION Last Admin: 04/24/18 18:11 Dose: 30 ml Miscellaneous Information ([facility] Ordered Lab Info) 0 each OTHER ONCE ONE Stop: 05/03/18 11:46 Nitroglycerin (Nitro-Bid 2% Oint) 2 inch TOPICAL Q6HR PRN PRN Reason: Sbp>165, Dbp>90 Ondansetron HCl (Zofran Inj) 4 mg IV.PUSH Q6H PRN PRN Reason: NAUSEA OR VOMITING Oxybutynin Chloride (Ditropan) 5 mg PO BID [facility] Last Admin: 05/01/18 20:19 Dose: 5 mg Pharmacy Profile Note (Vancomycin Consult Pharmacy) 1 each OTHER UNSCH PRN PRN Reason: Pharmacy to dose Senna/Docusate Sodium (Airam-Colace) 1 tab PO BID [facility] Last Admin: 05/01/18 20:19 Dose: 1 tab Sennosides (Senokot) 17.2 mg PO Q12H PRN PRN Reason: Moderate Constipation Sodium Chloride (Ns Flush) 2 ml IV.FLUSH BID [facility] Last Admin: 05/01/18 20:19 Dose: 2 ml Sodium Chloride (Ns Flush) 2 ml IV.FLUSH PRN PRN PRN Reason: FLUSH AFTER USING IV ACCESS Whey (Beneprotein Powder) 1 packet G-TUBE TID [facility] Last Admin: 05/01/18 17:29 Dose: Not Given Allergies/Adverse Reactions: Allergies Allergy/AdvReac Type Severity Reaction Status Date / Time ciprofloxacin Allergy Rash Verified 04/16/18 07:47 levofloxacin Allergy Rash Verified 04/16/18 07:47 Sulfa (Sulfonamide Allergy Rash Verified 04/16/18 06:55 Antibiotics) tramadol AdvReac Hallucinati Verified 04/16/18 07:47 ons Review of Systems All other systems reviewed negative except as stated in HPI Physical Exam Vital signs: Vital Signs 05/01/18 09:47 05/01/18 10:00 05/01/18 11:00 Temperature 98.4 F Pulse Rate 80 82 Respiratory Rate 20 Blood Pressure 143/64 H Pulse Oximetry 96 93 L 05/01/18 12:00 05/01/18 13:00 05/01/18 14:00 Temperature Pulse Rate 80 82 80 Respiratory Rate Blood Pressure Pulse Oximetry 05/01/18 15:00 05/01/18 16:00 05/01/18 17:00 Temperature 98 F Pulse Rate 86 82 112 H Respiratory Rate 20 Blood Pressure 131/66 Pulse Oximetry 94 L 05/01/18 18:00 05/01/18 19:00 05/01/18 20:00 Temperature 97.6 F Pulse Rate 106 H 88 89 Respiratory Rate 18 Blood Pressure 147/65 H Pulse Oximetry 94 L 94 L 05/01/18 21:00 05/01/18 22:00 05/01/18 22:54 Temperature 99.2 F Pulse Rate 92 H 91 H 90 Respiratory Rate 18 Blood Pressure 133/57 L Pulse Oximetry 94 L 05/01/18 23:00 05/02/18 00:00 05/02/18 01:00 Temperature Pulse Rate 93 H 92 H 84 Respiratory Rate Blood Pressure Pulse Oximetry 05/02/18 02:00 05/02/18 03:00 05/02/18 04:00 Temperature 97.9 F Pulse Rate 76 88 76 Respiratory Rate 16 Blood Pressure 135/60 Pulse Oximetry 96 05/02/18 05:00 05/02/18 06:00 Temperature Pulse Rate 74 86 Respiratory Rate Blood Pressure Pulse Oximetry Intake & Output 05/01/18 05/02/18 05/02/18 18:59 06:59 18:59 Intake Total 830 / 830 1780 / 1780 Output Total 300 / 300 300 / 300 Balance 530 / 530 1480 / 1480 Intake: IV 350 / 350 1450 / 1450 NS Inj 1,000 ML @ 70 mls/hr IV. 1000 / 1000 CONT .[id number] [place] Rx#:[id number] Zosyn 4.5 GM Premix 4.5 gm In 100 / 100 200 / 200 100 ml @ 12.5 mls/hr IV.SIG Q8H [place] Rx#:[id number] Vancomycin Inj 1,000 MG In NS 250 / 250 250 / 250 Inj 250 ML @ 250 mls/hr IV.SIG Q18H [place] Rx#:[id number] Oral 480 / 480 330 / 330 Output: Urine 300 / 300 Urine Amount (Catheter) 300 / 300 Female External 300 / 300 Other: Date of Last Bowel Movement 04/29/18 04/29/18 # Bowel Movements 0 Narrative: GENERAL: in NAD, SKIN: Warm and dry. HEAD: Atraumatic. Normocephalic. ENT: No nasal bleeding or discharge. NECK: Trachea midline. No JVD. CARDIOVASCULAR: Regular rate and rhythm. RESPIRATORY: No accessory muscle use. GASTROINTESTINAL: Abdomen soft, non-tender, nondistended. MUSCULOSKELETAL: Dry gangrenous distal toe NEUROLOGICAL: Awake alert [place] 2. May," Recognizes spouse. Follows one-step motor crossing request. Visual block grossly full no facial asymmetry able to raise all 4 extremity gravity however mild generalized weakness PSYCHIATRIC: Calm, pleasant - Constitutional no acute distress - Routine HEENT Exam Head: Present: normocephalic Eye: Present: EOMI - Urinary Catheter Management Indwelling Urethral Catheter Cath placed during this visit: yes, but has since been removed by the nurse Reason for continuing: Not indwelling catheter Insertion date: 04/21/18 Insertion time: 12:20 Removal date: 04/22/18 Removal time: 06:00 Female External Cath placed during this visit: no Objective Laboratory Results - last 24 hr 04/29/18 05/01/18 05/01/18 18:30 09:07 09:07 WBC 10.8 RBC 3.04 L Hgb 8.5 L Hct 25.5 L MCV 83.8 MCH 27.8 MCHC 33.2 RDW 16.3 Plt Count 483 H MPV 6.5 L Neut % (Auto) 79.0 H Lymph % (Auto) 9.5 Gates % (Auto) 8.1 H Eos % (Auto) 2.9 Baso % (Auto) 0.5 Neut # (Auto) 8.5 H Lymph # (Auto) 1.0 Gates # (Auto) 0.9 Eos # (Auto) 0.3 Baso # (Auto) 0.1 WBC Differential . Differential Comment Auto diff final Sodium 141 Potassium 3.8 Chloride 108 H Carbon Dioxide 22.6 Anion Gap 10 BUN 15 Creatinine 0.72 Estimated GFR 79 L Random Glucose 81 Calcium 8.2 L Urine Color Yellow Urine Clarity Hazy H Urine pH 6.0 Ur Specific [place] 1.012 Urine Protein Negative Urine Glucose (UA) Negative Urine Ketones Negative Urine Occult Blood Moderate H Urine Nitrate Positive H Urine Bilirubin Negative Urine Urobilinogen Less than 2 Ur Leukocyte Esterase Small H Urine RBC 11 H Urine WBC 8 H Ur Squamous Epith Cells 6 Urine Bacteria Moderate H Urine Yeast Moderate H Micro UA Comment Culture indicated Urine Culture Comments Culture indicated 05/02/18 05/02/18 05:48 05:48 WBC 10.2 RBC 3.17 L Hgb 8.7 L Hct 26.9 L MCV 84.8 MCH 27.5 MCHC 32.4 RDW 16.0 Plt Count 501 H MPV 6.4 L Neut % (Auto) 76.6 H Lymph % (Auto) 10.9 Gates % (Auto) 8.4 H Eos % (Auto) 3.3 Baso % (Auto) 0.8 Neut # (Auto) 7.8 H Lymph # (Auto) 1.1 Gates # (Auto) 0.9 Eos # (Auto) 0.3 Baso # (Auto) 0.1 WBC Differential . Differential Comment Auto diff final Sodium 143 Potassium 3.6 Chloride 110 H Carbon Dioxide 25.3 Anion Gap 8 BUN 16 Creatinine 0.77 Estimated GFR 73 L Random Glucose 108 H Calcium 7.9 L Urine Color Urine Clarity Urine pH Ur Specific Ser[place]ina Urine Protein Urine Glucose (UA) Urine Ketones Urine Occult Blood Urine Nitrate Urine Bilirubin Urine Urobilinogen Ur Leukocyte Esterase Urine RBC Urine WBC Ur Squamous Epith Cells Urine Bacteria Urine Yeast Micro UA Comment Urine Culture Comments Microbiology 04/30/18 02:53 Aerobic Blood Culture - Preliminary Blood - Peripheral No growth in 1 day Anaerobic Blood Culture - Preliminary No growth in 1 day 04/29/18 23:59 Aerobic Blood Culture - Preliminary Blood - Peripheral No growth in 1 day Anaerobic Blood Culture - Preliminary No growth in 1 day 04/29/18 18:30 Urine Culture - Preliminary Clean Catch Urine gram negative rods Review/Management - Diagnosis (1) Metabolic encephalopathy Code(s): G93.41 - Metabolic encephalopathy Status: Acute Current Visit: Yes (2) PAD (peripheral artery disease) Code(s): I73.9 - Peripheral vascular disease, unspecified Status: Chronic Current Visit: No (3) 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 Code(s): I96 - Gangrene, not elsewhere classified; I70.202 - Unspecified atherosclerosis of [place] arteries of extremities, left leg Status: Acute Current Visit: Yes (4) COPD (chronic obstructive pulmonary disease) Code(s): J44.9 - Chronic obstructive pulmonary disease, unspecified Status: Chronic Current Visit: Yes (5) Peripheral vascular disease Code(s): I73.9 - Peripheral vascular disease, unspecified Status: Suspected Current Visit: Yes (6) Unstable gait Code(s): R26.81 - Unsteadiness on feet Status: Chronic Current Visit: Yes (7) Hyperlipidemia Code(s): E78.5 - Hyperlipidemia, unspecified Status: Chronic Current Visit: Yes (8) Essential hypertension Code(s): I10 - Essential (primary) hypertension Status: Chronic Current Visit: Yes (9) Carotid artery stenosis Code(s): I65.29 - Occlusion and stenosis of unspecified carotid artery Status : Chronic Current Visit: Yes (10) Superficial femoral artery occlusion Code(s): I70.209 - Unspecified atherosclerosis of [place] arteries of extremities , unspecified extremity Status: Acute Current Visit: Yes (11) Septic encephalopathy Code(s): G93.41 - Metabolic encephalopathy Status: Acute Current Visit: Yes - Review/Management Plan: Opiate induced versus poor p.o. intake, emerging aspiration pneumonia/septic encephalopathy improved Recommendation Mental status significantly improved more alert. better this am. ox 2-3. more spontaneous Nutritional support Therapy Plans for rehab can f/u outpatient as needed for further cognitive assessment Discussed with patient and spouse (4) COPD (chronic obstructive pulmonary disease) Qualifiers: COPD type: unspecified COPD Qualified Code(s): J44.9 - Chronic obstructive pulmonary disease, unspecified (7) Hyperlipidemia Qualifiers: Hyperlipidemia type: unspecified Qualified Code(s): E78.5 - Hyperlipidemia, unspecified
[2018-05-02] MEDS: Famotidine 20 MG Tablet PO SCH (09:40)
[2018-05-02] MEDS: Aspirin 325 MG Tablet PO SCH (09:40)
[2018-05-02] MEDS: Senna/Docusate Sodium 8.6/50 MG Tablet PO SCH (09:40)
[2018-05-02] MEDS: Beneprotein Powder Packet G-TUBE SCH ×2 (09:41→12:00)
--- NOTE | 2018-05-02 09:58 | P.PNPAL ---
Received call from patient's PCP, Dr. Sinclair. Informed me he just got the message regarding Mr. King's request. Informed him per notes appears she is being discharged today to SNF. He states if there is anything he can assist with just give him a call. Palliative care will continue to be available throughout hospitalization.
[2018-05-02 12:06] VITALS: RESP 20
[2018-05-02 12:12] VITALS: PULSE 89
[2018-05-02 12:18] VITALS: BP 150/71; TEMP 98; O2SAT 98
--- NOTE | 2018-05-02 12:49 | P.PNPAL ---
Reason for Visit Reason for visit: a. To assist with evaluation and management of symptoms including: pain, debility, confusion b. To assist medical decision maker(s) with: better understanding of current medical conditions; weighing benefits/burdens of medical treatment options; making medical treatment decisions. Subjective Subjective/Interval History: Mrs. 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 Patient underwent fem-pop bypass with Dr. Hansen on 04/21. Clinical course complicated by progressive debility, altered mental status and lethargy. Stroke workup negative on 04/29. Patient remains at a very high risk for further complications, continued decline and . Palliative care follow-up for further clarifications of goals of care, family support. Patient seen in her room. She was resting in bed in no acute distress. Patient awake and alert to self, appears confused as to place and situation. Verbal, not always able to communicate needs. Denies pain, shortness of breath or abdominal discomfort. at bedside feeding her high screen. Patient much more alert since yesterday, no swallowing difficulty noted. Speech therapy following. Laboratory workup today with stable hemoglobin at 8.7. She remains afebrile, stable hemodynamically.Tolerating room air with oxygen saturation in the mid 90s. Met with patient's Wesley, he reports that [facility] has approved patient for rehabilitation. He verbalized understanding that patient's debilitated state is likely her new baseline given multiple chronic ongoing comorbidities, acute events and prolonged hospitalization. However, he tells me that he is hopeful that she will regain some physical strength. Patient verbalizing being eager to participate in rehabilitation. She is to follow-up with vascular surgeon as outpatient. Dr. Jack present during part of my visit. Patient's Wesley verbalizing appreciation for palliative care follow-ups and assistance. Advance Directives Living Will: Never completed Health Care Surrogate: Never completed Durable Power of Social Worker Delinquency Prevention: Never completed Objective Vital Signs: Vital Signs 05/01/18 13:00 05/01/18 14:00 05/01/18 15:00 Temperature 98 F Pulse Rate 82 80 86 Respiratory Rate 20 Blood Pressure 131/66 Pulse Oximetry 94 L 05/01/18 16:00 05/01/18 17:00 05/01/18 18:00 Temperature Pulse Rate 82 112 H 106 H Respiratory Rate Blood Pressure Pulse Oximetry 05/01/18 19:00 05/01/18 20:00 05/01/18 21:00 Temperature 97.6 F Pulse Rate 88 89 92 H Respiratory Rate 18 Blood Pressure 147/65 H Pulse Oximetry 94 L 94 L 05/01/18 22:00 05/01/18 22:54 05/01/18 23:00 Temperature 99.2 F Pulse Rate 91 H 90 93 H Respiratory Rate 18 Blood Pressure 133/57 L Pulse Oximetry 94 L 05/02/18 00:00 05/02/18 01:00 05/02/18 02:00 Temperature Pulse Rate 92 H 84 76 Respiratory Rate Blood Pressure Pulse Oximetry 05/02/18 03:00 05/02/18 04:00 05/02/18 05:00 Temperature 97.9 F Pulse Rate 88 76 74 Respiratory Rate 16 Blood Pressure 135/60 Pulse Oximetry 96 05/02/18 06:00 05/02/18 07:00 05/02/18 08:00 Temperature 98.2 F Pulse Rate 86 76 84 Respiratory Rate 20 Blood Pressure 163/69 H Pulse Oximetry 96 96 05/02/18 09:00 05/02/18 10:00 05/02/18 11:00 Temperature 98 F Pulse Rate 88 92 H 86 Respiratory Rate 20 Blood Pressure 150/71 H Pulse Oximetry 98 05/02/18 12:00 Temperature Pulse Rate 89 Respiratory Rate Blood Pressure Pulse Oximetry Intake & Output 05/01/18 05/02/18 05/02/18 18:59 06:59 18:59 Intake Total 830 / 830 1780 / 1780 Output Total 300 / 300 300 / 300 Balance 530 / 530 1480 / 1480 Intake: IV 350 / 350 1450 / 1450 NS Inj 1,000 ML @ 70 mls/hr IV. 1000 / 1000 CONT .[id number] [place] Rx#:[id number] Zosyn 4.5 GM Premix 4.5 gm In 100 / 100 200 / 200 100 ml @ 12.5 mls/hr IV.SIG Q8H [place] Rx#:[id number] Vancomycin Inj 1,000 MG In NS 250 / 250 250 / 250 Inj 250 ML @ 250 mls/hr IV.SIG Q18H [place] Rx#:[id number] Oral 480 / 480 330 / 330 Output: Urine 300 / 300 Urine Amount (Catheter) 300 / 300 Female External 300 / 300 Other: Date of Last Bowel Movement 04/29/18 04/29/18 05/02/18 # Bowel Movements 0 Physical Exam: CONSTITUTIONAL/GENERAL: Ill-looking, elderly woman resting in bed in no acute distress. TUBES/LINES/DRAINS: PIV. SKIN: No jaundice, rashes, or lesions. +Ecchymoses on upper extremities. Surgical incision to left anterior leg, large areas of ecchymosis to left leg. Necrotic toes to left. HEAD: Atraumatic. Normocephalic. EYES: +anisocoria right pupil < left pupil, right side gaze preference. Extraocular motions intact. No scleral icterus. Fundi not examined. ENT: Hearing grossly normal. Nose without bleeding or purulent drainage. NECK: Trachea midline. Supple, nontender. CARDIOVASCULAR: RRR without murmurs, gallops, or rubs. No JVD. Peripheral pulses symmetric. RESPIRATORY/CHEST: Symmetric, unlabored respirations. Breath sounds diminished, clear bilaterally. GASTROINTESTINAL: Abdomen soft, non-tender, nondistended. No guarding. Bowel sounds present. GENITOURINARY: Without palpable bladder distension. MUSCULOSKELETAL: Extremities without clubbing, cyanosis, or edema. absent left great toe & 2nd toe, 3rd & 4th toe necrotic. NEUROLOGICAL: Alert to self, confused as to place and situation. Following some simple commands. PSYCHIATRIC: Calm Diagnostic Tests Laboratory: Laboratory Results - last 72 hr 04/29/18 04/29/18 04/29/18 14:09 14:42 14:42 WBC 16.5 H RBC 3.64 L Hgb 9.9 L POC Hgb (Calc) Hct 30.6 L POC Hct MCV 84.1 MCH 27.2 MCHC 32.4 RDW 16.2 Plt Count 621 H MPV 6.6 L Neut % (Auto) 77.9 H Lymph % (Auto) 10.3 [place] % (Auto) 9.9 H Eos % (Auto) 1.1 Baso % (Auto) 0.8 Neut # (Auto) 12.8 H Lymph # (Auto) 1.7 [place] # (Auto) 1.6 H Eos # (Auto) 0.2 Baso # (Auto) 0.1 WBC Differential . Differential Comment Auto diff final ESR PT 10.7 INR 1.1 APTT 25.8 Fibrinogen 675 H POC Sodium Sodium POC Potassium Potassium POC Chloride Chloride Carbon Dioxide Anion Gap POC BUN BUN Creatinine POC Creatinine Estimated GFR POC Glucose 133 H Random Glucose Lactic Acid Calcium Ammonia Total Creatine Kinase Troponin I C-Reactive Protein Urine Color Urine Clarity Urine pH Ur Specific [place] Urine Protein Urine Glucose (UA) Urine Ketones Urine Occult Blood Urine Nitrate Urine Bilirubin Urine Urobilinogen Ur Leukocyte Esterase Urine RBC Urine WBC Ur Squamous Epith Cells Urine Bacteria Urine Yeast Micro UA Comment Ur Microscopic Review Urine Culture Comments Blood Type Antibody Screen 04/29/18 04/29/18 04/29/18 14:42 14:42 18:30 WBC RBC Hgb POC Hgb (Calc) 10.5 L Hct POC Hct 31.0 L MCV MCH MCHC RDW Plt Count MPV Neut % (Auto) Lymph % (Auto) [place] % (Auto) Eos % (Auto) Baso % (Auto) Neut # (Auto) Lymph # (Auto) [place] # (Auto) Eos # (Auto) Baso # (Auto) WBC Differential Differential Comment ESR PT INR APTT Fibrinogen POC Sodium 136 L Sodium 136 POC Potassium 4.1 Potassium 4.1 POC Chloride 99 L Chloride 100 Carbon Dioxide 26.8 Anion Gap 9 POC BUN 12 BUN 14 Creatinine 0.82 POC Creatinine 0.8 Estimated GFR 68 L POC Glucose 114 H Random Glucose 112 H Lactic Acid Calcium 8.7 Ammonia Total Creatine Kinase 137 Troponin I Less than 0.02 L C-Reactive Protein Urine Color Yellow Urine Clarity Hazy H Urine pH 6.0 Ur Specific [place] 1.012 Urine Protein Negative Urine Glucose (UA) Negative Urine Ketones Negative Urine Occult Blood Moderate H Urine Nitrate Positive H Urine Bilirubin Negative Urine Urobilinogen Less than 2 Ur Leukocyte Esterase Small H Urine RBC 11 H Urine WBC 8 H Ur Squamous Epith Cells 6 Urine Bacteria Moderate H Urine Yeast Moderate H Micro UA Comment Culture indicated Ur Microscopic Review Not Reportable Urine Culture Comments Culture indicated Blood Type A Positive Antibody Screen Negative 04/29/18 04/30/18 04/30/18 23:59 02:53 02:53 WBC 12.7 H RBC 3.21 L Hgb 8.8 L POC Hgb (Calc) Hct 26.9 L POC Hct MCV 83.6 MCH 27.3 MCHC 32.6 RDW 16.0 Plt Count 557 H MPV 6.5 L Neut % (Auto) 73.7 H Lymph % (Auto) 10.8 [place] % (Auto) 10.5 H Eos % (Auto) 4.4 H Baso % (Auto) 0.6 Neut # (Auto) 9.4 H Lymph # (Auto) 1.4 [place] # (Auto) 1.3 H Eos # (Auto) 0.6 H Baso # (Auto) 0.1 WBC Differential . Differential Comment Auto diff final ESR PT INR APTT Fibrinogen POC Sodium Sodium 138 POC Potassium Potassium 4.1 POC Chloride Chloride 102 Carbon Dioxide 27.5 Anion Gap 9 POC BUN BUN 15 Creatinine 0.83 POC Creatinine Estimated GFR 67 L POC Glucose Random Glucose 100 Lactic Acid 1.0 Calcium 8.4 L Ammonia Total Creatine Kinase Troponin I C-Reactive Protein Urine Color Urine Clarity Urine pH Ur Specific [place] Urine Protein Urine Glucose (UA) Urine Ketones Urine Occult Blood Urine Nitrate Urine Bilirubin Urine Urobilinogen Ur Leukocyte Esterase Urine RBC Urine WBC Ur Squamous Epith Cells Urine Bacteria Urine Yeast Micro UA Comment Ur Microscopic Review Urine Culture Comments Blood Type Antibody Screen 04/30/18 04/30/18 04/30/18 02:53 02:53 19:07 WBC RBC Hgb POC Hgb (Calc) Hct POC Hct MCV MCH MCHC RDW Plt Count MPV Neut % (Auto) Lymph % (Auto) [place] % (Auto) Eos % (Auto) Baso % (Auto) Neut # (Auto) Lymph # (Auto) [place] # (Auto) Eos # (Auto) Baso # (Auto) WBC Differential Differential Comment ESR 99 H PT INR APTT Fibrinogen POC Sodium Sodium POC Potassium Potassium POC Chloride Chloride Carbon Dioxide Anion Gap POC BUN BUN Creatinine POC Creatinine Estimated GFR POC Glucose Random Glucose Lactic Acid Calcium Ammonia 22 Total Creatine Kinase Troponin I C-Reactive Protein 5.70 H Urine Color Urine Clarity Urine pH Ur Specific [place] Urine Protein Urine Glucose (UA) Urine Ketones Urine Occult Blood Urine Nitrate Urine Bilirubin Urine Urobilinogen Ur Leukocyte Esterase Urine RBC Urine WBC Ur Squamous Epith Cells Urine Bacteria Urine Yeast Micro UA Comment Ur Microscopic Review Urine Culture Comments Blood Type Antibody Screen 05/01/18 05/01/18 05/02/18 09:07 09:07 05:48 WBC 10.8 10.2 RBC 3.04 L 3.17 L Hgb 8.5 L 8.7 L POC Hgb (Calc) Hct 25.5 L 26.9 L POC Hct MCV 83.8 84.8 MCH 27.8 27.5 MCHC 33.2 32.4 RDW 16.3 16.0 Plt Count 483 H 501 H MPV 6.5 L 6.4 L Neut % (Auto) 79.0 H 76.6 H Lymph % (Auto) 9.5 10.9 [place] % (Auto) 8.1 H 8.4 H Eos % (Auto) 2.9 3.3 Baso % (Auto) 0.5 0.8 Neut # (Auto) 8.5 H 7.8 H Lymph # (Auto) 1.0 1.1 [place] # (Auto) 0.9 0.9 Eos # (Auto) 0.3 0.3 Baso # (Auto) 0.1 0.1 WBC Differential . . Differential Comment Auto diff final Auto diff final ESR PT INR APTT Fibrinogen POC Sodium Sodium 141 POC Potassium Potassium 3.8 POC Chloride Chloride 108 H Carbon Dioxide 22.6 Anion Gap 10 POC BUN BUN 15 Creatinine 0.72 POC Creatinine Estimated GFR 79 L POC Glucose Random Glucose 81 Lactic Acid Calcium 8.2 L Ammonia Total Creatine Kinase Troponin I C-Reactive Protein Urine Color Urine Clarity Urine pH Ur Specific [place] Urine Protein Urine Glucose (UA) Urine Ketones Urine Occult Blood Urine Nitrate Urine Bilirubin Urine Urobilinogen Ur Leukocyte Esterase Urine RBC Urine WBC Ur Squamous Epith Cells Urine Bacteria Urine Yeast Micro UA Comment Ur Microscopic Review Urine Culture Comments Blood Type Antibody Screen 05/02/18 05:48 WBC RBC Hgb POC Hgb (Calc) Hct POC Hct MCV MCH MCHC RDW Plt Count MPV Neut % (Auto) Lymph % (Auto) [place] % (Auto) Eos % (Auto) Baso % (Auto) Neut # (Auto) Lymph # (Auto) [place] # (Auto) Eos # (Auto) Baso # (Auto) WBC Differential Differential Comment ESR PT INR APTT Fibrinogen POC Sodium Sodium 143 POC Potassium Potassium 3.6 POC Chloride Chloride 110 H Carbon Dioxide 25.3 Anion Gap 8 POC BUN BUN 16 Creatinine 0.77 POC Creatinine Estimated GFR 73 L POC Glucose Random Glucose 108 H Lactic Acid Calcium 7.9 L Ammonia Total Creatine Kinase Troponin I C-Reactive Protein Urine Color Urine Clarity Urine pH Ur Specific [place] Urine Protein Urine Glucose (UA) Urine Ketones Urine Occult Blood Urine Nitrate Urine Bilirubin Urine Urobilinogen Ur Leukocyte Esterase Urine RBC Urine WBC Ur Squamous Epith Cells Urine Bacteria Urine Yeast Micro UA Comment Ur Microscopic Review Urine Culture Comments Blood Type Antibody Screen Result Diagrams: 05/02/18 05:48 05/02/18 05:48 Microbiology: Microbiology 04/30/18 02:53 Aerobic Blood Culture - Preliminary Blood - Peripheral No growth in 2 days Anaerobic Blood Culture - Preliminary No growth in 2 days 04/29/18 23:59 Aerobic Blood Culture - Preliminary Blood - Peripheral No growth in 2 days Anaerobic Blood Culture - Preliminary No growth in 2 days 04/29/18 18:30 Urine Culture - Preliminary Clean Catch Urine Pseudomonas aeruginosa Procedures: 04/21 fem pop bypass Assessment and Plan - Disease Oriented Problem List (1) PAD (peripheral artery disease) (2) 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. She and her moved to [place] in 1978. They have no children. She used to work for a [employer] company and then subsequently worked for an [employer] company. Spiritual: pastoral care avail Legal: Patient is not capacitated to make medical decisions and it is unclear if she will regain that capacity. In the absence of a designated healthcare surrogate, per [facility] proxy medical decision making falls to her . Ethical issues impacting care:none Important Contacts: Wesley cell [phone], home [phone] Prognosis: Mrs. 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 Patient underwent fem-pop bypass with Dr. Hansen on 04/21. Clinical course complicated by progressive debility, altered mental status and lethargy. Stroke workup negative on 04/29. Patient remains at a very high risk for further complications, continued decline and . Code Status: Full Code Plan: - LEGAL DECISION MAKER - As per psychiatry, patient is not capacitated to make medical decisions given delirium. Unclear if she will regain that capacity. In the absence of a designated healthcare surrogate, per [place] [facility] proxy medical decision making falls to her Wesley Rushing. - CODE STATUS- full code - GOALS - Goals aggressive to include full code. Plan is for patient to discharged today to [facility] for physical strengthening. verbalized understanding that patient's current debilitated state is likely her new baseline given multiple chronic ongoing comorbidities, acute events and prolonged hospitalization. However, tells me that he is hopeful that patient will regain some physical strength. - SYMPTOMS - == Pain - sites include left groin, left foot, back secondary to recent surgical intervention, gangrene, prolonged hospitalization. Opioids has been discontinued as per 's request. Last opioid dose 04/28. Tylenol available as needed. == Debility - multifactorial, 2/ absent toes left foot. also with recent onset weakness and confusion. Negative stroke workup, currently being treated for acute infection/UTI. PT/OT following, PT at rehab recommended. Patient to be discharged to rehabilitation facility today. == Confusion - multifactorial, as above. Neurology following. EEG 04/29 negative for seizure activity. Psychiatry consulted today, patient was found delirious. - d/w RN, Dr. Jack. - Palliative care will continue to follow during hospital course as condition evolves, to assist patient/decision-maker with understanding of medical conditions, weighing benefits/burdens of treatment options, for clarification of goals of treatment. Additionally will assist with any symptoms of palliative concern. Time Spent Total Floor Time (mins): 26 (Total time to include review of medical records, physical exam, goals of care conversation with patient, case discussion with attending) >50% Time in Counseling or Coordination of Care: Yes (Total visit time = 26 minutes; > 50% spent counseling/coordinating care) Attestation Attestation: To help prompt me to consider important information that might be impacting today's encounter and assessment, information from prior notes written by myself or my colleagues may have been "brought forward" into today's note. My signature on this note, however, is an attestation that I personally performed the exam, history, and/or decision-making noted today, and, unless otherwise indicated, the interactions with patient, family, and staff as well as the review of records all occurred today. I also attest that the listed assessment and stated plan reflect my best clinical judgment today based on the combination of historical information, prior notes, and today's exam/ interactions. When time spent is documented, it refers only to time spent today by the signer, or if indicated, combined time spent today by collaborating physician/nurse practitioner.
[2018-05-03] MEDS ORDERED: Pharmacy Ordered Lab Info OTHER ONE (11:45)
== END 2018-05-02 12:55 | DRG 252 ==
LOC: HIMC 17:09 → HCVI 04-21 15:58 → HCIS 04-23 11:29
PROVIDERS: ADMIT Hospitalist; ATTEND Hospitalist
PROC: [UNRECOGNIZED PROCEDURE] (2018-04-21 12:04)
DX: E88.09 Other disorders of plasma-protein metabolism, not elsewhere classified; M54.5 Low back pain; Z79.02 Long term (current) use of antithrombotics/antiplatelets; Z96.652 Presence of left artificial knee joint; E61.1 Iron deficiency; G89.29 Other chronic pain; Z79.899 Other long term (current) drug therapy; I99.8 Other disorder of circulatory system; Z89.422 Acquired absence of other left toe(s); R32 Unspecified urinary incontinence; I70.212 Atherosclerosis of native arteries of extremities with intermittent claudication, left leg; I25.10 Atherosclerotic heart disease of native coronary artery without angina pectoris; M79.662 Pain in left lower leg; Z79.51 Long term (current) use of inhaled steroids; R13.10 Dysphagia, unspecified; Z87.891 Personal history of nicotine dependence; I65.29 Occlusion and stenosis of unspecified carotid artery; R44.1 Visual hallucinations; E78.5 Hyperlipidemia, unspecified; G93.41 Metabolic encephalopathy; I10 Essential (primary) hypertension; Z88.8 Allergy status to other drugs, medicaments and biological substances; Z51.5 Encounter for palliative care; I70.92 Chronic total occlusion of artery of the extremities; I70.262 Atherosclerosis of native arteries of extremities with gangrene, left leg; Z82.49 Family history of ischemic heart disease and other diseases of the circulatory system; R26.81 Unsteadiness on feet; Z88.2 Allergy status to sulfonamides; J44.9 Chronic obstructive pulmonary disease, unspecified; N39.0 Urinary tract infection, site not specified; Z90.49 Acquired absence of other specified parts of digestive tract; Z82.0 Family history of epilepsy and other diseases of the nervous system
CPT/HCPCS: 36246; 70450; 71010; 71045; 73720; 75625; 75710; 76937; 80048; 80053; 80202; 81001; 82140; 82435; 82550; 82552; 82565; 82947; 82948; 82962; 83605; 83735; 84100; 84132; 84295; 84484; 84520; 85025; 85027; 85384; 85610; 85651; 85652; 85730; 86140; 86850; 86900; 86901; 87040; 87077; 87086; 87186; 87641; 92610; 93005; 94150; 94640; 94664; 94665; 95819; 96125; 97110; 97163; 97166; 97167; 97530; 97535; 99152; A9585; C1757; C1769; C1893; G0195; J0131; J0360; J0690; J1100; J1644; J1940; J2250; J2270; J2370; J2405; J2543; J2704; J2710; J2720; J3010; J3370; J7030; J7040; J7050; L3250; Q4145; Q9967